=== PATIENT | female | born 1970 | race Caucasian/White ===

== ENCOUNTER 2017-10-26 01:33 | Emergency (ER) | payer SELFPAY ==
[~2017-10-26] VITALS: Ht 177.8 cm; Wt 127.0 kg
== END 2017-10-26 02:12 | disposition home or self-care (01) ==
LOC: FSED 01:33
DX: M54.6 Pain in thoracic spine (principal); M54.5 Low back pain; S39.012A Strain of muscle, fascia and tendon of lower back, initial encounter
CPT/HCPCS: 99282

== ENCOUNTER 2019-02-20 04:08 | Emergency (ER) | payer OTHER ==
[~2019-02-20] VITALS: Ht 177.8 cm; Wt 136.1 kg
--- OUTSIDE RECORDS SUMMARY | 2019-02-20 04:12 | XMS REPORT ---
Author Author [facility] Address Unknown Phone Unavailable Care Team Providers Care Slot Floor Person Name Role Phone Unavailable Unavailable Payers Payer Name Policy Type Policy Number Effective Date Expiration Date Problems This patient has no known problems. Allergies, Adverse Reactions, Alerts Allergy Name Allergy Type Status Severity Reaction(s) Onset Date Inactive Date Treating Clinician Comments ciprofloxacin DA Active U 2019-02-19 00:00:00 fentanyl DA Active [place] 2018-12-15 00:00:00 ketorolac DA Active [place] 2018-12-15 00:00:00 tizanidine DA Active PA 2018-12-15 00:00:00 tizanidine DA Active PA 2018-11-22 00:00:00 fentanyl DA Active [place] 2018-11-06 00:00:00 ketorolac DA Active [place] 2018-11-06 00:00:00 fentanyl DA Active [place] 2018-09-22 00:00:00 ketorolac DA Active [place] 2018-09-22 00:00:00 fentanyl DA Active [place] 2018-08-02 00:00:00 ketorolac DA Active [place] 2018-08-02 00:00:00 No Known Allergies DA Active U 2018-05-22 00:00:00 fentanyl DA Active [place] 2018-05-12 00:00:00 hydromorphone DA Active 2017-09-28 00:00:00 ketorolac DA Active [place] 2017-09-28 00:00:00 Medications This patient has no known medications. Encounters Start Date/Time End Date/Time Encounter Type Admission Type Attending [facility] Facility Care Department Encounter ID 2018-06-15 00:00:00 2018-06-15 00:00:00 Outpatient [facility] [id number] 2018-05-01 06:03:04 2018-05-01 06:03:04 Emergency [facility] [id number] Results Test Description Test Time Test Comments Text Results Atomic Results Result Comments - CT L-SPINE W/O CONTRAST 2019-02-19 12:17:00 Name: SAMIR FITZPATRICK [facility] : 1970 Age/S: 48 / F [address] [facility] Unit #: [id number] Loc: [place] [address] Phys: Zoë Duarte MD Acct: [id number] Dis Date: Status: REG ER PHONE #: [phone] Exam Date: 02/19/2019 1122 FAX #: [phone] Reason: fall, back and neck pain EXAMS: CPT CODE: [id number] CT L-SPINE W/O CONTRAST 03602 HISTORY: fall, back and neck pain TECHNIQUE: 2.[address] of the lumbar spine with coronal and sagittal reformatting. Automated exposure control for dose reduction. COMPARISON: CT of the abdomen and pelvis January 30, 2019 which contains the lumbar spine. There is also an MRI of the lumbar spine November 22, 2018. FINDINGS: No acute fracture. No subluxation. Vertebral body alignment is satisfactory. Small vertebral body osteoph ytes are seen in the visualized thoracic spine and throughout the lumbar spine. Vertebral body heights are preserved. Intervertebral disc heights are preserved. No prevertebral or paraspinal soft tissue abnormality. T12-L1: Facet degeneration and vertebral body osteophytes cause mild to moderate narrowing of the central canal and moderate left-sided foraminal narrowing and mild right-sided foraminal narrowing. L1-L2: Facet degeneration and vertebral body osteophytes with disc bulge causes moderate bilateral foraminal narrowing. L2-L3: Facet degeneration and vertebral body osteophytes with disc bulge causes moderate to severe right-sided foraminal narrowing and moderate left-sided foraminal narrowing. There is also moderate central canal narrowing. L3-L4: Facet degeneration and vertebral body osteophytes causes severe foraminal narrowing bilaterally and moderate to severe central canal narrowing. L4-L5: Facet degeneration and vertebral body osteophytes cause severe bilateral foraminal narrowing and moderate central canal narrowing. L5-S1: No disc bulge or protrusion. No cental canal or foraminal stenosis IMPRESSION: PAGE 1 Signed Report (CONTINUED) Name: SAMIR FITZPATRICK [email or web address] [facility] : 1970 Age/S: 48 / F [address] [place] [address] Unit #: [id number] Loc: [place] [address] Phys: Zoë Duarte MD Acct: [id number] Dis Date: Status: REG ER PHONE #: [phone] Exam Date: 02/19/2019 1122 FAX #: [phone] Reason: fall, back and neck pain EXAMS: CPT CODE: [id number] CT L-SPINE W/O CONTRAST 42095 <Continued> Degenerative changes throughout the lumbar spine cause multiple levels of foraminal narrowing as described above. Correlate with physical exam for radiculopathy. at 1217 Reported and signed by: Hua Dow MD CC: Caleb Bah M.D.; Zoë Duarte MD Technologist:Kelly Ocoha CTDI: DLP: Trnscb Date/Time: 02/19/2019 (1217) [email or web address] Orig Print D/T: S: 02/19/2019 (1221) PAGE 2 Signed Report - CT C-SPINE W/O CONTRAST 2019-02-19 11:54:00 Name: SAMIR FITZPATRICK [email or web address] [facility] : 1970 Age/S: 48 / F [address] [place] [address] Unit #: [id number] Loc: [place] [address] Phys: Zoë Duarte MD Acct: [id number] Dis Date: Status: REG ER PHONE #: [phone] Exam Date: 02/19/2019 1118 FAX #: [phone] Reason: fall, back and neck pain EXAMS: CPT CODE: [id number] CT C-SPINE W/O CONTRAST 22436 HISTORY: fall, back and neck pain, possible LOC TECHNIQUE: Noncontrast 2.[address] of the head and cervical spine. Examination acquired within 24 hours of arrival. Automated exposure control for dose reduction. COMPARISON: None FINDINGS: No lacerations or contusions of the scalp or facial soft tissues. Calvarium and skull base are intact. No acute hemorrhage. No intracranial mass, mass effect, or midline shift. No effacement of the sulci or lau-white matter interface. No cortical atrophy. No signs of white matter small-vessel disease. No hydrocephalus.. No extra-axial fluid collection. Visualized paranasal sinuses are clear. Mastoid air cells and middle ear cavities are clear. Orbital contents are unremarkable. No acute fracture of the cervical spine. No subluxation. Degenerative changes are seen throughout the facet joints of the cervical spine. There has been prior fusion of C5-C6 by anterior approach. No evidence of hardware failure. There is severe left-sided foraminal narrowing at C2-C3. There is severe bilateral foraminal narrowing at C3-C4. There is severe left-sided foraminal narrowing at C4-C5. There is moderate right-sided and severe left-sided foraminal narrowing at C5-C6. There is severe left-sided foraminal narrowing at C6-C7. There is height loss of the C3-C4 disc and also the C6-C7 disc. No prevertebral or paraspinal soft tissue abnormality. Lung apices are clear. IMPRESSION: Negative CT head. No acute fracture or malalignment of the cervical spine. There are degenerative changes throughout the cervical spine with multiple areas of severe foraminal narrowing as described above. PAGE 1 Signed Report (CONTINUED) Name: SAMIR FITZPATRICK [facility] : 1970 Age/S: 48 / F [address] [facility] Unit #: [id number] Loc: [place] [address] Phys: Zoë Duarte MD Acct: [id number] Dis Date: Status: REG ER PHONE #: [phone] Exam Date: 02/19/2019 1118 FAX #: [phone] Reason: fall, back and neck pain EXAMS: CPT CODE: [id number] CT C-SPINE W/O CONTRAST 67885 <Continued> Correlate clinically for adenopathy. Prior anterior fusion of C5-C6 with no evidence of hardware loosening. Location: [facility] at 1154 Reported and signed by: Hua Dow MD CC: Caleb Bah M.D.; Zoë Duarte MD Technologist:Kelly Ochoa CTDI: DLP: Trnscb Date/Time: 02/19/2019 (1154) [email or web address] Orig Print D/T: S: 02/19/2019 (1302) PAGE 2 Signed Report - CT HEAD/BRAIN W/O CONT 2019-02-19 11:54:00 [facility] 1970 Age/S: 48 / F [address] [facility] Unit #: [id number] Loc: [place] [address] Phys: Zoë Duarte MD Acct: [id number] Dis Date: Status: REG ER PHONE #: [phone] Exam Date: 02/19/2019 1107 FAX #: [phone] Reason: fall, back and neck pain, possible LOC EXAMS: CPT CODE: [id number] CT HEAD/BRAIN W/O CONT 37121 HISTORY: fall, back and neck pain, possible LOC TECHNIQUE: Noncontrast 2.[address] of the head and cervical spine. Examination acquired within 24 hours of arrival. Automated exposure control for dose reduction. COMPARISON: None FINDINGS: No lacerations or contusions of the scalp or facial soft tissues. Calvarium and skull base are intact. No acute hemorrhage. No intracranial mass, mass effect, or midline shift. No effacement of the sulci or lau-white matter interface. No cortical atrophy. No signs of white matter small-vessel disease. No hydrocephalus.. No extra-axial fluid collection. Visualized paranasal sinuses are clear. Mastoid air cells and middle ear cavities are clear. Orbital contents are unremarkable. No acute fracture of the cervical spine. No subluxation. Degenerative changes are seen throughout the facet joints of the cervical spine. There has been prior fusion of C5-C6 by anterior approach. No evidence of hardware failure. There is severe left-sided foraminal narrowing at C2-C3. There is severe bilateral foraminal narrowing at C3-C4. There is severe left-sided foraminal narrowing at C4-C5. There is moderate right-sided and severe left-sided foraminal narrowing at C5-C6. There is severe left-sided foraminal narrowing at C6-C7. There is height loss of the C3-C4 disc and also the C6-C7 disc. No prevertebral or paraspinal soft tissue abnormality. Lung apices are clear. IMPRESSION: Negative CT head. No acute fracture or malalignment of the cervical spine. There are degenerative changes throughout the cervical spine with multiple areas of severe foraminal narrowing as described above. PAGE 1 Signed Report (CONTINUED) Name: SAMIR FITZPATRICK [facility] : 1970 Age/S: 48 / F [address] [facility] Unit #: [id number] Loc: [facility] [place] [address] Phys: Zoë Duarte MD Acct: [id number] Dis Date: Status: REG ER PHONE #: [phone] Exam Date: 02/19/2019 1107 FAX #: [phone] Reason: fall, back and neck pain, possible LOC EXAMS: CPT CODE: [id number] CT HEAD/BRAIN W/O CONT 62560 <Continued> Correlate clinically for adenopathy. Prior anterior fusion of C5-C6 with no evidence of hardware loosening. Location: [facility] at 1154 Reported and signed by: Hua Dow MD CC: Caleb Bah M.D.; Zoë Duarte MD Technologist:Kelly Ochoa CTDI: DLP: Trnscb Date/Time: 02/19/2019 (1154) [email or web address] Orig Print D/T: S: 02/19/2019 (0217) PAGE 2 Signed Report CBC W/AUTO DIFF 2019-02-02 10:00:00 WHITE BLOOD CELL (test code=WBC) 5.4 K/mm3 4.5-12.5 RED BLOOD CELL (test code=RBC) 4.03 mill/mm3 3.7-5.2 HEMOGLOBIN (test code=HGB) 10.2 gram/dL 11.5-15.5 HEMATOCRIT (test code=HCT) 33.6 % 36.0-46.0 MEAN CELL VOLUME (test code=MCV) 83.4 fL 80-98 MEAN CELL HGB (test code=MCH) 25.3 picogram 27.0-33.0 MEAN CELL HGB CONCETRATION (test code=MCHC) 30.4 gram/dL 33.0-36.0 RED CELL DISTRIBUTION WIDTH (test code=RDW) 16.7 % 11.6-16.2 RED CELL DISTRIBUTION WIDTH SD (test code=RDW-SD) 50.9 fL 37.0-51.0 PLATELET COUNT (test code=PLT) 251 K/mm3 150-450 MEAN PLATELET VOLUME (test code=MPV) 10.3 fL 6.7-11.0 NEUTROPHIL % (test code=NT%) 41.5 % 39.0-69.0 IMMATURE GRANULOCYTE % (test code=IG%) 0.2 % 0.0-5.0 LYMPHOCYTE % (test code=LY%) 44.1 % 25.0-55.0 MONOCYTE % (test code=MO%) 8.8 % 0.0-10.0 EOSINOPHIL % (test code=EO%) 4.8 % 0.0-5.0 BASOPHIL % (test code=BA%) 0.6 % 0.0-1.0 NUCLEATED RBC % (test code=NRBC%) 0.0 % 0-0 NEUTROPHIL # (test code=NT#) 2.23 K/mm3 1.8-7.7 IMMATURE GRANULOCYTE # (test code=IG#) 0.01 x10 3/uL 0-0.03 LYMPHOCYTE # (test code=LY#) 2.37 K/mm3 1.0-5.0 MONOCYTE # (test code=MO#) 0.47 K/mm3 0-0.8 EOSINOPHIL # (test code=EO#) 0.26 K/mm3 0.0-0.5 BASOPHIL # (test code=BA#) 0.03 K/mm3 0.0-0.2 NUCLEATED RBC # (test code=NRBC#) 0.00 K/mm3 0.0-0.1 - XR ABDOMEN AP 1 [id number] 19:42:00 FAX: Chantal Causey [phone] [place]: B St: ADM FAX: Caleb Osman MD [phone] FAX: Megan Pena MD [phone] FAX: Basil Luevano MD Name: SAMIR FITZPATRICK [facility] : 1970 Age/S: 48/F [address] [facility] Unit #: [id number] Loc: [place] [place] [address] Phys: Megan Jimenez MD Acct: [id number] Dis Date: Status: ADM IN PHONE #: [phone] Exam D ate: 01/31/20191926 FAX #: [phone] Reason: K IDNEY STONE, ABD PAIN EXAMS: CPT CODE: [id number] XR ABDOMEN AP 1 V 97773 HISTORY: KIDNEY STONE, ABD PAIN TECHNIQUE: AP abdomen x-ray COMPARISON: Abdominal radiographs August 31, 2016 FINDINGS: There is gaseous distention of the ascending colon. There is moderate stool burden in the splenic flexure, de scending colon, and rectum. No intra-abdominal mass effect. There is a small round opacity overlying the region of the left kidney as annotated by the arrow which may represent the stone described in the pat ient's history. No other calcifications are seen. There are degene rative changes in the bilateral hips, similar to the prior exam Visualized thorax is within normal limits. IMPRESSION: Questionable left renal stone as annotated by arrow. Findings suggest constipation. at 1942 Reported and signed by: Hua Dow MD CC: Chantal Padilla; Caleb Bah M.D.; Megan Jimenez MD; Basil Ruelas Technologist: JEFFERSON GARCIA Trnscrd Date/Time/By: 10/2018 (1941) : By: [email or web address] Orig Print D/T: S: 01/31/2019 (1944) PAGE 1 Signed Report URINALYSIS [id number] 03:46:00* Test Item Value Reference Range Comments UA COLOR (test code=COLU) YELLOW YELLOW UA APPEARANCE (test code=APPU) CLEAR CLEAR UA GLUCOSE DIPSTICK (test code=DGLUU) NEGATIVE mg/dL NEGATIVE UA BILIRUBIN DIPSTICK (test code=BILU) NEGATIVE mg/dL NEGATIVE UA KETONE DIPSTICK (test code=KETU) NEGATIVE mg/dL NEGATIVE UA SPECIFIC GRAVITY (test code=SGU) >1.050 1.001-1.035 UA BLOOD DIPSTICK (test code=GABE) Negative mg/dL NEGATIVE UA PH DIPSTICK (test code=BRE) 5.5 5.0-8.0 UA PROTEIN DIPSTICK (test code=PROU) NEGATIVE mg/dL NEGATIVE UA UROBILINIOGEN DIPSTICK (test code=URO) 2.0 (1+) mg/dL NEGATIVE UA NITRITE DIPSTICK (test code=APRIL) NEGATIVE NEGATIVE UA LEUKOCYTE ESTERASE W REFLEX (test code=LEUUR) NEGATIVE Curtis/uL NEGATIVE UA WBC (test code=WBCU) 0-5 per HPF 0-5 UA RBC (test code=RBCU) 0-2 #/HPF 0-5 UA EPITHELIAL CELLS (test code=EPIU) FEW per HPF FEW UA BACTERIA (test code=BACU) FEW #/HPF NONE UA MUCUS (test code=MUCU) FEW #/LPF FEW Urine Source? Clean CatchBASIC METABOLIC [id number] 02:02:00* Test Item Value Reference Range Comments SODIUM (test code=NA) 140 mmol/L 136-145 POTASSIUM (test code=K) 3.6 mmol/L 3.5-5.1 CHLORIDE (test code=CL) 109.0 mmol/L 98-107 CARBON DIOXIDE (test code=CO2) 24.0 mmol/L 21-32 ANION GAP (test code=GAP) 10.6 10-20 GLUCOSE (test code=GLU) 121 mg/dL 74-106 BLOOD UREA NITROGEN (test code=BUN) 10 mg/dL 7-18 GLOMERULAR FILTRATION RATE (test code=GFR) 59 mL/min >=60 Estimated GFR by using Modified MDRD formula.Chronic kidney disease is defined as either kidney damageor GFR <60 mL/min/1.73 m2 for >3 months. CREATININE (test code=CREAT) 1.00 mg/dL 0.55-1.02 Note change in reference range due to change in reagent. BUN/CREATININE RATIO (test code=BUN/CREA) 10.3 10-20 CALCIUM (test code=CA) 8.4 mg/dL 8.5-10.1 HEPATIC FUNCTION [id number] 02:02:00* Test Item Value Reference Range Comments TOTAL PROTEIN (test code=PROT) 7.3 gram/dL 6.4-8.2 ALBUMIN (test code=ALB) 3.1 g/dL 3.4-5.0 GLOBULIN (test code=GLOB) 4.2 gram/dL 2.7-4.2 ALBUMIN/GLOBULIN RATIO (test code=A/G) 0.7 0.75-1.50 BILIRUBIN TOTAL (test code=BILT) 0.40 mg/dL 0.0-1.0 BILIRUBIN DIRECT (test code=BILD) 0.07 mg/dL 0.0-0.20 SGOT/AST (test code=AST) 14 IUnit/L 15-37 SGPT/ALT (test code=ALT) 27 IUnit/L 12-78 ALKALINE PHOSPHATASE TOTAL (test code=ALKP) 79 IUnit/L 45-117 Note change in reference range due to change in reagent. [id number] 02:02:00* Test Item Value Reference Range Comments LIPASE (test code=LIP) 237 U/L 73.0-393.0 HCG SERUM [id number] 02:02:00* Test Item Value Reference Range Comments HCG SERUM QUAL (test code=HCGQL) NEGATIVE NEGATIVE This HCGQL test is NOT applicable for MALE patients.Check with nurse about probable order error.If Tumor Marker Test needed, nurse should order test "HCGTU"(Test #550.73911) BASIC METABOLIC [id number] 01:59:00* Test Item Value Reference Range Comments SODIUM (test code=NA) 140 mmol/L 136-145 POTASSIUM (test code=K) 3.6 mmol/L 3.5-5.1 CHLORIDE (test code=CL) 109.0 mmol/L 98-107 CARBON DIOXIDE (test code=CO2) 24.0 mmol/L 21-32 ANION GAP (test code=GAP) 10.6 10-20 GLUCOSE (test code=GLU) 121 mg/dL 74-106 BLOOD UREA NITROGEN (test code=BUN) 10 mg/dL 7-18 GLOMERULAR FILTRATION RATE (test code=GFR) 59 mL/min >=60 Estimated GFR by using Modified MDRD formula.Chronic kidney disease is defined as either kidney damageor GFR <60 mL/min/1.73 m2 for >3 months. CREATININE (test code=CREAT) 1.00 mg/dL 0.55-1.02 Note change in reference range due to change in reagent. BUN/CREATININE RATIO (test code=BUN/CREA) 10.3 10-20 CALCIUM (test code=CA) 8.4 mg/dL 8.5-10.1 HEPATIC FUNCTION [id number] 01:59:00* Test Item Value Reference Range Comments TOTAL PROTEIN (test code=PROT) 7.3 gram/dL 6.4-8.2 ALBUMIN (test code=ALB) 3.1 g/dL 3.4-5.0 GLOBULIN (test code=GLOB) 4.2 gram/dL 2.7-4.2 ALBUMIN/GLOBULIN RATIO (test code=A/G) 0.7 0.75-1.50 BILIRUBIN TOTAL (test code=BILT) 0.40 mg/dL 0.0-1.0 BILIRUBIN DIRECT (test code=BILD) 0.07 mg/dL 0.0-0.20 SGOT/AST (test code=AST) 14 IUnit/L 15-37 SGPT/ALT (test code=ALT) 27 IUnit/L 12-78 ALKALINE PHOSPHATASE TOTAL (test code=ALKP) 79 IUnit/L 45-117 Note change in reference range due to change in reagent. [id number] 01:59:00* Test Item Value Reference Range Comments LIPASE (test code=LIP) 237 U/L 73.0-393.0 HCG SERUM [id number] 01:59:00* Test Item Value Reference Range Comments HCG SERUM QUAL (test code=HCGQL) NEGATIVE BASIC METABOLIC [id number] 01:54:00* Test Item Value Reference Range Comments SODIUM (test code=NA) 140 mmol/L 136-145 POTASSIUM (test code=K) 3.6 mmol/L 3.5-5.1 CHLORIDE (test code=CL) 109.0 mmol/L 98-107 CARBON DIOXIDE (test code=CO2) mmol/L 21-32 ANION GAP (test code=GAP) 10-20 GLUCOSE (test code=GLU) mg/dL 74-106 BLOOD UREA NITROGEN (test code=BUN) mg/dL 7-18 GLOMERULAR FILTRATION RATE (test code=GFR) mL/min >=60 CREATININE (test code=CREAT) mg/dL 0.55-1.02 BUN/CREATININE RATIO (test code=BUN/CREA) 10-20 CALCIUM (test code=CA) mg/dL 8.5-10.1 HEPATIC FUNCTION [id number] 01:54:00* Test Item Value Reference Range Comments TOTAL PROTEIN (test code=PROT) gram/dL 6.4-8.2 ALBUMIN (test code=ALB) g/dL 3.4-5.0 GLOBULIN (test code=GLOB) gram/dL 2.7-4.2 ALBUMIN/GLOBULIN RATIO (test code=A/G) 0.75-1.50 BILIRUBIN TOTAL (test code=BILT) mg/dL 0.0-1.0 BILIRUBIN DIRECT (test code=BILD) mg/dL 0.0-0.20 SGOT/AST (test code=AST) IUnit/L 15-37 SGPT/ALT (test code=ALT) IUnit/L 12-78 ALKALINE PHOSPHATASE TOTAL (test code=ALKP) IUnit/L 45-117 [id number] 01:54:00* Test Item Value Reference Range Comments LIPASE (test code=LIP) U/L 73.0-393.0 HCG SERUM [id number] 01:54:00* Test Item Value Reference Range Comments HCG SERUM QUAL (test code=HCGQL) NEGATIVE CBC W/O [id number] 01:42:00* Test Item Value Reference Range Comments WHITE BLOOD CELL (test code=WBC) 7.3 K/mm3 4.5-12.5 RED BLOOD CELL (test code=RBC) 4.18 mill/mm3 3.7-5.2 HEMOGLOBIN (test code=HGB) 10.7 gram/dL 11.5-15.5 HEMATOCRIT (test code=HCT) 34.5 % 36.0-46.0 MEAN CELL VOLUME (test code=MCV) 82.5 fL 80-98 MEAN CELL HGB (test code=MCH) 25.6 picogram 27.0-33.0 MEAN CELL HGB CONCETRATION (test code=MCHC) 31.0 gram/dL 33.0-36.0 RED CELL DISTRIBUTION WIDTH (test code=RDW) 16.8 % 11.6-16.2 PLATELET COUNT (test code=PLT) 278 K/mm3 150-450 MEAN PLATELET VOLUME (test code=MPV) 10.1 fL 6.7-11.0 URINALYSIS [id number] 18:35:00* Test Item Value Reference Range Comments UA COLOR (test code=COLU) Light-Yellow YELLOW UA APPEARANCE (test code=APPU) CLEAR CLEAR UA GLUCOSE DIPSTICK (test code=DGLUU) NEGATIVE mg/dL NEGATIVE UA BILIRUBIN DIPSTICK (test code=BILU) NEGATIVE mg/dL NEGATIVE UA KETONE DIPSTICK (test code=KETU) NEGATIVE mg/dL NEGATIVE UA SPECIFIC GRAVITY (test code=SGU) 1.035 1.001-1.035 UA BLOOD DIPSTICK (test code=GABE) Negative mg/dL NEGATIVE UA PH DIPSTICK (test code=BRE) 5.5 5.0-8.0 UA PROTEIN DIPSTICK (test code=PROU) NEGATIVE mg/dL NEGATIVE UA UROBILINIOGEN DIPSTICK (test code=URO) Normal mg/dL NEGATIVE UA NITRITE DIPSTICK (test code=APRIL) NEGATIVE NEGATIVE UA LEUKOCYTE ESTERASE W REFLEX (test code=LEUUR) 25 Curtis/uL (Trace) Curtis/uL NEGATIVE UA WBC (test code=WBCU) 0-5 per HPF 0-5 UA RBC (test code=RBCU) 0-2 #/HPF 0-5 UA EPITHELIAL CELLS (test code=EPIU) FEW per HPF FEW UA BACTERIA (test code=BACU) NONE SEEN #/HPF NONE UA MUCUS (test code=MUCU) FEW #/LPF FEW Urine Source? Clean Catch- CT ABD PELVIS [id number] 18:30:00 Name: SAMIR FITZPATRICK [facility] : 1970 Age/S: 48 / F [address] [facility]: [id number] Loc: [place] [address] Phys: Krystal Parker NP Acct: [id number] Di s Date: Status: REG ER PHONE #: Exam Date: 01/30/2019 1801 FAX #: [phone] Reason: ABD PAIN EXAMS: CPT CODE: [id number] CT ABD PELVIS W/CONT 21432 REASON FOR EXAM: ABD PAIN EXAM ORDER DATE: 01/30/2019 4:25 PM Ordering M.D.: Krystal Parker NP PROCEDURE: - CT ABD PELVIS W/CONT cont rast-enhanced axial CT images were acquired through the abdomen/pelvis at 5 mm intervals. Sagittal and coronal reformatted images were generated. Automated exposure control was utilized for this reduction. Phases of contrast: venous and delayed COMPARISON: CT abdomen and pelvis December 15, 2018 FINDINGS: Visualized thorax: There is mild subsegmental atelectasis in the middle lobe and lingula Hepatobiliary system: Prior cholecystectomy. Dilation of the common bile duct is likely secondary to biliary reservoir effect and is unch anged from the prior exam Pancreas: Normal Spleen: N ormal Adrenal glands: Normal Genitourinary system: T here is a stone in the inferior pole of the left kidney that measures 4 mm in size. No hydronephrosis or hydroureter or perinephric or periureteral fat stranding. Marked uterine enlargement secondary to multiple fibroids i s unchanged from the prior exam. Gastrointestinal tract and appendix: Moderate colonic stool burden. Stomach and small bowel are withi n normal limits. The appendix is not clearly visualized but no inflammator y changes are seen in the expected region of the appendix Ab dominal vascular structures: Normal Peritoneum and retroperitoneum : No free fluid or free air. No omental or mesenteric masses. No abnorma l lymph nodes. PAGE 1 Signed Report (CONTINUED) Name: SAMIR FITZPATRICK [facility] : 1970 Age/S: 48 / F [place] Unit #: [id number] Loc: [place] [address] Ph ys: Lisa Parker NP Acct: [id number] Dis Date: Status: REG ER PHONE #: [phone] Exam Date: 01/30/2019 1806 FAX #: [phone] Reason: ABD PAIN EXAMS: CPT CODE: [id number] CT ABD PELVIS W/CONT 53958 <Continued> Musculoskeletal structures and abdominal wall: Mild degenerative changes are present in the spine and hips. Fat-containing umbilical hernia is present IMPRESSION: Nonobstructive nephrolithiasis on the left side. No perinephric or periureteral fat stranding to suggest inflammatory changes. Enlarged fibroid uterus is unchanged from the prior exam. at 1830 Reported and signed by: Hua Dow MD CC: Caleb Bah M.D.; Lisa Parker NP Technologist:Mary Lamb RT(R)(CT) CTDI: DLP: Trnscb Da te/Time: 01/30/2019 (1830) [email or web address] Orig Print D/T: S: 1 (183) PAGE 2 Signed Report BASIC METABOLIC [id number] 17:28:00* Test Item Value Reference Range Comments SODIUM (test code=NA) 142 mmol/L 136-145 POTASSIUM (test code=K) 4.0 mmol/L 3.5-5.1 CHLORIDE (test code=CL) 110.0 mmol/L 98-107 CARBON DIOXIDE (test code=CO2) 22.0 mmol/L 21-32 ANION GAP (test code=GAP) 14.0 10-20 GLUCOSE (test code=GLU) 96 mg/dL 74-106 BLOOD UREA NITROGEN (test code=BUN) 10 mg/dL 7-18 GLOMERULAR FILTRATION RATE (test code=GFR) > 60 mL/min >=60 Estimated GFR by using Modified MDRD formula.Chronic kidney disease is defined as either kidney damageor GFR <60 mL/min/1.73 m2 for >3 months. CREATININE (test code=CREAT) 0.80 mg/dL 0.55-1.02 Note change in reference range due to change in reagent. BUN/CREATININE RATIO (test code=BUN/CREA) 11.9 10-20 CALCIUM (test code=CA) 8.9 mg/dL 8.5-10.1 HEPATIC FUNCTION [id number] 17:28:00* Test Item Value Reference Range Comments TOTAL PROTEIN (test code=PROT) 7.4 gram/dL 6.4-8.2 ALBUMIN (test code=ALB) 3.5 g/dL 3.4-5.0 GLOBULIN (test code=GLOB) 3.9 gram/dL 2.7-4.2 ALBUMIN/GLOBULIN RATIO (test code=A/G) 0.9 0.75-1.50 BILIRUBIN TOTAL (test code=BILT) 0.50 mg/dL 0.0-1.0 BILIRUBIN DIRECT (test code=BILD) 0.12 mg/dL 0.0-0.20 SGOT/AST (test code=AST) 17 IUnit/L 15-37 SGPT/ALT (test code=ALT) 28 IUnit/L 12-78 ALKALINE PHOSPHATASE TOTAL (test code=ALKP) 84 IUnit/L 45-117 Note change in reference range due to change in reagent. [id number] 17:28:00* Test Item Value Reference Range Comments LIPASE (test code=LIP) 214 U/L 73.0-393.0 HCG SERUM [id number] 17:28:00* Test Item Value Reference Range Comments HCG SERUM QUAL (test code=HCGQL) NEGATIVE NEGATIVE This HCGQL test is NOT applicable for MALE patients.Check with nurse about probable order error.If Tumor Marker Test needed, nurse should order test "HCGTU"(Test #550.73371) [id number] 17:28:00* Test Item Value Reference Range Comments TROPONIN-I (test code=TROPI) <0.015 ng/mL 0-0.045 BASIC METABOLIC [id number] 17:21:00* Test Item Value Reference Range Comments SODIUM (test code=NA) 142 mmol/L 136-145 POTASSIUM (test code=K) 4.0 mmol/L 3.5-5.1 CHLORIDE (test code=CL) 110.0 mmol/L 98-107 CARBON DIOXIDE (test code=CO2) mmol/L 21-32 ANION GAP (test code=GAP) 10-20 GLUCOSE (test code=GLU) mg/dL 74-106 BLOOD UREA NITROGEN (test code=BUN) mg/dL 7-18 GLOMERULAR FILTRATION RATE (test code=GFR) mL/min >=60 CREATININE (test code=CREAT) mg/dL 0.55-1.02 BUN/CREATININE RATIO (test code=BUN/CREA) 10-20 CALCIUM (test code=CA) mg/dL 8.5-10.1 HEPATIC FUNCTION [id number] 17:21:00* Test Item Value Reference Range Comments TOTAL PROTEIN (test code=PROT) gram/dL 6.4-8.2 ALBUMIN (test code=ALB) g/dL 3.4-5.0 GLOBULIN (test code=GLOB) gram/dL 2.7-4.2 ALBUMIN/GLOBULIN RATIO (test code=A/G) 0.75-1.50 BILIRUBIN TOTAL (test code=BILT) mg/dL 0.0-1.0 BILIRUBIN DIRECT (test code=BILD) mg/dL 0.0-0.20 SGOT/AST (test code=AST) IUnit/L 15-37 SGPT/ALT (test code=ALT) IUnit/L 12-78 ALKALINE PHOSPHATASE TOTAL (test code=ALKP) IUnit/L 45-117 [id number] 17:21:00* Test Item Value Reference Range Comments LIPASE (test code=LIP) U/L 73.0-393.0 HCG SERUM [id number] 17:21:00* Test Item Value Reference Range Comments HCG SERUM QUAL (test code=HCGQL) NEGATIVE NEGATIVE This HCGQL test is NOT applicable for MALE patients.Check with nurse about probable order error.If Tumor Marker Test needed, nurse should order test "HCGTU"(Test #550.81781) [id number] 17:21:00* Test Item Value Reference Range Comments TROPONIN-I (test code=TROPI) ng/mL 0-0.045 BASIC METABOLIC [id number] 17:16:00* Test Item Value Reference Range Comments SODIUM (test code=NA) mmol/L 136-145 POTASSIUM (test code=K) mmol/L 3.5-5.1 CHLORIDE (test code=CL) mmol/L 98-107 CARBON DIOXIDE (test code=CO2) mmol/L 21-32 ANION GAP (test code=GAP) 10-20 GLUCOSE (test code=GLU) mg/dL 74-106 BLOOD UREA NITROGEN (test code=BUN) mg/dL 7-18 GLOMERULAR FILTRATION RATE (test code=GFR) mL/min >=60 CREATININE (test code=CREAT) mg/dL 0.55-1.02 BUN/CREATININE RATIO (test code=BUN/CREA) 10-20 CALCIUM (test code=CA) mg/dL 8.5-10.1 HEPATIC FUNCTION [id number] 17:16:00* Test Item Value Reference Range Comments TOTAL PROTEIN (test code=PROT) gram/dL 6.4-8.2 ALBUMIN (test code=ALB) g/dL 3.4-5.0 GLOBULIN (test code=GLOB) gram/dL 2.7-4.2 ALBUMIN/GLOBULIN RATIO (test code=A/G) 0.75-1.50 BILIRUBIN TOTAL (test code=BILT) mg/dL 0.0-1.0 BILIRUBIN DIRECT (test code=BILD) mg/dL 0.0-0.20 SGOT/AST (test code=AST) IUnit/L 15-37 SGPT/ALT (test code=ALT) IUnit/L 12-78 ALKALINE PHOSPHATASE TOTAL (test code=ALKP) IUnit/L 45-117 [id number] 17:16:00* Test Item Value Reference Range Comments LIPASE (test code=LIP) U/L 73.0-393.0 HCG SERUM [id number] 17:16:00* Test Item Value Reference Range Comments HCG SERUM QUAL (test code=HCGQL) NEGATIVE NEGATIVE This HCGQL test is NOT applicable for MALE patients.Check with nurse about probable order error.If Tumor Marker Test needed, nurse should order test "HCGTU"(Test #550.00365) [id number] 17:16:00* Test Item Value Reference Range Comments TROPONIN-I (test code=TROPI) ng/mL 0-0.045 CBC W/O [id number] 17:09:00* Test Item Value Reference Range Comments WHITE BLOOD CELL (test code=WBC) 6.8 K/mm3 4.5-12.5 RED BLOOD CELL (test code=RBC) 4.41 mill/mm3 3.7-5.2 HEMOGLOBIN (test code=HGB) 11.5 gram/dL 11.5-15.5 HEMATOCRIT (test code=HCT) 36.0 % 36.0-46.0 MEAN CELL VOLUME (test code=MCV) 81.6 fL 80-98 MEAN CELL HGB (test code=MCH) 26.1 picogram 27.0-33.0 MEAN CELL HGB CONCETRATION (test code=MCHC) 31.9 gram/dL 33.0-36.0 RED CELL DISTRIBUTION WIDTH (test code=RDW) 16.7 % 11.6-16.2 PLATELET COUNT (test code=PLT) 297 K/mm3 150-450 MEAN PLATELET VOLUME (test code=MPV) 10.2 fL 6.7-11.0 CBC W/O [id number] 17:08:00* Test Item Value Reference Range Comments WHITE BLOOD CELL (test code=WBC) K/mm3 4.5-12.5 RED BLOOD CELL (test code=RBC) mill/mm3 3.7-5.2 HEMOGLOBIN (test code=HGB) 11.5 gram/dL 11.5-15.5 HEMATOCRIT (test code=HCT) 36.0 % 36.0-46.0 MEAN CELL VOLUME (test code=MCV) fL 80-98 MEAN CELL HGB (test code=MCH) picogram 27.0-33.0 MEAN CELL HGB CONCETRATION (test code=MCHC) gram/dL 33.0-36.0 RED CELL DISTRIBUTION WIDTH (test code=RDW) % 11.6-16.2 PLATELET COUNT (test code=PLT) K/mm3 150-450 MEAN PLATELET VOLUME (test code=MPV) fL 6.7-11.0 URINALYSIS [id number] 11:38:00* Test Item Value Reference Range Comments UA COLOR (test code=COLU) YELLOW YELLOW UA APPEARANCE (test code=APPU) CLOUDY CLEAR UA GLUCOSE DIPSTICK (test code=DGLUU) NEGATIVE mg/dL NEGATIVE UA BILIRUBIN DIPSTICK (test code=BILU) 2+ (Mod 2.0-4.0) NEGATIVE UA KETONE DIPSTICK (test code=KETU) 1+ mg/dL NEGATIVE UA SPECIFIC GRAVITY (test code=SGU) >=1.030 1.001-1.035 UA BLOOD DIPSTICK (test code=GABE) TRACE NEGATIVE UA PH DIPSTICK (test code=BRE) 5.5 5.0-8.0 UA PROTEIN DIPSTICK (test code=PROU) 1+ mg/dL Neg-15 UA UROBILINIOGEN DIPSTICK (test code=URO) 0.2 mg/dL 0.0-0.2 UA NITRITE DIPSTICK (test code=APRIL) NEGATIVE NEGATIVE UA LEUKOCYTE ESTERASE W REFLEX (test code=LEUUR) NEGATIVE NEGATIVE UA WBC (test code=WBCU) 0-5 per HPF 0-5 UA RBC (test code=RBCU) 0-2 #/HPF 0-5 UA EPITHELIAL CELLS (test code=EPIU) MOD per HPF FEW UA BACTERIA (test code=BACU) FEW #/HPF NONE UA HYALINE CAST (test code=HYALU) 3-5 #/LPF 0-5 UA MUCUS (test code=MUCU) MANY #/LPF FEW Urine Source? Clean Catch- CT ABD PELVIS [id number] 11:17:00 Name: SAMIR FITZPATRICK [facility] : 1970 Age/S: 48 / F [address] Unit #: [id number] Loc: [place] [address] Phys: Juan Coon MD Acct: [id number] Di s Date: Status: REG ER PHONE #: Exam Date: 12/15/2018 1042 FAX #: Reason: abd pain vomit diarrhea EXAMS: CPT CODE: [id number] CT ABD PELVIS W/CONT 30100 HISTORY: Abdominal pain w ith vomiting and diarrhea. COMPARISON: CT scan from November 26, 2018 and September 22, 2018. CT of abdomen and pelvis with IV IV contrast: 1 00 mL of Isovue-370. Automated exposure control. CT of abdom en: The lung bases are clear. The liver is enhancing homogeneously. No discrete mass or lesions. The liver measured 21 cm in l ength. Portal vein and hepatic artery are patent. Gallbladder is not seen. The spleen enhances homogeneously. The stomach distended incomple tely however it is normal in appearance. Pancreas enhances h omogeneously. Unremarkable adrenals. Kidneys are free from hydrour eteronephrosis. Homogeneous enhancement. Calyceal stone measuring 2 to 3 m m in the left lower pole. Bilateral excretion is noted. No p athologic adenopathy. Unremarkable well-opacified abdominal and pelvic vas culature. No bowel obstruction or colitis or diverticulitis or ent eritis. CT PELVIS: Pelvic bowel loops are unobstruct ed. Appendix is not visible but no inflammatory changes are noted. Decompressed urinary bladder is nondiagnostic. Markedly enlarged mu ltinodular fibroid uterus measuring 19 cm in length. Ovaries are not seen. No free fluid or free air or abscess. No pelvic pathologic adenopathy. Ph leboliths. Subcutaneous tissues and the musculature are normal in appearance. No lytic or blastic lesions are noted within bony skeleton. DJ D. IMPRESSION: No acute intra-abdominal or int rapelvic pathology. Chronic changes are PAGE 1 Signed Report (CONTINUED) Name: SAMIR FITZPATRICK [facility] : 1970 Age/S: 48 / F [address] Unit #: [id number] Loc: [place] [address] Phys: [place] Coon MD Acct: [id number] Dis Date: Status: REG ER PHONE #: [phone] Exam Date: 12/15/2018 1042 FAX #: [phone] Reason: abd pain vomit diarrhea EXAMS: CPT CODE: [id number] CT ABD PELVIS W/CONT 77481 <Continued> unchanged with markedly enlarged fibroid uterus measuring 19 cm in length. Appendix is not seen but no inflammation. No bowel obstruction or colitis or diverticulitis or enteritis. No hydroureteronephrosis with nonobstructing 2 to 3 mm left lower pole calyceal stone. Urinary bladder is decompressed and limited. at 1117 Reported and signed by: Griffin Pantoja M.D. CC: Caleb Bah M.D.; [place] Coon MD Technologist:Mary Lamb RT(R)(CT) CTDI: DLP: Trnscb Date/Time: 12/15/2018 (1117) [email or web address] Orig Print D/T: S: 12/15/2018 (1121) PAGE 2 Signed Report URINALYSIS [id number] 10:53:00* Test Item Value Reference Range Comments UA COLOR (test code=COLU) YELLOW YELLOW UA APPEARANCE (test code=APPU) CLOUDY CLEAR UA GLUCOSE DIPSTICK (test code=DGLUU) NEGATIVE mg/dL NEGATIVE UA BILIRUBIN DIPSTICK (test code=BILU) 2+ (Mod 2.0-4.0) NEGATIVE UA KETONE DIPSTICK (test code=KETU) 1+ mg/dL NEGATIVE UA SPECIFIC GRAVITY (test code=SGU) >=1.030 1.001-1.035 UA BLOOD DIPSTICK (test code=GABE) TRACE NEGATIVE UA PH DIPSTICK (test code=BRE) 5.5 5.0-8.0 UA PROTEIN DIPSTICK (test code=PROU) 1+ mg/dL Neg-15 UA UROBILINIOGEN DIPSTICK (test code=URO) 0.2 mg/dL 0.0-0.2 UA NITRITE DIPSTICK (test code=APRIL) NEGATIVE NEGATIVE UA LEUKOCYTE ESTERASE W REFLEX (test code=LEUUR) NEGATIVE NEGATIVE UA WBC (test code=WBCU) per HPF 0-5 UA RBC (test code=RBCU) per HPF 0-5 UA EPITHELIAL CELLS (test code=EPIU) per HPF Few UA BACTERIA (test code=BACU) per HPF NONE Urine Source? Clean CatchBASIC METABOLIC [id number] 10:15:00* Test Item Value Reference Range Comments SODIUM (test code=NA) 141 mmol/L 136-145 POTASSIUM (test code=K) 3.2 mmol/L 3.5-5.1 CHLORIDE (test code=CL) 107.0 mmol/L 98-107 CARBON DIOXIDE (test code=CO2) 22.0 mmol/L 21-32 ANION GAP (test code=GAP) 15.2 10-20 GLUCOSE (test code=GLU) 100 mg/dL 74-106 BLOOD UREA NITROGEN (test code=BUN) 11 mg/dL 7-18 GLOMERULAR FILTRATION RATE (test code=GFR) > 60 mL/min >=60 Estimated GFR by using Modified MDRD formula.Chronic kidney disease is defined as either kidney damageor GFR <60 mL/min/1.73 m2 for >3 months. CREATININE (test code=CREAT) 0.80 mg/dL 0.55-1.02 Note change in reference range due to change in reagent. BUN/CREATININE RATIO (test code=BUN/CREA) 13.4 10-20 CALCIUM (test code=CA) 9.1 mg/dL 8.5-10.1 HEPATIC FUNCTION [id number] 10:15:00* Test Item Value Reference Range Comments TOTAL PROTEIN (test code=PROT) 8.2 gram/dL 6.4-8.2 ALBUMIN (test code=ALB) 3.6 g/dL 3.4-5.0 GLOBULIN (test code=GLOB) 4.6 gram/dL 2.7-4.2 ALBUMIN/GLOBULIN RATIO (test code=A/G) 0.8 0.75-1.50 BILIRUBIN TOTAL (test code=BILT) 0.90 mg/dL 0.0-1.0 BILIRUBIN DIRECT (test code=BILD) 0.20 mg/dL 0.0-0.20 SGOT/AST (test code=AST) 17 IUnit/L 15-37 SGPT/ALT (test code=ALT) 29 IUnit/L 12-78 ALKALINE PHOSPHATASE TOTAL (test code=ALKP) 88 IUnit/L 45-117 Note change in reference range due to change in reagent. [id number] 10:15:00* Test Item Value Reference Range Comments LIPASE (test code=LIP) 120 U/L 73.0-393.0 HCG SERUM [id number] 10:15:00* Test Item Value Reference Range Comments HCG SERUM QUAL (test code=HCGQL) NEGATIVE NEGATIVE This HCGQL test is NOT applicable for MALE patients.Check with nurse about probable order error.If Tumor Marker Test needed, nurse should order test "HCGTU"(Test #550.78720) [id number] 10:15:00* Test Item Value Reference Range Comments TROPONIN-I (test code=TROPI) <0.015 ng/mL 0-0.045 LACTIC [id number] 10:11:00* Test Item Value Reference Range Comments LACTIC ACID (test code=LACT) 1.0 mmol/L 0.4-1.9 SPECIMEN COMMENTS: repeat if >2 repeat in 3 hours.BASIC METABOLIC PANEL 2018-12-15 10:06:00* Test Item Value Reference Range Comments SODIUM (test code=NA) 141 mmol/L 136-145 POTASSIUM (test code=K) 3.2 mmol/L 3.5-5.1 CHLORIDE (test code=CL) 107.0 mmol/L 98-107 CARBON DIOXIDE (test code=CO2) mmol/L 21-32 ANION GAP (test code=GAP) 10-20 GLUCOSE (test code=GLU) mg/dL 74-106 BLOOD UREA NITROGEN (test code=BUN) mg/dL 7-18 GLOMERULAR FILTRATION RATE (test code=GFR) mL/min >=60 CREATININE (test code=CREAT) mg/dL 0.55-1.02 BUN/CREATININE RATIO (test code=BUN/CREA) 10-20 CALCIUM (test code=CA) mg/dL 8.5-10.1 HEPATIC FUNCTION [id number] 10:06:00* Test Item Value Reference Range Comments TOTAL PROTEIN (test code=PROT) gram/dL 6.4-8.2 ALBUMIN (test code=ALB) g/dL 3.4-5.0 GLOBULIN (test code=GLOB) gram/dL 2.7-4.2 ALBUMIN/GLOBULIN RATIO (test code=A/G) 0.75-1.50 BILIRUBIN TOTAL (test code=BILT) mg/dL 0.0-1.0 BILIRUBIN DIRECT (test code=BILD) mg/dL 0.0-0.20 SGOT/AST (test code=AST) IUnit/L 15-37 SGPT/ALT (test code=ALT) IUnit/L 12-78 ALKALINE PHOSPHATASE TOTAL (test code=ALKP) IUnit/L 45-117 [id number] 10:06:00* Test Item Value Reference Range Comments LIPASE (test code=LIP) U/L 73.0-393.0 HCG SERUM [id number] 10:06:00* Test Item Value Reference Range Comments HCG SERUM QUAL (test code=HCGQL) NEGATIVE NEGATIVE This HCGQL test is NOT applicable for MALE patients.Check with nurse about probable order error.If Tumor Marker Test needed, nurse should order test "HCGTU"(Test #550.57200) [id number] 10:06:00* Test Item Value Reference Range Comments TROPONIN-I (test code=TROPI) ng/mL 0-0.045 BASIC METABOLIC [id number] 10:05:00* Test Item Value Reference Range Comments SODIUM (test code=NA) 141 mmol/L 136-145 POTASSIUM (test code=K) 3.2 mmol/L 3.5-5.1 CHLORIDE (test code=CL) 107.0 mmol/L 98-107 CARBON DIOXIDE (test code=CO2) mmol/L 21-32 ANION GAP (test code=GAP) 10-20 GLUCOSE (test code=GLU) mg/dL 74-106 BLOOD UREA NITROGEN (test code=BUN) mg/dL 7-18 GLOMERULAR FILTRATION RATE (test code=GFR) mL/min >=60 CREATININE (test code=CREAT) mg/dL 0.55-1.02 BUN/CREATININE RATIO (test code=BUN/CREA) 10-20 CALCIUM (test code=CA) mg/dL 8.5-10.1 HEPATIC FUNCTION [id number] 10:05:00* Test Item Value Reference Range Comments TOTAL PROTEIN (test code=PROT) gram/dL 6.4-8.2 ALBUMIN (test code=ALB) g/dL 3.4-5.0 GLOBULIN (test code=GLOB) gram/dL 2.7-4.2 ALBUMIN/GLOBULIN RATIO (test code=A/G) 0.75-1.50 BILIRUBIN TOTAL (test code=BILT) mg/dL 0.0-1.0 BILIRUBIN DIRECT (test code=BILD) mg/dL 0.0-0.20 SGOT/AST (test code=AST) IUnit/L 15-37 SGPT/ALT (test code=ALT) IUnit/L 12-78 ALKALINE PHOSPHATASE TOTAL (test code=ALKP) IUnit/L 45-117 [id number] 10:05:00* Test Item Value Reference Range Comments LIPASE (test code=LIP) U/L 73.0-393.0 HCG SERUM [id number] 10:05:00* Test Item Value Reference Range Comments HCG SERUM QUAL (test code=HCGQL) NEGATIVE [id number] 10:05:00* Test Item Value Reference Range Comments TROPONIN-I (test code=TROPI) ng/mL 0-0.045 CBC W/O [id number] 09:56:00* Test Item Value Reference Range Comments WHITE BLOOD CELL (test code=WBC) 7.4 K/mm3 4.5-12.5 RED BLOOD CELL (test code=RBC) 4.52 mill/mm3 3.7-5.2 HEMOGLOBIN (test code=HGB) 11.7 gram/dL 11.5-15.5 HEMATOCRIT (test code=HCT) 36.9 % 36.0-46.0 MEAN CELL VOLUME (test code=MCV) 81.6 fL 80-98 MEAN CELL HGB (test code=MCH) 25.9 picogram 27.0-33.0 MEAN CELL HGB CONCETRATION (test code=MCHC) 31.7 gram/dL 33.0-36.0 RED CELL DISTRIBUTION WIDTH (test code=RDW) 17.0 % 11.6-16.2 PLATELET COUNT (test code=PLT) 354 K/mm3 150-450 MEAN PLATELET VOLUME (test code=MPV) 10.0 fL 6.7-11.0 POC LACTIC [id number] 09:43:00* Test Item Value Reference Range Comments POC LACTIC ACID (test code=POCLAC) 0.98 MMOL/L 0.4-2.2 COMPREHENSIVE METABOLIC [id number] 00:00:00* Test Item Value Reference Range Comments SODIUM (test code=NA) 142 mmol/L 136-145 POTASSIUM (test code=K) 3.3 mmol/L 3.5-5.1 CHLORIDE (test code=CL) 110.0 mmol/L 98-107 CARBON DIOXIDE (test code=CO2) 23.0 mmol/L 21-32 ANION GAP (test code=GAP) 12.3 10-20 GLUCOSE (test code=GLU) 130 mg/dL 74-106 BLOOD UREA NITROGEN (test code=BUN) 11 mg/dL 7-18 GLOMERULAR FILTRATION RATE (test code=GFR) > 60 mL/min >=60 Estimated GFR by using Modified MDRD formula.Chronic kidney disease is defined as either kidney damageor GFR <60 mL/min/1.73 m2 for >3 months. CREATININE (test code=CREAT) 0.90 mg/dL 0.55-1.02 Note change in reference range due to change in reagent. BUN/CREATININE RATIO (test code=BUN/CREA) 12.0 10-20 TOTAL PROTEIN (test code=PROT) 7.8 gram/dL 6.4-8.2 ALBUMIN (test code=ALB) 3.5 g/dL 3.4-5.0 GLOBULIN (test code=GLOB) 4.3 gram/dL 2.7-4.2 ALBUMIN/GLOBULIN RATIO (test code=A/G) 0.8 0.75-1.50 CALCIUM (test code=CA) 8.9 mg/dL 8.5-10.1 BILIRUBIN TOTAL (test code=BILT) 0.20 mg/dL 0.0-1.0 SGOT/AST (test code=AST) 17 IUnit/L 15-37 SGPT/ALT (test code=ALT) 32 IUnit/L 12-78 ALKALINE PHOSPHATASE TOTAL (test code=ALKP) 73 IUnit/L 45-117 Note change in reference range due to change in reagent. COMPREHENSIVE METABOLIC [id number] 23:58:00* Test Item Value Reference Range Comments SODIUM (test code=NA) 142 mmol/L 136-145 POTASSIUM (test code=K) 3.3 mmol/L 3.5-5.1 CHLORIDE (test code=CL) 110.0 mmol/L 98-107 CARBON DIOXIDE (test code=CO2) mmol/L 21-32 ANION GAP (test code=GAP) 10-20 GLUCOSE (test code=GLU) mg/dL 74-106 BLOOD UREA NITROGEN (test code=BUN) mg/dL 7-18 GLOMERULAR FILTRATION RATE (test code=GFR) mL/min >=60 CREATININE (test code=CREAT) mg/dL 0.55-1.02 BUN/CREATININE RATIO (test code=BUN/CREA) 10-20 TOTAL PROTEIN (test code=PROT) gram/dL 6.4-8.2 ALBUMIN (test code=ALB) g/dL 3.4-5.0 GLOBULIN (test code=GLOB) gram/dL 2.7-4.2 ALBUMIN/GLOBULIN RATIO (test code=A/G) 0.75-1.50 CALCIUM (test code=CA) mg/dL 8.5-10.1 BILIRUBIN TOTAL (test code=BILT) mg/dL 0.0-1.0 SGOT/AST (test code=AST) IUnit/L 15-37 SGPT/ALT (test code=ALT) IUnit/L 12-78 ALKALINE PHOSPHATASE TOTAL (test code=ALKP) IUnit/L 45-117 PROTHROMBIN [id number] 23:56:00* Test Item Value Reference Range Comments PROTHROMBIN TIME PATIENT (test code=PTP) 11.9 seconds 9.0-14.0 INTERNATIONAL NORMAL RATIO (test code=INR) 1.0 0.8-1.2 The therapeutic range for oral anticoagulant therapy formost indications is an international normalized ratio (INR)of between 2.0 and 3.0. The recommended therapeutic INRrange for various clinical situations is listed below: Clinical Situation INR range Pulmonary e mbolism treatment (2.0-3.0)Venous thrombosis treatmentVenous thrombosis prophylaxis (high risk surgery)Prevention of systemic embolism from: Acute myocardial infarction Valvular heart disease Atrial fibrillation Mechanical prosthetic heart valves (2.5-3.5) IS PATIENT ON ANTICOAGULANTS? NTHROMBOPLASTIN TIME [id number] 23:56:00* Test Item Value Reference Range Comments THROMBOPLASTIN TIME PARTIAL (test code=PTT) 28.5 seconds 25.0-36.5 IS PATIENT ON ANTICOAGULANTS? NCBC W/AUTO [id number] 23:43:00* Test Item Value Reference Range Comments WHITE BLOOD CELL (test code=WBC) 9.9 K/mm3 4.5-12.5 RED BLOOD CELL (test code=RBC) 4.14 mill/mm3 3.7-5.2 HEMOGLOBIN (test code=HGB) 10.9 gram/dL 11.5-15.5 HEMATOCRIT (test code=HCT) 34.8 % 36.0-46.0 MEAN CELL VOLUME (test code=MCV) 84.1 fL 80-98 MEAN CELL HGB (test code=MCH) 26.3 picogram 27.0-33.0 MEAN CELL HGB CONCETRATION (test code=MCHC) 31.3 gram/dL 33.0-36.0 RED CELL DISTRIBUTION WIDTH (test code=RDW) 16.9 % 11.6-16.2 RED CELL DISTRIBUTION WIDTH SD (test code=RDW-SD) 51.5 fL 37.0-51.0 PLATELET COUNT (test code=PLT) 365 K/mm3 150-450 MEAN PLATELET VOLUME (test code=MPV) 10.5 fL 6.7-11.0 NEUTROPHIL % (test code=NT%) 60.5 % 39.0-69.0 IMMATURE GRANULOCYTE % (test code=IG%) 0.5 % 0.0-5.0 LYMPHOCYTE % (test code=LY%) 29.5 % 25.0-55.0 MONOCYTE % (test code=MO%) 7.1 % 0.0-10.0 EOSINOPHIL % (test code=EO%) 1.9 % 0.0-5.0 BASOPHIL % (test code=BA%) 0.5 % 0.0-1.0 NUCLEATED RBC % (test code=NRBC%) 0.0 % 0-0 NEUTROPHIL # (test code=NT#) 5.99 K/mm3 1.8-7.7 IMMATURE GRANULOCYTE # (test code=IG#) 0.05 x10 3/uL 0-0.03 LYMPHOCYTE # (test code=LY#) 2.92 K/mm3 1.0-5.0 MONOCYTE # (test code=MO#) 0.70 K/mm3 0-0.8 EOSINOPHIL # (test code=EO#) 0.19 K/mm3 0.0-0.5 BASOPHIL # (test code=BA#) 0.05 K/mm3 0.0-0.2 NUCLEATED RBC # (test code=NRBC#) 0.00 K/mm3 0.0-0.1 URINALYSIS [id number] 16:44:00* Test Item Value Reference Range Comments UA COLOR (test code=COLU) LUKASZ YELLOW UA APPEARANCE (test code=APPU) HAZY CLEAR UA GLUCOSE DIPSTICK (test code=DGLUU) TRACE mg/dL NEGATIVE UA BILIRUBIN DIPSTICK (test code=BILU) 1+ (Small 0.5-1.0) NEGATIVE UA KETONE DIPSTICK (test code=KETU) NEGATIVE mg/dL NEGATIVE UA SPECIFIC GRAVITY (test code=SGU) >=1.030 1.001-1.035 UA BLOOD DIPSTICK (test code=GABE) 3+ (Large) NEGATIVE UA PH DIPSTICK (test code=BRE) 5.5 5.0-8.0 UA PROTEIN DIPSTICK (test code=PROU) 100 (2+) mg/dL Neg-15 UA UROBILINIOGEN DIPSTICK (test code=URO) 2.0 (1+) mg/dL 0.0-0.2 UA NITRITE DIPSTICK (test code=APRIL) POSITIVE NEGATIVE UA LEUKOCYTE ESTERASE W REFLEX (test code=LEUUR) TRACE NEGATIVE UA WBC (test code=WBCU) 51-100 per HPF 0-5 UA RBC (test code=RBCU) >200 #/HPF 0-5 UA EPITHELIAL CELLS (test code=EPIU) FEW per HPF FEW UA BACTERIA (test code=BACU) FEW #/HPF NONE UA CALCIUM OXALATE CRYSTALS (test code=CAOXU) FEW #/HPF NONE UA MUCUS (test code=MUCU) FEW #/LPF FEW Urine Source? Clean CatchURINALYSIS [id number] 16:30:00* Test Item Value Reference Range Comments UA COLOR (test code=COLU) YELLOW UA APPEARANCE (test code=APPU) CLEAR UA BILIRUBIN DIPSTICK (test code=BILU) NEGATIVE UA SPECIFIC GRAVITY (test code=SGU) 1.001-1.035 UA PH DIPSTICK (test code=BRE) 5.0-8.0 UA UROBILINIOGEN DIPSTICK (test code=URO) mg/dL 0.0-0.2 UA NITRITE DIPSTICK (test code=APRIL) NEGATIVE UA LEUKOCYTE ESTERASE W REFLEX (test code=LEUUR) NEGATIVE UA WBC (test code=WBCU) 51-100 per HPF 0-5 UA RBC (test code=RBCU) >200 #/HPF 0-5 UA EPITHELIAL CELLS (test code=EPIU) FEW per HPF FEW UA BACTERIA (test code=BACU) FEW #/HPF NONE UA CALCIUM OXALATE CRYSTALS (test code=CAOXU) FEW #/HPF NONE UA MUCUS (test code=MUCU) FEW #/LPF FEW Urine Source? Clean Catch- CT ABD PELVIS W/O [id number] 15:50:00 Name: SAMIR FITZPATRICK [facility] : 1970 Age/S: 48 / F [address] Unit #: [id number] Loc: [place] [address] Phys: Krystal Jhaveri DO Acct: [id number] Di s Date: Status: REG ER PHONE #: [phone] Exam Date: 11/26/2018 1538 FAX #: [phone] Reason: FLANK PAIN, HEMATURIA EXAMS: CPT CODE: [id number] CT ABD PELVIS W/O CONT [id number] REASON FOR EXAM: FLANK PAIN, HEMATURIA EXAM ORDER DATE: 11/26/2018 2:07 PM Ordering Jocelyn.: Rhonda Jhaveri DO PROCEDURE: - CT ABD PELVIS W/O CONT COMPARISON: FINDINGS: CT images of the abd omen and pelvis were obtained without IV and without oral contrast at 5mm. Dose modulation, iterative reconstruction, and/or weight based adjustment of the MA/KV was utilized to reduce the radiation dose to as low as reaso nably achievable. The liver, spleen, and pancreas are gross ly within normal limits. The gallbladder was not seen The r ight kidney is unremarkable. The urinary bladder is contracted with a Fol ey catheter The colon, small bowel, and stomach are within normal limits without evidence of obstruction. The appendix is unremarkable No evidence of free air or free fluid. The uterus is enlarged and lobulated in shape suggestive of fibroids IMPRESSION: Multiple small (0.1-0.4 cm) nonobstructing left renal stones. No evidence of hyd ronephrosis or hydroureter at 1550 Reported and signed by: Prince Red M.D. CC: Caleb Bah M.D.; Rhonda Jhaveri DO Technologist :Felecia RODRIGUEZ(R); ANGELO Suh CTDI: DLP: Trnscb Date/Time: 05/2018 (1550) t.SDR.VTL Orig Print D/T: S: 11/26/2018 (15 53) PAGE 1 Signed Report CBC W/O [id number] 15:25:00* Test Item Value Reference Range Comments WHITE BLOOD CELL (test code=WBC) 6.3 K/mm3 4.5-12.5 RED BLOOD CELL (test code=RBC) 4.24 mill/mm3 3.7-5.2 HEMOGLOBIN (test code=HGB) 11.0 gram/dL 11.5-15.5 HEMATOCRIT (test code=HCT) 35.5 % 36.0-46.0 MEAN CELL VOLUME (test code=MCV) 83.7 fL 80-98 MEAN CELL HGB (test code=MCH) 25.9 picogram 27.0-33.0 MEAN CELL HGB CONCETRATION (test code=MCHC) 31.0 gram/dL 33.0-36.0 RED CELL DISTRIBUTION WIDTH (test code=RDW) 17.0 % 11.6-16.2 PLATELET COUNT (test code=PLT) 359 K/mm3 150-450 MEAN PLATELET VOLUME (test code=MPV) 10.3 fL 6.7-11.0 BASIC METABOLIC [id number] 15:10:00* Test Item Value Reference Range Comments SODIUM (test code=NA) 140 mmol/L 136-145 POTASSIUM (test code=K) 3.8 mmol/L 3.5-5.1 CHLORIDE (test code=CL) 108.0 mmol/L 98-107 CARBON DIOXIDE (test code=CO2) 22.0 mmol/L 21-32 ANION GAP (test code=GAP) 13.8 10-20 GLUCOSE (test code=GLU) 87 mg/dL 74-106 BLOOD UREA NITROGEN (test code=BUN) 10 mg/dL 7-18 GLOMERULAR FILTRATION RATE (test code=GFR) > 60 mL/min >=60 Estimated GFR by using Modified MDRD formula.Chronic kidney disease is defined as either kidney damageor GFR <60 mL/min/1.73 m2 for >3 months. CREATININE (test code=CREAT) 0.80 mg/dL 0.55-1.02 Note change in reference range due to change in reagent. BUN/CREATININE RATIO (test code=BUN/CREA) 12.7 10-20 CALCIUM (test code=CA) 9.0 mg/dL 8.5-10.1 HEPATIC FUNCTION [id number] 15:10:00* Test Item Value Reference Range Comments TOTAL PROTEIN (test code=PROT) 7.8 gram/dL 6.4-8.2 ALBUMIN (test code=ALB) 3.3 g/dL 3.4-5.0 GLOBULIN (test code=GLOB) 4.5 gram/dL 2.7-4.2 ALBUMIN/GLOBULIN RATIO (test code=A/G) 0.7 0.75-1.50 BILIRUBIN TOTAL (test code=BILT) 0.40 mg/dL 0.0-1.0 BILIRUBIN DIRECT (test code=BILD) 0.16 mg/dL 0.0-0.20 SGOT/AST (test code=AST) 22 IUnit/L 15-37 SGPT/ALT (test code=ALT) 36 IUnit/L 12-78 ALKALINE PHOSPHATASE TOTAL (test code=ALKP) 75 IUnit/L 45-117 Note change in reference range due to change in reagent. [id number] 15:10:00* Test Item Value Reference Range Comments LIPASE (test code=LIP) 92 U/L 73.0-393.0 HCG SERUM [id number] 15:10:00* Test Item Value Reference Range Comments HCG SERUM QUAL (test code=HCGQL) NEGATIVE NEGATIVE This HCGQL test is NOT applicable for MALE patients.Check with nurse about probable order error.If Tumor Marker Test needed, nurse should order test "HCGTU"(Test #550.86228) BASIC METABOLIC [id number] 15:03:00* Test Item Value Reference Range Comments SODIUM (test code=NA) mmol/L 136-145 POTASSIUM (test code=K) mmol/L 3.5-5.1 CHLORIDE (test code=CL) mmol/L 98-107 CARBON DIOXIDE (test code=CO2) mmol/L 21-32 ANION GAP (test code=GAP) 10-20 GLUCOSE (test code=GLU) mg/dL 74-106 BLOOD UREA NITROGEN (test code=BUN) mg/dL 7-18 GLOMERULAR FILTRATION RATE (test code=GFR) mL/min >=60 CREATININE (test code=CREAT) mg/dL 0.55-1.02 BUN/CREATININE RATIO (test code=BUN/CREA) 10-20 CALCIUM (test code=CA) mg/dL 8.5-10.1 HEPATIC FUNCTION [id number] 15:03:00* Test Item Value Reference Range Comments TOTAL PROTEIN (test code=PROT) gram/dL 6.4-8.2 ALBUMIN (test code=ALB) g/dL 3.4-5.0 GLOBULIN (test code=GLOB) gram/dL 2.7-4.2 ALBUMIN/GLOBULIN RATIO (test code=A/G) 0.75-1.50 BILIRUBIN TOTAL (test code=BILT) mg/dL 0.0-1.0 BILIRUBIN DIRECT (test code=BILD) mg/dL 0.0-0.20 SGOT/AST (test code=AST) IUnit/L 15-37 SGPT/ALT (test code=ALT) IUnit/L 12-78 ALKALINE PHOSPHATASE TOTAL (test code=ALKP) IUnit/L 45-117 [id number] 15:03:00* Test Item Value Reference Range Comments LIPASE (test code=LIP) U/L 73.0-393.0 HCG SERUM [id number] 15:03:00* Test Item Value Reference Range Comments HCG SERUM QUAL (test code=HCGQL) NEGATIVE NEGATIVE This HCGQL test is NOT applicable for MALE patients.Check with nurse about probable order error.If Tumor Marker Test needed, nurse should order test "HCGTU"(Test #550.88732) - MRI L-SPINE W WO [id number] 04:14:00 FAX: Caleb Osman MD [phone] [place]: St: [facility] FAX: Oj Mackenzie MD [phone] Name: RACHELFARZADSAMIR [facility] : 1970 Age/S: 48/F [address] [place] [address] Unit #: [id number] Loc: [place] [address] Phys: Oj Mackenzie MD Acct: [id number] Dis Date: Status: REG ER PHONE #: [phone] Exam Date: 11/22/20182247 FAX #: [phone] Reason: hx of ?compression fr acture acute worsening hira EXAMS: CPT CODE: [id number] MRI L-SPINE W WO CON 89951 Clinical Indication: History of compression fracture. Acute wors ening pain and leg weakness. Comparison: Lumbar spine radiographs pe rformed 08/02/2018. TECHNIQUE: Multiplanar T1, T2, STIR weighted non contrast MRI of the lumbar spine is performed. Post-contrast sequences we re also obtained. Contrast: 27 mL of IV gadolinium was admin istered. FINDINGS: ALIGNMENT AND GENERAL ASSESSMENT : There is normal alignment of the lumbar spine. The bone marrow is normal for the patient?s age. There is no fracture. The anterior and posterior paraspinal soft tissues are within normal limits. The conus medullaris end s at the T12-L1 level. No abnormal enhancement is identified within the brianna mbar spine. There is no abnormal contrast enhancement in the regio n of the conus medullaris or epidural space. For the sake of nomenclature , five lumbar vertebrae are assumed. DISC SPACES: T1 2-L1: Disc desiccation with mild disc space height loss. A 3 mm broad-base d disc protrusion with mild spinal canal stenosis. Mild left neural deyanira inal narrowing. No significant right neural foraminal narrowing. L1-L2: Disc desiccation with mild disc space height loss. Mild broad- based disc protrusion. Mild spinal canal stenosis. No significant lateral recess or neural foraminal stenosis. L2-L3: Disc desiccation wit h mild disc space height loss. Moderate facet arthrosis. Moderate spinal c anal stenosis. Moderate bilateral lateral recess stenosis and mild bilate ral neural foraminal stenosis. L3-L4: Disc signal and height withi n normal limits. Mild disc bulge. Moderate bilateral facet arthrosis and ligamentum flavum thickening. Mild spinal canal stenosis and bilateral lat eral recess stenosis. Moderate right and mild left neural foraminal stenos is. L4-L5: Mild disc desiccation without significant disc space he ight loss. Mild disc bulge. Moderate to severe bilateral facet arthrosis with ligamentum flavum thickening. Mild spinal canal stenosis and PAGE 1 Signed Report (CONTINUED) FAX: Caleb Osman MD [phone] [place]: St: REG FAX: Oj Mackenzie MD [phone] Name: SAMIR FITZPATRICK [facility] jon Morse : 1970 Age/S: 48/F [address] Unit #: [id number] Loc: [place] [address] Phys: Oj Mackenzie MD Acct: [id number] Dis Date: Status: REG ER PHONE #: [phone] Exam Date: 11/22/20188 FAX #: [phone] Reason: hx of ?compression fracture acute worsening hira EXAMS: CPT CODE: [id number] MRI L-SPINE W WO CON 88398 < Continued> moderate bilateral lateral recess stenosis. Mild to moderate bilateral neural foraminal narrowing. L5-S1: Disc signal and height within normal limits. Moderate severe bilateral facet arthrosis. No significant spinal canal, lateral recess or neural foraminal stenosis. IMPRESSION: Multilevel degenerative changes within the lumbar spine with spinal canal, lateral recess and neural foraminal stenosis as described above. No abnormal enhancement within the lumbar spine. SL: KPANILSAL-Cecile at 0414 Reported and signed by: Waldo Lamb M.D. CC: Caleb Bah M.D.; Oj Mackenzie MD Technologist: RT Delia(R)(CT) Trnscrd Date/Time/By: 11/23/2018 (0414) : By: [email or web address] Orig Print D/T: S: 11/23/2018 (0417) PAGE 2 Signed Report - MRI THORACIC SPINE WO/W [id number] 03:53:00 FAX: Caleb Osman MD [phone] [place]: St: REG FAX: Oj Mackenzie MD [phone] Name: SAMIR FITZPATRICK [facility] [place] : 1970 Age/S: 48/F [address] [place] [address] Unit #: [id number] Loc: [place] [address] Phys: Oj Mackenzie MD Acct: [id number] Dis Date: Status: REG ER PHONE #: [phone] Exam Date: 11/22/2018 2248 FAX #: [phone] Reason: hx of ?compression fracture acute worsening hira EXAMS: CPT CODE: [id number] MRI THORACIC SPINE WO/W CON 68337 Clinical Indication: History of compression fracture. Worsening pain. Comparison: None TECHNIQUE: Multiplanar T1, T2, STIR weighted MRI of the thoracic spine is performed. CONTRAST: 27 mL Dotarem. FINDINGS: ALIGNMENT AND GENERAL ASSESSMENT: There is normal alignment of the thoracic spine. The bone marrow is normal for the patient?s age. There is no fracture or compression deformity. The costovertebral junctions are unremarkable. The anterior and posterior paraspinal soft tissues are within normal limits. The visualized lungs are unremarkable. The thoracic spine spinal cord is normal in size and signal. The CSF space is unremarkable. The conus medullaris ends below the level of the imaged spine and likely within the upper lumbar spine. No abnormal enhancement is identified within the thoracic spine. However, motion artifact limits evaluation of the postcontrast images. DISK SPACES: T1-T2: Disc desiccation w ith mild disc space height loss. No significant disc herniation. No signif icant spinal canal or neural foraminal stenosis. T2-T3: D isc desiccation with mild disc space height loss. No significant disc deann iation. No significant spinal canal or neural foraminal stenosis. A left p erineural cyst. T3-T4: Disc desiccation without significant dis c space height loss. No significant disc herniation. No significant spinal canal or neural foraminal stenosis. T4-T5: Disc desiccat ion without significant disc space height loss. No significant disc hernia tion. No significant spinal canal or neural foraminal stenosis. Left perin eural cyst. T5-T6: Mild disc desiccation without significant disc space height PAGE 1 Signed Report (CONTINUED) FAX: Caleb Osman MD [phone] [place]: St: [place] FAX: Oj Mackenzie MD [phone] Name: SAMIR FITZPATRICK [facility] [place] : 1970 Age/S: 48/F [address] [place] [address] Unit #: [id number] Loc: [place] [address] Phys: Oj Mackenzie MD Acct: [id number] Dis Date: Status: REG ER PHONE #: [phone] Exam Date: 11/22/20182247 FAX #: [phone] Reason: hx of ?co mpression fracture acute worsening hira EXAMS: CPT CODE: [id number] MRI THORACIC SPINE WO/W CON 48483 <Continued> loss. No significant disc herniation. No significant spinal canal or neural foraminal stenosis. T6-T7: Disc desiccation with mild disc space height loss. Mild posterior central and right paracentral disc protrusion/herniation. Mild ventral indentation of the thecal sac. No cord compression or cord edema. No significant neural foraminal stenosis. T7-T8: Disc desiccation with mild disc space height loss. No significant disc herniation. No significant spinal canal or neural foraminal stenosis. Right perineural cyst. T8-T9: Disc desiccation with mild disc space height loss. No significant disc herniation, spinal canal stenosis or neural foraminal stenosis. T9-T10: Disc desiccation with mild disc space height loss. No significant disc herniation. Thickening of the ligamentum flavum. Mild spinal canal narrowing. No significant neural foraminal stenosis. Small left perineural cyst. T10-T11: Disc desiccation without significant disc space height loss. Facet arthrosis with ligamentum flavum thickening. Mild spinal canal stenosis. Moderate bilateral neural foraminal narrowing. T11-T12: Disc desiccation without significant disc space height loss. No significant disc herniation. No significant spinal canal stenosis or right neural foraminal narrowing. Mild left neural foraminal narrowing secondary to mild facet arthrosis. T12-L1: Not included on the images. IMPRESSION: Degenerative changes within the thoracic spine with areas of spinal canal and neural foraminal stenosis. No cord compression or cord edema. No abnormal enhancement within the thoracic spine. SL: KPATEL-H PAGE 2 Signed Report (CONTINUED) FAX: Caleb Osman MD [phone] [place]: St: REG FAX: Oj Mackenzie MD [phone] ---- Nam e: SAMIR FITZPATRICK [facility] : Age/S: 48/F [address] [place] [address] Unit #: [id number] Loc: [place] [address] Phys: Oj Mackenzie MD Acct: [id number] Dis Memo e: Status: REG ER PHONE #: Exam Date: 11/22/20188 FAX #: Reason: hx of ?compression fracture acute worsening hira EXAMS: CPT CODE: [id number] MRI THORACIC SPI NE WO/W CON 80834 <Continued> at 0353 Reported and signed by: Waldo Lamb M.D. CC: Caleb Bah M.D.; Oj Mackenzie MD Technologist: RT Delia(R)(CT) Trnscrd Date/Time/By: 11/23/2018 (0353) : By: [email or web address] Orig Print D/T: S: 11/23/2018 (0357) PAGE 3 Signed Report - MRI C-SPINE W W/O [id number] 03:35:00 FAX: Caleb Osman MD [phone] [place]: St: REG FAX: Oj Mackenzie MD [phone] Name: SAMIR FITZPATRICK [facility] : 1970 Age/S: 48/F [address] [place] [address] Unit #: [id number] Loc: [place] [address] Phys: Oj Mackenzie MD Acct: [id number] Dis Date: Status: REG ER PHONE #: [phone] Exam Date: 11/22/2018 2247 FAX #: [phone] Reason: hx of ?compression fr acture acute worsening hira EXAMS: CPT CODE: [id number] MRI C-SPINE W W/O CONT 09653 Clinical Indication: History of compression fracture. Acute wors ening of pain and left-sided weakness. Comparison: None TECHNIQUE: Multiplanar T1, T2, STIR weighted MRI of the cervical spine is performed. CONTRAST: 27 mL of Dotarem. FINDINGS: ALIGNMENT AND GENERAL ASSESSMENT: There is straightening of the cervical lordosis, which may be due to positioning or muscle spasm. T here are chronic postsurgical changes from anterior cervical discectomy an d fusion at C5-C6. There is no fracture or compression deformity. The prevertebral soft tissues, atlanto-dental interspace and craniocervical junction are within normal limits. The anterior and posterior paraspinal soft tissues are normal. No abnormal enhancement is identified within the cervical spine. However, motion artifact limits e valuation of the axial and sagittal postcontrast images. The visualized brainstem region is unremarkable. The cervical spinal cord is normal in size and signal. DISC SPACES: C2-C3: Disc desiccat ion without significant disc space height loss. A 2 mm central disc protru bel. Mild ventral indentation of thecal sac. Bilateral uncovertebral oste ophytes and facet arthrosis. Severe left-sided neural foraminal narrowing. No significant right neural foraminal narrowing. C3-C4: Disc desiccation without significant disc space height loss. A 2 mm centra l disc protrusion. Mild spinal canal stenosis. Bilateral facet arthrosis a nd uncovertebral osteophytes. Mild right and severe left neural foraminal narrowing. C4-C5: Disc desiccation without significant disc space height loss. Broad based disc osteophyte complex. Bilateral facet arthrosi s. Moderate to severe left neural foraminal narrowing. Mild right neural PAGE 1 Signed Report (CONTINUED) F AX: Caleb Osman MD [phone] [place]: St: REG FAX: Oj Mackenzie MD [phone] Name: SAMIR FITZPATRICK [facility] : 1970 Age/S: 48/F [address] [facility] Unit #: [id number] Loc: [place] [address] Phys: Oj Mackenzie MD Acct: [id number] Dis Date: Status: REG ER PHONE #: [phone] Exam Date: 11/22/2018 2247 FAX #: [phone] Reason: hx of ?compression frac ture acute worsening hira EXAMS: CPT CODE: [id number] MRI C-SPINE W W/O CONT 91644 <Continued> foraminal narrowing. C5-C6: Small broad-based disc osteophyte complex. Mild spinal canal stenosis. Mild left neural foraminal narrowing. Bilateral facet arthrosis. No significant right neural foraminal narrowing. C6-C7: Disc desiccation with mild disc space height loss. Broad based disc osteophyte complex. Mild spinal canal stenosis. Moderate-sized left uncovertebral osteophytes and facet arthrosis. Moderate severe left neural foraminal narrowing. No significant right neural foraminal narrowing. C7-T1: The disk is well hydrated. There is no significant disc bulge or herniation and no spinal, lateral recess or foraminal stenosis. IMPRESSION: Chronic postsurgical changes from anterior cervical discectomy and fusion at C5-C6. Multilevel degenerative changes within the cervical spine with spinal canal and neural foraminal stenosis as described above. No abnormal enhancement within the cervical spine. SL: KPATEL-H at 0335 Reported and signed by: Waldo Lamb M.D. CC: Caleb Bah M.D.; Oj Mackenzie MD Technologist: RT Delia(R)(CT) Trnscrd Date/Time/By: 11/23/2018 (0335) : By: [email or web address] Orig Print D/T: S: 11/23/2018 (0338) PAGE 2 Signed Report BASIC METABOLIC [id number] 01:57:00* Test Item Value Reference Range Comments SODIUM (test code=NA) 140 mEq/L 134-147 POTASSIUM (test code=K) 3.7 mEq/L 3.4-5.0 CHLORIDE (test code=CL) 110 mEq/L 100-108 CARBON DIOXIDE (test code=CO2) 24 mEq/L 21-33 ANION GAP (test code=GAP) 10 0-20 GLUCOSE (test code=GLU) 100 mg/dL 70-110 BLOOD UREA NITROGEN (test code=BUN) 10 mg/dL 7-18 GLOMERULAR FILTRATION RATE (test code=GFR) 89.3 95-105 Units of measure=ml/min/1.73 m2 CREATININE (test code=CREAT) 0.7 mg/dL 0.6-1.3 CALCIUM (test code=CA) 8.1 mg/dL 8.0-10.5 HCG SERUM [id number] 01:57:00* Test Item Value Reference Range Comments HCG SERUM QUAL (test code=HCGQL) SERUM NEGATIVE NEGATIVE BASIC METABOLIC [id number] 01:52:00* Test Item Value Reference Range Comments SODIUM (test code=NA) mEq/L 134-147 POTASSIUM (test code=K) mEq/L 3.4-5.0 CHLORIDE (test code=CL) mEq/L 100-108 CARBON DIOXIDE (test code=CO2) mEq/L 21-33 ANION GAP (test code=GAP) 0-20 GLUCOSE (test code=GLU) mg/dL 70-110 BLOOD UREA NITROGEN (test code=BUN) mg/dL 7-18 GLOMERULAR FILTRATION RATE (test code=GFR) 95-105 CREATININE (test code=CREAT) mg/dL 0.6-1.3 CALCIUM (test code=CA) mg/dL 8.0-10.5 HCG SERUM [id number] 01:52:00* Test Item Value Reference Range Comments HCG SERUM QUAL (test code=HCGQL) SERUM NEGATIVE NEGATIVE CBC W/AUTO [id number] 01:34:00* Test Item Value Reference Range Comments WHITE BLOOD CELL (test code=WBC) 8.13 x10 3/uL 4.5-11.0 RED BLOOD CELL (test code=RBC) 4.17 x10 6/uL 3.54-5.02 HEMOGLOBIN (test code=HGB) 10.9 g/dL 11.0-15.0 HEMATOCRIT (test code=HCT) 34.9 % 33.0-45.0 MEAN CELL VOLUME (test code=MCV) 83.7 fL 81.0-99.0 MEAN CELL HGB (test code=MCH) 26.1 pg 27.0-33.0 MEAN CELL HGB CONCETRATION (test code=MCHC) 31.2 g/dL 33.0-37.0 RED CELL DISTRIBUTION WIDTH CV (test code=RDW) 16.2 % 11.5-14.5 RED CELL DISTRIBUTION WIDTH SD (test code=RDW-SD) 49.6 fL 37.0-54.0 PLATELET COUNT (test code=PLT) 366 x10 3/uL 150-400 MEAN PLATELET VOLUME (test code=MPV) 10.2 fL 7.0-9.0 NEUTROPHIL % (test code=NT%) 61.5 % 56.0-77.0 IMMATURE GRANULOCYTE % (test code=IG%) 0.4 % 0.0-2.0 LYMPHOCYTE % (test code=LY%) 27.2 % 14.0-32.0 MONOCYTE % (test code=MO%) 7.1 % 4.8-9.0 EOSINOPHIL % (test code=EO%) 3.3 % 0.3-3.7 BASOPHIL % (test code=BA%) 0.5 % 0.0-2.0 NUCLEATED RBC % (test code=NRBC%) 0.0 % 0-0 NEUTROPHIL # (test code=NT#) 5.00 x10 3/uL 2.0-7.6 IMMATURE GRANULOCYTE # (test code=IG#) 0.03 x10 3/uL 0.00-0.03 LYMPHOCYTE # (test code=LY#) 2.21 x10 3/uL 1.0-3.8 MONOCYTE # (test code=MO#) 0.58 x10 3/uL 0.1-0.8 EOSINOPHIL # (test code=EO#) 0.27 x10 3/uL 0.0-0.2 BASOPHIL # (test code=BA#) 0.04 x10 3/uL 0.0-0.2 NUCLEATED RBC # (test code=NRBC#) 0.00 x10 3/uL 0.0-0.1 MANUAL DIFF REQUIRED (test code=MDIFF) NO URINALYSIS [id number] 01:25:00* Test Item Value Reference Range Comments UA COLOR (test code=COLU) YELLOW YELLOW UA APPEARANCE (test code=APPU) Cloudy CLEAR UA GLUCOSE DIPSTICK (test code=DGLUU) NEGATIVE mg/dL NEGATIVE UA BILIRUBIN DIPSTICK (test code=BILU) NEGATIVE mg/dL NEGATIVE UA KETONE DIPSTICK (test code=KETU) NEGATIVE mg/dL NEGATIVE UA SPECIFIC GRAVITY (test code=SGU) 1.024 1.001-1.035 UA BLOOD DIPSTICK (test code=GABE) 0.03 mg/dL (Trace) mg/dL NEGATIVE UA PH DIPSTICK (test code=BRE) 6.0 5.0-8.0 UA PROTEIN DIPSTICK (test code=PROU) 30 (1+) mg/dL NEGATIVE UA UROBILINIOGEN DIPSTICK (test code=URO) 2.0 (1+) mg/dL NEGATIVE UA NITRITE DIPSTICK (test code=APRIL) NEGATIVE NEGATIVE UA LEUKOCYTE ESTERASE W REFLEX (test code=LEUUR) 500 Curtis/uL (3+) Curtis/uL NEGATIVE UA WBC (test code=WBCU) 101-150 per HPF 0-5 UA RBC (test code=RBCU) 6-10 #/HPF 0-5 UA WBC CLUMPS (test code=WBCUCL) 7-10 /HPF NONE UA EPITHELIAL CELLS (test code=EPIU) FEW per HPF FEW UA BACTERIA (test code=BACU) FEW #/HPF NONE UA MUCUS (test code=MUCU) FEW #/LPF FEW Urine Source? CatheterURINALYSIS [id number] 01:23:00* Test Item Value Reference Range Comments UA COLOR (test code=COLU) YELLOW YELLOW UA APPEARANCE (test code=APPU) Cloudy CLEAR UA GLUCOSE DIPSTICK (test code=DGLUU) NEGATIVE mg/dL NEGATIVE UA BILIRUBIN DIPSTICK (test code=BILU) NEGATIVE mg/dL NEGATIVE UA KETONE DIPSTICK (test code=KETU) NEGATIVE mg/dL NEGATIVE UA SPECIFIC GRAVITY (test code=SGU) 1.024 1.001-1.035 UA BLOOD DIPSTICK (test code=GABE) 0.03 mg/dL (Trace) mg/dL NEGATIVE UA PH DIPSTICK (test code=BRE) 6.0 5.0-8.0 UA PROTEIN DIPSTICK (test code=PROU) 30 (1+) mg/dL NEGATIVE UA UROBILINIOGEN DIPSTICK (test code=URO) 2.0 (1+) mg/dL NEGATIVE UA NITRITE DIPSTICK (test code=APRIL) NEGATIVE NEGATIVE UA LEUKOCYTE ESTERASE W REFLEX (test code=LEUUR) 500 Curtis/uL (3+) Curtis/uL NEGATIVE UA WBC (test code=WBCU) per HPF 0-5 UA RBC (test code=RBCU) per HPF 0-5 UA EPITHELIAL CELLS (test code=EPIU) per HPF Few UA BACTERIA (test code=BACU) per HPF NONE Urine Source? CatheterURINALYSIS [id number] 02:36:00* Test Item Value Reference Range Comments UA COLOR (test code=COLU) Light-Yellow YELLOW UA APPEARANCE (test code=APPU) CLEAR CLEAR UA GLUCOSE DIPSTICK (test code=DGLUU) NEGATIVE mg/dL NEGATIVE UA BILIRUBIN DIPSTICK (test code=BILU) NEGATIVE mg/dL NEGATIVE UA KETONE DIPSTICK (test code=KETU) NEGATIVE mg/dL NEGATIVE UA SPECIFIC GRAVITY (test code=SGU) 1.018 1.001-1.035 UA BLOOD DIPSTICK (test code=GABE) Negative mg/dL NEGATIVE UA PH DIPSTICK (test code=BRE) 5.5 5.0-8.0 UA PROTEIN DIPSTICK (test code=PROU) 10 (Trace) mg/dL NEGATIVE UA UROBILINIOGEN DIPSTICK (test code=URO) Normal mg/dL NEGATIVE UA NITRITE DIPSTICK (test code=APRIL) NEGATIVE NEGATIVE UA LEUKOCYTE ESTERASE W REFLEX (test code=LEUUR) 250 Curtis/uL (2+) Curtis/uL NEGATIVE UA WBC (test code=WBCU) 6-10 per HPF 0-5 UA RBC (test code=RBCU) 0-2 #/HPF 0-5 UA EPITHELIAL CELLS (test code=EPIU) FEW per HPF FEW UA BACTERIA (test code=BACU) FEW #/HPF NONE UA MUCUS (test code=MUCU) FEW #/LPF FEW Urine Source? Clean CatchPROCALCITONIN (PCT)2018-10-21 02:07:00* Test Item Value Reference Range Comments PROCALCITONIN (PCT) (test code=PROCAL) < 0.05 ng/ml Concentration Interpretation (ng/mL) <0.51 Sepsis is not likely. Local bacterial infection is possible. (LOW RISK for progression to Sepsis) 0.51 - 2.00 Sepsis is possible, but other conditions are known to elevate PCT as well. (MODERATE RISK for progression to Sepsis) > 2.00 Sepsis is likely, unless other causes are known. (HIGH RISK for progression to Severe Sepsis or Septic Shock) 10.00 High likelihood of Severe Sepsis or Septic or higher Shock. *Increased PCT levels may not always be related to systemic bacterial infection.*Low PCT levels do not automatically exclude the presence of bacterial infection.*All results should be interpreted taking into account the patients history. LACTIC [id number] 02:01:00* Test Item Value Reference Range Comments LACTIC ACID (test code=LACT) 1.8 mmol/L 0.4-1.9 BASIC METABOLIC [id number] 02:01:00* Test Item Value Reference Range Comments SODIUM (test code=NA) 143 mmol/L 136-145 POTASSIUM (test code=K) 3.9 mmol/L 3.5-5.1 CHLORIDE (test code=CL) 112.0 mmol/L 98-107 CARBON DIOXIDE (test code=CO2) 20.0 mmol/L 21-32 ANION GAP (test code=GAP) 14.9 10-20 GLUCOSE (test code=GLU) 101 mg/dL 74-106 BLOOD UREA NITROGEN (test code=BUN) 12 mg/dL 7-18 GLOMERULAR FILTRATION RATE (test code=GFR) > 60 mL/min >=60 Estimated GFR by using Modified MDRD formula.Chronic kidney disease is defined as either kidney damageor GFR <60 mL/min/1.73 m2 for >3 months. CREATININE (test code=CREAT) 0.90 mg/dL 0.55-1.02 Note change in reference range due to change in reagent. BUN/CREATININE RATIO (test code=BUN/CREA) 13.3 10-20 CALCIUM (test code=CA) 9.6 mg/dL 8.5-10.1 HEPATIC FUNCTION [id number] 02:01:00* Test Item Value Reference Range Comments TOTAL PROTEIN (test code=PROT) 8.2 gram/dL 6.4-8.2 ALBUMIN (test code=ALB) 3.6 g/dL 3.4-5.0 GLOBULIN (test code=GLOB) 4.6 gram/dL 2.7-4.2 ALBUMIN/GLOBULIN RATIO (test code=A/G) 0.8 0.75-1.50 BILIRUBIN TOTAL (test code=BILT) 0.40 mg/dL 0.0-1.0 BILIRUBIN DIRECT (test code=BILD) 0.10 mg/dL 0.0-0.20 SGOT/AST (test code=AST) 25 IUnit/L 15-37 SGPT/ALT (test code=ALT) 55 IUnit/L 12-78 ALKALINE PHOSPHATASE TOTAL (test code=ALKP) 91 IUnit/L 45-117 Note change in reference range due to change in reagent. [id number] 02:01:00* Test Item Value Reference Range Comments LIPASE (test code=LIP) 110 U/L 73.0-393.0 HCG SERUM [id number] 02:01:00* Test Item Value Reference Range Comments HCG SERUM QUAL (test code=HCGQL) NEGATIVE NEGATIVE This HCGQL test is NOT applicable for MALE patients.Check with nurse about probable order error.If Tumor Marker Test needed, nurse should order test "HCGTU"(Test #550.73033) [id number] 02:01:00* Test Item Value Reference Range Comments TROPONIN-I (test code=TROPI) <0.015 ng/mL 0-0.045 BASIC METABOLIC [id number] 01:50:00* Test Item Value Reference Range Comments SODIUM (test code=NA) mmol/L 136-145 POTASSIUM (test code=K) mmol/L 3.5-5.1 CHLORIDE (test code=CL) mmol/L 98-107 CARBON DIOXIDE (test code=CO2) mmol/L 21-32 ANION GAP (test code=GAP) 10-20 GLUCOSE (test code=GLU) mg/dL 74-106 BLOOD UREA NITROGEN (test code=BUN) mg/dL 7-18 GLOMERULAR FILTRATION RATE (test code=GFR) mL/min >=60 CREATININE (test code=CREAT) mg/dL 0.55-1.02 BUN/CREATININE RATIO (test code=BUN/CREA) 10-20 CALCIUM (test code=CA) mg/dL 8.5-10.1 HEPATIC FUNCTION [id number] 01:50:00* Test Item Value Reference Range Comments TOTAL PROTEIN (test code=PROT) gram/dL 6.4-8.2 ALBUMIN (test code=ALB) g/dL 3.4-5.0 GLOBULIN (test code=GLOB) gram/dL 2.7-4.2 ALBUMIN/GLOBULIN RATIO (test code=A/G) 0.75-1.50 BILIRUBIN TOTAL (test code=BILT) mg/dL 0.0-1.0 BILIRUBIN DIRECT (test code=BILD) mg/dL 0.0-0.20 SGOT/AST (test code=AST) IUnit/L 15-37 SGPT/ALT (test code=ALT) IUnit/L 12-78 ALKALINE PHOSPHATASE TOTAL (test code=ALKP) IUnit/L 45-117 [id number] 01:50:00* Test Item Value Reference Range Comments LIPASE (test code=LIP) U/L 73.0-393.0 HCG SERUM [id number] 01:50:00* Test Item Value Reference Range Comments HCG SERUM QUAL (test code=HCGQL) NEGATIVE NEGATIVE This HCGQL test is NOT applicable for MALE patients.Check with nurse about probable order error.If Tumor Marker Test needed, nurse should order test "HCGTU"(Test #550.48332) [id number] 01:50:00* Test Item Value Reference Range Comments TROPONIN-I (test code=TROPI) ng/mL 0-0.045 BASIC METABOLIC [id number] 01:50:00* Test Item Value Reference Range Comments SODIUM (test code=NA) 143 mmol/L 136-145 POTASSIUM (test code=K) 3.9 mmol/L 3.5-5.1 CHLORIDE (test code=CL) 112.0 mmol/L 98-107 CARBON DIOXIDE (test code=CO2) mmol/L 21-32 ANION GAP (test code=GAP) 10-20 GLUCOSE (test code=GLU) mg/dL 74-106 BLOOD UREA NITROGEN (test code=BUN) mg/dL 7-18 GLOMERULAR FILTRATION RATE (test code=GFR) mL/min >=60 CREATININE (test code=CREAT) mg/dL 0.55-1.02 BUN/CREATININE RATIO (test code=BUN/CREA) 10-20 CALCIUM (test code=CA) mg/dL 8.5-10.1 HEPATIC FUNCTION [id number] 01:50:00* Test Item Value Reference Range Comments TOTAL PROTEIN (test code=PROT) gram/dL 6.4-8.2 ALBUMIN (test code=ALB) g/dL 3.4-5.0 GLOBULIN (test code=GLOB) gram/dL 2.7-4.2 ALBUMIN/GLOBULIN RATIO (test code=A/G) 0.75-1.50 BILIRUBIN TOTAL (test code=BILT) mg/dL 0.0-1.0 BILIRUBIN DIRECT (test code=BILD) mg/dL 0.0-0.20 SGOT/AST (test code=AST) IUnit/L 15-37 SGPT/ALT (test code=ALT) IUnit/L 12-78 ALKALINE PHOSPHATASE TOTAL (test code=ALKP) IUnit/L 45-117 [id number] 01:50:00* Test Item Value Reference Range Comments LIPASE (test code=LIP) U/L 73.0-393.0 HCG SERUM [id number] 01:50:00* Test Item Value Reference Range Comments HCG SERUM QUAL (test code=HCGQL) NEGATIVE NEGATIVE This HCGQL test is NOT applicable for MALE patients.Check with nurse about probable order error.If Tumor Marker Test needed, nurse should order test "HCGTU"(Test #550.92695) [id number] 01:50:00* Test Item Value Reference Range Comments TROPONIN-I (test code=TROPI) ng/mL 0-0.045 CBC W/O [id number] 01:26:00* Test Item Value Reference Range Comments WHITE BLOOD CELL (test code=WBC) K/mm3 4.5-12.5 RED BLOOD CELL (test code=RBC) mill/mm3 3.7-5.2 HEMOGLOBIN (test code=HGB) 11.8 gram/dL 11.5-15.5 HEMATOCRIT (test code=HCT) 37.7 % 36.0-46.0 MEAN CELL VOLUME (test code=MCV) fL 80-98 MEAN CELL HGB (test code=MCH) picogram 27.0-33.0 MEAN CELL HGB CONCETRATION (test code=MCHC) gram/dL 33.0-36.0 RED CELL DISTRIBUTION WIDTH (test code=RDW) % 11.6-16.2 PLATELET COUNT (test code=PLT) K/mm3 150-450 MEAN PLATELET VOLUME (test code=MPV) fL 6.7-11.0 CBC W/O [id number] 01:26:00* Test Item Value Reference Range Comments WHITE BLOOD CELL (test code=WBC) 8.6 K/mm3 4.5-12.5 RED BLOOD CELL (test code=RBC) 4.48 mill/mm3 3.7-5.2 HEMOGLOBIN (test code=HGB) 11.8 gram/dL 11.5-15.5 HEMATOCRIT (test code=HCT) 37.7 % 36.0-46.0 MEAN CELL VOLUME (test code=MCV) 84.2 fL 80-98 MEAN CELL HGB (test code=MCH) 26.3 picogram 27.0-33.0 MEAN CELL HGB CONCETRATION (test code=MCHC) 31.3 gram/dL 33.0-36.0 RED CELL DISTRIBUTION WIDTH (test code=RDW) 16.5 % 11.6-16.2 PLATELET COUNT (test code=PLT) 342 K/mm3 150-450 MEAN PLATELET VOLUME (test code=MPV) 9.8 fL 6.7-11.0 LACTIC [id number] 14:44:00* Test Item Value Reference Range Comments LACTIC ACID (test code=LACT) 1.5 mmol/L 0.4-1.9 URINALYSIS [id number] 13:08:00* Test Item Value Reference Range Comments UA COLOR (test code=COLU) YELLOW YELLOW UA APPEARANCE (test code=APPU) CLEAR CLEAR UA GLUCOSE DIPSTICK (test code=DGLUU) NEGATIVE mg/dL NEGATIVE UA BILIRUBIN DIPSTICK (test code=BILU) NEGATIVE mg/dL NEGATIVE UA KETONE DIPSTICK (test code=KETU) NEGATIVE mg/dL NEGATIVE UA SPECIFIC GRAVITY (test code=SGU) 1.028 1.001-1.035 UA BLOOD DIPSTICK (test code=GABE) Negative mg/dL NEGATIVE UA PH DIPSTICK (test code=BRE) 6.0 5.0-8.0 UA PROTEIN DIPSTICK (test code=PROU) 10 (Trace) mg/dL NEGATIVE UA UROBILINIOGEN DIPSTICK (test code=URO) Normal mg/dL NEGATIVE UA NITRITE DIPSTICK (test code=APRIL) NEGATIVE NEGATIVE UA LEUKOCYTE ESTERASE W REFLEX (test code=LEUUR) 500 Curtis/uL (3+) Curtis/uL NEGATIVE UA WBC (test code=WBCU) 51-100 per HPF 0-5 UA RBC (test code=RBCU) 0-2 #/HPF 0-5 UA EPITHELIAL CELLS (test code=EPIU) FEW per HPF FEW UA BACTERIA (test code=BACU) FEW #/HPF NONE UA MUCUS (test code=MUCU) FEW #/LPF FEW Urine Source? Clean Catch- CT ABD PELVIS [id number] 11:21:00 Name: SAMIR FITZPATRICK [facility] : 1970 Age/S: 47 / F [address] [facility] Unit #: [id number] Loc: [place] [address] Phys: Juan Coon MD Acct: [id number] Di s Date: Status: REG ER PHONE #: Exam Date: 09/22/2018 1102 FAX #: Reason: lower abd pain fever EXAMS: CPT CODE: [id number] CT ABD PELVIS W/CONT 43838 HISTORY: Lower abdominal pain and fever. COMPARISON: CT scan from September 16, 2018 and May 27, 2018. CT abdomen and pelvis with IV contrast: 100 mL of Isovue -370. Automated exposure control. CT ABDOMEN: The lung bases are clear. Dependent changes. Noncontrast liver is within limits. No abnormal enhancing masses or lesions. Hepatomegaly at 25 cm in length. Gallbladder is not seen. Portal vein and hepatic artery rem ain patent. Spleen enhanced homogeneously. No parenchymal mass or lesions. Stomach is well distended with fluid however it is within normal limits. Pancreas is enhancing homogeneously. Unremarkable adrenals . Kidneys are free from hydroureteronephrosis. Calyceal stones in the left interpolar region measuring 2 to 3 mm. Bilateral excretion is noted. No pathologic adenopathy. Well-opacified abdominal and p elvic vasculature. No bowel obstruction or colitis or divert iculitis or enteritis. Constipation. CT PELVIS: Appendix is not visible but no inflammatory changes. Pelvic bowel loops are unobstructed. Diastases of the rectus muscle at the level of the umbil icus with protrusion of the abdominal contents including the small bowel w ithout overt hernia. Decompressed urinary bladder with Khan eliel ter. Large fibroid uterus with innumerable fibroids extending into the low er abdomen measuring 15.5 cm in length. No free fluid or free air or absce ss. No pelvic pathologic adenopathy. Subcutaneous tissues an d the musculature are normal in appearance. No lytic or blastic lesions ar e noted within the bony skeleton. DJD. PAGE 1 Signed Report (CONTINUED) Name: SAMIR FITZPATRICK [facility] : 1970 Age/S: 47 / F [place] Unit #: [id number] Loc: [place] [address] Phys: Modesto Coon MD Acct: [id number] Dis Date: Status: REG ER PHONE #: [phone] Exam Date: 019 1102 FAX #: [phone] Reason: lower abd pain fe geovanny EXAMS: CPT CODE: [id number] CT ABD PELVIS W/CONT 80076 <Continued> IMPRESSION: Appendix is not visible but no inflammatory changes. No bowel obstruction or colitis or diverticulitis or enteritis. No free fluid or free air or abscess. Protrusion of the abdominal contents of the level of the umbilicus from diastases of the rectus muscles without overt hernia. No hydroureteronephrosis with homogeneous enhancement and excretion bilaterally. Punctate 2 to 3 mm left interpolar nonobstructing calyceal stones noted again. Hepatomegaly at 25 cm in length. Fibroid enlarged uterus is 15.5 cm in length. at 1121 Reported and signed by: Griffin Pantoja M.D. CC: Modesto Coon MD Technologist:Tr Holbrook RT(R),(MR),(CT); CTDI: DLP: Trnscb Date/Time: 09/22/2018 (1121) t.SDR.TH4 Orig Print D/T: S: 09/22/2018 (1124) PAGE 2 Signed Report HCG SERUM [id number] 10:22:00* Test Item Value Reference Range Comments HCG SERUM QUAL (test code=HCGQL) NEGATIVE NEGATIVE This HCGQL test is NOT applicable for MALE patients.Check with nurse about probable order error.If Tumor Marker Test needed, nurse should order test "HCGTU"(Test #550.21185) PROCALCITONIN (PCT)2018-09-22 10:10:00* Test Item Value Reference Range Comments PROCALCITONIN (PCT) (test code=PROCAL) < 0.05 ng/ml Concentration Interpretation (ng/mL) <0.51 Sepsis is not likely. Local bacterial infection is possible. (LOW RISK for progression to Sepsis) 0.51 - 2.00 Sepsis is possible, but other conditions are known to elevate PCT as well. (MODERATE RISK for progression to Sepsis) > 2.00 Sepsis is likely, unless other causes are known. (HIGH RISK for progression to Severe Sepsis or Septic Shock) 10.00 High likelihood of Severe Sepsis or Septic or higher Shock. *Increased PCT levels may not always be related to systemic bacterial infection.*Low PCT levels do not automatically exclude the presence of bacterial infection.*All results should be interpreted taking into account the patients history. LACTIC [id number] 10:05:00* Test Item Value Reference Range Comments LACTIC ACID (test code=LACT) 2.4 mmol/L 0.4-1.9 Results called to FLORENCIO [id number] V.LAB. 09/22/18 1005Critical results verified and read back by Nurse? Y - XR CHEST 1 [id number] 10:05:00 FAX: Modesto Coon MD [phone] [place]: [address] St: REG Name: SAMIR GARCIA [facility] : [birth year] Age/S: 47/F [address] [facility] Unit #: [id number] Loc: [place] [address] Phys: Modesto Coon MD Acct: [id number] Dis Date: Status: REG ER PHONE #: [phone] Exam Date: 09/22/2018 0955 FAX #: [phone] Reason: CODE SEPSIS EXAMS: CPT CODE: [id number] XR CHEST 1 V 99513 HISTORY: :Sepsis. CO MPARISON: August 26, 2016. No acute infiltrates, effusion or congestio n is noted. Suboptimal inspiration. Dependent changes. The c ardiac and mediastinal silhouette are within normal limits. Cervical fusio n in the lower neck. IMPRESSION: No acute inf iltrates, effusion or congestion. at 1005 Reported and signed by: Humza Pantoja M.D. CC: Modesto Coon MD Technologist: RT ISABEL(R) Trnscrd Date/Time/By: 09/22/2018 (1005) : By: [email or web address] Orig Print D/T: S: 09/22/2018 (1002) PAGE 1 Signed Report BASIC METABOLIC [id number] 10:04:00* Test Item Value Reference Range Comments SODIUM (test code=NA) 142 mmol/L 136-145 POTASSIUM (test code=K) 3.9 mmol/L 3.5-5.1 CHLORIDE (test code=CL) 109.0 mmol/L 98-107 CARBON DIOXIDE (test code=CO2) 24.0 mmol/L 21-32 ANION GAP (test code=GAP) 12.9 10-20 GLUCOSE (test code=GLU) 132 mg/dL 74-106 BLOOD UREA NITROGEN (test code=BUN) 11 mg/dL 7-18 GLOMERULAR FILTRATION RATE (test code=GFR) 59 mL/min >=60 Estimated GFR by using Modified MDRD formula.Chronic kidney disease is defined as either kidney damageor GFR <60 mL/min/1.73 m2 for >3 months. CREATININE (test code=CREAT) 1.00 mg/dL 0.55-1.02 Note change in reference range due to change in reagent. BUN/CREATININE RATIO (test code=BUN/CREA) 11.0 10-20 CALCIUM (test code=CA) 11.3 mg/dL 8.5-10.1 HEPATIC FUNCTION [id number] 10:04:00* Test Item Value Reference Range Comments TOTAL PROTEIN (test code=PROT) 7.8 gram/dL 6.4-8.2 ALBUMIN (test code=ALB) 3.9 g/dL 3.4-5.0 GLOBULIN (test code=GLOB) 3.9 gram/dL 2.7-4.2 ALBUMIN/GLOBULIN RATIO (test code=A/G) 1.0 0.75-1.50 BILIRUBIN TOTAL (test code=BILT) 0.40 mg/dL 0.0-1.0 BILIRUBIN DIRECT (test code=BILD) 0.08 mg/dL 0.0-0.20 SGOT/AST (test code=AST) 31 IUnit/L 15-37 SGPT/ALT (test code=ALT) 46 IUnit/L 12-78 ALKALINE PHOSPHATASE TOTAL (test code=ALKP) 74 IUnit/L 45-117 Note change in reference range due to change in reagent. [id number] 10:04:00* Test Item Value Reference Range Comments LIPASE (test code=LIP) 163 U/L 73.0-393.0 [id number] 10:04:00* Test Item Value Reference Range Comments TROPONIN-I (test code=TROPI) <0.015 ng/mL 0-0.045 BASIC METABOLIC [id number] 09:54:00* Test Item Value Reference Range Comments SODIUM (test code=NA) 142 mmol/L 136-145 POTASSIUM (test code=K) 3.9 mmol/L 3.5-5.1 CHLORIDE (test code=CL) 109.0 mmol/L 98-107 CARBON DIOXIDE (test code=CO2) mmol/L 21-32 ANION GAP (test code=GAP) 10-20 GLUCOSE (test code=GLU) mg/dL 74-106 BLOOD UREA NITROGEN (test code=BUN) mg/dL 7-18 GLOMERULAR FILTRATION RATE (test code=GFR) mL/min >=60 CREATININE (test code=CREAT) mg/dL 0.55-1.02 BUN/CREATININE RATIO (test code=BUN/CREA) 10-20 CALCIUM (test code=CA) mg/dL 8.5-10.1 HEPATIC FUNCTION [id number] 09:54:00* Test Item Value Reference Range Comments TOTAL PROTEIN (test code=PROT) gram/dL 6.4-8.2 ALBUMIN (test code=ALB) g/dL 3.4-5.0 GLOBULIN (test code=GLOB) gram/dL 2.7-4.2 ALBUMIN/GLOBULIN RATIO (test code=A/G) 0.75-1.50 BILIRUBIN TOTAL (test code=BILT) mg/dL 0.0-1.0 BILIRUBIN DIRECT (test code=BILD) mg/dL 0.0-0.20 SGOT/AST (test code=AST) IUnit/L 15-37 SGPT/ALT (test code=ALT) IUnit/L 12-78 ALKALINE PHOSPHATASE TOTAL (test code=ALKP) IUnit/L 45-117 [id number] 09:54:00* Test Item Value Reference Range Comments LIPASE (test code=LIP) U/L 73.0-393.0 [id number] 09:54:00* Test Item Value Reference Range Comments TROPONIN-I (test code=TROPI) ng/mL 0-0.045 CBC W/AUTO [id number] 09:48:00* Test Item Value Reference Range Comments WHITE BLOOD CELL (test code=WBC) 7.3 K/mm3 4.5-12.5 RED BLOOD CELL (test code=RBC) 4.30 mill/mm3 3.7-5.2 HEMOGLOBIN (test code=HGB) 11.3 gram/dL 11.5-15.5 HEMATOCRIT (test code=HCT) 35.7 % 36.0-46.0 MEAN CELL VOLUME (test code=MCV) 83.0 fL 80-98 MEAN CELL HGB (test code=MCH) 26.3 picogram 27.0-33.0 MEAN CELL HGB CONCETRATION (test code=MCHC) 31.7 gram/dL 33.0-36.0 RED CELL DISTRIBUTION WIDTH (test code=RDW) 15.8 % 11.6-16.2 RED CELL DISTRIBUTION WIDTH SD (test code=RDW-SD) 47.9 fL 37.0-51.0 PLATELET COUNT (test code=PLT) 324 K/mm3 150-450 MEAN PLATELET VOLUME (test code=MPV) 10.7 fL 6.7-11.0 NEUTROPHIL % (test code=NT%) 48.7 % 39.0-69.0 IMMATURE GRANULOCYTE % (test code=IG%) 0.1 % 0.0-5.0 LYMPHOCYTE % (test code=LY%) 36.7 % 25.0-55.0 MONOCYTE % (test code=MO%) 8.4 % 0.0-10.0 EOSINOPHIL % (test code=EO%) 5.7 % 0.0-5.0 BASOPHIL % (test code=BA%) 0.4 % 0.0-1.0 NUCLEATED RBC % (test code=NRBC%) 0.0 % 0-0 NEUTROPHIL # (test code=NT#) 3.53 K/mm3 1.8-7.7 IMMATURE GRANULOCYTE # (test code=IG#) 0.01 x10 3/uL 0-0.03 LYMPHOCYTE # (test code=LY#) 2.66 K/mm3 1.0-5.0 MONOCYTE # (test code=MO#) 0.61 K/mm3 0-0.8 EOSINOPHIL # (test code=EO#) 0.41 K/mm3 0.0-0.5 BASOPHIL # (test code=BA#) 0.03 K/mm3 0.0-0.2 NUCLEATED RBC # (test code=NRBC#) 0.00 K/mm3 0.0-0.1 LACTIC [id number] 22:15:00* Test Item Value Reference Range Comments LACTIC ACID (test code=LACT) 1.3 mmol/L 0.4-1.9 URINALYSIS [id number] 20:50:00* Test Item Value Reference Range Comments UA COLOR (test code=COLU) YELLOW YELLOW UA APPEARANCE (test code=APPU) CLEAR CLEAR UA GLUCOSE DIPSTICK (test code=DGLUU) NEGATIVE mg/dL NEGATIVE UA BILIRUBIN DIPSTICK (test code=BILU) NEGATIVE mg/dL NEGATIVE UA KETONE DIPSTICK (test code=KETU) NEGATIVE mg/dL NEGATIVE UA SPECIFIC GRAVITY (test code=SGU) 1.023 1.001-1.035 UA BLOOD DIPSTICK (test code=GABE) Negative mg/dL NEGATIVE UA PH DIPSTICK (test code=BRE) 5.0 5.0-8.0 UA PROTEIN DIPSTICK (test code=PROU) 20 (Trace) mg/dL NEGATIVE UA UROBILINIOGEN DIPSTICK (test code=URO) Normal mg/dL NEGATIVE UA NITRITE DIPSTICK (test code=APRIL) NEGATIVE NEGATIVE UA LEUKOCYTE ESTERASE W REFLEX (test code=LEUUR) 250 Curtis/uL (2+) Curtis/uL NEGATIVE UA WBC (test code=WBCU) 21-50 per HPF 0-5 UA RBC (test code=RBCU) 0-2 #/HPF 0-5 UA WBC CLUMPS (test code=WBCUCL) 7-10 /HPF NONE UA EPITHELIAL CELLS (test code=EPIU) FEW per HPF FEW UA BACTERIA (test code=BACU) FEW #/HPF NONE UA MUCUS (test code=MUCU) FEW #/LPF FEW Urine Source? Clean CatchURINALYSIS [id number] 20:49:00* Test Item Value Reference Range Comments UA COLOR (test code=COLU) YELLOW YELLOW UA APPEARANCE (test code=APPU) CLEAR CLEAR UA GLUCOSE DIPSTICK (test code=DGLUU) NEGATIVE mg/dL NEGATIVE UA BILIRUBIN DIPSTICK (test code=BILU) NEGATIVE mg/dL NEGATIVE UA KETONE DIPSTICK (test code=KETU) NEGATIVE mg/dL NEGATIVE UA SPECIFIC GRAVITY (test code=SGU) 1.023 1.001-1.035 UA BLOOD DIPSTICK (test code=GABE) Negative mg/dL NEGATIVE UA PH DIPSTICK (test code=BRE) 5.0 5.0-8.0 UA PROTEIN DIPSTICK (test code=PROU) 20 (Trace) mg/dL NEGATIVE UA UROBILINIOGEN DIPSTICK (test code=URO) Normal mg/dL NEGATIVE UA NITRITE DIPSTICK (test code=APRIL) NEGATIVE NEGATIVE UA LEUKOCYTE ESTERASE W REFLEX (test code=LEUUR) 250 Curtis/uL (2+) Curtis/uL NEGATIVE UA WBC (test code=WBCU) per HPF 0-5 UA RBC (test code=RBCU) per HPF 0-5 UA EPITHELIAL CELLS (test code=EPIU) per HPF Few UA BACTERIA (test code=BACU) per HPF NONE Urine Source? Clean Catch- CT ABD PELVIS W/O [id number] 19:04:00 Name: SAMIR FITZPATRICK [facility] : 1970 Age/S: 47 / F [place] Unit #: [id number] Loc: [place] [address] Phys: Hemal Noguera DO Acct: [id number] Dis Date: Status: REG ER PHONE #: [phone] Exam Date: 09/16/2018 1850 FAX #: [phone] Reason: right flank pain EXAMS: CPT CODE: [id number] CT ABD PELVIS W/O CONT 29971 HISTORY: Right flank pain and fever. COMPARISON: CT scan from May 27, 2018. CT of abdomen and pelvis: Stone protocol. Automated exposure control. CT of abdomen: The lung bases are clear. Non contrast liver is unremarkable but partially obscured by beam hardening ar tifact from patient's arms and patient's large body habitus. The liver me asured 25 cm in length and is moderately enlarged. Gallbladder is not see n. Unremarkable spleen. The stomach distended incompletely howeve r it is within normal limits. Pancreas is unremarkable with mild atrophy. Unremarkable adrenals. Kidneys are free from hydrou reteronephrosis. Punctate 2 to 3 mm left interpolar and lower pole calyce al stones noted again. No pathologic adenopathy. No bowel obstruction or colitis or diverticulitis or enteritis. CT PE LVIS: Appendix is normal at visible with certainty but no inflamma tory changes are noted. Pelvic bowel loops are unobstructed. Leiomyomatous uterus. Ovaries are poorly visible and difficult to assess on this exam. Decompressed urinary bladder with Khan catheter is nondiagnostic. Phleboliths. No pelvic pathologic adenopathy. No free fluid or free air. Subcutaneous tissues and the musculature are normal in appearance. No lytic or blastic lesions visible within the bony skeleton. DJD. IMPRESSION: No hydrourete ronephrosis with nonobstructing 2 to 3 mm left calyceal PAGE 1 Signed Report (CONTINUED) Name: SAMIR FITZPATRICK [facility] : 1970 Age/S: 47 / F [address] Unit #: [id number] Loc: [place] [address] Phys: Hemal Noguera DO Acct: [id number] Dis Date: Status: REG ER PHONE #: [phone] Exam Date: 09/16/2018 1850 FAX #: [phone] Reason: right fl ank pain EXAMS: CPT CODE: [id number] CT ABD PELVIS W/O CONT 87494 <Continued> stones noted again. Decompressed urinary bladder with Khan catheter is nondiagnostic. Hepatomegaly at 25 cm in length. Gallbladder is not seen. Markedly enlarged leiomyomatous uterus noted again. Appendix is not visible but no inflammation. No bowel obstruction or colitis or diverticulitis or enteritis. No free fluid or free air. at 1904 Reported and signed by: Griffin Pantoja M.D. CC: Hemal Noguera DO Technologist:Felecia RODRIGUEZ(R); ANGELO Suh CTDI: DLP: Trnscb Date/Time: 09/16/2018 (1903) t.SDR.TH4 Orig Print D/T: S: 09/16/2018 (1906) PAGE 2 Signed Report LACTIC [id number] 18:39:00* Test Item Value Reference Range Comments LACTIC ACID (test code=LACT) 2.6 mmol/L 0.4-1.[address] HINSON by ALISON 09/16/18 1838Critical results verified and read back by Nurse? Y HCG SERUM [id number] 16:17:00* Test Item Value Reference Range Comments HCG SERUM QUAL (test code=HCGQL) NEGATIVE NEGATIVE This HCGQL test is NOT applicable for MALE patients.Check with nurse about probable order error.If Tumor Marker Test needed, nurse should order test "HCGTU"(Test #[id number]) PROCALCITONIN (PCT)2018-09-16 16:15:00* Test Item Value Reference Range Comments PROCALCITONIN (PCT) (test code=PROCAL) < 0.05 ng/ml Concentration Interpretation (ng/mL) <0.51 Sepsis is not likely. Local bacterial infection is possible. (LOW RISK for progression to Sepsis) 0.51 - 2.00 Sepsis is possible, but other conditions are known to elevate PCT as well. (MODERATE RISK for progression to Sepsis) > 2.00 Sepsis is likely, unless other causes are known. (HIGH RISK for progression to Severe Sepsis or Septic Shock) 10.00 High likelihood of Severe Sepsis or Septic or higher Shock. *Increased PCT levels may not always be related to systemic bacterial infection.*Low PCT levels do not automatically exclude the presence of bacterial infection.*All results should be interpreted taking into account the patients history. LACTIC [id number] 16:07:00* Test Item Value Reference Range Comments LACTIC ACID (test code=LACT) 3.2 mmol/L 0.4-1.9 Results called to [id number] by [employer] [facility] 09/16/18 1607Critical results verified and read back by Nurse? Y BASIC METABOLIC [id number] 16:04:00* Test Item Value Reference Range Comments SODIUM (test code=NA) 139 mmol/L 136-145 POTASSIUM (test code=K) 3.8 mmol/L 3.5-5.1 CHLORIDE (test code=CL) 104.0 mmol/L 98-107 CARBON DIOXIDE (test code=CO2) 24.0 mmol/L 21-32 ANION GAP (test code=GAP) 14.8 10-20 GLUCOSE (test code=GLU) 112 mg/dL 74-106 BLOOD UREA NITROGEN (test code=BUN) 9 mg/dL 7-18 GLOMERULAR FILTRATION RATE (test code=GFR) 59 mL/min >=60 Estimated GFR by using Modified MDRD formula.Chronic kidney disease is defined as either kidney damageor GFR <60 mL/min/1.73 m2 for >3 months. CREATININE (test code=CREAT) 1.00 mg/dL 0.55-1.02 Note change in reference range due to change in reagent. BUN/CREATININE RATIO (test code=BUN/CREA) 9.0 10-20 CALCIUM (test code=CA) 11.1 mg/dL 8.5-10.1 HEPATIC FUNCTION [id number] 16:04:00* Test Item Value Reference Range Comments TOTAL PROTEIN (test code=PROT) 8.5 gram/dL 6.4-8.2 ALBUMIN (test code=ALB) 3.8 g/dL 3.4-5.0 GLOBULIN (test code=GLOB) 4.7 gram/dL 2.7-4.2 ALBUMIN/GLOBULIN RATIO (test code=A/G) 0.8 0.75-1.50 BILIRUBIN TOTAL (test code=BILT) 0.50 mg/dL 0.0-1.0 BILIRUBIN DIRECT (test code=BILD) 0.09 mg/dL 0.0-0.20 SGOT/AST (test code=AST) 31 IUnit/L 15-37 SGPT/ALT (test code=ALT) 53 IUnit/L 12-78 ALKALINE PHOSPHATASE TOTAL (test code=ALKP) 82 IUnit/L 45-117 Note change in reference range due to change in reagent. [id number] 16:04:00* Test Item Value Reference Range Comments TROPONIN-I (test code=TROPI) <0.015 ng/mL 0-0.045 BASIC METABOLIC [id number] 15:54:00* Test Item Value Reference Range Comments SODIUM (test code=NA) 139 mmol/L 136-145 POTASSIUM (test code=K) 3.8 mmol/L 3.5-5.1 CHLORIDE (test code=CL) 104.0 mmol/L 98-107 CARBON DIOXIDE (test code=CO2) mmol/L 21-32 ANION GAP (test code=GAP) 10-20 GLUCOSE (test code=GLU) mg/dL 74-106 BLOOD UREA NITROGEN (test code=BUN) mg/dL 7-18 GLOMERULAR FILTRATION RATE (test code=GFR) mL/min >=60 CREATININE (test code=CREAT) mg/dL 0.55-1.02 BUN/CREATININE RATIO (test code=BUN/CREA) 10-20 CALCIUM (test code=CA) mg/dL 8.5-10.1 HEPATIC FUNCTION [id number] 15:54:00* Test Item Value Reference Range Comments TOTAL PROTEIN (test code=PROT) gram/dL 6.4-8.2 ALBUMIN (test code=ALB) g/dL 3.4-5.0 GLOBULIN (test code=GLOB) gram/dL 2.7-4.2 ALBUMIN/GLOBULIN RATIO (test code=A/G) 0.75-1.50 BILIRUBIN TOTAL (test code=BILT) mg/dL 0.0-1.0 BILIRUBIN DIRECT (test code=BILD) mg/dL 0.0-0.20 SGOT/AST (test code=AST) IUnit/L 15-37 SGPT/ALT (test code=ALT) IUnit/L 12-78 ALKALINE PHOSPHATASE TOTAL (test code=ALKP) IUnit/L 45-117 [id number] 15:54:00* Test Item Value Reference Range Comments TROPONIN-I (test code=TROPI) ng/mL 0-0.045 CBC W/AUTO [id number] 15:45:00* Test Item Value Reference Range Comments WHITE BLOOD CELL (test code=WBC) 8.8 K/mm3 4.5-12.5 RED BLOOD CELL (test code=RBC) 4.61 mill/mm3 3.7-5.2 HEMOGLOBIN (test code=HGB) 12.3 gram/dL 11.5-15.5 HEMATOCRIT (test code=HCT) 38.5 % 36.0-46.0 MEAN CELL VOLUME (test code=MCV) 83.5 fL 80-98 MEAN CELL HGB (test code=MCH) 26.7 picogram 27.0-33.0 MEAN CELL HGB CONCETRATION (test code=MCHC) 31.9 gram/dL 33.0-36.0 RED CELL DISTRIBUTION WIDTH (test code=RDW) 15.7 % 11.6-16.2 RED CELL DISTRIBUTION WIDTH SD (test code=RDW-SD) 47.3 fL 37.0-51.0 PLATELET COUNT (test code=PLT) 372 K/mm3 150-450 MEAN PLATELET VOLUME (test code=MPV) 10.5 fL 6.7-11.0 NEUTROPHIL % (test code=NT%) 47.7 % 39.0-69.0 IMMATURE GRANULOCYTE % (test code=IG%) 0.3 % 0.0-5.0 LYMPHOCYTE % (test code=LY%) 40.1 % 25.0-55.0 MONOCYTE % (test code=MO%) 7.3 % 0.0-10.0 EOSINOPHIL % (test code=EO%) 4.1 % 0.0-5.0 BASOPHIL % (test code=BA%) 0.5 % 0.0-1.0 NUCLEATED RBC % (test code=NRBC%) 0.0 % 0-0 NEUTROPHIL # (test code=NT#) 4.20 K/mm3 1.8-7.7 IMMATURE GRANULOCYTE # (test code=IG#) 0.03 x10 3/uL 0-0.03 LYMPHOCYTE # (test code=LY#) 3.53 K/mm3 1.0-5.0 MONOCYTE # (test code=MO#) 0.64 K/mm3 0-0.8 EOSINOPHIL # (test code=EO#) 0.36 K/mm3 0.0-0.5 BASOPHIL # (test code=BA#) 0.04 K/mm3 0.0-0.2 NUCLEATED RBC # (test code=NRBC#) 0.00 K/mm3 0.0-0.1 MANUAL DIFF REQUIRED (test code=MDIFF) NO - XR L-SPINE 05/30 [id number] 12:30:00 FAX: Farzad Werner [place]: St: REG Name: SAMIR GARCIA [facility] : [birth year] 71 Age/S: 47/F [address] Unit #: [id number] Loc: ESTEFANÍA [place] [address] Phys: Farzad Werner MD Acct: [id number] Dis Date: Status: REG ER PHONE #: [phone] Exam Date: 08/02/2018 1211 FAX #: [phone] Reason: fall, back pain EXAMS: CPT CODE: [id number] XR L-SPINE 2/3 VIEWS [id number] HISTORY: Fall and back pain. COMPARISON: None available. 3 views of the lumbar spine: No acute fracture or dislocation. Vertebral body heights are maintained. Disc spaces are preserved. Anterior osteophytes. SI joints are preserved. Moderately distended bowel loops. IMPRESSION: No acute fracture or dislocation. Vertebral body heights are maintained. at 1230 Reported and signed by: Griffin Pantoja M.D. CC: Farzad Werner MD Technologist: DANIEL MAC RT(R) Trnscrd Date/Time/By: 08/02/2018 (5335) : By: [email or web address] Orig Print D/T: S: 11/2018 (2809) PAGE 1 Signed Repo rt URINALYSIS [id number] 12:15:00* Test Item Value Reference Range Comments UA COLOR (test code=COLU) YELLOW YELLOW UA APPEARANCE (test code=APPU) CLEAR CLEAR UA GLUCOSE DIPSTICK (test code=DGLUU) NEGATIVE mg/dL NEGATIVE UA BILIRUBIN DIPSTICK (test code=BILU) NEGATIVE mg/dL NEGATIVE UA KETONE DIPSTICK (test code=KETU) NEGATIVE mg/dL NEGATIVE UA SPECIFIC GRAVITY (test code=SGU) 1.023 1.001-1.035 UA BLOOD DIPSTICK (test code=GABE) Negative mg/dL NEGATIVE UA PH DIPSTICK (test code=BRE) 5.0 5.0-8.0 UA PROTEIN DIPSTICK (test code=PROU) NEGATIVE mg/dL NEGATIVE UA UROBILINIOGEN DIPSTICK (test code=URO) NEGATIVE mg/dL NEGATIVE UA NITRITE DIPSTICK (test code=APRIL) NEGATIVE NEGATIVE UA LEUKOCYTE ESTERASE W REFLEX (test code=LEUUR) TRACE Curtis/uL NEGATIVE UA WBC (test code=WBCU) 21-50 per HPF 0-5 UA RBC (test code=RBCU) 0-2 #/HPF 0-5 UA EPITHELIAL CELLS (test code=EPIU) FEW per HPF FEW UA BACTERIA (test code=BACU) FEW #/HPF NONE UA MUCUS (test code=MUCU) FEW #/LPF FEW Urine Source? Clean CatchUR HCG [id number] 12:15:00* Test Item Value Reference Range Comments UR HCG QUAL (test code=HCGQLU) NEGATIVE This HCGQL test is NOT applicable for MALE patients.Check with nurse about probable order error.If Tumor Marker Test needed, nurse should order test "HCGTU"(Test #550.67946) Urine Source? Clean CatchURINALYSIS [id number] 12:14:00* Test Item Value Reference Range Comments UA COLOR (test code=COLU) YELLOW YELLOW UA APPEARANCE (test code=APPU) CLEAR CLEAR UA GLUCOSE DIPSTICK (test code=DGLUU) NEGATIVE mg/dL NEGATIVE UA BILIRUBIN DIPSTICK (test code=BILU) NEGATIVE mg/dL NEGATIVE UA KETONE DIPSTICK (test code=KETU) NEGATIVE mg/dL NEGATIVE UA SPECIFIC GRAVITY (test code=SGU) 1.023 1.001-1.035 UA BLOOD DIPSTICK (test code=GABE) Negative mg/dL NEGATIVE UA PH DIPSTICK (test code=BRE) 5.0 5.0-8.0 UA PROTEIN DIPSTICK (test code=PROU) NEGATIVE mg/dL NEGATIVE UA UROBILINIOGEN DIPSTICK (test code=URO) NEGATIVE mg/dL NEGATIVE UA NITRITE DIPSTICK (test code=APRIL) NEGATIVE NEGATIVE UA LEUKOCYTE ESTERASE W REFLEX (test code=LEUUR) TRACE Curtis/uL NEGATIVE UA WBC (test code=WBCU) per HPF 0-5 Urine Source? Clean CatchUR HCG [id number] 12:14:00* Test Item Value Reference Range Comments UR HCG QUAL (test code=HCGQLU) NEGATIVE This HCGQL test is NOT applicable for MALE patients.Check with nurse about probable order error.If Tumor Marker Test needed, nurse should order test "HCGTU"(Test #550.97958) Urine Source? Clean CatchBASIC METABOLIC [id number] 12:13:00* Test Item Value Reference Range Comments SODIUM (test code=NA) 141 mmol/L 136-145 POTASSIUM (test code=K) 3.7 mmol/L 3.5-5.1 CHLORIDE (test code=CL) 111.0 mmol/L 98-107 CARBON DIOXIDE (test code=CO2) 22.0 mmol/L 21-32 ANION GAP (test code=GAP) 11.7 10-20 GLUCOSE (test code=GLU) 111 mg/dL 74-106 BLOOD UREA NITROGEN (test code=BUN) 14 mg/dL 7-18 GLOMERULAR FILTRATION RATE (test code=GFR) 59 mL/min >=60 Estimated GFR by using Modified MDRD formula.Chronic kidney disease is defined as either kidney damageor GFR <60 mL/min/1.73 m2 for >3 months. CREATININE (test code=CREAT) 1.00 mg/dL 0.55-1.02 Note change in reference range due to change in reagent. BUN/CREATININE RATIO (test code=BUN/CREA) 14.0 10-20 CALCIUM (test code=CA) 8.9 mg/dL 8.5-10.1 URINALYSIS [id number] 12:09:00* Test Item Value Reference Range Comments UA COLOR (test code=COLU) YELLOW UA APPEARANCE (test code=APPU) CLEAR UA BILIRUBIN DIPSTICK (test code=BILU) NEGATIVE UA SPECIFIC GRAVITY (test code=SGU) 1.001-1.035 UA PH DIPSTICK (test code=BRE) 5.0-8.0 UA UROBILINIOGEN DIPSTICK (test code=URO) mg/dL 0.0-0.2 UA NITRITE DIPSTICK (test code=APRIL) NEGATIVE UA LEUKOCYTE ESTERASE W REFLEX (test code=LEUUR) NEGATIVE UA WBC (test code=WBCU) per HPF 0-5 Urine Source? Clean CatchUR HCG [id number] 12:09:00* Test Item Value Reference Range Comments UR HCG QUAL (test code=HCGQLU) NEGATIVE This HCGQL test is NOT applicable for MALE patients.Check with nurse about probable order error.If Tumor Marker Test needed, nurse should order test "HCGTU"(Test #550.52122) Urine Source? Clean CatchCBC W/O [id number] 11:34:00* Test Item Value Reference Range Comments WHITE BLOOD CELL (test code=WBC) 7.3 K/mm3 4.5-12.5 RED BLOOD CELL (test code=RBC) 4.44 mill/mm3 3.7-5.2 HEMOGLOBIN (test code=HGB) 12.0 gram/dL 11.5-15.5 HEMATOCRIT (test code=HCT) 38.8 % 36.0-46.0 MEAN CELL VOLUME (test code=MCV) 87.4 fL 80-98 MEAN CELL HGB (test code=MCH) 27.0 picogram 27.0-33.0 MEAN CELL HGB CONCETRATION (test code=MCHC) 30.9 gram/dL 33.0-36.0 RED CELL DISTRIBUTION WIDTH (test code=RDW) 15.8 % 11.6-16.2 PLATELET COUNT (test code=PLT) 359 K/mm3 150-450 MEAN PLATELET VOLUME (test code=MPV) 10.0 fL 6.7-11.0 POC LACTIC [id number] 03:10:00* Test Item Value Reference Range Comments POC LACTIC ACID (test code=POCLAC) 1.45 MMOL/L 0.4-2.2 PROCALCITONIN (PCT)[id number] 01:38:00* Test Item Value Reference Range Comments PROCALCITONIN (PCT) (test code=PROCAL) < 0.05 ng/ml Concentration Interpretation (ng/mL) <0.51 Sepsis is not likely. Local bacterial infection is possible. (LOW RISK for progression to Sepsis) 0.51 - 2.00 Sepsis is possible, but other conditions are known to elevate PCT as well. (MODERATE RISK for progression to Sepsis) > 2.00 Sepsis is likely, unless other causes are known. (HIGH RISK for progression to Severe Sepsis or Septic Shock) 10.00 High likelihood of Severe Sepsis or Septic or higher Shock. *Increased PCT levels may not always be related to systemic bacterial infection.*Low PCT levels do not automatically exclude the presence of bacterial infection.*All results should be interpreted taking into account the patients history. BASIC METABOLIC [id number] 01:32:00* Test Item Value Reference Range Comments SODIUM (test code=NA) 138 mmol/L 136-145 POTASSIUM (test code=K) 3.9 mmol/L 3.5-5.1 CHLORIDE (test code=CL) 105.0 mmol/L 98-107 CARBON DIOXIDE (test code=CO2) 23.0 mmol/L 21-32 ANION GAP (test code=GAP) 13.9 10-20 GLUCOSE (test code=GLU) 124 mg/dL 74-106 BLOOD UREA NITROGEN (test code=BUN) 15 mg/dL 7-18 GLOMERULAR FILTRATION RATE (test code=GFR) 59 mL/min >=60 Estimated GFR by using Modified MDRD formula.Chronic kidney disease is defined as either kidney damageor GFR <60 mL/min/1.73 m2 for >3 months. CREATININE (test code=CREAT) 1.00 mg/dL 0.55-1.02 Note change in reference range due to change in reagent. BUN/CREATININE RATIO (test code=BUN/CREA) 14.7 10-20 CALCIUM (test code=CA) 9.6 mg/dL 8.5-10.1 HEPATIC FUNCTION [id number] 01:32:00* Test Item Value Reference Range Comments TOTAL PROTEIN (test code=PROT) 8.5 gram/dL 6.4-8.2 ALBUMIN (test code=ALB) 3.6 g/dL 3.4-5.0 GLOBULIN (test code=GLOB) 4.9 gram/dL 2.7-4.2 ALBUMIN/GLOBULIN RATIO (test code=A/G) 0.7 0.75-1.50 BILIRUBIN TOTAL (test code=BILT) 0.40 mg/dL 0.0-1.0 BILIRUBIN DIRECT (test code=BILD) 0.12 mg/dL 0.0-0.20 SGOT/AST (test code=AST) 37 IUnit/L 15-37 SGPT/ALT (test code=ALT) 62 IUnit/L 12-78 ALKALINE PHOSPHATASE TOTAL (test code=ALKP) 83 IUnit/L 45-117 Note change in reference range due to change in reagent. [id number] 01:32:00* Test Item Value Reference Range Comments TROPONIN-I (test code=TROPI) <0.015 ng/mL 0-0.045 LACTIC [id number] 01:31:00* Test Item Value Reference Range Comments LACTIC ACID (test code=LACT) 2.2 mmol/L 0.4-1.9 Results called to [id number] by V.LAB.AA 06/14/18 0130Critical results verified and read back by Nurse? Y URINALYSIS [id number] 01:29:00* Test Item Value Reference Range Comments UA COLOR (test code=COLU) YELLOW YELLOW UA APPEARANCE (test code=APPU) SLIGHTLY CLOUDY CLEAR UA GLUCOSE DIPSTICK (test code=DGLUU) NEGATIVE mg/dL NEGATIVE UA BILIRUBIN DIPSTICK (test code=BILU) NEGATIVE mg/dL NEGATIVE UA KETONE DIPSTICK (test code=KETU) Negative mg/dL NEGATIVE UA SPECIFIC GRAVITY (test code=SGU) 1.024 1.001-1.035 UA BLOOD DIPSTICK (test code=GABE) 2+ (Moderate) NEGATIVE UA PH DIPSTICK (test code=BRE) 5.0 5.0-8.0 UA PROTEIN DIPSTICK (test code=PROU) 30 (1+) mg/dL NEGATIVE UA UROBILINIOGEN DIPSTICK (test code=URO) NEGATIVE mg/dL NEGATIVE UA NITRITE DIPSTICK (test code=APRIL) POSITIVE NEGATIVE UA LEUKOCYTE ESTERASE W REFLEX (test code=LEUUR) 3+ NEGATIVE UA WBC (test code=WBCU) >50 #/HPF 0-5 UA RBC (test code=RBCU) >20 #/HPF 0-5 UA EPITHELIAL CELLS (test code=EPIU) FEW per HPF FEW UA BACTERIA (test code=BACU) FEW #/HPF NONE UA MUCUS (test code=MUCU) FEW #/LPF FEW Urine Source? Clean CatchBASIC METABOLIC [id number] 01:15:00* Test Item Value Reference Range Comments SODIUM (test code=NA) 138 mmol/L 136-145 POTASSIUM (test code=K) 3.9 mmol/L 3.5-5.1 CHLORIDE (test code=CL) 105.0 mmol/L 98-107 CARBON DIOXIDE (test code=CO2) mmol/L 21-32 ANION GAP (test code=GAP) 10-20 GLUCOSE (test code=GLU) mg/dL 74-106 BLOOD UREA NITROGEN (test code=BUN) mg/dL 7-18 GLOMERULAR FILTRATION RATE (test code=GFR) mL/min >=60 CREATININE (test code=CREAT) mg/dL 0.55-1.02 BUN/CREATININE RATIO (test code=BUN/CREA) 10-20 CALCIUM (test code=CA) mg/dL 8.5-10.1 HEPATIC FUNCTION [id number] 01:15:00* Test Item Value Reference Range Comments TOTAL PROTEIN (test code=PROT) gram/dL 6.4-8.2 ALBUMIN (test code=ALB) g/dL 3.4-5.0 GLOBULIN (test code=GLOB) gram/dL 2.7-4.2 ALBUMIN/GLOBULIN RATIO (test code=A/G) 0.75-1.50 BILIRUBIN TOTAL (test code=BILT) mg/dL 0.0-1.0 BILIRUBIN DIRECT (test code=BILD) mg/dL 0.0-0.20 SGOT/AST (test code=AST) IUnit/L 15-37 SGPT/ALT (test code=ALT) IUnit/L 12-78 ALKALINE PHOSPHATASE TOTAL (test code=ALKP) IUnit/L 45-117 [id number] 01:15:00* Test Item Value Reference Range Comments TROPONIN-I (test code=TROPI) ng/mL 0-0.045 CBC W/AUTO [id number] 01:03:00* Test Item Value Reference Range Comments WHITE BLOOD CELL (test code=WBC) 10.3 K/mm3 4.5-12.5 RED BLOOD CELL (test code=RBC) 4.32 mill/mm3 3.7-5.2 HEMOGLOBIN (test code=HGB) 12.1 gram/dL 11.5-15.5 HEMATOCRIT (test code=HCT) 38.2 % 36.0-46.0 MEAN CELL VOLUME (test code=MCV) 88.4 fL 80-98 MEAN CELL HGB (test code=MCH) 28.0 picogram 27.0-33.0 MEAN CELL HGB CONCETRATION (test code=MCHC) 31.7 gram/dL 33.0-36.0 RED CELL DISTRIBUTION WIDTH (test code=RDW) 15.0 % 11.6-16.2 RED CELL DISTRIBUTION WIDTH SD (test code=RDW-SD) 47.6 fL 37.0-51.0 PLATELET COUNT (test code=PLT) 419 K/mm3 150-450 MEAN PLATELET VOLUME (test code=MPV) 10.2 fL 6.7-11.0 NEUTROPHIL % (test code=NT%) 54.4 % 39.0-69.0 IMMATURE GRANULOCYTE % (test code=IG%) 0.3 % 0.0-5.0 LYMPHOCYTE % (test code=LY%) 33.9 % 25.0-55.0 MONOCYTE % (test code=MO%) 6.5 % 0.0-10.0 EOSINOPHIL % (test code=EO%) 4.4 % 0.0-5.0 BASOPHIL % (test code=BA%) 0.5 % 0.0-1.0 NUCLEATED RBC % (test code=NRBC%) 0.0 % 0-0 NEUTROPHIL # (test code=NT#) 5.60 K/mm3 1.8-7.7 IMMATURE GRANULOCYTE # (test code=IG#) 0.03 x10 3/uL 0-0.03 LYMPHOCYTE # (test code=LY#) 3.49 K/mm3 1.0-5.0 MONOCYTE # (test code=MO#) 0.67 K/mm3 0-0.8 EOSINOPHIL # (test code=EO#) 0.45 K/mm3 0.0-0.5 BASOPHIL # (test code=BA#) 0.05 K/mm3 0.0-0.2 NUCLEATED RBC # (test code=NRBC#) 0.00 K/mm3 0.0-0.1 POC LACTIC [id number] 00:48:00* Test Item Value Reference Range Comments POC LACTIC ACID (test code=POCLAC) 2.15 MMOL/L 0.4-2.2 - CT ABD PELVIS [id number] 18:12:00 Name: SAMIR FITZPATRICK [facility] : 1970 Age/S: 47 / F [place] Unit #: [id number] Loc: ESTEFANÍA [place] [address] Phys: Modesto Coon MD Acct: [id number] Dis Date: Status: REG ER PHONE #: [phone] Exam Date: 05/27/2018 1805 FAX #: [phone] Reason: LOWER ABD PAIN EXAMS: CPT CODE: [id number] CT ABD PELVIS W/CONT [id number] EXAM: CT of the abdomen and pelvis with contrast; INFORMATION: Lower abdominal pain and constipation; TECHNIQUE AND FINDINGS: CT dose reduction protocol; 5 mm cuts through the abdomen and pelvis during and after intravenous infusion of contrast material. A large amount of stool is seen in the colon; no evidence of bowel obstruction or other acute bowel abnormalities. Similar to the recent CT and ultrasound studies there is significantly enlarged uterus with lobulated contour consistent with extensive fibroids. No adnexal mass lesions. Liver, biliary system, pancreas, spleen and adrenal glands are unremarkable. There are nonobstructing calyceal stones in the left kidney measuring 2 mm in diameter. No right-sided stones. No bladder stones. Lung bases are clear. IMPRESSION: 1. No change compared with a recent study from April 26, 2018, showing a significantly enlarged leiomyomatous uterus. 2. Small, nonobstructing calyceal stones in the left kidney. 3. No acute abdominal or pelvic abnormalities. at 1812 Reported and signed by: Cm Hickman M.D. CC: Modesto Coon MD Technologist:RT ARNOLDO(R) CT CTDI: DLP: Trnscb Date/Time: 05/27/2018 (1811) Cherry Orig Print D/T: S: 05/27/2018 (1814) CTDI: DLP: PAGE 1 Signed Report URINALYSIS [id number] 16:32:00* Test Item Value Reference Range Comments UA COLOR (test code=COLU) YELLOW YELLOW UA APPEARANCE (test code=APPU) Cloudy CLEAR UA GLUCOSE DIPSTICK (test code=DGLUU) NEGATIVE mg/dL NEGATIVE UA BILIRUBIN DIPSTICK (test code=BILU) NEGATIVE mg/dL NEGATIVE UA KETONE DIPSTICK (test code=KETU) Negative mg/dL NEGATIVE UA SPECIFIC GRAVITY (test code=SGU) 1.014 1.001-1.035 UA BLOOD DIPSTICK (test code=GABE) 3+ (Large) NEGATIVE UA PH DIPSTICK (test code=BRE) 5.0 5.0-8.0 UA PROTEIN DIPSTICK (test code=PROU) Negative mg/dL NEGATIVE UA UROBILINIOGEN DIPSTICK (test code=URO) NEGATIVE mg/dL NEGATIVE UA NITRITE DIPSTICK (test code=APRIL) NEGATIVE NEGATIVE UA LEUKOCYTE ESTERASE W REFLEX (test code=LEUUR) 3+ NEGATIVE UA WBC (test code=WBCU) 21-50 #/HPF 0-5 UA RBC (test code=RBCU) >20 #/HPF 0-5 UA EPITHELIAL CELLS (test code=EPIU) FEW per HPF FEW UA BACTERIA (test code=BACU) FEW #/HPF NONE UA MUCUS (test code=MUCU) FEW #/LPF FEW Urine Source? Clean CatchBASIC METABOLIC [id number] 16:11:00* Test Item Value Reference Range Comments SODIUM (test code=NA) 137 mmol/L 136-145 POTASSIUM (test code=K) 4.1 mmol/L 3.5-5.1 CHLORIDE (test code=CL) 106.0 mmol/L 98-107 CARBON DIOXIDE (test code=CO2) 22.0 mmol/L 21-32 ANION GAP (test code=GAP) 13.1 10-20 GLUCOSE (test code=GLU) 103 mg/dL 74-106 BLOOD UREA NITROGEN (test code=BUN) 11 mg/dL 7-18 GLOMERULAR FILTRATION RATE (test code=GFR) > 60 mL/min >=60 Estimated GFR by using Modified MDRD formula.Chronic kidney disease is defined as either kidney damageor GFR <60 mL/min/1.73 m2 for >3 months. CREATININE (test code=CREAT) 0.80 mg/dL 0.55-1.02 Note change in reference range due to change in reagent. BUN/CREATININE RATIO (test code=BUN/CREA) 13.2 10-20 CALCIUM (test code=CA) 9.0 mg/dL 8.5-10.1 HEPATIC FUNCTION [id number] 16:11:00* Test Item Value Reference Range Comments TOTAL PROTEIN (test code=PROT) 8.2 gram/dL 6.4-8.2 ALBUMIN (test code=ALB) 3.7 g/dL 3.4-5.0 GLOBULIN (test code=GLOB) 4.5 gram/dL 2.7-4.2 ALBUMIN/GLOBULIN RATIO (test code=A/G) 0.8 0.75-1.50 BILIRUBIN TOTAL (test code=BILT) 0.30 mg/dL 0.0-1.0 BILIRUBIN DIRECT (test code=BILD) 0.11 mg/dL 0.0-0.20 SGOT/AST (test code=AST) 27 IUnit/L 15-37 SGPT/ALT (test code=ALT) 54 IUnit/L 12-78 ALKALINE PHOSPHATASE TOTAL (test code=ALKP) 82 IUnit/L 45-117 Note change in reference range due to change in reagent. [id number] 16:11:00* Test Item Value Reference Range Comments LIPASE (test code=LIP) 155 U/L 73.0-393.0 HCG SERUM [id number] 16:11:00* Test Item Value Reference Range Comments HCG SERUM QUAL (test code=HCGQL) NEGATIVE NEGATIVE This HCGQL test is NOT applicable for MALE patients.Check with nurse about probable order error.If Tumor Marker Test needed, nurse should order test "HCGTU"(Test #550.00712) BASIC METABOLIC [id number] 16:06:00* Test Item Value Reference Range Comments SODIUM (test code=NA) 137 mmol/L 136-145 POTASSIUM (test code=K) 4.1 mmol/L 3.5-5.1 CHLORIDE (test code=CL) 106.0 mmol/L 98-107 CARBON DIOXIDE (test code=CO2) mmol/L 21-32 ANION GAP (test code=GAP) 10-20 GLUCOSE (test code=GLU) mg/dL 74-106 BLOOD UREA NITROGEN (test code=BUN) mg/dL 7-18 GLOMERULAR FILTRATION RATE (test code=GFR) mL/min >=60 CREATININE (test code=CREAT) mg/dL 0.55-1.02 BUN/CREATININE RATIO (test code=BUN/CREA) 10-20 CALCIUM (test code=CA) mg/dL 8.5-10.1 HEPATIC FUNCTION [id number] 16:06:00* Test Item Value Reference Range Comments TOTAL PROTEIN (test code=PROT) gram/dL 6.4-8.2 ALBUMIN (test code=ALB) g/dL 3.4-5.0 GLOBULIN (test code=GLOB) gram/dL 2.7-4.2 ALBUMIN/GLOBULIN RATIO (test code=A/G) 0.75-1.50 BILIRUBIN TOTAL (test code=BILT) mg/dL 0.0-1.0 BILIRUBIN DIRECT (test code=BILD) mg/dL 0.0-0.20 SGOT/AST (test code=AST) IUnit/L 15-37 SGPT/ALT (test code=ALT) IUnit/L 12-78 ALKALINE PHOSPHATASE TOTAL (test code=ALKP) IUnit/L 45-117 [id number] 16:06:00* Test Item Value Reference Range Comments LIPASE (test code=LIP) U/L 73.0-393.0 HCG SERUM [id number] 16:06:00* Test Item Value Reference Range Comments HCG SERUM QUAL (test code=HCGQL) NEGATIVE NEGATIVE This HCGQL test is NOT applicable for MALE patients.Check with nurse about probable order error.If Tumor Marker Test needed, nurse should order test "HCGTU"(Test #550.92679) BASIC METABOLIC [id number] 16:03:00* Test Item Value Reference Range Comments SODIUM (test code=NA) 137 mmol/L 136-145 POTASSIUM (test code=K) 4.1 mmol/L 3.5-5.1 CHLORIDE (test code=CL) 106.0 mmol/L 98-107 CARBON DIOXIDE (test code=CO2) mmol/L 21-32 ANION GAP (test code=GAP) 10-20 GLUCOSE (test code=GLU) mg/dL 74-106 BLOOD UREA NITROGEN (test code=BUN) mg/dL 7-18 GLOMERULAR FILTRATION RATE (test code=GFR) mL/min >=60 CREATININE (test code=CREAT) mg/dL 0.55-1.02 BUN/CREATININE RATIO (test code=BUN/CREA) 10-20 CALCIUM (test code=CA) mg/dL 8.5-10.1 HEPATIC FUNCTION [id number] 16:03:00* Test Item Value Reference Range Comments TOTAL PROTEIN (test code=PROT) gram/dL 6.4-8.2 ALBUMIN (test code=ALB) g/dL 3.4-5.0 GLOBULIN (test code=GLOB) gram/dL 2.7-4.2 ALBUMIN/GLOBULIN RATIO (test code=A/G) 0.75-1.50 BILIRUBIN TOTAL (test code=BILT) mg/dL 0.0-1.0 BILIRUBIN DIRECT (test code=BILD) mg/dL 0.0-0.20 SGOT/AST (test code=AST) IUnit/L 15-37 SGPT/ALT (test code=ALT) IUnit/L 12-78 ALKALINE PHOSPHATASE TOTAL (test code=ALKP) IUnit/L 45-117 [id number] 16:03:00* Test Item Value Reference Range Comments LIPASE (test code=LIP) U/L 73.0-393.0 HCG SERUM [id number] 16:03:00* Test Item Value Reference Range Comments HCG SERUM QUAL (test code=HCGQL) NEGATIVE CBC W/O [id number] 15:57:00* Test Item Value Reference Range Comments WHITE BLOOD CELL (test code=WBC) 5.6 K/mm3 4.5-12.5 RED BLOOD CELL (test code=RBC) 4.34 mill/mm3 3.7-5.2 HEMOGLOBIN (test code=HGB) 12.2 gram/dL 11.5-15.5 HEMATOCRIT (test code=HCT) 38.4 % 36.0-46.0 MEAN CELL VOLUME (test code=MCV) 88.5 fL 80-98 MEAN CELL HGB (test code=MCH) 28.1 picogram 27.0-33.0 MEAN CELL HGB CONCETRATION (test code=MCHC) 31.8 gram/dL 33.0-36.0 RED CELL DISTRIBUTION WIDTH (test code=RDW) 14.8 % 11.6-16.2 PLATELET COUNT (test code=PLT) 286 K/mm3 150-450 MEAN PLATELET VOLUME (test code=MPV) 10.3 fL 6.7-11.0 URINALYSIS [id number] 22:30:00* Test Item Value Reference Range Comments UA COLOR (test code=COLU) DARK YELLOW YELLOW UA APPEARANCE (test code=APPU) SLIGHTLY CLOUDY CLEAR UA GLUCOSE DIPSTICK (test code=DGLUU) NEGATIVE mg/dL NEGATIVE UA BILIRUBIN DIPSTICK (test code=BILU) NEGATIVE mg/dL NEGATIVE UA KETONE DIPSTICK (test code=KETU) Negative mg/dL NEGATIVE UA SPECIFIC GRAVITY (test code=SGU) 1.029 1.001-1.035 UA BLOOD DIPSTICK (test code=GABE) Negative NEGATIVE UA PH DIPSTICK (test code=BRE) 6.0 5.0-8.0 UA PROTEIN DIPSTICK (test code=PROU) 30 (1+) mg/dL NEGATIVE UA UROBILINIOGEN DIPSTICK (test code=URO) NEGATIVE mg/dL NEGATIVE UA NITRITE DIPSTICK (test code=APRIL) NEGATIVE NEGATIVE UA LEUKOCYTE ESTERASE W REFLEX (test code=LEUUR) 2+ NEGATIVE UA WBC (test code=WBCU) 21-50 #/HPF 0-5 UA RBC (test code=RBCU) 6-10 #/HPF 0-5 UA EPITHELIAL CELLS (test code=EPIU) MANY per HPF FEW UA BACTERIA (test code=BACU) FEW #/HPF NONE UA RENAL CELLS (test code=AMIRA) 11-20 #/HPF 0-5 UA MUCUS (test code=MUCU) FEW #/LPF FEW Urine Source? Clean CatchURINALYSIS [id number] 22:27:00* Test Item Value Reference Range Comments UA COLOR (test code=COLU) DARK YELLOW YELLOW UA APPEARANCE (test code=APPU) SLIGHTLY CLOUDY CLEAR UA GLUCOSE DIPSTICK (test code=DGLUU) NEGATIVE mg/dL NEGATIVE UA BILIRUBIN DIPSTICK (test code=BILU) NEGATIVE mg/dL NEGATIVE UA KETONE DIPSTICK (test code=KETU) Negative mg/dL NEGATIVE UA SPECIFIC GRAVITY (test code=SGU) 1.029 1.001-1.035 UA BLOOD DIPSTICK (test code=GABE) Negative NEGATIVE UA PH DIPSTICK (test code=BRE) 6.0 5.0-8.0 UA PROTEIN DIPSTICK (test code=PROU) 30 (1+) mg/dL NEGATIVE UA UROBILINIOGEN DIPSTICK (test code=URO) NEGATIVE mg/dL NEGATIVE UA NITRITE DIPSTICK (test code=APRIL) NEGATIVE NEGATIVE UA LEUKOCYTE ESTERASE W REFLEX (test code=LEUUR) 2+ NEGATIVE UA WBC (test code=WBCU) per HPF 0-5 Urine Source? Clean CatchBASIC METABOLIC [id number] 22:07:00* Test Item Value Reference Range Comments SODIUM (test code=NA) 143 mmol/L 136-145 POTASSIUM (test code=K) 3.7 mmol/L 3.5-5.1 CHLORIDE (test code=CL) 109.0 mmol/L 98-107 CARBON DIOXIDE (test code=CO2) 26.0 mmol/L 21-32 ANION GAP (test code=GAP) 11.7 10-20 GLUCOSE (test code=GLU) 88 mg/dL 74-106 BLOOD UREA NITROGEN (test code=BUN) 10 mg/dL 7-18 GLOMERULAR FILTRATION RATE (test code=GFR) > 60 mL/min >=60 Estimated GFR by using Modified MDRD formula.Chronic kidney disease is defined as either kidney damageor GFR <60 mL/min/1.73 m2 for >3 months. CREATININE (test code=CREAT) 0.90 mg/dL 0.55-1.02 Note change in reference range due to change in reagent. BUN/CREATININE RATIO (test code=BUN/CREA) 11.0 10-20 CALCIUM (test code=CA) 9.0 mg/dL 8.5-10.1 HEPATIC FUNCTION [id number] 22:07:00* Test Item Value Reference Range Comments TOTAL PROTEIN (test code=PROT) 7.6 gram/dL 6.4-8.2 ALBUMIN (test code=ALB) 3.7 g/dL 3.4-5.0 GLOBULIN (test code=GLOB) 3.9 gram/dL 2.7-4.2 ALBUMIN/GLOBULIN RATIO (test code=A/G) 0.9 0.75-1.50 BILIRUBIN TOTAL (test code=BILT) 0.30 mg/dL 0.0-1.0 BILIRUBIN DIRECT (test code=BILD) 0.09 mg/dL 0.0-0.20 SGOT/AST (test code=AST) 22 IUnit/L 15-37 SGPT/ALT (test code=ALT) 35 IUnit/L 12-78 ALKALINE PHOSPHATASE TOTAL (test code=ALKP) 76 IUnit/L 45-117 Note change in reference range due to change in reagent. [id number] 22:07:00* Test Item Value Reference Range Comments LIPASE (test code=LIP) 204 U/L 73.0-393.0 HCG SERUM [id number] 22:07:00* Test Item Value Reference Range Comments HCG SERUM QUAL (test code=HCGQL) NEGATIVE NEGATIVE This HCGQL test is NOT applicable for MALE patients.Check with nurse about probable order error.If Tumor Marker Test needed, nurse should order test "HCGTU"(Test #[id number]) BASIC METABOLIC [id number] 22:06:00* Test Item Value Reference Range Comments SODIUM (test code=NA) 143 mmol/L 136-145 POTASSIUM (test code=K) 3.7 mmol/L 3.5-5.1 CHLORIDE (test code=CL) 109.0 mmol/L 98-107 CARBON DIOXIDE (test code=CO2) mmol/L 21-32 ANION GAP (test code=GAP) 10-20 GLUCOSE (test code=GLU) mg/dL 74-106 BLOOD UREA NITROGEN (test code=BUN) mg/dL 7-18 GLOMERULAR FILTRATION RATE (test code=GFR) mL/min >=60 CREATININE (test code=CREAT) mg/dL 0.55-1.02 BUN/CREATININE RATIO (test code=BUN/CREA) 10-20 CALCIUM (test code=CA) mg/dL 8.5-10.1 HEPATIC FUNCTION [id number] 22:06:00* Test Item Value Reference Range Comments TOTAL PROTEIN (test code=PROT) gram/dL 6.4-8.2 ALBUMIN (test code=ALB) g/dL 3.4-5.0 GLOBULIN (test code=GLOB) gram/dL 2.7-4.2 ALBUMIN/GLOBULIN RATIO (test code=A/G) 0.75-1.50 BILIRUBIN TOTAL (test code=BILT) mg/dL 0.0-1.0 BILIRUBIN DIRECT (test code=BILD) mg/dL 0.0-0.20 SGOT/AST (test code=AST) IUnit/L 15-37 SGPT/ALT (test code=ALT) IUnit/L 12-78 ALKALINE PHOSPHATASE TOTAL (test code=ALKP) IUnit/L 45-117 [id number] 22:06:00* Test Item Value Reference Range Comments LIPASE (test code=LIP) U/L 73.0-393.0 HCG SERUM [id number] 22:06:00* Test Item Value Reference Range Comments HCG SERUM QUAL (test code=HCGQL) NEGATIVE NEGATIVE This HCGQL test is NOT applicable for MALE patients.Check with nurse about probable order error.If Tumor Marker Test needed, nurse should order test "HCGTU"(Test #[id number]) BASIC METABOLIC [id number] 21:58:00* Test Item Value Reference Range Comments SODIUM (test code=NA) 143 mmol/L 136-145 POTASSIUM (test code=K) 3.7 mmol/L 3.5-5.1 CHLORIDE (test code=CL) 109.0 mmol/L 98-107 CARBON DIOXIDE (test code=CO2) mmol/L 21-32 ANION GAP (test code=GAP) 10-20 GLUCOSE (test code=GLU) mg/dL 74-106 BLOOD UREA NITROGEN (test code=BUN) mg/dL 7-18 GLOMERULAR FILTRATION RATE (test code=GFR) mL/min >=60 CREATININE (test code=CREAT) mg/dL 0.55-1.02 BUN/CREATININE RATIO (test code=BUN/CREA) 10-20 CALCIUM (test code=CA) mg/dL 8.5-10.1 HEPATIC FUNCTION [id number] 21:58:00* Test Item Value Reference Range Comments TOTAL PROTEIN (test code=PROT) gram/dL 6.4-8.2 ALBUMIN (test code=ALB) g/dL 3.4-5.0 GLOBULIN (test code=GLOB) gram/dL 2.7-4.2 ALBUMIN/GLOBULIN RATIO (test code=A/G) 0.75-1.50 BILIRUBIN TOTAL (test code=BILT) mg/dL 0.0-1.0 BILIRUBIN DIRECT (test code=BILD) mg/dL 0.0-0.20 SGOT/AST (test code=AST) IUnit/L 15-37 SGPT/ALT (test code=ALT) IUnit/L 12-78 ALKALINE PHOSPHATASE TOTAL (test code=ALKP) IUnit/L 45-117 [id number] 21:58:00* Test Item Value Reference Range Comments LIPASE (test code=LIP) U/L 73.0-393.0 HCG SERUM [id number] 21:58:00* Test Item Value Reference Range Comments HCG SERUM QUAL (test code=HCGQL) NEGATIVE CBC W/O [id number] 21:34:00* Test Item Value Reference Range Comments WHITE BLOOD CELL (test code=WBC) 8.7 K/mm3 4.5-12.5 RED BLOOD CELL (test code=RBC) 4.15 mill/mm3 3.7-5.2 HEMOGLOBIN (test code=HGB) 11.6 gram/dL 11.5-15.5 HEMATOCRIT (test code=HCT) 37.8 % 36.0-46.0 MEAN CELL VOLUME (test code=MCV) 91.1 fL 80-98 MEAN CELL HGB (test code=MCH) 28.0 picogram 27.0-33.0 MEAN CELL HGB CONCETRATION (test code=MCHC) 30.7 gram/dL 33.0-36.0 RED CELL DISTRIBUTION WIDTH (test code=RDW) 14.9 % 11.6-16.2 PLATELET COUNT (test code=PLT) 297 K/mm3 150-450 MEAN PLATELET VOLUME (test code=MPV) 10.7 fL 6.7-11.0
--- OUTSIDE RECORDS SUMMARY | 2019-02-20 04:12 | XMS REPORT ---
Author Author Admin, [place] Organization [facility] Address [address] [place] [address] Phone Allergies, Adverse Reactions, Alerts Allergy Name Reaction Description Start Date Severity Status Provider No Known Allergies Leandra Mackenzie MA Conditions or Problems Problem Name Problem Code Onset Date Status Entry Date Provider Comment Standard Description Annotate Depression 311 Active Sree Bah MD Depressive disorder, not elsewhere classified Strain lumbar 847.2 Active Sree Bah MD Lumbar sprain Neurogenic bladder 596.54 Active Sree Bah MD Neurogenic bladder NOS Medication List Medication Instructions Start Date Stop Date Generic Name NDC Status Provider Patient Instruction CELEXA 40 MG ORAL TABLET 1 by mouth every day CITALOPRAM HYDROBROMIDE 72447342863 Active Sree Bah MD Active CYCLOBENZAPRINE HCL 10 MG ORAL TABLET 1 By Mouth three times a day as needed for muscle spasm CYCLOBENZAPRINE HCL 65796556632 Active Sree Bah MD Active Vital Signs Date Name Value Unit Range Description blood pressure, diastolic 79 mm[Hg] BP nair blood pressure, systolic 111 mm[Hg] BP sys pulse rate E&M 101 /min Heart rate respiratory rate E&M 20 /min Resp rate temperature E&M 98.5 [degF] Body temperature blood pressure, diastolic 84 mm[Hg] BP nair blood pressure, systolic 119 mm[Hg] BP sys pulse rate E&M 87 /min Heart rate respiratory rate E&M 18 /min Resp rate temperature E&M 98.2 [degF] Body temperature Encounters Date Encounter Provider Code Facility 14:45:12 CDT Est Patient Exp Problem - 02581 Sree Bah MD CPT-13638 [facility] 16:55:22 CDT Est Patient Exp Problem - 32495 Sree Bah MD CPT-61052 [facility]
[2019-02-20] MEDS ORDERED: MORPHINE SULFATE 2 MG/ML SYR 1ML IV STA ×2 (05:32→05:49)
[2019-02-20] MEDS ORDERED: ONDANSETRON HCL INJ 2MG/ML 2ML 2 MG/ML VIAL IV STA (05:32)
[2019-02-20] MEDS ORDERED: MORPHINE SULFATE INJ 4 MG/ML INJ 1ML ONE ×2 (05:53→09:16)
--- NOTE | 2019-02-20 06:37 | NUR ---
called [facility] for transport
[2019-02-20] MEDS ORDERED: MORPHINE SULFATE INJ 4 MG/ML INJ 1ML IV PRN (06:45)
--- NOTE | 2019-02-20 07:05 | NUR ---
0420 PT HAS NOTED FOOT DROP TO LEFT AND PARTIAL TO RIGHT.
--- NOTE | 2019-02-20 07:08 | NUR ---
1100 CC LUKASZ URINER DRANIED FROM [facility].
--- NOTE | 2019-02-20 08:10 | Diagnostic Imaging Report ---
History: Back pain and neck pain Comparison studies: None Technique: Axial images were obtained through the cervical region.. Coronal and sagittal images reconstructed from the axial data. Dose modulation, iterative reconstruction, and/or weight based adjustment of the mA/kV was utilized to reduce the radiation dose to as low as reasonably achievable. Intravenous contrast: None Findings: Fractures: None. Soft tissues: No gross abnormalities. Atlantoaxial articulation: Mildly degenerated. Alignment: Straightening of the usual cervical lordosis.. No scoliosis. Cervicomedullary junction: No abnormalities. The foramen magnum is patent. Vertebrae: No infection or neoplasm. Postsurgical changes: Patient status post anterior cervical fusion at C5-6. Hardware in place. No loosening or failure. The intervening disc space is partially fused. Degenerative changes: C2-C3: Normal disc. Moderate bilateral facet arthrosis. Mild left foraminal stenosis due to the facet arthrosis. Patent right foramen. No significant spinal canal stenosis in spite of a disc osteophyte complex. C3-C4: Mildly degenerated disc. Moderate bilateral facet arthrosis. Moderate left foraminal stenosis due to this facet arthrosis. Patent right foramen. Mild spinal canal stenosis due to a disc osteophyte complex. C4-C5: Mildly degenerated disc. Severe left foraminal stenosis due to facet arthrosis. Patent right foramen. Mild spinal canal stenosis due to a disc osteophyte complex. C5-C6: The disc is partially fused. No significant foraminal stenosis in spite of left facet arthrosis. Mild spinal canal stenosis due to a disc osteophyte complex. C6-C7: Moderately degenerated disc. Severe left foraminal stenosis due to facet and uncovertebral arthrosis. Patent right foramen. Moderate spinal canal stenosis due to a disc osteophyte complex. C7-T1: No abnormalities. IMPRESSION: 1. No acute abnormalities. 2. Patient status post anterior cervical fusion at C5-C6. Hardware in place. The intervening disc space is fused. 3. Degenerative foraminal stenosis on the left from C2 through C7 is worse at C4-5 and at C6-7 as described. 4. Superimposed spinal canal stenosis from C3 through C7 is worse (moderate) at C6-C7. Signed by: Dr. Ras Wei M.D. on 02/20/2019 8:07 AM
--- NOTE | 2019-02-20 08:20 | NUR ---
CALLED [facility] FOR ACCEPTANCE; DR PENNINGTON DECLINED ADMISSION D/T PT TRAUMA FROM [place]. PENDING ACCEPTANCE.
--- NOTE | 2019-02-20 08:25 | Diagnostic Imaging Report ---
History: Low back pain Comparison studies: None Technique: Axial images were obtained from T8 through the sacrum. Coronal and sagittal images reconstructed from the axial data. Dose modulation, iterative reconstruction, and/or weight based adjustment of the mA/kV was utilized to reduce the radiation dose to as low as reasonably achievable. Intravenous contrast: None Findings: Number of non-rib bearing vertebral bodies: 5 Alignment: Normal lordosis. No scoliosis. Soft tissues: No abnormalities. Paraspinal muscles: Unremarkable. Vertebrae: No fractures, infection or neoplasm. Degenerative changes: Disc spaces: Mildly degenerated from T8 through S1. Facet joints: Bilaterally degenerated from T10 through S1 worst from L3 through S1. T8-T12: Patent spinal canal and foramina. T12-L1: Mild left foraminal stenosis due to facet arthrosis. Patent right foramen. Moderate left spinal canal stenosis due to a disc osteophyte. L1-L2: Patent foramina. Moderate spinal canal stenosis due to facet arthrosis, a disc bulge and calcified ligamenta flava (series 5, image 164). L2-L3: Moderate right foraminal stenosis due to endplate osteophytes. Moderate spinal canal stenosis due to a disc bulge and bilateral facet arthrosis. L3-L4: No significant spinal canal stenosis in spite of endplate osteophytes. Severe spinal canal stenosis due to a disc bulge, bilateral facet arthrosis and calcified ligamenta flava (series 3, image 55). L4-L5: Moderate foraminal canal stenosis bilaterally due to endplate osteophytes and facet arthrosis. Severe spinal canal stenosis due to facet arthrosis and a disc bulge (series 3, image 63). L5-S1: Patent foramina. No gross spinal canal stenosis in spite of artifacts. . Sacroiliac joints: No degenerative changes. IMPRESSION: Evaluation of the lumbar region is limited due to patient's body habitus. In spite of this limitation: No acute abnormalities. Degenerative changes include the followin. Mildly degenerated discs and facet arthrosis from T8 through S1 result in spinal canal stenosis which is moderate from T12 through L3 but severe at L3-4 and L4-5. 2. Superimposed degenerative foraminal stenosis is worse on the right at L2-3 and bilaterally at L4-5. Signed by: Dr. Ras Wei M.D. on 02/20/2019 8:22 AM
[2019-02-20] MEDS ORDERED: MORPHINE SULFATE INJ 4 MG/ML INJ 1ML IV STA (08:49)
--- NOTE | 2019-02-20 09:18 | NUR ---
C COLLAR APPLIED PER MD ORDER.
--- NOTE | 2019-02-20 09:18 | NUR ---
CALLED [facility] PER PT TO NOTIFY OF TRANSFER [phone]
--- NOTE | 2019-02-20 09:26 | NUR ---
BERNARD BECKETT FOR[facility] [phone] AND GAVE REPORT
== END 2019-02-20 09:26 | disposition short-term general hospital (02) ==
LOC: FSED 04:08
DX: R33.9 Retention of urine, unspecified (principal); S13.4XXA Sprain of ligaments of cervical spine, initial encounter; S33.5XXA Sprain of ligaments of lumbar spine, initial encounter; M54.6 Pain in thoracic spine; M54.12 Radiculopathy, cervical region; M21.372 Foot drop, left foot; M21.371 Foot drop, right foot; W18.30XA Fall on same level, unspecified, initial encounter; Y92.008 Other place in unspecified non-institutional (private) residence as the place of occurrence of the external cause
CPT/HCPCS: 51702; 72125; 72131; 80053; 81003; 85025; 96374; 96375; 96376; 99284; J2270; J2405; 51700

== ENCOUNTER 2019-03-07 16:34 | Emergency (ER) | payer OTHER ==
[~2019-03-07] VITALS: Ht 177.8 cm; Wt 136.1 kg
[2019-03-07] MEDS ORDERED: SODIUM CHLORIDE 0.9% 1000ML 1,000 ML IV STA (16:38)
[2019-03-07] MEDS ORDERED: PROMETHAZINE 25MG/ NS 50ML (IV) IV ONE (16:45)
[2019-03-07] MEDS ORDERED: FAMOTIDINE 20 MG/2 ML VIAL IV ONE ×2 (16:45→17:04)
[2019-03-07] MEDS ORDERED: CEFTRIAXONE SOD 1 GM VIAL IV ONE (16:45)
[2019-03-07] MEDS ORDERED: ACETAMINOPHEN 325 MG TAB PO ONE (16:45)
[2019-03-07] MEDS ORDERED: DIPHENHYDRAMINE HCL INJ 50 MG/ML VIAL IV ONE (16:45)
[2019-03-07] MEDS ORDERED: CEFTRIAXONE SOD 1 GM/NS 50 ML 50 ML IV ONE ×2 (17:00→17:06)
[2019-03-07] MEDS ORDERED: DIPHENHYDRAMINE HCL INJ 50 MG/ML VIAL ONE (17:03)
[2019-03-07] MEDS ORDERED: ACETAMINOPHEN 325 MG TAB ONE (17:03)
[2019-03-07] MEDS ORDERED: SODIUM CHLORIDE 0.9% 1000ML 1,000 ML ONE (17:03)
[2019-03-07] MEDS ORDERED: SODIUM CHLORIDE 0.9% 50ML 50 ML ONE (17:03)
[2019-03-07] MEDS ORDERED: PROMETHAZINE HCL (IM) 25 MG/ML VIAL ONE (17:03)
[2019-03-07] MEDS ORDERED: HYDROCODONE/APAP 5MG-325MG TAB PO ONE (17:30)
[2019-03-07] MEDS ORDERED: HYDROCODONE/APAP 5MG-325MG TAB ONE (17:41)
[2019-03-07 17:46] VITALS: BP 103/64
== END 2019-03-07 17:50 | disposition home or self-care (01) ==
LOC: FSED 16:34
DX: R10.2 Pelvic and perineal pain (principal); N30.01 Acute cystitis with hematuria; N10 Acute pyelonephritis; G81.94 Hemiplegia, unspecified affecting left nondominant side
CPT/HCPCS: 80053; 80307; 81003; 85025; 96374; 96375; 99283; J0696; J1200; J2550; J7030

== ENCOUNTER 2019-03-26 23:20 | Emergency (ER) | payer OTHER ==
[~2019-03-26] VITALS: Ht 177.8 cm; Wt 136.1 kg
[2019-03-27] MEDS ORDERED: SODIUM CHLORIDE 0.9% 1000 ML BAG IV ONE (01:00)
--- NOTE | 2019-03-27 01:46 | NUR ---
PT ASSISTED TO BATHROOM.
[2019-03-27 01:47] VITALS: BP 122/63
[2019-03-27] MEDS ORDERED: SODIUM CHLORIDE 0.9% 1000ML 1,000 ML ONE (02:00)
== END 2019-03-27 02:00 | disposition other institution (70) ==
LOC: FSED 23:20
DX: N92.4 Excessive bleeding in the premenopausal period (principal); R51 Headache; G81.94 Hemiplegia, unspecified affecting left nondominant side; F32.9 Major depressive disorder, single episode, unspecified; Z87.19 Personal history of other diseases of the digestive system
CPT/HCPCS: 80053; 85025; 99284; J7030

== ENCOUNTER 2019-06-30 13:55 | Emergency (ER) | payer OTHER ==
[~2019-06-30] VITALS: Ht 177.8 cm; Wt 136.1 kg
[2019-06-30] MEDS ORDERED: ONDANSETRON HCL INJ 2MG/ML 2ML 2 MG/ML VIAL IV STA ×2 (14:32→16:32)
[2019-06-30] MEDS ORDERED: MORPHINE SULFATE 2 MG/ML SYR 1ML IV ONE ×2 (14:45→16:45)
[2019-06-30] MEDS ORDERED: MORPHINE SULFATE INJ 4 MG/ML INJ 1ML ONE (14:49)
[2019-06-30] MEDS ORDERED: ONDANSETRON HCL INJ 2MG/ML 2ML 2 MG/ML VIAL ONE (14:49)
--- NOTE | 2019-06-30 16:25 | Diagnostic Imaging Report ---
CT abdomen and pelvis without contrast History: flank pain Comparison: none Technique: serial axial imaging was performed without intravenous contrast as per departmental protocol. Multiplanar images are reconstructed and reviewed when indicated. This CT examination is performed using one or more of the following dose reduction techniques: Automated exposure control, adjustment of the mA and /or kV according to patient size, and/or use of iterative reconstruction technique. Findings: Evaluation limited by lack of intravenous contrast. The gallbladder is absent. Grossly unremarkable appearance of unenhanced liver, pancreas, spleen, and adrenal glands. 2 mm nonobstructing right renal calculus. 4 mm nonobstructing left renal calculus. No hydronephrosis. No apparent bladder wall thickening. No small or large bowel obstruction. No apparent bowel wall thickening. No free fluid or adenopathy. Subcutaneous emphysema is seen within the left upper quadrant abdominal wall. At the level of the umbilicus, there is a complex, multilocular fluid collection which measures 13 cm in craniocaudal dimension. In the axial plane, the collection measures 7.5 x 3.7 cm in size. No gas is contained within this collection. A tubular, fluid and gas-filled structure within the right lower quadrant on axial image 58 measures 6.2 x 4.8 cm in size. No aggressive osseous lesion. Impression: 1. Complex, multilocular anterior abdominal wall fluid collection measuring 13.0 x 7.5 x 3.7 cm in size. Differential considerations would include hematoma, complex seroma, or abscess. 2. Subcutaneous emphysema within the left upper quadrant abdominal wall, which could be related to recent surgery. Suggest clinical correlation. 3. 6.2 x 4.8 cm indeterminant gas and fluid-filled structure within the right lower quadrant could represent an intra-abdominal abscess versus dilated bowel loop. Recommend repeat examination with administration of oral contrast and 2 hour delay. 4. Bilateral nonobstructing renal calculi. Signed by: Ignacio Andrew MD on 06/30/2019 4:23 PM
[2019-06-30] MEDS ORDERED: KETOROLAC TROMETHAMINE 30 MG/ML VIAL IV STA (16:38)
[2019-06-30] MEDS ORDERED: LEVSIN0.125 MG PO (16:51)
[2019-06-30] MEDS ORDERED: ZOFRAN4 MG SL (16:52)
[2019-06-30 17:16] VITALS: BP 113/63
== END 2019-06-30 17:15 | disposition home or self-care (01) ==
LOC: FSED 13:55
DX: R10.33 Periumbilical pain (principal); R11.2 Nausea with vomiting, unspecified; R19.7 Diarrhea, unspecified
CPT/HCPCS: 74176; 80053; 80076; 81003; 81025; 82553; 84484; 85025; 93005; 96374; 96375; 99284; J2270; J2405

== ENCOUNTER 2019-07-02 20:54 | Emergency (ER) | payer OTHER ==
[~2019-07-02] VITALS: Ht 177.8 cm; Wt 136.1 kg
[~2019-07-02 20:54] MED LIST: LEVSIN0.125 MG PO; ZOFRAN4 MG SL
[2019-07-02] MEDS ORDERED: ONDANSETRON HCL INJ 2MG/ML 2ML 2 MG/ML VIAL IV STA (21:18)
[2019-07-02] MEDS ORDERED: SODIUM CHLORIDE 0.9% 1000ML 1,000 ML IV SCH (21:30)
[2019-07-02] MEDS ORDERED: PIPER-TAZ 3.375 GM 50 ML IV ONE (21:30)
[2019-07-02] MEDS ORDERED: PIPER-TAZ 3.375 GM 50 ML ONE (21:53)
[2019-07-02] MEDS ORDERED: MORPHINE SULFATE 2 MG/ML SYR 1ML IV STA ×2 (22:01→23:02)
[2019-07-02] MEDS ORDERED: MORPHINE SULFATE INJ 4 MG/ML INJ 1ML ONE ×2 (22:03→23:05)
[2019-07-02] MEDS ORDERED: SODIUM CHLORIDE 0.9% 1000ML 1,000 ML IV STA (22:18)
[2019-07-02] MEDS ORDERED: VANCOMYCIN 1GM/NS 250 ML 500 ML ONE (22:25)
[2019-07-02] MEDS ORDERED: VANCOMYCIN 500MG/NS 0.9% 100ML 100 ML IV SCH (22:30)
[2019-07-02] MEDS ORDERED: VANCOMYCIN 1GM/NS 250 ML 250 ML IV ONE (22:30)
[2019-07-02] MEDS ORDERED: POTASSIUM CHLORIDE 20 MEQ TAB CR PO STA (23:01)
--- NOTE | 2019-07-03 00:33 | NUR ---
INITIALLY CALLED [facility] FOR [facility]SF[facility] AND BED 2235, AFTER DOC TO DOC AND REVERIFICATION BY SURGEON WHO DID PREVIOUS SURGERY, TARAH BATES SAID SHE GOT APPROVAL AT 2335 BUT NEEDED TO CALL ME BACK ONCE BED ASSIGNED, CALLED AND ÁLVARO HARE 2349 TO ASK ABOUT BED, STATED STILL WORKING ON OBTAINING BED FROM [facility] [employer]? CALLED AGAIN AT 0031 AGAIN SW WITH PAYAM AND STILL WAITING FOR BED ASSIGNMENT FROM [employer]? PT AWARE THAT WE ARE WAITING FOR [facility] TO ASSIGN BED.
[2019-07-03] MEDS ORDERED: MORPHINE SULFATE INJ 4 MG/ML INJ 1ML ONE (00:55)
[2019-07-03] MEDS ORDERED: SODIUM CHLORIDE 0.9% 1000ML 1,000 ML ONE (00:56)
[2019-07-03] MEDS ORDERED: MORPHINE SULFATE 2 MG/ML SYR 1ML IV STA (00:58)
--- NOTE | 2019-07-03 01:08 | NUR ---
SPOKE WITH TARAH ([facility]), WILL CALL LEANN [employer] ABOUT A BED AGAIN, STATES THE DOCTOR HAS ACCEPTED BUT SHE IS STILL WAITING ON A BED, SHE KNOWS ITS BEEN A WHILE? WILL CALL ME BACK?
--- NOTE | 2019-07-03 01:52 | NUR ---
AFTER CALLING BACK TRANSFER CENTER AND BEING TOLD THAT THE SELF PROPELLED MINING MACHINE OPERATOR IS NOT GETTING THE TRANSFER CENTER ANY BEDS, WAS INFORMED THAT THEY WOULD BE ESCALATING SITUATION TO THE [facility], I TOLD TARAH I WOULD HOLD AND AFTER BEING ON PHONE FOR 13:42 I HUNG UP AND CALLED BACK, AGAIN WAS TOLD BY TARAH THAT SHE IS STILL WAITING ON A BED, I ASKED TO SPEAK TO THE [facility] OR THE SELF PROPELLED MINING MACHINE OPERATOR BC THIS IS UNACCEPTABLE THAT A PHYSICIAN ACCEPTTE THE PATIENT AT 2336 AND YET HERE WE ARE 0200 AND STILL NO BEDS DESPITE ME CALLING EVERY 30 MINUTES ONLY TO BE TOLD THAT THE SELF PROPELLED MINING MACHINE OPERATOR IS STILL TRYING TO GET A BED, TARAH STATES BEDBOARD ON THERE PART IS SHOWING BED AVAILABLE SO SHE DOES NOT UNDERSTAND WHAT IS TAKING SO LONG, OFFICIALLY ON HOLD AGAIN WITH TARAH AT 8 MINUTES. [facility] TRANSFER REQUEST STARTED AT 2236, ACCEPTED PER SURGERY 5, NOW 0200 AND HAVE FINALLY GOTTEN BED 4418, CALL REPORT [phone], FAX MOT AND FACE SHEET [phone]. ACCEPTING ADMIN SEA HERNANDEZ TO DR. MARGARITA SIM (TIME OF ACCEPTANCE WAS 2309)
[2019-07-03] MEDS ORDERED: POTASSIUM CHLORIDE 20 MEQ TAB CR PO ONE (03:14)
[2019-07-03] MEDS ORDERED: ONDANSETRON HCL INJ 2MG/ML 2ML 2 MG/ML VIAL ONE (03:34)
[2019-07-03] MEDS ORDERED: METHYLPREDNISOLONE SOD SUCC 125 MG/2ML VIAL IV SCH (09:00)
== END 2019-07-03 03:40 | disposition short-term general hospital (02) ==
LOC: FSED 20:54
DX: A04.9 Bacterial intestinal infection, unspecified (principal); E86.0 Dehydration; D64.9 Anemia, unspecified; E87.6 Hypokalemia; K65.1 Peritoneal abscess
CPT/HCPCS: 80053; 80076; 85025; 99284; J2270 ×2; J2405; J2543; J3370; J7030 ×2

== ENCOUNTER 2019-08-06 20:55 | Emergency (ER) | payer OTHER ==
[~2019-08-06] VITALS: Ht 177.8 cm; Wt 136.1 kg
[2019-08-06] MEDS ORDERED: SODIUM CHLORIDE 0.9% 1000ML 1,000 ML IV STA (21:04)
[2019-08-06] MEDS ORDERED: HYDROCODONE/APAP 5MG-325MG TAB PO ONE (21:15)
[2019-08-06] MEDS ORDERED: PROMETHAZINE 25MG/ NS 50ML (IV) IV ONE (21:15)
[2019-08-06] MEDS ORDERED: FAMOTIDINE 20 MG/2 ML VIAL IV ONE ×2 (21:15→21:53)
[2019-08-06] MEDS ORDERED: SODIUM CHLORIDE 0.9% 1000ML 1,000 ML ONE (21:53)
[2019-08-06] MEDS ORDERED: PROMETHAZINE HCL (IM) 25 MG/ML VIAL ONE (21:53)
[2019-08-06] MEDS ORDERED: HYDROCODONE/APAP 5MG-325MG TAB ONE (22:01)
--- NOTE | 2019-08-06 22:31 | Diagnostic Imaging Report ---
EXAM: CT Abdomen and Pelvis WITHOUT contrast INDICATION: ^right flank pain, look for stone, DJD of lumbar spine ^[id number] ^[id number] COMPARISON: CT dated 06/30/2019 TECHNIQUE: Abdomen and pelvis were scanned utilizing a multidetector helical scanner from the lung base to the pubic symphysis without administration of IV contrast. Absence of intravenous contrast decreases sensitivity for detection of focal lesions and vascular pathology. Coronal and sagittal reformations were obtained. Routine protocol was performed. IV CONTRAST: None ORAL CONTRAST: None COMPLICATIONS: None RADIATION DOSE: Total DLP: 850.29 mGy*cm Estimated effective dose: (DLP x 0.015 x size factor) mSv CTDIvol has been reviewed. It is below the limits set by the Radiation Protocol Committee (RPC). FINDINGS: LINES and TUBES: None. LOWER THORAX: Unremarkable HEPATOBILIARY: Enlarged mildly steatotic liver. Otherwise, unenhanced liver is unremarkable. No biliary ductal dilation. GALLBLADDER: Not visualized. SPLEEN: No splenomegaly. PANCREAS: No focal masses or ductal dilatation. ADRENALS: No adrenal nodules KIDNEYS/URETERS: No hydronephrosis. Limited for evaluation of renal parenchyma without intravenous contrast. Bilateral subcentimeter nonobstructive renal calculi, the largest in the left inferior pole, measuring 6 mm. GI TRACT: No abnormal distention, wall thickening, or evidence of bowel obstruction. Appendix is normal. PELVIC ORGANS/BLADDER: Unremarkable. Hysterectomy. LYMPH NODES: No lymphadenopathy. VESSELS: Unremarkable. PERITONEUM / RETROPERITONEUM: No free air or fluid. 5 x 2.5 cm omental lesion (series 3, image 93 with mild adjacent fat stranding. BONES: No suspicious osseous lesion. Degenerative changes of spine. SOFT TISSUES: Small fat-containing periumbilical hernia. Resolved previously seen abdominal wall collection. Abdominal wall scar. IMPRESSION: 1. Bilateral subcentimeter nonobstructive renal calculi. 2. No evidence of obstructive urolithiasis. 3. Resolved previously seen abdominal wall and right lower quadrant collections. 4. 5 x 2.5 cm upper left omental fat-containing lesion, representing fat necrosis or omental infarct. Signed by: Dr. Alok Rodriguez MD on 08/06/2019 10:28 PM
--- NOTE | 2019-08-06 22:41 | NUR ---
IN TO SPEAK WITH PT RE' TEST RESULTS
--- NOTE | 2019-08-06 22:50 | NUR ---
VERBALLY CANCELED UA
[2019-08-06] MEDS ORDERED: MORPHINE SULFATE INJ 4 MG/ML INJ 1ML ONE (22:54)
[2019-08-06 23:20] VITALS: BP 129/81
[2019-08-06] MEDS ORDERED: MORPHINE SULFATE 2 MG/ML SYR 1ML IV STA (23:35)
== END 2019-08-06 23:20 | disposition home or self-care (01) ==
LOC: FSED 20:55
DX: R10.11 Right upper quadrant pain (principal); R11.0 Nausea; N28.9 Disorder of kidney and ureter, unspecified
CPT/HCPCS: 74176; 80048; 80076; 81003; 85025; 96374; 96375; 96376; 99283; J2270; J2550; J7030

== ENCOUNTER 2019-10-24 02:48 | Emergency (ER) | payer OTHER ==
[~2019-10-24] VITALS: Ht 177.8 cm; Wt 136.1 kg
[2019-10-24] MEDS ORDERED: ONDANSETRON HCL INJ 2MG/ML 2ML 2 MG/ML VIAL IV STA (03:26)
[2019-10-24] MEDS ORDERED: SODIUM CHLORIDE 0.9% 1000ML 1,000 ML IV STA (03:26)
[2019-10-24] MEDS ORDERED: MORPHINE SULFATE 2 MG/ML SYR 1ML IV STA ×2 (03:26→03:37)
[2019-10-24] MEDS ORDERED: SODIUM CHLORIDE 0.9% 1000ML 1,000 ML ONE (03:43)
[2019-10-24] MEDS ORDERED: ONDANSETRON HCL INJ 2MG/ML 2ML 2 MG/ML VIAL ONE (03:43)
[2019-10-24] MEDS ORDERED: MORPHINE SULFATE INJ 4 MG/ML INJ 1ML ONE (03:43)
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
--- NOTE | 2019-10-24 04:30 | Diagnostic Imaging Report ---
Exam: Head CT without contrast History: Headache Comparison studies: None Technique: Axial images were obtained from the skull base to the vertex. Coronal and sagittal images reconstructed from the axial data. Dose modulation, iterative reconstruction, and/or weight based adjustment of the mA/kV was utilized to reduce the radiation dose to as low as reasonably achievable. Radiation dose: Total DLP: 1090 mGy*cm. Estimated effective dose: DLP x 0.015 Intravenous contrast: None Findings: Scalp: No abnormalities. Bones: No fractures, blastic or lytic lesions. Brain sulci: Appropriate for age. Ventricles: Normal in size and configuration. No hydrocephalus. Extra-axial spaces: No masses, no fluid collection. Parenchyma: No abnormal densities. No masses, acute hemorrhage, acute or chronic vascular insults. Sellar/suprasellar region: No abnormalities. Craniocervical junction: Patent foramen magnum. No Chiari one malformation. Middle ear and mastoid cavities: Clear. Included paranasal sinuses: Clear. IMPRESSION: No intracranial abnormalities. Signed by: Dr. Benigno Valderrama M.D. on 10/24/2019 4:27 AM
== END 2019-10-24 04:50 | disposition home or self-care (01) ==
LOC: FSED 02:48
DX: R51 Headache (principal); R00.0 Tachycardia, unspecified; Z11.59 Encounter for screening for other viral diseases; H92.01 Otalgia, right ear; F41.9 Anxiety disorder, unspecified; K21.9 Gastro-esophageal reflux disease without esophagitis
CPT/HCPCS: 70450; 80053; 81003; 85025; 87635; 99284; J2270; J2405; J7030

== ENCOUNTER 2019-12-15 19:15 | Emergency (ER) | payer OTHER ==
[~2019-12-15] VITALS: Ht 177.8 cm; Wt 136.1 kg
--- NOTE | 2019-12-15 20:01 | Emergency Department Note ---
History of Present Illnes History of Present Illness Chief Complaint: N/V, right low back pain History of Present Illness This is a 49 year old female, with a history of depression and GERD, who presents with a 4 day history of dysuria, body aches, and headaches and she began vomiting today, with inability to keep any fluids down. Pt was seen at another facility on 12/13/2019 and prescribed Bactrim for a "UTI" and Tylenol #3, for pain. She denies fever, chills or diarrhea. She is having some diffuse abdominal pain and right sided low back pain. She admits to laying in the bed for the past several days, since she hasn't felt good. She continues to have some dysuria. Historian: Patient Arrival Mode: Car Wheelchair Rental Clerk Required: No Onset (how long ago): day(s) (4) Location: diffuse Quality: aching Radiation: Reports non-radiation Severity: moderate Onset quality: gradual Duration (how long): day(s) (4) Timing of current episode: constant Progression: worsening Chronicity: new Context: Reports new medications (started Bactrim on 12/12 along with Tylenol #3); Denies recent surgery, Denies trauma/injury Relieving factors: none Exacerbating factors: none Associated symptoms: Reports malaise, Reports nausea/vomiting; Denies chest pain, Denies cough, Denies fever/chills, Denies loss of appetite, Denies rash, Denies shortness of breath Treatments prior to arrival: other (zofran) Past Medical/Family History Physician Review I have reviewed the patient's past medical and family history. Any updates have been documented here. Past Medical History Recent Fever: Yes (dx with UTI 12/12) Clinical Suspicion of Infectio: Yes New/Unexplained Change in Ment: No Past Medical History: UTI's, Anxiety, GERD Other Medical History: SPINAL INJURY 2019 WITH L-SIDE WEAKNESS (PT STATES LEFT SIDE PARALYSIS LLE > LUE) Past Surgical History: Hysterectomy, Hernia Repair Other Surgery: EXPLORATORY SURG. 10YRS AGO Social History Smoking Cessation: Never Smoker Alcohol Use: None Any Illegal Drug Use: No TB Exposure/Symptoms: No Physically hurt or threatened: No Family History Family history of heart diseas: No Other Last Tetanus: UTD Any Pre-Existing Lines (PICC,: No Is patient up to date on immun: Yes Review of Systems Review of Systems Constitutional: Denies chills, Denies fever Cardiovascular: Denies chest pain, Denies palpitations Respiratory: Denies cough, Denies dyspnea Gastrointestinal: Reports abdominal pain, Reports nausea, Reports vomiting; Denies diarrhea Genitourinary: Reports dysuria, Reports frequency; Denies discharge, Denies hematuria Musculoskeletal: Reports no symptoms Integumentary: Reports no symptoms Psychological: Reports no symptoms Review of other systems: All other systems negative Physical Exam Related Data Allergies: Coded Allergies: ketorolac (Verified Allergy, Intermediate, hives, 02/20/19) ciprofloxacin (Verified Allergy, Unknown, 02/20/19) fentanyl (Verified Allergy, Unknown, 02/20/19) Vital signs reviewed: Yes Physical Exam CONSTITUTIONAL Constitutional: Present well-developed, Present well-nourished, Present morbi dly obese HENT HENT: Present normocephalic, Present atraumatic, Present oropharynx clear/milly st, Present nose normal HENT L/R: Present left ext ear normal, Present right ext ear normal EYES Eyes: Reports PERRL, Reports conjunctivae normal NECK Neck: Present ROM normal PULMONARY Pulmonary: Present effort normal, Present breath sounds normal CARDIOVASCULAR Cardiovascular: Present regular rhythm, Present heart sounds normal, Present capillary refill normal, Present normal rate; Absent murmur GASTROINTESTINAL Abdominal: Present soft, Present bowel sounds normal, Present tender (mild, diffuse abd ttp;) GENITOURINARY Genitourinary: Present exam deferred SKIN Skin: Present warm, Present dry; Absent rash MUSCULOSKELETAL Musculoskeletal: Present ROM normal; Absent edema NEUROLOGICAL Neurological: Present alert, Present oriented x 3, Present no gross motor or sensory deficits PSYCHOLOGICAL Psychological: Present mood/affect normal, Present judgement normal Results Laboratory Lab results reviewed: Yes Laboratory comments Flu A/B - negative; UA - blo - trace-lysed, leuk - tr; CMP - nl except for CL = 109, AST = 47; CBC - nl; Imaging Imaging results reviewed: Yes Imaging Comments [place] [id number] Patient Name: SAMIR FITZPATRICK MR #: [id number] : 1970 Age/Sex: 49/F Req #: [id number] Adm Physician: Ordered by: TONY SORENSEN MD Report #: [id number] Location: [facility] Room/Bed: Procedure: [id number] HOPD/CT ABD/PEL WITH CONTRAST-HOPD Exam Date: 12/15/19 Exam Time: 2219 REPORT STATUS: Signed EXAM: CT Abdomen and Pelvis WITH contrast INDICATION: Abdominal pain, vomiting. COMPARISON: None abdominal CT 08/06/2019. TECHNIQUE: Abdomen and pelvis were scanned utilizing a multidetector helical scanner from the lung base to the pubic symphysis after administration of IV contrast. Coronal and sagittal reformations were obtained. Routine protocol was performed. Scan was performed when during portal venous phase. IV CONTRAST: 100 mL of Isovue 370 ORAL CONTRAST: None COMPLICATIONS: None RADIATION DOSE: Total DLP: 99 mGy*cm Estimated effective dose: (DLP x 0.015 x size factor) mSv CTDIvol has been reviewed. It is below the limits set by the Radiation Protocol Committee (RPC). Dose modulation, iterative reconstruction, and/or weight based adjustment of the mA/kV was utilized to reduce the radiation dose to as low as reasonably achievable. FINDINGS: LINES and TUBES: None. LOWER THORAX: Unremarkable HEPATOBILIARY: Enlarged hypodense liver. No focal hepatic lesions. No biliary ductal dilation. GALLBLADDER: Absent. SPLEEN: No splenomegaly. PANCREAS: No focal masses or ductal dilatation. ADRENALS: No adrenal nodules KIDNEYS/URETERS: A 6 mm calculus in the proximal left ureter without significant left hydronephrosis. An additional punctate nonobstructive calculus in the left renal inferior pole. Kidneys enhance symmetrically. No hydronephrosis. No cystic or solid mass lesions. GI TRACT: Small sliding gastric hiatal hernia. Mild distal esophageal wall thickening. No abnormal distention or evidence of bowel obstruction. Appendix is normal. PELVIC ORGANS/BLADDER: Hysterectomy. No adnexal masses. Urinary bladder unremarkable. LYMPH NODES: No lymphadenopathy. VESSELS: Unremarkable. PERITONEUM / RETROPERITONEUM: No free air or fluid. BONES: There are degenerative changes. SOFT TISSUES: Midline ventral abdominal scar. IMPRESSION: 1. A 6 mm calculus in the proximal left ureter without significant left hydronephrosis. An additional punctate nonobstructive calculus in the left renal inferior pole. 2. Small sliding gastric hiatal hernia with mild distal esophagitis. 3. Hepatomegaly with hepatic steatosis. Signed by: Ezio Fried DO on 12/15/2019 11:02 PM Dictated By: EZIO FRIED DO 01 Transcribed By: SUSU on 12/15/192301 COPY TO: TONY SORENSEN MD~ Diagnostics Tests Diagnostic test(s) reviewed: Yes Assessment & Plan Medical Decision Making MDM - STOP the Bactrim (sulfamethoxazole), and begin Cefdinir for urinary tract infection. Complete ALL the antibiotics. Take with food, to prevent GI upset and nausea. If you develop nausea, take either Zofran or Phenergan, 20-30 minutes prior to dosing the antibiotics. - You may also consider taking a Probiotic, such as "ALIGN," to help prevent GI upset. - Follow-up with Urology, regarding the left sided kidney stone - Increase fluid intake, especially water, to try and promote passage of the kidney stone - You may apply heat to the area of right low back pain as needed, via a heating pad. - Follow-up with your primary care physician, as scheduled next week on 12/19/2019. - Return to the ER, if symptoms worsen, or if you began to vomit and are unable to keep any of your medications down. Assessment & Plan Final Impression: (1) UTI (urinary tract infection) (2) Nausea & vomiting (3) Left nephrolithiasis (4) Right low back pain (5) GERD (gastroesophageal reflux disease) Depart Disposition: HOME, SELF-half-way Meds Active Scripts Methocarbamol (ROBAXIN-750) 750 Mg Tablet, 1-2 TAB PO Q8H for muscle spasm, #20 TAB 0 Refills DO NOT take and drive or operate machinery. Prov:TONY SORENSEN MD 12/16/19 Promethazine Hcl (PROMETHAZINE HCL) 25 Mg Tablet, 25 MG PO Q6H PRN for nausea or vomiting, #20 TAB 0 Refills Prov:TONY SORENSEN MD 12/16/19 Cefdinir (OMNICEF) 300 Mg Capsule, 300 MG PO BID for urine infection for 10 Days, #20 CAP 0 Refills Prov:TONY SORENSEN MD 12/16/19 Ondansetron Hcl* (ZOFRAN*) 4 Mg Tablet, 4 MG SL Q6H PRN for NAUSEA, #14 MG 0 Refills Prov:LIOR ENAMORADO MD 06/30/19 Hyoscyamine Sulfate (LEVSIN) 0.125 Mg Tablet, 1 TAB PO TID, #15 Prov:LIOR ENAMORADO MD 06/30/19 TONY SORENSEN MD Dec 15, 2019 20:01
--- OUTSIDE RECORDS SUMMARY | 2019-12-15 20:26 | XMS REPORT | Clinical Summary ---
Author Author [facility] Organization [facility] Address Unknown Phone Unavailable Care Team Providers Care Autism Tutor Name Role Phone Asked, No Pcp PCP Unavailable Allergies Comments Active Allergy Reactions Severity Noted Date States Migrane Fentanyl Other (See 03/19/2018 Comments) Severe Hallucinations Tizanidine 03/19/2018 Headache Ketorolac Rash Low 03/16/2017 Medications End Date Status Medication Sig Dispensed Refills Start Date Active diphenhydrAMINE (BENADRYL Take 50 mg by 0 ALLERGY) 25 mg tablet mouth nightly as needed for sleep. Active SUMAtriptan (IMITREX) 25 Take 25 mg by 0 MG tablet mouth 2 (two) times a day as needed for migraine. May repeat in 2 hours if unresolved. Do not exceed 200 mg in 24 hours. Active citalopram (CeleXA) 40 MG Take 40 mg by 0 tablet mouth daily. Active docusate sodium (COLACE) Take 100 mg 0 100 MG capsule by mouth daily. 05/23/2019 ondansetron ODT (ZOFRAN Take 1 tablet 20 tablet 0 ODT) 4 MG disintegrating (4 mg total) 0 tablet by mouth every 8 (eight) hours as needed for nausea or vomiting for up to 7 days. 05/19/2019 traMADol (ULTRAM) 50 mg Take 1 tablet 9 tablet 0 tabletIndications: acute (50 mg total) 0 pain by mouth every 8 (eight) hours as needed for moderate pain or severe pain for up to 3 days .acute pain. Active Problems Problem Noted Date E-coli UTI 10/15/2018 Pyelonephritis 10/13/2018 Intractable low back pain 08/28/2018 Urinary tract infection, site not specified 06/15/19 Intractable abdominal pain 05/06/2018 Abdominal pain 05/05/2018 Urinary tract infection associated with indwelling ur ethral catheter 04/01/2018 Urinary tract infection without hematuria 03/19/2018 Hemiparesis of left nondominant side due to non-cereb rovascular etiology 03/19/2018 Fibroid uterus 03/19/2018 Metrorrhagia 03/19/2018 Neurogenic bladder 03/19/2018 Chronic neck and back pain 03/19/2018 Morbid obesity with BMI of 40.0-44.9, adult 03/19/20 18 Neurogenic bladder 02/05/2018 Neck pain 01/01/2018 Acute midline low back pain with left-sided sciatica 11/29/2017 Hypercholesteremia Paralysis Overview: left side Encounters Care Team Description Date Type Specialty Garednia Julio MD Contusion of rib on right side, initial encounter (Primary Dx); Lumbar pain 05/16/2019 Emergency Emergency Medicine after 12/14/2018 Immunizations Name Administration Dates Next Due FLUCELVAX QUAD PF 01/02/2018 Social History Date Tobacco Use Types Packs/Day Years Used Never Smoker Smokeless Tobacco: Never Used Drinks/Week oz/Week Comments Alcohol Use No Sex Assigned at Date Recorded Not on file Industry Job Start Date Occupation Not on file Not on file Not on file Travel End Travel History Travel Start No recent travel history available. Last Filed Vital Signs Reading Time Taken Comments Vital Sign 122/76 05/16/2019 8:28 PM [employer] INSPECTOR Blood Pressure 101 05/16/2019 8:28 PM [employer] INSPECTOR Pulse 36.9 C (98.4 F) 05/16/2019 8:28 PM [employer]UM[employer] INSPECTOR Temperature 20 05/16/2019 8:28 PM [employer]UM[employer] INSPECTOR Respiratory Rate 98% 05/16/2019 8:28 PM [employer]UM[employer] INSPECTOR Oxygen Saturation - - Inhaled Oxygen Concentration - - Weight 177.8 cm (5' 10") 05/16/2019 6:06 PM [employer]UM[employer] INSPECTOR Height - - Body Mass Index Plan of Treatment Health Maintenance Due Date Last Done Comments CERVICAL CANCER SCREENING 10/06/1991 INFLUENZA VACCINE 12/27/2019 01/02/2018 Implants Device Identifier Shelf Expiration Date Model / Serial / L ot Implanted Type Area Manufactur er Bone Plate Bone Plate Description:titanium and screw [id number] / / VENDOR LOT NA Screw [id number] 4.0 X 13 Self Tap Sandra IPM N/A: N/A [employer] - [id number] IMPLANT SOFAMOR Implanted: 12/07/2017 at [facility] (Quantity not on file) [id number] / / VENDOR LOT NA Plate [id number] Anterior Cervical IPM N/A: N/A [employer] 25mm - [id number] IMPLANT SOFAMOR Implanted: 12/07/2017 at [facility] (Quantity not on file) Screw Screw 08/23/2019 02 2100 010 / [id number] / [id number] Paste Grftng Dbm 1cc Orthoblast Ii Surgical N/A : N/A - [id number] - [id number] Implants; Implanted: Qty: 1 on 12/07/2017 by [employer]; Benigno Hanley, DO at [facility] Extenders; [facility] Surgical Wires 07/17/2019 [id number] / [id number] / [id number] Block Jovon Scr 8x11mm Cornerstone - Surgical N/A: N/A [employer] [id number] - [id number] Implants; SPINAL Implanted: Qty: 1 on 12/07/2017 by [employer]; GRA FT Benigno Hanley, DO at [facility] Extenders; MANJINDER HNOLOGI [facility] Surgical ES Wires Plate/Screws Description:plate and screws to neck Procedures Comments Procedure Name Priority Date/Time Associated Diag nosis XR LUMBAR SPINE 2 OR 3 VW STAT 05/16/2019 9:41 PM [employer] INSPECTOR XR RIBS W PA CHEST RIGHT STAT 05/16/2019 9:40 PM [employer]UM[employer] INSPECTOR HCG QUALITATIVE, URINE Routine 05/16/2019 SCREEN 8:20 PM [employer]STRUM[employer] INSPECTOR URINALYSIS SCREEN AND Routine 05/16/2019 MICROSCOPY, WITH REFLEX 8:20 PM [employer] INSPECTOR TO CULTURE URINE CULTURE Routine 05/16/2019 8:20 PM [employer]UM[employer] INSPECTOR LIPASE LEVEL STAT 05/16/2019 7:04 PM [employer]UM[employer] INSPECTOR ESTIMATED GFR STAT 05/16/2019 7:04 PM [employer] INSPECTOR COMPREHENSIVE METABOLIC STAT 05/16/2019 PANEL 7:04 PM [employer]UM[employer] INSPECTOR HC COMPLETE BLD COUNT STAT 05/16/2019 W/AUTO DIFF 7:04 PM [employer]STRUM[employer] INSPECTOR after 12/14/2018 Results * XR Lumbar Spine 2 Or 3 Vw (05/16/2019 9:41 PM FRETTED INSTRUMENTS INSPECTOR) Specimen Narrative Performed At EXAMINATION: XR LUMBAR SPINE 2 OR 3 VW [facility] CLINICAL HISTORY: fall COMPARISON: None. IMPRESSION: Total of 4 views including two AP and s elizabeth lateral radiographs of the lumbar spine as well as spot lateral radiograp h of the lumbosacral region were obtained. The 5 lumbar type vertebrae, and the la st functional disc is presumed to be L5-S1. Vertebral body heights are preserved. N o evidence of acute fracture, suspicious osteolytic or osteoblastic lesion. Mild grade 1 retrolisthesis of L1 on L2 and L2 on L3. The T12-L1 and to lesser degree L1-2 an d L2-3 discs are narrowed with adjacent mild chronic discogenic endplate change s and endplate osteophytes. Multilevel facet arthrosis along mid-inferior lumb ar levels. Visualized soft tissues are unremarkabl e. [facility]-[id number] Procedure Note Hm Interface, Radiology Results Incoming - 05/16/2019 9:49 PM FRETT[employer] INSTRUMENTS INSPECTOR EXAMINATION: XR LUMBAR SPINE 2 OR 3 VW CLINICAL HISTORY: fall COMPARISON: None. IMPRESSION: Total of 4 views including two AP and single lateral radiographs of the lumbar spine as well as spot lateral radiograph of the lumbosacral region were obtained. The 5 lumbar type vertebrae, and the last functional disc is presumed to be L5-S1. Vertebral body heights are preserved. No evidence of acute fracture, suspicious osteolytic or osteoblastic lesion. Mild grade 1 retrolisthesis of L1 on L2 and L2 on L3. The T12-L1 and to lesser degree L1-2 and L2-3 discs are narrowed with adjacent mild chronic discogenic endplate changes and endplate osteophytes. Multilevel facet arthrosis along mid-inferior lumbar levels. Visualized soft tissues are unremarkable. [facility]-[id number] Performing Organization Address City/State/Zipcode Ph one Number [facility] [address] [place] [address] * XR Ribs W Pa Chest Right (05/16/2019 9:40 PM FRETT[employer] INSTRUMENTS INSPECTOR) Specimen Narrative Performed At EXAMINATION: XR RIBS W PA CHEST RIGHT [facility] CLINICAL HISTORY: fall COMPARISON: None. IMPRESSION: No displaced right rib fracture is visu alized. Visualized lungs are clear. Soft tissues are unremarkable. [facility]-[id number] Procedure Note Interface, Radiology Results Incoming - 05/16/2019 9:46 PM FRETTED INSTRUMENTS INSPECTOR EXAMINATION: XR RIBS W PA CHEST RIGHT CLINICAL HISTORY: fall COMPARISON: None. IMPRESSION: No displaced right rib fracture is visualized. Visualized lungs are clear. Soft tissues are unremarkable. [facility]-[id number] Performing Organization Address City/[facility] [place] [place] Ph one Number [facility] [address] [place] [address] * Urinalysis screen and microscopy, with reflex to culture (05/16/2019 8:20 PM FRE[employer] INSTRUM[employer] INSPECTOR) Specimen site Clean catch [facility] Color, UA Yellow [facility] Appearance, UA Clear [facility] Specific 1.020 1.001 - 1.035 [place] gravity, [facility] pH, UA 5.0 5.0 - 8.5 [facility] Protein, UA Negative Negative [facility] Glucose, UA Negative Negative [facility] Ketones, UA Trace (A) Negative [facility] Bilirubin, UA Negative Negative [facility] Blood, UA Negative Negative [facility] Nitrite, UA Negative Negative [facility] Urobilinogen, Negative <2.0 [facility] Leukocyte Negative Negative [place] esterase, UA [facility] Epithelial Many /HPF [facility] cells, UA [facility] WBC, UA 3 0 - 5 /HPF [facility] RBC, UA 4 0 - 5 /HPF [facility] Bacteria, UA None seen None seen [facility] Yeast, UA None seen [facility] Yeast with None seen [facility] Specimen Urine Performing Organization Address City/State/[facility] Ph one Number [facility] DEPARTMENT OF [address] [place] [address] PATHOLOGY AND GENOMIC MEDICINE [facility] [address] [place] [address] HOSPITAL * hCG qualitative, urine screen (05/16/2019 8:20 PM FRETTED INSTRUMENTS INSPECTOR) hCG Negative Negative [facility] qualitative, Comment: [facility] urine The manufacturers stated [place] sensitivity of HcG test for HOSPITAL serum is >/= 10 mIU/ml and urine is >/= 20mIU/ml. Specimen Urine Performing Organization Address [facility] one Number [facility] DEPARTMENT OF [address] [place] [address] PATHOLOGY AND GENOMIC MEDICINE [facility] [address] [place] [address] * Urine culture (05/16/2019 8:20 PM FRETT[employer] INSTRUMENTS INSPECTOR) [facility] Urine culture SEE COMMENTComment: [facility] Bacteriuria screen negative. [facility] Specimen Performing Organization Address [facility] one Number [facility] DEPARTMENT OF [address] [place] [address] PATHOLOGY AND GENOMIC MEDICINE [address] * Estimated GFR (05/16/2019 7:04 PM FRETTED INSTRUMENTS INSPECTOR) [facility] Estimated GFR 87 mL/min/1.73 m2 [facility] Comment: [facility] Catergory Units [facility] G1 >=90 Normal or high G2 60-89 Mildly decreased G3a 45-59 Mildly to moderately decreased G3b 30-44 Moderately to severely decreased G4 15-29 Severely decreased G5 <15 Kidney failure The eGFR was calculated using the Chronic Kidney Disease Epidemiology Collaboration (CKD-EPI) equation. Interpretation is based on recommendations of the National Kidney Foundation-Kidney Disease Outcomes Quality Initiative (NKF-KDOQI) published in 2014. Specimen Plasma specimen Performing Organization Address City/[facility] [place] [place] Ph one Number [facility] DEPARTMENT OF [address] [place] [address] PATHOLOGY AND GENOMIC MEDICINE [facility] [address] [place] [address] * CBC with platelet and differential (05/16/2019 7:04 PM FRETTED INSTRUMENTS INSPECTOR) [facility] WBC 7.8 4.2 - 11.0 k/uL [facility] RBC 4.68 4.04 - 5.86 m/uL [facility] HGB 12.6 11.5 - 15.3 g/dL [facility] HCT 40.3 34.0 - 45.0 % [facility] MCV 86.1 80.0 - 98.0 fL [facility] MCH 26.9 (L) 27.0 - 34.0 pg [facility] MCHC 31.3 (L) 31.5 - 36.5 g/dL [facility] RDW - SD 55.2 (H) 37.0 - 51.0 fL [facility] MPV 10.2 7.4 - 10.4 fL [facility] Platelet count 301 150 - 400 k/uL [facility] Nucleated RBC 0.00 /100 WBC [facility] Neutrophils 57.3 36.0 - 66.0 % [facility] Lymphocytes 30.8 24.0 - 44.0 % [facility] Monocytes 7.1 (H) 0.0 - 6.0 % [facility] Eosinophils 4.0 0.0 - 6.0 % [facility] Basophils 0.5 0.0 - 1.2 % [facility] Immature 0.3 0.0 - 1.0 % [facility] granulocytes [facility] Specimen Blood Performing Organization Address City/[facility] [place] [place] Ph one Number [facility] DEPARTMENT OF [address] [place] [address] PATHOLOGY AND GENOMIC MEDICINE [address] * Lipase level (05/16/2019 7:04 PM FRETTED INSTRUMENTS INSPECTOR) Lipase 19 13 - 60 U/L [facility] Specimen Plasma specimen Performing Organization Address City/State/[facility] [place] [place] Ph one Number [facility] [place] [address] PATHOLOGY AND GENOMIC MEDICINE [address] * Comprehensive metabolic panel (05/16/2019 7:04 PM FRETT[employer] INSTRUMENTS INSPECTOR) Sodium 137 135 - 150 mEq/L [facility] Potassium 3.9 3.5 - 5.0 mEq/L [facility] Chloride 100 98 - 112 mEq/L [facility] CO2 25 24 - 31 mmol/L [facility] Anion gap 12@ANIO 7 - 15 mEq/L [facility] BUN 11 7 - 18 mg/dL [facility] Creatinine 0.80 0.50 - 0.90 mg/dL [facility] Glucose 94 65 - 100 mg/dL [facility] Calcium 9.2 8.3 - 10.2 mg/dL [facility] Protein 8.0 6.3 - 8.3 g/dL [facility] Albumin 3.5 3.5 - 5.0 g/dL [facility] A/G ratio 0.8 0.7 - 3.8 [facility] Alkaline 74 0 - 104 U/L [place] phosphatase [facility] AST 20 10 - 35 U/L [facility] ALT 25 5 - 50 U/L [facility] Total bilirubin 0.8 0.2 - 1.2 mg/dL [facility] Specimen Plasma specimen Performing Organization Address City/State/[facility] [place] [place] Ph one Number [facility] DEPARTMENT OF [address] [place] [address] PATHOLOGY AND GENOMIC MEDICINE [facility] [address] [place] [address] HOSPITAL after 12/14/2018 Insurance Type Payer Benefit Subscriber ID Effective Phone Address Plan / Dates Group Medicaid MEDICAID MEDICAID xxxxxxxxx 2018-P resent O UHC MEDICAID [employer] xxxxxxxxx 2019-P COMM STAR+ resent [facility] Advance Directives For more information, please contact: [phone] Patient Customer Operations Associate Explanation Type Date Recorded Advance Directives, 03/19/2018 4:57 AM Living Will and Medical Power of Commodity Director Advance Directives, 05/29/2017 1:03 PM Living Will and Medical Power of Commodity Director Advance Directives, 02/04/2018 2:41 PM Living Will and Medical Power of Commodity Director Advance Directives, 11/29/2017 1:48 PM Living Will and Medical Power of Commodity Director Advance Directives, 02/24/2018 11:40 PM Living Will and Medical Power of Commodity Director Advance Directives, 03/31/2018 10:19 PM Living Will and Medical Power of Commodity Director Advance Directives, 05/05/2018 5:03 AM Living Will and Medical Power of Commodity Director Advance Directives, 05/20/2018 8:41 PM Living Will and Medical Power of Commodity Director Advance Directives, 06/15/2018 5:20 AM Living Will and Medical Power of Commodity Director Advance Directives, 06/15/2018 5:23 AM Living Will and Medical Power of Commodity Director Advance Directives, 09/20/2018 3:24 PM Living Will and Medical Power of Commodity Director Advance Directives, 10/13/2018 8:06 PM Living Will and Medical Power of Commodity Director Advance Directives, 10/24/2018 11:16 PM Living Will and Medical Power of Commodity Director Advance Directives, 11/07/2018 10:41 PM Living Will and Medical Power of Commodity Director Advance Directives, 11/20/2018 6:22 PM Living Will and Medical Power of Commodity Director Date Inactivated Comments Code Status Date Activated 06/15/2018 10:04 PM Full Code 06/15/2018 2:48 PM Code Status decision reached by: Patient 06/15/2018 2:48 PM Full Code 06/15/2018 6:15 AM Code Status decision reached by: Patient 03/21/2018 5:21 PM Full Code 03/19/2018 5:50 AM Code Status decision reached by: Patient
--- OUTSIDE RECORDS SUMMARY | 2019-12-15 20:26 | XMS REPORT | Clinical Summary ---
Author Author [facility] ict Organization [facility] ict Address Unknown Phone Unavailable Care Team Providers Care Obstetric Assistant Name Role Phone PCP Unavailable Allergies Comments Active Allergy Reactions Severity Noted Date Rxn: headache/migraine per pt. [id number]. Hydromorphone Other 05/01/2018 Rxn: headache/migraine per pt. [id number]. Fentanyl Other 05/01/2018 Ketorolac Tromethamine Hives 01/28/2014 Medications End Date Status Medication Sig Dispensed Refills Start Date Active HYDROcodone-acetaminophen Take 1 tablet 15 tablet 0 (NORCO) 5-325 mg by mouth 4 tabletIndications: every 6 hours Abdominal pain as needed for Pain. Active Problems Problem Noted Date Abdominal pain 01/28/2014 Social History Date Tobacco Use Types Packs/Day Years Used Never Smoker Drinks/Week oz/Week Comments Alcohol Use occasionally Yes Sex Assigned at Date Recorded Not on file Industry Job Start Date Occupation Not on file Not on file Not on file Travel End Travel History Travel Start No recent travel history available. Last Filed Vital Signs Not on file Plan of Treatment Health Maintenance Due Date Last Done Comments Cervical Cancer Scrn (3 10/06/1991 Yrs) Breast Cancer Scrn 2010 (Yearly) IMM Influenza Seasonal 01/26/2020Jan to June (>/= 19 yrs) Results Not on fileafter 12/14/2018 Insurance Type Payer Benefit Subscriber ID Effective Phone Address Plan / Dates Group [facility] xxxxxxxxx 2018-P [phone] [address] [employer] resent [id number] [place] [address] [address] (Home) [address] [place] [address]
--- OUTSIDE RECORDS SUMMARY | 2019-12-15 20:27 | XMS REPORT | Continuity of Care Document ---
Author Author [facility] t Organization [facility] Address [address] [place] [address] Phone Unavailable Care Team Providers Care Outreach Liaison Name Role Phone Darrell ANDERSON M.D. PCP LIOR ENAMORADO Attphys Unavailable Irene QUINN Attphys Unavailable Nori AMAYA, Tray Varner Attphys [phone] Payers Payer Name Policy Type Policy Number Effective Date Expiration Date S [facility] [employer] [facility] [id number] 2019 00:00:00 2019 00:00:00 [facility] Cdc Review Covid19 [id number] [facility] [id number] xxxxxxxxx 2018 00:00:00 Giovanni Méndez [facility] MEDICAIDUNITEDHC [place]+ [id number] xxxxxxxxx 2019 00:00:00 Giovanni Méndez Problems Condition Name Condition Details Condition Category Status Onset Date Resolution Date Last Treatment Date Treating Clinician Comments Source E-coli UTI E-coli UTI Disease Active 2018-10-15 00:00:00 Giovanni Méndez Pyelonephritis Pyelonephritis Disease Active 2018-10-13 00:00:00 Giovanni Méndez Intractable low back pain Intractable low back pain Disease Ac tive 2018-08-28 00:00:00 Giovanni weber Urinary tract infection, site not specified Urinary tr act infection, site not specified Disease Active 2018-06-15 00:00:00 Choco Méndez Intractable abdominal pain Intractable abdominal pain Disease Active 2018-05-06 00:00:00 Giovanni weber Abdominal pain Abdominal pain Disease Active 2018-05-05 00:00:00 Giovanni Méndez Urinary tract infection associated with indwelling ure thral catheter Urinary tract infection associated with indwelling urethral catheter Disease Active 2018-04-01 00:00:00 Giovanni Méndez Urinary tract infection without hematuria Urinary trac t infection without hematuria Disease Active 2018-03-19 00:00:00 Choco Méndez Hemiparesis of left nondominant side due to non-cerebr ovascular etiology Hemiparesis of left nondominant side due to non-cerebrovascular etiology Disease Active 2018-03-19 00:00:00 Giovanni Méndez Fibroid uterus Fibroid uterus Disease Active 2018-03-19 00:00:00 Giovanni Méndez Metrorrhagia Metrorrhagia Disease Active 2018-03-19 00:00:00 Giovanni Méndez Neurogenic bladder Neurogenic bladder Disease Active 2018-03-19 00:00:0 0 Giovanni Méndez Chronic neck and back pain Chronic neck and back pain Disease Active 2018-03-19 00:00:00 Giovanni weber Morbid obesity with BMI of 40.0-44.9, adult Morbid obe sity with BMI of 40.0- 44.9, adult Disease Active 2018-03-19 00:00:00 Giovanni Méndez Neurogenic bladder Neurogenic bladder Disease Active 2018-02-05 00:00:0 0 Giovanni Méndez Neck pain Neck pain Disease Active 2018-01-01 00:00:00 Giovanni Méndez Acute midline low back pain with left-sided sciatica A cute midline low back pain with left-sided sciatica Disease Active 2017-11-29 00:00:00 Giovanni Méndez Abdominal pain Abdominal pain Disease Active 2014-01-28 00:00:00 [facility] Headache Problem Active [facility] Exposure to severe acute respiratory syndrome coronavirus 2 (SARS-CoV-2) Problem Active [facility] Tachycardia Problem Active [facility] Hypercholesteremia Hypercholesteremia Disease Active [facility] Paralysis Paralysis Disease Active Overview: left side Giovanni Méndez Allergies, Adverse Reactions, Alerts Allergy Name Allergy Type Status Severity Reaction(s) Onset Date Inacti ve Date Treating Clinician Comments Source ciprofloxacin DA Active U 2019-07-03 00:00:00 [facility] fentanyl DA Active U 2019-07-03 00:00:00 [facility] ketorolac DA Active U 2019-07-03 00:00:00 [facility] ciprofloxacin DA Active SV 2019-05-24 00:00:00 [facility] fentanyl DA Active [facility] 2019-05-24 00:00:00 [facility] ketorolac DA Active VA 2019-05-24 00:00:00 [facility] tizanidine DA Active SV 2019-05-24 00:00:00 [facility] ciprofloxacin DA Active SV 2019-05-20 00:00:00 [facility] tizanidine DA Active SV 2019-05-20 00:00:00 [facility] ciprofloxacin DA Active U 2019-03-23 00:00:00 [facility] fentanyl DA Active VA 2019-03-23 00:00:00 [facility] ketorolac DA Active VA 2019-03-23 00:00:00 [facility] tizanidine DA Active MO 2019-03-23 00:00:00 [facility] ciprofloxacin DA Active U 2019-02-21 00:00:00 [facility] fentanyl DA Active VA 2019-02-21 00:00:00 [facility] ketorolac DA Active VA 2019-02-21 00:00:00 [facility] tizanidine DA Active MO 2019-02-21 00:00:00 [facility] Ciprofloxacin Allergy to substance Active 2019-02-20 00:00: 00 [facility] Fentanyl Allergy to substance Active 2019-02-20 00:00:00 [facility] Ketorolac Allergy to substance Active Moderate hives 2019-02-20 00:00:00 [facility] ciprofloxacin DA Active U 2019-02-19 00:00:00 [facility] fentanyl DA Active VA 2018-12-15 00:00:00 [facility] ketorolac DA Active VA 2018-12-15 00:00:00 [facility] tizanidine DA Active MS 2018-12-15 00:00:00 [facility] tizanidine DA Active MS 2018-11-22 00:00:00 [facility] fentanyl DA Active VA 2018-11-06 00:00:00 [facility] ketorolac DA Active VA 2018-11-06 00:00:00 [facility] fentanyl DA Active VA 2018-09-22 00:00:00 [facility] ketorolac DA Active VA 2018-09-22 00:00:00 [facility] fentanyl DA Active VA 2018-08-02 00:00:00 [facility] ketorolac DA Active VA 2018-08-02 00:00:00 [facility] No Known Allergies DA Active U 2018-05-22 00:00:00 [facility] fentanyl DA Active [facility] 2018-05-12 00:00:00 [facility] Hydromorphone Propensity to adverse reactions to drug Active Other 2018-05-01 00:00:00 Rxn: headache/migraine per pt. R [id number]. [facility] Fentanyl Propensity to adverse reactions to drug Active Other 2018-05-01 00:00:00 Rxn: headache/migraine per pt. R [id number]. [facility] Fentanyl Propensity to adverse reactions to drug Active Other (See Comments) 2018-03-19 00:00:00 [facility] odist Tizanidine Propensity to adverse reactions to drug Active 2018-03-19 00:00:00 Severe Hallucinations [facility] Me thodist hydromorphone DA Active SV 2017-09-28 00:00:00 [facility] ketorolac DA Active VA 2017-09-28 00:00:00 [facility] Ketorolac Propensity to adverse reactions to drug Active Rash 2017-03-16 00:00:00 Headache Giovanni bonilla Ketorolac Tromethamine Propensity to adverse reactions to drug Active Hives 2014-01-28 00:00:00 Andriy Bauer Social History Social Habit Start Date Stop Date Quantity Comments Source Sex Assigned At Norah randall Honey Alcohol intake 2018-11-21 00:00:00 2018-11-21 00:00:00 Current non-drinker of alcohol (finding) Giovanni Méndez Alcohol Comment 2014-01-28 00:00:00 2014-01-28 00:00:00 occasionally [facility] Smoking Status Start Date Stop Date Source Never smoker Giovanni bonilla Medications Ordered Medication Name Filled Medication Name Start Date Stop Da te Current Medication? Ordering Clinician Indication Dosage Frequency Signature (SIG) Comments Components Source Ondansetron Hcl (Zofran*) 4 Mg TABLET Ondansetron Hcl (Zofra n*) 4 Mg TABLET 2019-06-30 15:52:00 Yes 4 Every 6 Hours as n eeded for Nausea [facility] Hyoscyamine Sulfate (Levsin) 0.125 Mg TABLET Hyoscyami ne Sulfate (Levsin) 0.125 Mg TABLET 2019-06-30 15:51:00 Yes 1 Three Times A Day [facility] ondansetron ODT (ZOFRAN ODT) 4 MG disintegrating tablet 2019-05-16 00:00:00 2019-05-23 23:59:00 No 4mg Q8H Take 1 tablet (4 mg total) by mouth every 8 (eight) hours as needed for nausea or vomiting for up to 7 days. Giovanni Méndez traMADol (ULTRAM) 50 mg tablet 2019-05-16 00:00:00 2019-04-28 3 23:59:00 No acute pain 50mg Q8H Take 1 tablet (50 mg total) by mouth every 8 (eight) hours as needed for moderate pain or severe pain for up to 3 days .acute pain. iGovanni Méndez diphenhydrAMINE (BENADRYL ALLERGY) 25 mg tablet 2018-11-22 20:06 :38 Yes 50mg QD Take 50 mg by mouth nightly as needed for sleep. Giovanni Méndez SUMAtriptan (IMITREX) 25 MG tablet 2018-11-22 20:06:38 Yes 25mg Q.5D Take 25 mg by mouth 2 (two) times a day as needed for migraine. May repeat in 2 hours if unresolved. Do not exceed 200 mg in 24 hours. Giovanni Méndez citalopram (CeleXA) 40 MG tablet 2018-11-22 20:06:38 Yes 40mg QD Take 40 mg by mouth daily. Giovanni Méndez docusate sodium (COLACE) 100 MG capsule 2018-11-22 20:06:38 Yes 100mg QD Take 100 mg by mouth daily. Garfield Méndez HYDROcodone-acetaminophen (NORCO) 5-325 mg tablet 2014-01-29 00:00:00 Yes Abdominal pain 1{tbl} Take 1 tablet by josue th every 6 hours as needed for Pain. [facility] Immunizations Ordered Immunization Name Filled Immunization Name Date Status Comments Source FLUCELVAX QUAD PF 2018-01-02 00:00:00 Completed Giovanni Méndez Vital Signs Vital Name Observation Time Observation Value Comments Source Weight 2019-10-24 03:05:00 300 [lb_av] [facility] BMI (Body Mass Index) 2019-10-24 03:05:00 43.0 kg/m2 [facility] Body Temperature 2019-08-06 23:20:00 98.5 [degF] [facility] Systolic blood pressure 2019-05-16 20:28:00 122 mm[Hg] Giovanni Méndez Diastolic blood pressure 2019-05-16 20:28:00 76 mm[Hg] Giovanni Méndez Heart rate 2019-05-16 20:28:00 101 /min Giovanni Méndez Body temperature 2019-05-16 20:28:00 36.89 Lashawn Garfield Méndez Respiratory rate 2019-05-16 20:28:00 20 /min Garfield Méndez Oxygen saturation in Arterial blood by Pulse oximetry 05-16 20:28:00 98 /min Giovanni Méndez Body height 2019-05-16 18:06:00 177.8 cm Giovanni Méndez Procedures Procedure Date / Time Performed Performing Clinician Sourc e XR LUMBAR SPINE 2 OR 3 VW 2019-05-16 21:41:43 Henrry Julio [place] Feliz Giovanni Méndez XR RIBS W PA CHEST RIGHT 2019-05-16 21:40:46 Henrry Julio [place] Giovanni Méndez URINE CULTURE 2019-05-16 20:20:00 Aftab Julio-Jordan Tray Méndez URINALYSIS SCREEN AND MICROSCOPY, WITH REFLEX TO CULTURE 20:20:00 Gardenia Julio HCG QUALITATIVE, URINE SCREEN 2019-05-16 20:20:00 Garth Julio HC COMPLETE BLD COUNT W/AUTO DIFF 2019-05-16 19:04:00 Eder Julio COMPREHENSIVE METABOLIC PANEL 2019-05-16 19:04:00 Garth Julio ESTIMATED GFR 2019-05-16 19:04:00 Gardenia Julio LIPASE LEVEL 2019-05-16 19:04:00 Gardenia Julio INSERT TEMP BLADDER CATH 2019-02-20 00:00:00 [facility] Plan of Care Planned Activity Planned Date Details Comments Source Future Scheduled Test 2020-01-26 00:00:00 IMM Influenza Seas onal Jan to June (>/= 19 yrs) [code = IMM Influenza Seasonal Jan to June (>/= 19 yrs)] [facility] Scheduled Test 2019-12-27 00:00:00 INFLUENZA VACCINE [code = INFLUENZA VACCINE] [facility] Future Scheduled Test 2010 00:00:00 Breast Cancer Scrn (Yearly) [code = Breast Cancer Scrn (Yearly)] [facility] Scheduled Test 1991-10-06 00:00:00 Screening for niurka gnant neoplasm of cervix (procedure) [code = 450967000] [facility] Scheduled Test 1991-10-06 00:00:00 Screening for niurka gnant neoplasm of cervix (procedure) [code = 720605518] Giovanni bonilla Instructions COVID-19: 07/11/2019 [facility] Instructions Headache [facility] Encounters Start Date/Time End Date/Time Encounter Type Admission Type [facility] Care Department Encounter ID Source 2019-10-24 02:48:00 2019-10-24 02:48:00 Registered Emergency Room 1 [facility] [id number] [facility] 2019-08-06 20:55:00 2019-08-06 23:20:00 [facility] [id number] [facility] 2019-07-02 19:54:00 2019-07-03 03:40:00 Departed Emergency Room [facility] [id number] [facility] 2019-06-30 12:55:00 2019-06-30 16:15:00 Departed Emergency Room 1 [facility] [id number] [facility] 2019-05-16 00:00:00 2019-05-16 00:00:00 Emergency Eder JULIO [facility] [id number] [facility] 2019-04-14 00:00:00 2019-04-14 00:00:00 Outpatient [facility] [id number] [facility] 2019-03-26 22:20:00 2019-03-27 01:00:00 Departed Emergency Room [facility] [id number] [facility]. [facility] - Patients [facility] 2019-03-07 15:34:00 2019-03-07 16:50:00 Departed Emergency Room [facility] [id number] [facility]. [facility] 2019-02-20 04:08:00 2019-02-20 09:26:00 Departed Emergency Room 1 NIRANJAN QUINN [facility] [id number] [facility] 2018-06-15 00:00:00 2018-06-15 00:00:00 Outpatient [facility] [id number] [facility] 2018-05-01 06:03:04 2018-05-01 06:03:04 Emergency [facility] [id number] [facility] 2017-10-26 01:33:00 2017-10-26 02:12:00 Departed Emergency Room [facility] [id number] [facility] Results Test Description Test Time Test Comments Results Result Comments Source [facility] 2019-10-24 04:18:00 [facility] [address] [address] Patient Name: SAMIR FITZPATRICK MR #: [id number] : 1970 Age/Sex: 49/F Req #: [id number] Adm Physician: Ordered by: LIOR ENAMORADO MD Report #: [id number] Location: [facility] Room/Bed: Procedure: [id number] HOPD/CT [facility] Exam Date: 10/24/19 Exam Time: 0358 REPORT STATUS: Signed Exam: Head CT without contrast History: Headache Comparison studies: None Technique: Axial images were obtained from the skull base to the vertex. Coronal and sagittal images reconstructed from the axial data. Dose modulation, iterative reconstruction, and/or weight based adjustment of the mA/kV was utilized to reduce the radiation dose to as low as reasonably achievable. Radiation dose: Total DLP: 1090 mGy*cm. Estimated effective dose: DLP x 0.015 Intravenous contrast: None Findings: Scalp: No abnormalities. Bones: No fractures, blastic or lytic lesions. Brain sulci: Appropriate for age. Ventricles: Normal in size and configuration. No hydrocephalus. Extra-axial spaces: No masses, no fluid collection. Parenchyma: No abnormal densities. No masses, acute hemorrhage, acute or chronic vascular insults. Sellar/suprasellar region: No abnormalities. Craniocervical junction: Patent foramen magnum. No Chiari one malformation. Middle ear and mastoid cavities: Clear. Included paranasal sinuses: Clear. IMPRESSION: No intracranial abnormalities. Signed by: Dr. Wanda Bond M.D. on 10/24/2019 4:27 AM Dictated By: WANDA BOND MD 6 Transcribed By: SUSU on 10/24/19426 COPY TO: LIOR ENAMORADO MD CT ABD/PEL WO CONTRAST-HOPD 2019-08-06 22:15:[address] [address] Patient Name: SAMIR FITZPATRICK MR #: [id number] : 1970 Age/Sex: 48/F Req #: [id number] Adm Physician: Ordered by: NIRANJAN QUINN MD Report #: [id number] Location: [facility] Room/Bed: Procedure: [id number] HOPD/CT ABD/PEL WO CONTRAST-HOPD Exam Date: 08/06/19 Exam Time: 2129 REPORT STATUS: Signed EXAM: CT Abdomen and Pelvis WITHOUT contrast INDICATION: right flank pain, look for stone, DJD of lumbar spine [id number] COMPARISON: CT dated 06/30/2019 TECHNIQUE: Abdomen and pelvis were scanned utilizing a multidetector helical scanner from the lung base to the pubic symphysis without administration of IV contrast. Absence of intravenous contrast decreases sensitivity for detection of focal lesions and vascular pathology. Coronal and sagittal reformations were obtained. Routine protocol was performed. IV CONTRAST: None ORAL CONTRAST: None COMPLICATIONS: None RADIATION DOSE: Total DLP: 850.29 mGy*cm Estimated effective dose: (DLP x 0.015 x size factor) mSv CTDIvol has been reviewed. It is below the limits set by the Radiation Protocol Committee (RPC). FINDINGS: LINES and TUBES: None. LOWER THORAX: Unremarkable HEPATOBILIARY: Enlarged mildly steatotic liver. Otherwise, unenhanced liver is unremarkable. No biliary ductal di lation. GALLBLADDER: Not visualized. SPLEEN: No splenomegaly. PANCREAS: No focal masses or ductal dilatation. ADRENALS: No adrenal nodules KIDNEYS/URETERS: No hydronephrosis. Limited for evaluation of renal parenchyma without intravenous contrast. Bilateral subcentimeter nonobstructive renal calculi, the largest in the left inferior pole, measuring 6 mm. GI TRACT: No abnormal distention, wall thickening, or evidence of bowel obstruction. Appendix is normal. PELVIC ORGANS/BLADDER: Unremarkable. Hysterectomy. LYMPH NODES: No lymphadenopathy. VESSELS: Unremarkable. PERITONEUM / RETROPERITONEUM: No free air or fluid. 5 x 2.5 cm omental lesion (series 3, image 93 with mild adjacent fat stranding. BONES: No suspicious osseous lesion. Degenerative changes of spine. SOFT TISSUES: Small fat-containing periumbilical hernia. Resolved previously seen abdominal wall collection. Abdominal wall scar. IMPRESSION: 1. Bilateral subcentimeter nonobstructive renal calculi. 2. No evidence of obstructive urolithiasis. 3. Resolved previously seen abdominal wall and right lower quadrant collections. 4. 5 x 2.5 cm upper left omental fat- containing lesion, representing fat necrosis or omental infarct. Signed by: Dr. Marci Rodriguez MD on 08/06/2019 10:28 PM Dictated By: MARCI RODRIGUEZ MD 27 Transcribed By: SUSU on 08/06/192227 COPY TO: NIRANJAN QUINN MD VANCOMYCIN TROUGH 2019-07-05 09:23:00 Test Item VANCOMYCIN TROUGH (test code = VANCT) 10.3 mcg/mL 10.0-20.0 N 10-15 mcg/mL - Cellulitis, Urinary Tract Infection. 15-20 mcg/mL - Bacteremia, Infective Endocarditis, Meningitis, Osteomyelitis, Pneumonia, Severe Skin/Soft- Tissue Infection, Spinal Abscess. COMMENTS: DRAW 30 MIN PRIOR TO 3/10 1000 DOSE, RX DOSING, HOLD IF > 16 BASIC METABOLIC [id number] 09:08:00* Test Item Value Reference Range Interpretation Comments SODIUM (test code = NA) 140 mEq/L 134-147 N POTASSIUM (test code = K) 3.8 mEq/L 3.4-5.0 N CHLORIDE (test code = CL) 110 mEq/L 100-108 H CARBON DIOXIDE (test code = CO2) 27 mEq/L 21-33 N ANION GAP (test code = GAP) 7 0-20 N GLUCOSE (test code = GLU) 90 mg/dL 70-110 BLOOD UREA NITROGEN (test code = BUN) 11 mg/dL 7-18 N GLOMERULAR FILTRATION RATE (test code = GFR) 76.6 95-105 L Units of measure = ml/min/1.73 m2 CREATININE (test code = CREAT) 0.8 mg/dL 0.6-1.3 N CALCIUM (test code = CA) 8.2 mg/dL 8.0-10.5 N CBC W/AUTO [id number] 09:03:00* Test Item Value Reference Range Interpretation Comments WHITE BLOOD CELL (test code = WBC) 4.76 x10 3/uL 4.5-11.0 N RED BLOOD CELL (test code = RBC) 3.20 x10 6/uL 3.54-5.02 L HEMOGLOBIN (test code = HGB) 8.1 g/dL 11.0-15.0 L HEMATOCRIT (test code = HCT) 27.8 % 33.0-45.0 L MEAN CELL VOLUME (test code = MCV) 86.9 fL 81.0-99.0 N MEAN CELL HGB (test code = MCH) 25.3 pg 27.0-33.0 L MEAN CELL HGB CONCETRATION (test code = MCHC) 29.1 g/dL 33.0-37. 0 L RED CELL DISTRIBUTION WIDTH CV (test code = RDW) 17.4 % 11.5- 14.5 H RED CELL DISTRIBUTION WIDTH SD (test code = RDW-SD) 55.5 fL 37 .0-54.0 H PLATELET COUNT (test code = PLT) 297 x10 3/uL 150-400 N MEAN PLATELET VOLUME (test code = MPV) 9.7 fL 7.0-9.0 H NEUTROPHIL % (test code = NT%) 38.1 % 56.0-77.0 L IMMATURE GRANULOCYTE % (test code = IG%) 0.2 % 0.0-2.0 N LYMPHOCYTE % (test code = LY%) 50.0 % 14.0-32.0 H MONOCYTE % (test code = MO%) 6.1 % 4.8-9.0 N EOSINOPHIL % (test code = EO%) 4.8 % 0.3-3.7 H BASOPHIL % (test code = BA%) 0.8 % 0.0-2.0 N NUCLEATED RBC % (test code = NRBC%) 0.0 % 0-0 N NEUTROPHIL # (test code = NT#) 1.81 x10 3/uL 2.0-7.6 L IMMATURE GRANULOCYTE # (test code = IG#) 0.01 x10 3/uL 0.00-0.03 N LYMPHOCYTE # (test code = LY#) 2.38 x10 3/uL 1.0-3.8 N MONOCYTE # (test code = MO#) 0.29 x10 3/uL 0.1-0.8 N EOSINOPHIL # (test code = EO#) 0.23 x10 3/uL 0.0-0.2 H BASOPHIL # (test code = BA#) 0.04 x10 3/uL 0.0-0.2 N NUCLEATED RBC # (test code = NRBC#) 0.00 x10 3/uL 0.0-0.1 N MANUAL DIFF REQUIRED (test code = MDIFF) NO BASIC METABOLIC [id number] 07:58:00* Test Item Value Reference Range Interpretation Comments SODIUM (test code = NA) 141 mEq/L 134-147 N POTASSIUM (test code = K) 3.7 mEq/L 3.4-5.0 N CHLORIDE (test code = CL) 110 mEq/L 100-108 H CARBON DIOXIDE (test code = CO2) 25 mEq/L 21-33 N ANION GAP (test code = GAP) 10 0-20 N GLUCOSE (test code = GLU) 123 mg/dL 70-110 H BLOOD UREA NITROGEN (test code = BUN) 12 mg/dL 7-18 N GLOMERULAR FILTRATION RATE (test code = GFR) 76.6 95-105 L Units of measure = ml/min/1.73 m2 CREATININE (test code = CREAT) 0.8 mg/dL 0.6-1.3 N CALCIUM (test code = CA) 8.0 mg/dL 8.0-10.5 N [id number] 07:58:00* Test Item Value Reference Range Interpretation Comments PHOSPHOROUS (test code = PHOS) 2.6 MG/DL 2.5-4.9 N [id number] 07:58:00* Test Item Value Reference Range Interpretation Comments MAGNESIUM (test code = MAG) 2.00 mg/dL 1.8-2.4 N CBC W/AUTO [id number] 07:41:00* Test Item Value Reference Range Interpretation Comments WHITE BLOOD CELL (test code = WBC) 6.08 x10 3/uL 4.5-11.0 N RED BLOOD CELL (test code = RBC) 3.05 x10 6/uL 3.54-5.02 L HEMOGLOBIN (test code = HGB) 7.6 g/dL 11.0-15.0 L HEMATOCRIT (test code = HCT) 26.5 % 33.0-45.0 L MEAN CELL VOLUME (test code = MCV) 86.9 fL 81.0-99.0 N MEAN CELL HGB (test code = MCH) 24.9 pg 27.0-33.0 L MEAN CELL HGB CONCETRATION (test code = MCHC) 28.7 g/dL 33.0-37. 0 L RED CELL DISTRIBUTION WIDTH CV (test code = RDW) 17.3 % 11.5- 14.5 H RED CELL DISTRIBUTION WIDTH SD (test code = RDW-SD) 55.7 fL 37 .0-54.0 H PLATELET COUNT (test code = PLT) 315 x10 3/uL 150-400 N MEAN PLATELET VOLUME (test code = MPV) 10.7 fL 7.0-9.0 H NEUTROPHIL % (test code = NT%) 57.8 % 56.0-77.0 N IMMATURE GRANULOCYTE % (test code = IG%) 0.2 % 0.0-2.0 N LYMPHOCYTE % (test code = LY%) 35.2 % 14.0-32.0 H MONOCYTE % (test code = MO%) 6.3 % 4.8-9.0 N EOSINOPHIL % (test code = EO%) 0.2 % 0.3-3.7 L BASOPHIL % (test code = BA%) 0.3 % 0.0-2.0 N NUCLEATED RBC % (test code = NRBC%) 0.0 % 0-0 N NEUTROPHIL # (test code = NT#) 3.52 x10 3/uL 2.0-7.6 N IMMATURE GRANULOCYTE # (test code = IG#) 0.01 x10 3/uL 0.00-0.03 N LYMPHOCYTE # (test code = LY#) 2.14 x10 3/uL 1.0-3.8 N MONOCYTE # (test code = MO#) 0.38 x10 3/uL 0.1-0.8 N EOSINOPHIL # (test code = EO#) 0.01 x10 3/uL 0.0-0.2 N BASOPHIL # (test code = BA#) 0.02 x10 3/uL 0.0-0.2 N NUCLEATED RBC # (test code = NRBC#) 0.00 x10 3/uL 0.0-0.1 N MANUAL DIFF REQUIRED (test code = MDIFF) NO - US RETROPERITONEAL [id number] 11:29:00 Name: SAMIR FITZPATRICK [facility] : 1970 Age/S: 48 / F [address] [place] [address] Unit #: [id number] Loc: [place] [address] Phys: Dacia Styles MD Acct: [id number] Dis Date: Status: ADM IN PHONE #: [phone] Exam Date: 07/03/2019 1124 FAX #: [phone] Reason: hematuria EXAMS: CPT CODE: [id number] RETROPERITONEAL COM [id number] RENAL ULTRASOUND 07/03/2019 INDICATION: Hematuria. COMPARISON: None. TECHNIQUE: Sonographic evaluation of the kidneys and urinary bladder was performed. FINDINGS: KIDNEYS: The right kidney measures 12.3 cm in length. Normal contour and parenchymal echogenicity. There is no hydronephrosis, nephrolithiasis, mass lesion or perinephric collection. The left kidney measures 10.9 cm in length. Normal contour and parenchymal echogenicity. There is no hydronephrosis, nephrolithiasis, mass lesion or perinephric collection. BLADDER: Unremarkable without filling defects or diverticula. IVC, AORTA AND ILIAC BIFURCATION: Obscured by bowel gas. IMPRESSION: 1. Normal renal size and echogenicity without hydronephrosis, calculi or soft tissue lesions. 2. Unremarkable bladder. 3. Obscured abdo alyse vasculature by bowel gas. 4. Incidental mild fatty liver infiltrat ion. 5. No free fluid. SL: ER-H Molly ctronically Signed by Darrell Dawn on 07/03/2019 at 1129 Reported and signed by : Logan Dawn M.D. CC: Dacia Styles MD Technologist: Judie Ureña RDMS(AB)(OB) Trnscb Date/Time: 07/03/2019 (112) [email or web address] Orig Print D/T: S: 07/03/2019 (1133) Probe: PAGE 1 Signed Report - US RETROPERITONEAL COM 2019-07-03 11:29:00 Name: SAMIR FITZPATRICK [facility] : 1970 Age/S: 48 / F [address] [place] [address] Unit #: [id number] Loc: [place] [address] Phys: Dacia Styles MD Acct: [id number] Dis Date: [id number] Status: DIS IN PHONE #: [phone] Exam Date: 07/03/20191123 FAX #: [phone] Reason: hematuria EXAMS: CPT CODE: [id number] US RETROPERITONEAL COM [id number] RENAL ULTRASOUND 07/03/2019 INDICATION: Hematuria. COMPARISON: None. TECHNIQUE: Sonographic evaluation of the kidneys and urinary bladder was performed. FINDINGS: KIDNEYS: The right kidney measures 12.3 cm in length. Normal contour and parenchymal echogenicity. There is no hydronephrosis, nephrolithiasis, mass lesion or perinephric collection. The left kidney measures 10.9 cm in length. Normal contour and parenchymal echogenicity. There is no hydronephrosis, nephrolithiasis, mass lesion or perinephric collection. BLADDER: Unremarkable without filling defects or diverticula. IVC, AORTA AND ILIAC BIFURCATION: Obscured by bowel gas. IMPRESSION: 1. Normal renal size and echogenicity without hydronephrosis, calculi or soft tissue lesions. 2. Unremarkable bladder. 3. Obscured abdominal vasculature by bowel gas. 4. Incidental mild fatty liver infiltration. 5. No free fluid. SL: ER-H at 1129 Reported and signed by: Logan Dawn M.D. CC: Dacia Styles MD Technologist: Judie Ureña RDMS(AB)(OB) Trnscb Date/Time: 07/03/2019 (1129) [email or web address] Orig Print D/T: S: 07/03/2019 (6008) Probe: PAGE 1 Signed Report UA RFLX MICR CULT IF [id number] 10:44:00* Test Item Value Reference Range Interpretation Comments UA COLOR (test code = COLU) YELLOW YEL/STRAW UA APPEARANCE (test code = APPU) CLEAR CLEAR UA GLUCOSE DIPSTICK (test code = DGLUU) 1+ NEGATIVE A UA BILIRUBIN DIPSTICK (test code = BILU) NEGATIVE NEGATIVE UA KETONE DIPSTICK (test code = KETU) NEGATIVE NEGATIVE UA SPECIFIC GRAVITY (test code = SGU) 1.014 1.005-1.030 N UA BLOOD DIPSTICK (test code = GABE) NEGATIVE NEGATIVE UA PH DIPSTICK (test code = BRE) 5.0 5.0-7.0 N UA PROTEIN DIPSTICK (test code = PROU) NEGATIVE NEGATIVE UA UROBILINIOGEN DIPSTICK (test code = URO) 0.2 mg/dL 0.2-1.0 UA NITRITE DIPSTICK (test code = APRIL) NEGATIVE NEGATIVE UA LEUKOCYTE ESTERASE DIPSTICK (test code = LEUU) NEGATIVE NEGA TIVE UA WBC (test code = WBCU) WBC/HPF 0-3 UA RBC (test code = RBCU) RBC/HPF 0-3 Indication for culture: Suprapubic PainSpecimen Description: CLEAN CATCHUA RFLX MICR CULT IF [id number] 10:44:00* Test Item Value Reference Range Interpretation Comments UA COLOR (test code = COLU) YELLOW YEL/STRAW UA APPEARANCE (test code = APPU) CLEAR CLEAR UA GLUCOSE DIPSTICK (test code = DGLUU) 1+ NEGATIVE A UA BILIRUBIN DIPSTICK (test code = BILU) NEGATIVE NEGATIVE UA KETONE DIPSTICK (test code = KETU) NEGATIVE NEGATIVE UA SPECIFIC GRAVITY (test code = SGU) 1.014 1.005-1.030 N UA BLOOD DIPSTICK (test code = GABE) NEGATIVE NEGATIVE UA PH DIPSTICK (test code = BRE) 5.0 5.0-7.0 N UA PROTEIN DIPSTICK (test code = PROU) NEGATIVE NEGATIVE UA UROBILINIOGEN DIPSTICK (test code = URO) 0.2 mg/dL 0.2-1.0 UA NITRITE DIPSTICK (test code = APRIL) NEGATIVE NEGATIVE UA LEUKOCYTE ESTERASE DIPSTICK (test code = LEUU) NEGATIVE NEGA TIVE UA WBC (test code = WBCU) 0-3 WBC/HPF 0-3 UA RBC (test code = RBCU) 0-3 RBC/HPF 0-3 UA WBC NO REFLEX (test code = WBCUCL) 0-3 WBC/HPF 0-3 UA BACTERIA (test code = BACU) TRACE /HPF NONE SEEN UA SQUAMOUS CELLS (test code = SQU) 0-5 /HPF NONE SEEN UA MUCUS (test code = MUCU) TRACE /LPF NONE SEEN Indication for culture: Suprapubic PainSpecimen Description: CLEAN CATCH BLOOD UREA [id number] 09:49:00* Test Item Value Reference Range Interpretation Comments BLOOD UREA NITROGEN (test code = BUN) 11 mg/dL 7-18 N [id number] 09:49:00* Test Item Value Reference Range Interpretation Comments CREATININE (test code = CREAT) 0.8 mg/dL 0.6-1.[address] ABD/PEL WO [id number] 16:05:00 [place] [address] Patient Name: SAMIR FITZPATRICK MR #: [id number] : 1970 Age/Sex: 48/F Req #: [id number] Adm Physician: Ordered by: LIOR ENAMORADO MD Report #: [id number] Location: [facility] Room/Bed: Procedure: [id number] HOPD/CT ABD/PEL WO CONTRAST-HOPD Exam Date: 06/30/19 Exam Time: 1511 REPORT STATUS: Signed CT abdomen and pelvis without contrast History: flank pain C omparison: none Technique: serial axial imaging was performed without intra venous contrast as per departmental protocol. Multiplanar images are reconstr ucted and reviewed when indicated. This CT examination is performed usi ng one or more of the following dose reduction techniques: Automated expo sure control, adjustment of the mA and /or kV according to patient size, and/o r use of iterative reconstruction technique. Findings: Evaluation limi lu by lack of intravenous contrast. The gallbladder is absent. Gross ly unremarkable appearance of unenhanced liver, pancreas, spleen, and adrenal glands. 2 mm nonobstructing right renal calculus. 4 mm nonobstructing le ft renal calculus. No hydronephrosis. No apparent bladder wall thickening. No small or large bowel obstruction. No apparent bowel wall thickening. No free fluid or adenopathy. Subcutaneous emphysema is seen within the left upper quadrant abdominal wall. At the level of the umbilicus, the re is a complex, multilocular fluid collection which measures 13 cm in cranioc audal dimension. In the axial plane, the collection measures 7.5 x 3.7 cm in s ize. No gas is contained within this collection. A tubular, fluid and gas-fill ed structure within the right lower quadrant on axial image 58 measures 6.2 x 4.8 cm in size. No aggressive osseous lesion. Impression: 1. C omplex, multilocular anterior abdominal wall fluid collection measuring 13.0 x 7.5 x 3.7 cm in size. Differential considerations would include hematoma, com plex seroma, or abscess. 2. Subcutaneous emphysema within the left upper quadr ant abdominal wall, which could be related to recent surgery. Suggest clinical correlation. 3. 6.2 x 4.8 cm indeterminant gas and fluid-filled structure wit hin the right lower quadrant could represent an intra-abdominal abscess versus dilated bowel loop. Recommend repeat examination with administration of oral contrast and 2 hour delay. 4. Bilateral nonobstructing renal calculi. Signed by: Ignacio Cohen MD on 06/30/2019 4:23 PM Dictated B y: IGNACIO COHEN MD 16 23 Transcribed By: SUSU on 06/30/19 1623 COPY TO: LIOR ENAMORADO MD UA RFLX MICR CULT IF [id number] 21:59:00* Test Item Value Reference Range Interpretation Comments UA COLOR (test code = COLU) LIGHT LUKASZ YEL/STRAW A UA APPEARANCE (test code = APPU) CLOUDY CLEAR A UA GLUCOSE DIPSTICK (test code = DGLUU) NEGATIVE NEGATIVE UA BILIRUBIN DIPSTICK (test code = BILU) NEGATIVE NEGATIVE UA KETONE DIPSTICK (test code = KETU) NEGATIVE NEGATIVE UA SPECIFIC GRAVITY (test code = SGU) 1.025 1.005-1.030 N UA BLOOD DIPSTICK (test code = GABE) 2+ NEGATIVE A UA PH DIPSTICK (test code = BRE) 6.0 5.0-7.0 N UA PROTEIN DIPSTICK (test code = PROU) 2+ NEGATIVE A UA UROBILINIOGEN DIPSTICK (test code = URO) 4.0 mg/dL 0.2-1.0 A UA NITRITE DIPSTICK (test code = APRIL) NEGATIVE NEGATIVE UA LEUKOCYTE ESTERASE DIPSTICK (test code = LEUU) 3+ NEGA TIVE A UA WBC (test code = WBCU) >50 WBC/HPF 0-3 A UA RBC (test code = RBCU) 11-20 RBC/HPF 0-3 UA WBC NO REFLEX (test code = WBCUCL) >50 WBC/HPF 0-3 A UA BACTERIA (test code = BACU) 2+ /HPF NONE SEEN A UA SQUAMOUS CELLS (test code = SQU) 11-25 /HPF NONE SEEN A UA MUCUS (test code = MUCU) 4+ /LPF NONE SEEN A Indication for culture: Flank PainSpecimen Description: MID STREAMUA RFLX MICR CULT IF [id number] 21:54:00* Test Item Value Reference Range Interpretation Comments UA COLOR (test code = COLU) LIGHT LUKASZ YEL/STRAW A UA APPEARANCE (test code = APPU) CLOUDY CLEAR A UA GLUCOSE DIPSTICK (test code = DGLUU) NEGATIVE NEGATIVE UA BILIRUBIN DIPSTICK (test code = BILU) NEGATIVE NEGATIVE UA KETONE DIPSTICK (test code = KETU) NEGATIVE NEGATIVE UA SPECIFIC GRAVITY (test code = SGU) 1.025 1.005-1.030 N UA BLOOD DIPSTICK (test code = GABE) 2+ NEGATIVE A UA PH DIPSTICK (test code = BRE) 6.0 5.0-7.0 N UA PROTEIN DIPSTICK (test code = PROU) 2+ NEGATIVE A UA UROBILINIOGEN DIPSTICK (test code = URO) 4.0 mg/dL 0.2-1.0 A UA NITRITE DIPSTICK (test code = APRIL) NEGATIVE NEGATIVE UA LEUKOCYTE ESTERASE DIPSTICK (test code = LEUU) 3+ NEGA TIVE A UA WBC (test code = WBCU) WBC/HPF 0-3 UA RBC (test code = RBCU) RBC/HPF 0-3 Indication for culture: Flank PainSpecimen Description: MID STREAMBASIC METABOLIC [id number] 19:13:00* Test Item Value Reference Range Interpretation Comments SODIUM (test code = NA) 140 mEq/L 134-147 N POTASSIUM (test code = K) 3.0 mEq/L 3.4-5.0 L CHLORIDE (test code = CL) 106 mEq/L 100-108 N CARBON DIOXIDE (test code = CO2) 28 mEq/L 21-33 N ANION GAP (test code = GAP) 9 0-20 N GLUCOSE (test code = GLU) 103 mg/dL 70-110 N BLOOD UREA NITROGEN (test code = BUN) 14 mg/dL 7-18 N GLOMERULAR FILTRATION RATE (test code = GFR) 76.6 95-105 L Units of measure = ml/min/1.73 m2 CREATININE (test code = CREAT) 0.8 mg/dL 0.6-1.3 N CALCIUM (test code = CA) 8.5 mg/dL 8.0-10.5 N HEPATIC FUNCTION [id number] 19:13:00* Test Item Value Reference Range Interpretation Comments TOTAL PROTEIN (test code = PROT) 7.9 g/dL 6.4-8.2 N ALBUMIN (test code = ALB) 2.50 g/dL 3.4-5.0 L BILIRUBIN TOTAL (test code = BILT) 0.5 MG/DL <1.5 N BILIRUBIN DIRECT (test code = BILD) 0.10 MG/DL 0.0-0.30 BILIRUBIN INDIRECT (test code = BILIND) 0.40 MG/DL SGOT/AST (test code = AST) 14 IUnit/L 15-37 L SGPT/ALT (test code = ALT) 15 IUnit/L 15-65 N ALKALINE PHOSPHATASE TOTAL (test code = ALKP) 60 IUnit/L 20-125 N BASIC METABOLIC [id number] 19:06:00* Test Item Value Reference Range Interpretation Comments SODIUM (test code = NA) 140 mEq/L 134-147 N POTASSIUM (test code = K) 3.0 mEq/L 3.4-5.0 L CHLORIDE (test code = CL) 106 mEq/L 100-108 N CARBON DIOXIDE (test code = CO2) 28 mEq/L 21-33 N ANION GAP (test code = GAP) 9 0-20 N GLUCOSE (test code = GLU) 103 mg/dL 70-110 N BLOOD UREA NITROGEN (test code = BUN) 14 mg/dL 7-18 N GLOMERULAR FILTRATION RATE (test code = GFR) 95-105 CREATININE (test code = CREAT) mg/dL 0.6-1.3 CALCIUM (test code = CA) 8.5 mg/dL 8.0-10.5 N HEPATIC FUNCTION [id number] 19:06:00* Test Item Value Reference Range Interpretation Comments TOTAL PROTEIN (test code = PROT) g/dL 6.4-8.2 ALBUMIN (test code = ALB) g/dL 3.4-5.0 BILIRUBIN TOTAL (test code = BILT) MG/DL <1.5 BILIRUBIN DIRECT (test code = BILD) MG/DL 0.0-0.30 SGOT/AST (test code = AST) IUnit/L 15-37 SGPT/ALT (test code = ALT) IUnit/L 15-65 ALKALINE PHOSPHATASE TOTAL (test code = ALKP) IUnit/L 20-125 CBC W/AUTO [id number] 18:57:00* Test Item Value Reference Range Interpretation Comments WHITE BLOOD CELL (test code = WBC) 5.07 x10 3/uL 4.5-11.0 N RED BLOOD CELL (test code = RBC) 3.42 x10 6/uL 3.54-5.02 L HEMOGLOBIN (test code = HGB) 8.8 g/dL 11.0-15.0 L HEMATOCRIT (test code = HCT) 29.6 % 33.0-45.0 L MEAN CELL VOLUME (test code = MCV) 86.5 fL 81.0-99.0 N MEAN CELL HGB (test code = MCH) 25.7 pg 27.0-33.0 L MEAN CELL HGB CONCETRATION (test code = MCHC) 29.7 g/dL 33.0-37. 0 L RED CELL DISTRIBUTION WIDTH CV (test code = RDW) 17.0 % 11.5- 14.5 H RED CELL DISTRIBUTION WIDTH SD (test code = RDW-SD) 53.7 fL 37 .0-54.0 N PLATELET COUNT (test code = PLT) 386 x10 3/uL 150-400 N MEAN PLATELET VOLUME (test code = MPV) 10.4 fL 7.0-9.0 H NEUTROPHIL % (test code = NT%) 42.2 % 56.0-77.0 L IMMATURE GRANULOCYTE % (test code = IG%) 0.2 % 0.0-2.0 N LYMPHOCYTE % (test code = LY%) 42.2 % 14.0-32.0 H MONOCYTE % (test code = MO%) 7.5 % 4.8-9.0 N EOSINOPHIL % (test code = EO%) 7.5 % 0.3-3.7 H BASOPHIL % (test code = BA%) 0.4 % 0.0-2.0 N NUCLEATED RBC % (test code = NRBC%) 0.0 % 0-0 N NEUTROPHIL # (test code = NT#) 2.14 x10 3/uL 2.0-7.6 N IMMATURE GRANULOCYTE # (test code = IG#) 0.01 x10 3/uL 0.00-0.03 N LYMPHOCYTE # (test code = LY#) 2.14 x10 3/uL 1.0-3.8 N MONOCYTE # (test code = MO#) 0.38 x10 3/uL 0.1-0.8 N EOSINOPHIL # (test code = EO#) 0.38 x10 3/uL 0.0-0.2 H BASOPHIL # (test code = BA#) 0.02 x10 3/uL 0.0-0.2 N NUCLEATED RBC # (test code = NRBC#) 0.00 x10 3/uL 0.0-0.1 N MANUAL DIFF REQUIRED (test code = MDIFF) NO CBC W/AUTO [id number] 03:15:00* Test Item Value Reference Range Interpretation Comments WHITE BLOOD CELL (test code = WBC) 5.58 x10 3/uL 4.5-11.0 N RED BLOOD CELL (test code = RBC) 2.80 x10 6/uL 3.54-5.02 L HEMOGLOBIN (test code = HGB) 7.4 g/dL 11.0-15.0 L HEMATOCRIT (test code = HCT) 24.8 % 33.0-45.0 L MEAN CELL VOLUME (test code = MCV) 88.6 fL 81.0-99.0 N MEAN CELL HGB (test code = MCH) 26.4 pg 27.0-33.0 L MEAN CELL HGB CONCETRATION (test code = MCHC) 29.8 g/dL 33.0-37. 0 L RED CELL DISTRIBUTION WIDTH CV (test code = RDW) 17.7 % 11.5- 14.5 H RED CELL DISTRIBUTION WIDTH SD (test code = RDW-SD) 57.2 fL 37 .0-54.0 H PLATELET COUNT (test code = PLT) 315 x10 3/uL 150-400 N MEAN PLATELET VOLUME (test code = MPV) 10.6 fL 7.0-9.0 H NEUTROPHIL % (test code = NT%) 60.0 % 56.0-77.0 N IMMATURE GRANULOCYTE % (test code = IG%) 0.4 % 0.0-2.0 N LYMPHOCYTE % (test code = LY%) 27.4 % 14.0-32.0 N MONOCYTE % (test code = MO%) 9.3 % 4.8-9.0 H EOSINOPHIL % (test code = EO%) 2.7 % 0.3-3.7 N BASOPHIL % (test code = BA%) 0.2 % 0.0-2.0 N NUCLEATED RBC % (test code = NRBC%) 0.0 % 0-0 N NEUTROPHIL # (test code = NT#) 3.35 x10 3/uL 2.0-7.6 N IMMATURE GRANULOCYTE # (test code = IG#) 0.02 x10 3/uL 0.00-0.03 N LYMPHOCYTE # (test code = LY#) 1.53 x10 3/uL 1.0-3.8 N MONOCYTE # (test code = MO#) 0.52 x10 3/uL 0.1-0.8 N EOSINOPHIL # (test code = EO#) 0.15 x10 3/uL 0.0-0.2 N BASOPHIL # (test code = BA#) 0.01 x10 3/uL 0.0-0.2 N NUCLEATED RBC # (test code = NRBC#) 0.00 x10 3/uL 0.0-0.1 N MANUAL DIFF REQUIRED (test code = MDIFF) NO CBC W/AUTO [id number] 09:14:00* Test Item Value Reference Range Interpretation Comments WHITE BLOOD CELL (test code = WBC) 6.15 x10 3/uL 4.5-11.0 N RED BLOOD CELL (test code = RBC) 2.99 x10 6/uL 3.54-5.02 L HEMOGLOBIN (test code = HGB) 8.1 g/dL 11.0-15.0 L HEMATOCRIT (test code = HCT) 26.8 % 33.0-45.0 L MEAN CELL VOLUME (test code = MCV) 89.6 fL 81.0-99.0 MEAN CELL HGB (test code = MCH) 27.1 pg 27.0-33.0 N MEAN CELL HGB CONCETRATION (test code = MCHC) 30.2 g/dL 33.0-37. 0 L RED CELL DISTRIBUTION WIDTH CV (test code = RDW) 18.0 % 11.5- 14.5 H RED CELL DISTRIBUTION WIDTH SD (test code = RDW-SD) 59.0 fL 37 .0-54.0 H PLATELET COUNT (test code = PLT) 319 x10 3/uL 150-400 N MEAN PLATELET VOLUME (test code = MPV) 11.0 fL 7.0-9.0 H NEUTROPHIL % (test code = NT%) 71.1 % 56.0-77.0 N IMMATURE GRANULOCYTE % (test code = IG%) 0.3 % 0.0-2.0 N LYMPHOCYTE % (test code = LY%) 18.4 % 14.0-32.0 N MONOCYTE % (test code = MO%) 7.6 % 4.8-9.0 N EOSINOPHIL % (test code = EO%) 2.4 % 0.3-3.7 N BASOPHIL % (test code = BA%) 0.2 % 0.0-2.0 N NUCLEATED RBC % (test code = NRBC%) 0.0 % 0-0 N NEUTROPHIL # (test code = NT#) 4.37 x10 3/uL 2.0-7.6 N IMMATURE GRANULOCYTE # (test code = IG#) 0.02 x10 3/uL 0.00-0.03 N LYMPHOCYTE # (test code = LY#) 1.13 x10 3/uL 1.0-3.8 N MONOCYTE # (test code = MO#) 0.47 x10 3/uL 0.1-0.8 N EOSINOPHIL # (test code = EO#) 0.15 x10 3/uL 0.0-0.2 N BASOPHIL # (test code = BA#) 0.01 x10 3/uL 0.0-0.2 N NUCLEATED RBC # (test code = NRBC#) 0.00 x10 3/uL 0.0-0.1 N MANUAL DIFF REQUIRED (test code = MDIFF) NO SURGICAL [id number] 07:03:00 RUN DATE: 05/30/19 [facility] *LIVE* PAGE 1 RUN TIME: 702 Specimen Inqui ry RUN USER: INTERFACE PATIENT: SAMIR FITZPATRICK ACCT #: [id number] LOC: [facility] #: [id number] AGE/SX: 33/F ROOM: RE01/30/04REG DR: Venice Ureña MD : 70 BED: DIS: STATUS: REG REF TLOC: SPEC #: [id number] RECD: 05/25/19 STATUS: FLO [facility] #: [id number] FAMILIA: 05/25/19 [facility] DR: Venice Ureña MD ENTERED: 05/29/19 SP TYPE: SURG SPEC OTHR : ORDERED: GM LEVEL 4 CODES: [id number] - UTERUS, NOS PROCEDURES: GM LEVEL 4 (Incomplete) TISSUES: 1. UTERUS, NOS - Uterus, cervix, bilater al tubes and ovar FINAL DIAGNOSIS Cervix uteri: Chronic cervicitis , squamous metaplasia, nabothian cysts. Endometrium: Basal state. Co rpus uteri: Leiomyomata, adenomyosis, fibrous serosal adhesions. Adnexa, b ilateral: Mild fibrous adhesions; small paratubal cysts. GROSS AND MICROSCO PIC GROSS EXAMINATION: Received the specimen as designated above and it consists of multiple segments of lau-white and pink-rodriguez tissue that weighs 1107 g. Sections are submitted as (A)-(L). M ICROSCOPIC EXAMINATION: The ectocervical mucosa has normal maturation. The endocervical mucosa has nabothian cysts, areas of squamous metaplasia and a ssociated chronic inflammation. The endom etrial glands show basal state. Benign endome trial glands and stroma are present in the myometrium. The myometrial no dule(s) are composed of bundles of smooth muscle cells with no significant nuclear atypia or mitotic activity. The serosa shows fibrous adhesions. Both adnexa showed mild fib jordon adhesions and small paratubal cysts. CONTINUED ON NEXT PAGE RUN DATE: 05/30/19 [facility] *LIVE* PAGE 2 RUN TIME: 702 Specimen Inquiry RUN USER: INTERFACE SPEC #: [id number] PATIENT: SAMIR FITZPATRICK #[id number] (Continued)--- --------- POST-OP DIAGNOSIS Abnormal uterine bleeding, heavy menstrua l bleeding, recurrent incisional hernia, uterine fibroids PRE-OP DIAGN OSIS Abnormal uterine bleeding, heavy menstrual bleeding, recurrent incisiona l herni Signed SIGNATURE ON FILE Mojgan Mon MD 05/30/19 0703 END OF REPORT BASIC METABOLIC [id number] 15:11:00* Test Item Value Reference Range Interpretation Comments SODIUM (test code = NA) 140 mEq/L 134-147 N POTASSIUM (test code = K) 3.0 mEq/L 3.4-5.0 L CHLORIDE (test code = CL) 106 mEq/L 100-108 N CARBON DIOXIDE (test code = CO2) 29 mEq/L 21-33 N ANION GAP (test code = GAP) 8 0-20 N GLUCOSE (test code = GLU) 139 mg/dL 70-110 H BLOOD UREA NITROGEN (test code = BUN) 4 mg/dL 7-18 L GLOMERULAR FILTRATION RATE (test code = GFR) 89.3 95-105 L Units of measure = ml/min/1.73 m2 CREATININE (test code = CREAT) 0.7 mg/dL 0.6-1.3 N CALCIUM (test code = CA) 7.6 mg/dL 8.0-10.5 L CBC W/AUTO [id number] 07:15:00* Test Item Value Reference Range Interpretation Comments WHITE BLOOD CELL (test code = WBC) 7.42 x10 3/uL 4.5-11.0 N RED BLOOD CELL (test code = RBC) 3.66 x10 6/uL 3.54-5.02 N HEMOGLOBIN (test code = HGB) 10.0 g/dL 11.0-15.0 L HEMATOCRIT (test code = HCT) 34.7 % 33.0-45.0 N MEAN CELL VOLUME (test code = MCV) 94.8 fL 81.0-99.0 MEAN CELL HGB (test code = MCH) 27.3 pg 27.0-33.0 N MEAN CELL HGB CONCETRATION (test code = MCHC) 28.8 g/dL 33.0-37. 0 L RED CELL DISTRIBUTION WIDTH CV (test code = RDW) 18.1 % 11.5- 14.5 H RED CELL DISTRIBUTION WIDTH SD (test code = RDW-SD) 62.5 fL 37 .0-54.0 H PLATELET COUNT (test code = PLT) 213 x10 3/uL 150-400 N MEAN PLATELET VOLUME (test code = MPV) 11.3 fL 7.0-9.0 H NEUTROPHIL % (test code = NT%) 67.0 % 56.0-77.0 N IMMATURE GRANULOCYTE % (test code = IG%) 0.4 % 0.0-2.0 N LYMPHOCYTE % (test code = LY%) 21.3 % 14.0-32.0 N MONOCYTE % (test code = MO%) 8.0 % 4.8-9.0 N EOSINOPHIL % (test code = EO%) 3.0 % 0.3-3.7 N BASOPHIL % (test code = BA%) 0.3 % 0.0-2.0 N NUCLEATED RBC % (test code = NRBC%) 0.0 % 0-0 N NEUTROPHIL # (test code = NT#) 4.98 x10 3/uL 2.0-7.6 N IMMATURE GRANULOCYTE # (test code = IG#) 0.03 x10 3/uL 0.00-0.03 N LYMPHOCYTE # (test code = LY#) 1.58 x10 3/uL 1.0-3.8 N MONOCYTE # (test code = MO#) 0.59 x10 3/uL 0.1-0.8 N EOSINOPHIL # (test code = EO#) 0.22 x10 3/uL 0.0-0.2 H BASOPHIL # (test code = BA#) 0.02 x10 3/uL 0.0-0.2 N NUCLEATED RBC # (test code = NRBC#) 0.00 x10 3/uL 0.0-0.1 N MANUAL DIFF REQUIRED (test code = MDIFF) NO CBC W/AUTO [id number] 06:21:00* Test Item Value Reference Range Interpretation Comments WHITE BLOOD CELL (test code = WBC) 9.10 x10 3/uL 4.5-11.0 N RED BLOOD CELL (test code = RBC) 3.43 x10 6/uL 3.54-5.02 L HEMOGLOBIN (test code = HGB) 9.1 g/dL 11.0-15.0 L HEMATOCRIT (test code = HCT) 30.7 % 33.0-45.0 L MEAN CELL VOLUME (test code = MCV) 89.5 fL 81.0-99.0 N MEAN CELL HGB (test code = MCH) 26.5 pg 27.0-33.0 L MEAN CELL HGB CONCETRATION (test code = MCHC) 29.6 g/dL 33.0-37. 0 L RED CELL DISTRIBUTION WIDTH CV (test code = RDW) 17.6 % 11.5- 14.5 H RED CELL DISTRIBUTION WIDTH SD (test code = RDW-SD) 58.2 fL 37 .0-54.0 H PLATELET COUNT (test code = PLT) 264 x10 3/uL 150-400 N MEAN PLATELET VOLUME (test code = MPV) 10.2 fL 7.0-9.0 H NEUTROPHIL % (test code = NT%) 59.3 % 56.0-77.0 N IMMATURE GRANULOCYTE % (test code = IG%) 0.7 % 0.0-2.0 N LYMPHOCYTE % (test code = LY%) 26.9 % 14.0-32.0 N MONOCYTE % (test code = MO%) 9.7 % 4.8-9.0 H EOSINOPHIL % (test code = EO%) 2.9 % 0.3-3.7 N BASOPHIL % (test code = BA%) 0.5 % 0.0-2.0 N NUCLEATED RBC % (test code = NRBC%) 0.0 % 0-0 N NEUTROPHIL # (test code = NT#) 5.40 x10 3/uL 2.0-7.6 N IMMATURE GRANULOCYTE # (test code = IG#) 0.06 x10 3/uL 0.00-0.03 H LYMPHOCYTE # (test code = LY#) 2.45 x10 3/uL 1.0-3.8 N MONOCYTE # (test code = MO#) 0.88 x10 3/uL 0.1-0.8 H EOSINOPHIL # (test code = EO#) 0.26 x10 3/uL 0.0-0.2 H BASOPHIL # (test code = BA#) 0.05 x10 3/uL 0.0-0.2 N NUCLEATED RBC # (test code = NRBC#) 0.00 x10 3/uL 0.0-0.1 N MANUAL DIFF REQUIRED (test code = MDIFF) NO CBC W/AUTO [id number] 08:58:00* Test Item Value Reference Range Interpretation Comments WHITE BLOOD CELL (test code = WBC) 10.83 x10 3/uL 4.5-11.0 RED BLOOD CELL (test code = RBC) 3.83 x10 6/uL 3.54-5.02 N HEMOGLOBIN (test code = HGB) 10.3 g/dL 11.0-15.0 L HEMATOCRIT (test code = HCT) 33.7 % 33.0-45.0 N MEAN CELL VOLUME (test code = MCV) 88.0 fL 81.0-99.0 N MEAN CELL HGB (test code = MCH) 26.9 pg 27.0-33.0 L MEAN CELL HGB CONCETRATION (test code = MCHC) 30.6 g/dL 33.0-37. 0 L RED CELL DISTRIBUTION WIDTH CV (test code = RDW) 18.0 % 11.5- 14.5 H RED CELL DISTRIBUTION WIDTH SD (test code = RDW-SD) 58.4 fL 37 .0-54.0 H PLATELET COUNT (test code = PLT) 314 x10 3/uL 150-400 N MEAN PLATELET VOLUME (test code = MPV) 10.5 fL 7.0-9.0 H NEUTROPHIL % (test code = NT%) 71.9 % 56.0-77.0 N IMMATURE GRANULOCYTE % (test code = IG%) 0.4 % 0.0-2.0 N LYMPHOCYTE % (test code = LY%) 20.1 % 14.0-32.0 N MONOCYTE % (test code = MO%) 7.1 % 4.8-9.0 N EOSINOPHIL % (test code = EO%) 0.2 % 0.3-3.7 L BASOPHIL % (test code = BA%) 0.3 % 0.0-2.0 N NUCLEATED RBC % (test code = NRBC%) 0.0 % 0-0 N NEUTROPHIL # (test code = NT#) 7.79 x10 3/uL 2.0-7.6 H IMMATURE GRANULOCYTE # (test code = IG#) 0.04 x10 3/uL 0.00-0.03 H LYMPHOCYTE # (test code = LY#) 2.18 x10 3/uL 1.0-3.8 N MONOCYTE # (test code = MO#) 0.77 x10 3/uL 0.1-0.8 N EOSINOPHIL # (test code = EO#) 0.02 x10 3/uL 0.0-0.2 N BASOPHIL # (test code = BA#) 0.03 x10 3/uL 0.0-0.2 N NUCLEATED RBC # (test code = NRBC#) 0.00 x10 3/uL 0.0-0.1 N MANUAL DIFF REQUIRED (test code = MDIFF) NO RENAL FUNCTION [id number] 08:33:00* Test Item Value Reference Range Interpretation Comments SODIUM (test code = NA) 139 mEq/L 134-147 N POTASSIUM (test code = K) 3.9 mEq/L 3.4-5.0 N CHLORIDE (test code = CL) 107 mEq/L 100-108 N CARBON DIOXIDE (test code = CO2) 24 mEq/L 21-33 N ANION GAP (test code = GAP) 12 0-20 N GLUCOSE (test code = GLU) 103 mg/dL 70-110 N BLOOD UREA NITROGEN (test code = BUN) 12 mg/dL 7-18 N GLOMERULAR FILTRATION RATE (test code = GFR) 76.6 95-105 L Units of measure = ml/min/1.73 m2 CREATININE (test code = CREAT) 0.8 mg/dL 0.6-1.3 N ALBUMIN (test code = ALB) 2.70 g/dL 3.4-5.0 L CALCIUM (test code = CA) 7.8 mg/dL 8.0-10.5 L PHOSPHOROUS (test code = PHOS) 2.9 MG/DL 2.5-4.9 N COMPREHENSIVE METABOLIC [id number] 11:28:00* Test Item Value Reference Range Interpretation Comments SODIUM (test code = NA) 138 mEq/L 134-147 N POTASSIUM (test code = K) 3.5 mEq/L 3.4-5.0 N CHLORIDE (test code = CL) 107 mEq/L 100-108 N CARBON DIOXIDE (test code = CO2) 20 mEq/L 21-33 L ANION GAP (test code = GAP) 15 0-20 N GLUCOSE (test code = GLU) 149 mg/dL 70-110 H BLOOD UREA NITROGEN (test code = BUN) 11 mg/dL 7-18 N GLOMERULAR FILTRATION RATE (test code = GFR) 66.8 95-105 L Units of measure = ml/min/1.73 m2 CREATININE (test code = CREAT) 0.9 mg/dL 0.6-1.3 N TOTAL PROTEIN (test code = PROT) 7.7 g/dL 6.4-8.2 N ALBUMIN (test code = ALB) 3.20 g/dL 3.4-5.0 L CALCIUM (test code = CA) 8.9 mg/dL 8.0-10.5 N BILIRUBIN TOTAL (test code = BILT) 0.4 MG/DL <1.5 N SGOT/AST (test code = AST) 36 IUnit/L 15-37 N SGPT/ALT (test code = ALT) 53 IUnit/L 15-65 N ALKALINE PHOSPHATASE TOTAL (test code = ALKP) 69 IUnit/L 20-125 N HCG SERUM [id number] 11:28:00* Test Item Value Reference Range Interpretation Comments HCG SERUM QUAL (test code = HCGQL) SERUM NEGATIVE NEGATIVE COMPREHENSIVE METABOLIC [id number] 11:15:00* Test Item Value Reference Range Interpretation Comments SODIUM (test code = NA) 138 mEq/L 134-147 N POTASSIUM (test code = K) 3.5 mEq/L 3.4-5.0 N CHLORIDE (test code = CL) 107 mEq/L 100-108 N CARBON DIOXIDE (test code = CO2) 20 mEq/L 21-33 L ANION GAP (test code = GAP) 15 0-20 N GLUCOSE (test code = GLU) 149 mg/dL 70-110 H BLOOD UREA NITROGEN (test code = BUN) 11 mg/dL 7-18 N GLOMERULAR FILTRATION RATE (test code = GFR) 95-105 CREATININE (test code = CREAT) mg/dL 0.6-1.3 TOTAL PROTEIN (test code = PROT) g/dL 6.4-8.2 ALBUMIN (test code = ALB) g/dL 3.4-5.0 CALCIUM (test code = CA) 8.9 mg/dL 8.0-10.5 N BILIRUBIN TOTAL (test code = BILT) MG/DL <1.5 SGOT/AST (test code = AST) IUnit/L 15-37 SGPT/ALT (test code = ALT) IUnit/L 15-65 ALKALINE PHOSPHATASE TOTAL (test code = ALKP) IUnit/L 20-125 HCG SERUM [id number] 11:15:00* Test Item Value Reference Range Interpretation Comments HCG SERUM QUAL (test code = HCGQL) NEGATIVE COMPREHENSIVE METABOLIC [id number] 11:15:00* Test Item Value Reference Range Interpretation Comments SODIUM (test code = NA) 138 mEq/L 134-147 N POTASSIUM (test code = K) 3.5 mEq/L 3.4-5.0 N CHLORIDE (test code = CL) 107 mEq/L 100-108 N CARBON DIOXIDE (test code = CO2) 20 mEq/L 21-33 L ANION GAP (test code = GAP) 15 0-20 N GLUCOSE (test code = GLU) 149 mg/dL 70-110 H BLOOD UREA NITROGEN (test code = BUN) 11 mg/dL 7-18 N GLOMERULAR FILTRATION RATE (test code = GFR) 95-105 CREATININE (test code = CREAT) mg/dL 0.6-1.3 TOTAL PROTEIN (test code = PROT) g/dL 6.4-8.2 ALBUMIN (test code = ALB) g/dL 3.4-5.0 CALCIUM (test code = CA) 8.9 mg/dL 8.0-10.5 N BILIRUBIN TOTAL (test code = BILT) MG/DL <1.5 SGOT/AST (test code = AST) IUnit/L 15-37 SGPT/ALT (test code = ALT) IUnit/L 15-65 ALKALINE PHOSPHATASE TOTAL (test code = ALKP) IUnit/L 20-125 HCG SERUM [id number] 11:15:00* Test Item Value Reference Range Interpretation Comments HCG SERUM QUAL (test code = HCGQL) SERUM NEGATIVE NEGATIVE PROTHROMBIN [id number] 11:14:00* Test Item Value Reference Range Interpretation Comments PROTHROMBIN TIME PATIENT (test code = PTP) 11.3 SECONDS 9.3-12.9 N INTERNATIONAL NORMAL RATIO (test code = INR) 1.0 0.8-1.2 N TARGET INR BY INDICATION Indication INR1. Prophylaxis of venous thrombosis 2.0 - 3.0 (orthopedic surgery), Prophylaxis of venous thrombosis (other than high-risk surgery), Treatment of Deep Vein Thrombosis/Pulmonary Embolism, Prevention of systemic embolism - Tissue heart valves, Acute Myocardial Infarction (to prevent systemic embolism), Valvular heart disease, Atrial Fibrillation, Bileaflet mechanical valve in aortic position.2. Mechanical prosthetic valves (high risk), 2.5 - 3.5 Presence of Lupus Anticoagulant or Antiphospholipid Antibodies, Prevention of systemic embolism - Acute Myocardial Infarction (to prevent recurrent infarct). THROMBOPLASTIN TIME [id number] 11:14:00* Test Item Value Reference Range Interpretation Comments THROMBOPLASTIN TIME PARTIAL (test code = PTT) 34.1 Seconds 25.0-39. 5 N Therapeutic Range: 50.4 - 88.3 Seconds Effective 08/10/2018 CBC W/AUTO [id number] 11:13:00* Test Item Value Reference Range Interpretation Comments WHITE BLOOD CELL (test code = WBC) 6.92 x10 3/uL 4.5-11.0 N RED BLOOD CELL (test code = RBC) 4.33 x10 6/uL 3.54-5.02 N HEMOGLOBIN (test code = HGB) 11.5 g/dL 11.0-15.0 N HEMATOCRIT (test code = HCT) 37.5 % 33.0-45.0 N MEAN CELL VOLUME (test code = MCV) 86.6 fL 81.0-99.0 N MEAN CELL HGB (test code = MCH) 26.6 pg 27.0-33.0 L MEAN CELL HGB CONCETRATION (test code = MCHC) 30.7 g/dL 33.0-37. 0 L RED CELL DISTRIBUTION WIDTH CV (test code = RDW) 17.6 % 11.5- 14.5 H RED CELL DISTRIBUTION WIDTH SD (test code = RDW-SD) 55.7 fL 37 .0-54.0 H PLATELET COUNT (test code = PLT) 282 x10 3/uL 150-400 N MEAN PLATELET VOLUME (test code = MPV) 10.2 fL 7.0-9.0 H NEUTROPHIL % (test code = NT%) 51.9 % 56.0-77.0 L IMMATURE GRANULOCYTE % (test code = IG%) 0.4 % 0.0-2.0 N LYMPHOCYTE % (test code = LY%) 36.1 % 14.0-32.0 H MONOCYTE % (test code = MO%) 6.2 % 4.8-9.0 N EOSINOPHIL % (test code = EO%) 4.8 % 0.3-3.7 H BASOPHIL % (test code = BA%) 0.6 % 0.0-2.0 N NUCLEATED RBC % (test code = NRBC%) 0.0 % 0-0 N NEUTROPHIL # (test code = NT#) 3.59 x10 3/uL 2.0-7.6 N IMMATURE GRANULOCYTE # (test code = IG#) 0.03 x10 3/uL 0.00-0.03 N LYMPHOCYTE # (test code = LY#) 2.50 x10 3/uL 1.0-3.8 N MONOCYTE # (test code = MO#) 0.43 x10 3/uL 0.1-0.8 N EOSINOPHIL # (test code = EO#) 0.33 x10 3/uL 0.0-0.2 H BASOPHIL # (test code = BA#) 0.04 x10 3/uL 0.0-0.2 N NUCLEATED RBC # (test code = NRBC#) 0.00 x10 3/uL 0.0-0.1 N MANUAL DIFF REQUIRED (test code = MDIFF) NO XR Lumbar Spine 2 Or 3 [id number] 21:46:19Hm Interface, Radiology Results - 05/16/2019 9:49 PM CSTEXAMINATION: XR LUMBAR SPINE 2 OR 3 VWCLINICAL HISTORY: fallCOMPARISON: None.IMPRESSION:Total of 4 views including two AP and single lateral radiographs of the lumbar spine as well as spot lateral radiograph of the lumbosacral region were obtained.The 5 lumbar type vertebrae, and the last functional disc is presumed to be L5-S1.Vertebral body heights are preserved. No evidence of acute fracture, suspicious osteolytic or osteoblastic lesion.Mild grade 1 retrolisthesis of L1 on L2 and L2 on L3.The T12-L1 and to lesser degree L1-2 and L2-3 discs are narrowed with adjacent mild chronic discogenic endplate changes and endplate osteophytes. Multilevel facet arthrosis along mid-inferior lumbar levels.Visualized soft tissues are unremarkable.[facility]-[id number] MethodistXR Ribs W Pa Chest [id number] 21:43:43Hm Interface, Radiology Results Incoming - 05/16/2019 9:46 PM CSTEXAMINATION: XR RIBS W PA CHEST RIGHTCLINICAL HISTORY: fallCOMPARISON: None.IMPRESSION:No displaced right rib fracture is visualized. Visualized lungs are clear. Soft tissues are unremarkable.[facility]-IC14JKHTCoyqyee MethodistUrinalysis screen and microscopy, with reflex to [id number] 20:42:03* Test Item Value Reference Range Interpretation Comments Specimen site (test code = 2383071) Clean catch Color, UA (test code = 5778-6) Yellow Appearance, UA (test code = 5767-9) Clear Specific gravity, UA (test code = 5811-5) 1.020 1.001-1.035 pH, UA (test code = 5803-2) 5.0 5.0-8.5 Protein, UA (test code = 21661-2) Negative Negative Glucose, UA (test code = 95908-1) Negative Negative Ketones, UA (test code = 2514-8) Trace Negative A Bilirubin, UA (test code = 5770-3) Negative Negative Blood, UA (test code = 5794-3) Negative Negative Nitrite, UA (test code = 5802-4) Negative Negative Urobilinogen, UA (test code = 09091-5) Negative <2.0 Leukocyte esterase, UA (test code = 5799-2) Negative Negative Epithelial cells, UA (test code = 5787-7) Many /HPF WBC, UA (test code = 5821-4) 3 0- 5 /HPF RBC, UA (test code = 80231-4) 4 0- 5 /HPF Bacteria, UA (test code = 91495-9) None seen None seen Yeast, UA (test code = 53017-3) None seen Yeast with pseudohyphae, UA (test code = 98902-9) None seen Lab Interpretation (test code = 58840-7) Abnormal [facility] [id number] 20:41:22* Test Item Value Reference Range Interpretation Comments Urine culture (test code = 6245893) SEE COMMENT Bacteriuria screen negative. [facility] [place] [facility], [place] [id number] 20:33:23* Test Item Value Reference Range Interpretation Comments hCG qualitative, urine (test code = 2106-3) Negative Negative The manufacturers stated sensitivity of HcG test for serum is >/= 10 mIU/ml and urine is >/= 20mIU/ml. [facility]Comprehensive metabolic [id number] 19:42:14* Test Item Value Reference Range Interpretation Comments Sodium (test code = 2951-2) 137 135- 150 mEq/L Potassium (test code = 2823-3) 3.9 3.5- 5.0 mEq/L Chloride (test code = 5-0) 100 98- 112 mEq/L CO2 (test code = 2027-9) 25 mmol/L 24-31 Anion gap (test code = 68880-7) 12@ANIO 7- 15 mEq/L BUN (test code = 3094-0) 11 mg/dL 7-18 Creatinine (test code = 2160-0) 0.80 mg/dL 0.5-0.9 Glucose (test code = 2345-7) 94 mg/dL 65-100 Calcium (test code = 97045-0) 9.2 mg/dL 8.3-10.2 Protein (test code = 2885-2) 8.0 g/dL 6.3-8.3 Albumin (test code = 1751-7) 3.5 g/dL 3.5-5 A/G ratio (test code = 1759-0) 0.8 0.7-3.8 Alkaline phosphatase (test code = 6768-6) 74 U/L 0-104 AST (test code = 1920-8) 20 U/L 10-35 ALT (test code = 1742-6) 25 U/L 5-50 Total bilirubin (test code = 1974-) 0.8 mg/dL 0.2-1.2 [facility] MethodistLipase [id number] 19:42:13* Test Item Value Reference Range Interpretation Comments Lipase (test code = 3040-3) 19 U/L 13-60 [facility] MethodistEstimated [id number] 19:42:11* Test Item Value Reference Range Interpretation Comments Estimated GFR (test code = 5488) 87 mL/min/1.73 m2 Catergory Units InterpretationG1 >=90 Normal or highG2 60-89 Mildly xhtdecddgM9m 45-59 Mildly to moderately wkaqbwfsyT5m 30-44 Moderately to severely decreasedG4 15-29 Severely decreasedG5 <15 Kidney failureThe eGFR was calculated using the Chronic Kidney Disease Epidemiology Collaboration (CKD-EPI) equation. Interpretation is based on recommendations of the National Kidney Foundation-Kidney Disease Outcomes Quality Initiative (NKF-KDOQI) published in 2014. [facility] MethodistCBC with platelet and [id number] 19:22:49* Test Item Value Reference Range Interpretation Comments WBC (test code = 93938-6) 7.8 4.2- 11.0 k/uL RBC (test code = 43347-8) 4.68 m/uL 4.04-5.86 HGB (test code = 718-7) 12.6 g/dL 11.5-15.3 HCT (test code = 4544-3) 40.3 % 34-45 MCV (test code = 787-2) 86.1 fL 80-98 MCH (test code = 785-6) 26.9 pg 27-34 L MCHC (test code = 786-4) 31.3 g/dL 31.5-36.5 L RDW - SD (test code = 15401-0) 55.2 fL 37-51 H MPV (test code = 57638-2) 10.2 fL 7.4-10.4 Platelet count (test code = 55825-6) 301 150- 400 k/uL Nucleated RBC (test code = 65150-4) 0.00 /100 WBC Neutrophils (test code = 04912-5) 57.3 % 36-66 Lymphocytes (test code = 49399-1) 30.8 % 24-44 Monocytes (test code = 07335-4) 7.1 % 0-6 H Eosinophils (test code = 12208-9) 4.0 % 0-6 Basophils (test code = 24632-2) 0.5 % 0-1.2 Immature granulocytes (test code = 82913-6) 0.3 % 0-1 Lab Interpretation (test code = 11545-6) Abnormal [facility] MethodistURINALYSIS [id number] 16:27:00* Test Item Value Reference Range Interpretation Comments UA COLOR (test code = COLU) YELLOW YELLOW UA APPEARANCE (test code = APPU) CLEAR CLEAR UA GLUCOSE DIPSTICK (test code = DGLUU) NEGATIVE mg/dL NEGATIVE UA BILIRUBIN DIPSTICK (test code = BILU) NEGATIVE mg/dL NEGATIVE UA KETONE DIPSTICK (test code = KETU) NEGATIVE mg/dL NEGATIVE UA SPECIFIC GRAVITY (test code = SGU) >1.050 1.001-1.035 UA BLOOD DIPSTICK (test code = GABE) Negative mg/dL NEGATIVE UA PH DIPSTICK (test code = BRE) 5.5 5.0-8.0 UA PROTEIN DIPSTICK (test code = PROU) 20 (Trace) mg/dL NEGATIVE A UA UROBILINIOGEN DIPSTICK (test code = URO) Normal mg/dL NEGATIVE UA NITRITE DIPSTICK (test code = APRIL) NEGATIVE NEGATIVE UA LEUKOCYTE ESTERASE W REFLEX (test code = LEUUR) NEGATIVE Curtis/uL NEGATIVE UA WBC (test code = WBCU) 0-5 per HPF 0-5 UA RBC (test code = RBCU) 0-2 #/HPF 0-5 UA EPITHELIAL CELLS (test code = EPIU) FEW per HPF FEW UA BACTERIA (test code = BACU) FEW #/HPF NONE A UA MUCUS (test code = MUCU) FEW #/LPF FEW Urine Source? Clean CatchURINALYSIS [id number] 16:21:00* Test Item Value Reference Range Interpretation Comments UA COLOR (test code = COLU) YELLOW YELLOW UA APPEARANCE (test code = APPU) CLEAR CLEAR UA GLUCOSE DIPSTICK (test code = DGLUU) NEGATIVE mg/dL NEGATIVE UA BILIRUBIN DIPSTICK (test code = BILU) NEGATIVE mg/dL NEGATIVE UA KETONE DIPSTICK (test code = KETU) NEGATIVE mg/dL NEGATIVE UA SPECIFIC GRAVITY (test code = SGU) >1.050 1.001-1.035 UA BLOOD DIPSTICK (test code = GABE) Negative mg/dL NEGATIVE UA PH DIPSTICK (test code = BRE) 5.5 5.0-8.0 UA PROTEIN DIPSTICK (test code = PROU) 20 (Trace) mg/dL NEGATIVE A UA UROBILINIOGEN DIPSTICK (test code = URO) Normal mg/dL NEGATIVE UA NITRITE DIPSTICK (test code = APRIL) NEGATIVE NEGATIVE UA LEUKOCYTE ESTERASE W REFLEX (test code = LEUUR) NEGATIVE Curtis/uL NEGATIVE UA WBC (test code = WBCU) per HPF 0-5 UA RBC (test code = RBCU) per HPF 0-5 UA EPITHELIAL CELLS (test code = EPIU) per HPF Few UA BACTERIA (test code = BACU) per HPF NONE Urine Source? Clean Catch- CT ABD PELVIS W WO [id number] 14:45:00 Name: SAMIR FITZPATRICK [facility] : 1970 Age/S: 48 / F [address] Unit #: [id number] Loc: [place] [address] Phys: Juan Coon MD Acct: [id number] Di s Date: Status: REG ER PHONE #: Exam Date: 04/28/2019 1419 FAX #: [phone] Reason: R flank pain, h/o stone, fall/trauma EXAMS: CPT CODE: [id number] CT ABD PELVIS W [place] CONT [id number] REASON FOR EXAM: R flank pain, h/o stone, fall/trauma EXAM ORDER DATE: 04/28/2019 11:12 AM Ordering M.D.: Modesto Coon MD PROCEDURE: - CT ABD P GERRI W WO CONT pre and postcontrast enhanced axial CT images were acquir ed through the abdomen/pelvis at 5 mm intervals. Sagittal and coronal ref ormatted images were generated. Automated exposure control was utilized f or this reduction. Phases of contrast: venous and delayed COMPARISON: CT of the abdomen and pelvis February 13, 2019 FI NDINGS: Visualized thorax: There is subsegmental atelectasis in t he middle lobe. Otherwise normal Hepatobiliary system: Gallb ladder is not visualized and may be contracted since no surgical clips are seen that would be expected with a cholecystectomy. Liver parenchyma is w ithin normal limits. Pancreas: Normal Spleen: Normal Adrenal glands: Normal Genitourinary system: There is a stone in the left kidney measuring 5 mm in diameter. No stones are se en in the right kidney. The ureters are within normal limits. No perinephr ic or periureteral fat stranding. The uterus is bulky, likely secondary to fibroids. No stone is seen within the urinary bladder. Raisa rointestinal tract and appendix: Normal Abdominal vascular structu res: Normal Peritoneum and retroperitoneum: No free fluid or free air. No omental or mesenteric masses. No abnormal lymph nodes. Musculoskeletal structures and abdominal wall: There are mild degener ative changes throughout the spine. Small fat-containing PAGE 1 Signed Report (CONTINUED) Name: SAMIR FITZPATRICK [facility] : 1970 Age/S: 48 / F [place] Unit #: [id number] Loc: [place] [address] Phys: Modesto Coon MD Acct: [id number] Dis Date: atus: REG ER PHONE #: [phone] Exam Memo e: 04/28/2019 1419 FAX #: [phone] Reason: R flank pain, h/o stone, fall/trauma EXAMS: CPT CODE: [id number] CT ABD PELVIS W WO CONT 09629 <Continued> umbilical hernia is present IMPRESSION: Nonobstructing stone in the left kidney with no inflammatory changes in the left kidney or left ureter. However there is no stone in the right kidney or right ureter and no stone in the urinary bladder to suggest recently passed stone. Fibroid uterus. Location: [facility] at 1445 Reported and signed by: Hua Dwo MD CC: Rah Bah; Modesto Coon MD Technologist:Tr Holbrook RT(R),(MR),(CT); CTDI: DLP: Trnscb Date/Time: 04/28/2019 (1445) t.[id number] Orig Print D/T: S: 04/28/2019 (8506) PAGE 2 Signed Report PROTHROMBIN [id number] 13:41:00* Test Item Value Reference Range Interpretation Comments PROTHROMBIN TIME PATIENT (test code = PTP) 11.9 seconds 9.0-14.0 N INTERNATIONAL NORMAL RATIO (test code = INR) 1.0 0.8-1.2 N The therapeutic range for oral anticoagulant therapy [...] (2.5-3.5) IS PATIENT ON ANTICOAGULANTS? NTHROMBOPLASTIN TIME [id number] 13:41:00* Test Item Value Reference Range Interpretation Comments THROMBOPLASTIN TIME PARTIAL (test code = PTT) 32.5 seconds 25.0-36. 5 N IS PATIENT ON ANTICOAGULANTS? [id number] 13:40:00* Test Item Value Reference Range Interpretation Comments TROPONIN-I (test code = TROPI) <0.015 ng/mL 0-0.045 N BASIC METABOLIC [id number] 13:39:00* Test Item Value Reference Range Interpretation Comments SODIUM (test code = NA) 140 mmol/L 136-145 N POTASSIUM (test code = K) 3.7 mmol/L 3.5-5.1 N CHLORIDE (test code = CL) 108.0 mmol/L 98-107 H CARBON DIOXIDE (test code = CO2) 24.0 mmol/L 21-32 N ANION GAP (test code = GAP) 11.7 10-20 N GLUCOSE (test code = GLU) 93 mg/dL 74-106 N BLOOD UREA NITROGEN (test code = BUN) 13 mg/dL 7-18 N GLOMERULAR FILTRATION RATE (test code = GFR) > 60 mL/min >=60 Estimated GFR by using Modified MDRD formula.Chronic kidney disease is defined as either kidney damageor GFR <60 mL/min/1.73 m2 for >3 months. CREATININE (test code = CREAT) 0.80 mg/dL 0.55-1.02 N Note change in reference range due to change in reagent. BUN/CREATININE RATIO (test code = BUN/CREA) 16.3 10-20 N CALCIUM (test code = CA) 9.2 mg/dL 8.5-10.1 N HEPATIC FUNCTION [id number] 13:39:00* Test Item Value Reference Range Interpretation Comments TOTAL PROTEIN (test code = PROT) 7.8 gram/dL 6.4-8.2 N ALBUMIN (test code = ALB) 3.3 g/dL 3.4-5.0 L GLOBULIN (test code = GLOB) 4.5 gram/dL 2.7-4.2 H ALBUMIN/GLOBULIN RATIO (test code = A/G) 0.7 0.75-1.50 L BILIRUBIN TOTAL (test code = BILT) 0.30 mg/dL 0.0-1.0 N BILIRUBIN DIRECT (test code = BILD) 0.07 mg/dL 0.0-0.20 N SGOT/AST (test code = AST) 26 IUnit/L 15-37 N SGPT/ALT (test code = ALT) 37 IUnit/L 12-78 N ALKALINE PHOSPHATASE TOTAL (test code = ALKP) 75 IUnit/L 45-117 N Note change in reference range due to change in reagent. [id number] 13:39:00* Test Item Value Reference Range Interpretation Comments LIPASE (test code = LIP) 154 U/L 73.0-393.0 N HCG SERUM [id number] 13:39:00* Test Item Value Reference Range Interpretation Comments HCG SERUM QUAL (test code = HCGQL) NEGATIVE NEGATIVE This HCGQL test is NOT applicable for MALE patients.Check with nurse about probable order error.If Tumor Marker Test needed, nurse should order test "HCGTU"(Test #550.23410) BASIC METABOLIC [id number] 13:31:00* Test Item Value Reference Range Interpretation Comments SODIUM (test code = NA) 140 mmol/L 136-145 N POTASSIUM (test code = K) 3.7 mmol/L 3.5-5.1 N CHLORIDE (test code = CL) 108.0 mmol/L 98-107 H CARBON DIOXIDE (test code = CO2) mmol/L 21-32 ANION GAP (test code = GAP) 10-20 GLUCOSE (test code = GLU) mg/dL 74-106 BLOOD UREA NITROGEN (test code = BUN) mg/dL 7-18 GLOMERULAR FILTRATION RATE (test code = GFR) mL/min >=60 CREATININE (test code = CREAT) mg/dL 0.55-1.02 BUN/CREATININE RATIO (test code = BUN/CREA) 10-20 CALCIUM (test code = CA) mg/dL 8.5-10.1 HEPATIC FUNCTION [id number] 13:31:00* Test Item Value Reference Range Interpretation Comments TOTAL PROTEIN (test code = PROT) gram/dL 6.4-8.2 ALBUMIN (test code = ALB) g/dL 3.4-5.0 GLOBULIN (test code = GLOB) gram/dL 2.7-4.2 ALBUMIN/GLOBULIN RATIO (test code = A/G) 0.75-1.50 BILIRUBIN TOTAL (test code = BILT) mg/dL 0.0-1.0 BILIRUBIN DIRECT (test code = BILD) mg/dL 0.0-0.20 SGOT/AST (test code = AST) IUnit/L 15-37 SGPT/ALT (test code = ALT) IUnit/L 12-78 ALKALINE PHOSPHATASE TOTAL (test code = ALKP) IUnit/L 45-117 [id number] 13:31:00* Test Item Value Reference Range Interpretation Comments LIPASE (test code = LIP) U/L 73.0-393.0 HCG SERUM [id number] 13:31:00* Test Item Value Reference Range Interpretation Comments HCG SERUM QUAL (test code = HCGQL) NEGATIVE NEGATIVE This HCGQL test is NOT applicable for MALE patients.Check with nurse about probable order error.If Tumor Marker Test needed, nurse should order test "HCGTU"(Test #550.73827) BASIC METABOLIC [id number] 13:30:00* Test Item Value Reference Range Interpretation Comments SODIUM (test code = NA) 140 mmol/L 136-145 N POTASSIUM (test code = K) 3.7 mmol/L 3.5-5.1 N CHLORIDE (test code = CL) 108.0 mmol/L 98-107 H CARBON DIOXIDE (test code = CO2) mmol/L 21-32 ANION GAP (test code = GAP) 10-20 GLUCOSE (test code = GLU) mg/dL 74-106 BLOOD UREA NITROGEN (test code = BUN) mg/dL 7-18 GLOMERULAR FILTRATION RATE (test code = GFR) mL/min >=60 CREATININE (test code = CREAT) mg/dL 0.55-1.02 BUN/CREATININE RATIO (test code = BUN/CREA) 10-20 CALCIUM (test code = CA) mg/dL 8.5-10.1 HEPATIC FUNCTION [id number] 13:30:00* Test Item Value Reference Range Interpretation Comments TOTAL PROTEIN (test code = PROT) gram/dL 6.4-8.2 ALBUMIN (test code = ALB) g/dL 3.4-5.0 GLOBULIN (test code = GLOB) gram/dL 2.7-4.2 ALBUMIN/GLOBULIN RATIO (test code = A/G) 0.75-1.50 BILIRUBIN TOTAL (test code = BILT) mg/dL 0.0-1.0 BILIRUBIN DIRECT (test code = BILD) mg/dL 0.0-0.20 SGOT/AST (test code = AST) IUnit/L 15-37 SGPT/ALT (test code = ALT) IUnit/L 12-78 ALKALINE PHOSPHATASE TOTAL (test code = ALKP) IUnit/L 45-117 [id number] 13:30:00* Test Item Value Reference Range Interpretation Comments LIPASE (test code = LIP) U/L 73.0-393.0 HCG SERUM [id number] 13:30:00* Test Item Value Reference Range Interpretation Comments HCG SERUM QUAL (test code = HCGQL) NEGATIVE CBC W/O [id number] 13:29:00* Test Item Value Reference Range Interpretation Comments WHITE BLOOD CELL (test code = WBC) 7.0 K/mm3 4.5-12.5 N RED BLOOD CELL (test code = RBC) 4.73 mill/mm3 3.7-5.2 N HEMOGLOBIN (test code = HGB) 12.3 gram/dL 11.5-15.5 N HEMATOCRIT (test code = HCT) 38.8 % 36.0-46.0 N MEAN CELL VOLUME (test code = MCV) 82.0 fL 80-98 N MEAN CELL HGB (test code = MCH) 26.0 picogram 27.0-33.0 L MEAN CELL HGB CONCETRATION (test code = MCHC) 31.7 gram/dL 33.0-36. 0 L RED CELL DISTRIBUTION WIDTH (test code = RDW) 17.2 % 11.6-16. 2 H PLATELET COUNT (test code = PLT) 301 K/mm3 150-450 N MEAN PLATELET VOLUME (test code = MPV) 10.8 fL 6.7-11.0 N - XR L-SPINE 2/3 [id number] 11:57:00 FAX: Rah Osman MD [phone] [place]: St: [facility] FAX: Modesto Coon MD [phone] Name: SAMIR FITZPATRICK [facility] : 1970 Age/S: 48/F [address] [facility] Unit #: [id number] Loc: [place] [address] Phys: Modesto Coon MD Acct: [id number] Dis Date: Status: REG ER PHONE #: [phone] Exam Date: 04/28/2019 1145 FAX #: [phone] Reason: back pain EXAMS: CPT CODE: [id number] XR L-SPINE 2/3 VIEWS 64599 HISTORY: Back pain. COMPARISON: None available. Location: [facility]. 3 views of the T-spine: No acute fracture or dislocation. Vertebral body heights are maintained. Disc space narrowing throughout the T-spine. Anterior osteophytes. Cervical fusion in the lower neck. IMPRESSION: No acute fracture or dislocation. Marginal osteophytes. No paravertebral lesions. 2 views of the lumbar spine: COM PARISON: August 02, 2018. No acute fracture or dislocation. Vert ebral body heights are maintained. Disc spaces are preserved. Anterior o steophytes. Levoscoliosis. IMPRESSION: No acute fracture or dislocation. Vertebral body heights are maintain ed. at 1157 Reported and signed by: Griffin Pantoja M.D. CC: Rah Bah; Modesto Coon MD Technologist: RT SUNI(R) Trnscrd Date/Time/By: 04/28/2019 (1 157) : By: [email or web address] Orig Print D/T: S: 04/28/2019 (6067) PAGE 1 Signed Report - XR T-SPINE 3 [id number] 11:57:00 FAX: Rah Osman MD [phone] [place]: St: REG FAX: Modesto Coon MD [phone] Name: SAMIR FITZPATRICK [facility] : 1970 Age/S: 48/F [address] [facility] Unit #: [id number] Loc: [place] [address] Phys: Modesto Coon MD Acct: [id number] Dis Date: Status: REG ER PHONE #: [phone] Exam Date: 04/28/2019 1140 FAX #: [phone] Reason: back pain EXAMS: CPT CODE: [id number] XR T-SPINE 3 VIEWS 40788 HISTORY: Back pain. COMPARISON: None available. Location: [facility]. 3 views of the T-spine: No acute fracture or dislocation. Vertebral body heights are maintained. Disc space narrowing throughout the T-spine. Anterior osteophytes. Cervical fusion in the lower neck. IMPRESSION: No acute fracture or dislocation. Marginal osteophytes. No paravertebral lesions. 2 views of the lumbar spine: COM PARISON: August 02, 2018. No acute fracture or dislocation. Vert ebral body heights are maintained. Disc spaces are preserved. Anterior o steophytes. Levoscoliosis. IMPRESSION: No acute fracture or dislocation. Vertebral body heights are maintain ed. at 1157 Reported and signed by: Griffin Pantoja M.D. CC: Rah Bah; Modesto Coon MD Technologist: RT SUNI(Domingo) Trnscrd Date/Time/By: 04/28/2019 (2 796) : By: [email or web address] Orig Print D/T: S: 04/28/2019 (5148) PAGE 1 Signed Report SCR MAMM BILATERAL CAD [id number] 10:41:43 - SCR MAMM BILATERAL CAD DIGITALBILATERAL FIRST EVER DIGITAL SCREENING MAMMOGRAM WITH CAD: 04/05/2019CLINICAL: Asymptomatic. Current mammographic images were evaluated by either a [employer] M-Vu or a [employer] ImageChecker CAD (computer aided detection system). No prior exams were available for comparison. The tissue of both breasts is heterogeneously dense. This may lower the sensitivity of mammography. There are benign calcifications in both breasts. There is global asymmetry in the upper outer right breast. There are multiple circumscribed masses in the left breast. Otherwise, no suspicious mass, architectural distortion, malignant type calcification, or lymph node abnormality detected. IMPRESSION: INCOMPLETE: ADDITIONAL IMAGING EVALUATION NEEDEDGlobal asymmetry in the upper outer right breast and circumscribed masses in the left breast. A bilateral breast ult rasound is recommended for further evaluation.Wale Dodson M.D. et/:02/2019 10:41:43 Air Moving Technician: Caitlyn DAVEY, [employer] [facility] Breast Imag ing-FWletter sent: Additional Imaging Mammogram BI-RADS: 0 Incomplete: Addition al Imaging Evaluation Needed- US PELVIS [id number] 20:24:00 Name: SAMIR FITZPATRICK [facility] : 1970 Age/S: 48 / F [address] [place] [address] Unit #: [id number] Loc: [place] [address] Phys: Adamu,Moha mmed DO Acct: [id number] Di s Date: Status: REG ER PHONE #: Exam Date: 03/23/20192011 FAX #: [phone] Reason: Pelvic Pain EXAMS: CPT CODE: [id number] US PELVIS COM PLETE 48083 PROCEDURE: PELVIC ULTRASO UND INDICATION: Pelvic pain. Vaginal bleeding. LMP unknown. HCG negative. History of uterine fibroids. COMPARISON: CT of 1 , pelvic ultrasound 05/12/2018 TECHNIQUE: Grayscale, color and Doppler transabdominal imaging of the pelvis was performed with stand felipe technique. Transvaginal ultrasound was declined by the patient. LIMITATIONS: Patient body habitus and bowel gas. FINDINGS: UTERUS: Uterus is enlarged measuring 15.8 x 7.3 x 9 cm. Lobulated contours and heterogeneous echogenicity. Multiple uterine masses redemonstrated. Largest mass subserosal right uterus measuring 15.3 x 9.6 x 11.6 cm, similar to that on recent CT. Additional masses measuring 5.7 x 5.2 x 5.2 cm, 4.5 x 2.2 x 3.0 cm, 3.8 x 2.9 x 3.6 cm. Doppler assessme nt of the largest right subserosal mass demonstrates internal flow with ar terial waveform obtained. No gross cystic necrotic components. RIGHT OVARY: An attempt to visualize the right ovary was made but the ovary was not seen due to an unknown reason. LEFT OVARY: An attemp t to visualize the left ovary was made but the ovary was not seen due to a n unknown reason. BLADDER: Unremarkable. Comments: N o free intraperitoneal fluid. IMPRESSION: 1. Large umkumiut kathy with multiple masses compatible with fibroids. Large subserosal mas s projecting into the right pelvis similar to that on prior studies. SL: KL-H PAGE 1 Signed Report (CONTINUED) Name: SAMIR FITZPATRICK [facility] [place] : 1970 Age/S: 48 / F [address] Unit #: [id number] Loc: [place] [address] Phys: Kristal Vincent DO Acct: [id number] Dis Date: Status: REG ER PHONE #: [phone] Exam Date: 03/23/20192011 FAX #: [phone] Reason: Pelvic Pain EXAMS: CPT CODE: [id number] US PELVIS COMPLETE 33004 < Continued> at 2023 Reported and signed by: Mitch Valdez M.D. CC: Kristal Vincent DO; Rah Bah M.D. Technologist: Chiquita Milian RDMS() Trnscb Date/Time: 03/23/2019 (2023) Nidhi Orig Print D/T: S: 03/23/2019 (2026) Probe: PAGE 2 Signed Report CBC W/AUTO [id number] 19:06:00* Test Item Value Reference Range Interpretation Comments WHITE BLOOD CELL (test code = WBC) 6.78 x10 3/uL 4.5-11.0 N RED BLOOD CELL (test code = RBC) 3.51 x10 6/uL 3.54-5.02 L HEMOGLOBIN (test code = HGB) 9.1 g/dL 11.0-15.0 L HEMATOCRIT (test code = HCT) 30.3 % 33.0-45.0 L MEAN CELL VOLUME (test code = MCV) 86.3 fL 81.0-99.0 N MEAN CELL HGB (test code = MCH) 25.9 pg 27.0-33.0 L MEAN CELL HGB CONCETRATION (test code = MCHC) 30.0 g/dL 33.0-37. 0 L RED CELL DISTRIBUTION WIDTH CV (test code = RDW) 17.6 % 11.5- 14.5 H RED CELL DISTRIBUTION WIDTH SD (test code = RDW-SD) 55.3 fL 37 .0-54.0 H PLATELET COUNT (test code = PLT) 347 x10 3/uL 150-400 N MEAN PLATELET VOLUME (test code = MPV) 11.0 fL 7.0-9.0 H NEUTROPHIL % (test code = NT%) 57.5 % 56.0-77.0 N IMMATURE GRANULOCYTE % (test code = IG%) 0.4 % 0.0-2.0 N LYMPHOCYTE % (test code = LY%) 29.1 % 14.0-32.0 N MONOCYTE % (test code = MO%) 8.1 % 4.8-9.0 N EOSINOPHIL % (test code = EO%) 4.3 % 0.3-3.7 H BASOPHIL % (test code = BA%) 0.6 % 0.0-2.0 N NUCLEATED RBC % (test code = NRBC%) 0.0 % 0-0 N NEUTROPHIL # (test code = NT#) 3.90 x10 3/uL 2.0-7.6 N IMMATURE GRANULOCYTE # (test code = IG#) 0.03 x10 3/uL 0.00-0.03 N LYMPHOCYTE # (test code = LY#) 1.97 x10 3/uL 1.0-3.8 N MONOCYTE # (test code = MO#) 0.55 x10 3/uL 0.1-0.8 N EOSINOPHIL # (test code = EO#) 0.29 x10 3/uL 0.0-0.2 H BASOPHIL # (test code = BA#) 0.04 x10 3/uL 0.0-0.2 N NUCLEATED RBC # (test code = NRBC#) 0.00 x10 3/uL 0.0-0.1 N MANUAL DIFF REQUIRED (test code = MDIFF) NO - XR CHEST 1 [id number] 18:53:00 FAX: Kristal Roland DO [phone] [place]: St: REG FAX: Rah Osman MD [phone] Name: SAMRI FITZPATRICK [facility] : 1970 Age/S: 48/F [address] [place] [address] Unit #: [id number] Loc: [place] [address] Phys: Kristal Vincent DO Acct: [id number] Dis Date: Status: REG ER PHONE #: [phone] Exam Date: 03/23/2019 1842 FAX #: [phone] Reason: hypotensive EXAMS: CPT CODE: [id number] XR CHEST 1 V 71072 Clinical Indication: hypotensive Comparison: 09/22/2018 FINDINGS: The frontal chest radiograph shows normal lung volumes. Subtle infiltrate is seen in the left lower lobe. No pleural effusions are present. No pneumothorax is seen. The heart is normal in size. The trachea is midline. Hardware fusing the cervical spine are present. There are no clinically significant osseous abnormalities noted. IMPRESSION: Subtle infiltrate in the left lower lobe. SL: OFE at 1853 Reported and signed by: Benjamin Barkley M.D. CC: Kristal Vincent DO; Rah Bah M.D. Technologist: Ahsan Brewster, RT(R); Rhonda Coffey RT(R) Trnscrd Date/Time/By: 03/23/2019 (028) : By: YessyLNV PAGE 1 Signed Report BASIC METABOLIC [id number] 17:10:00* Test Item Value Reference Range Interpretation Comments SODIUM (test code = NA) 137 mEq/L 134-147 N POTASSIUM (test code = K) 3.8 mEq/L 3.4-5.0 N CHLORIDE (test code = CL) 110 mEq/L 100-108 H CARBON DIOXIDE (test code = CO2) 22 mEq/L 21-33 N ANION GAP (test code = GAP) 9 0-20 N GLUCOSE (test code = GLU) 124 mg/dL 70-110 H BLOOD UREA NITROGEN (test code = BUN) 11 mg/dL 7-18 N GLOMERULAR FILTRATION RATE (test code = GFR) 66.8 95-105 L Units of measure = ml/min/1.73 m2 CREATININE (test code = CREAT) 0.9 mg/dL 0.6-1.3 N CALCIUM (test code = CA) 8.5 mg/dL 8.0-10.5 N HEPATIC FUNCTION [id number] 17:10:00* Test Item Value Reference Range Interpretation Comments TOTAL PROTEIN (test code = PROT) 7.9 g/dL 6.4-8.2 N ALBUMIN (test code = ALB) 3.10 g/dL 3.4-5.0 L BILIRUBIN TOTAL (test code = BILT) 0.5 MG/DL <1.5 N BILIRUBIN DIRECT (test code = BILD) 0.20 MG/DL 0.0-0.30 N BILIRUBIN INDIRECT (test code = BILIND) 0.30 MG/DL SGOT/AST (test code = AST) 19 IUnit/L 15-37 N SGPT/ALT (test code = ALT) 20 IUnit/L 15-65 N ALKALINE PHOSPHATASE TOTAL (test code = ALKP) 63 IUnit/L 20-125 N [id number] 17:10:00* Test Item Value Reference Range Interpretation Comments LIPASE (test code = LIP) 110 IUnit/L 73-393 N HCG SERUM [id number] 17:10:00* Test Item Value Reference Range Interpretation Comments HCG SERUM QUAL (test code = HCGQL) SERUM NEGATIVE NEGATIVE BASIC METABOLIC [id number] 17:09:00* Test Item Value Reference Range Interpretation Comments SODIUM (test code = NA) 137 mEq/L 134-147 N POTASSIUM (test code = K) 3.8 mEq/L 3.4-5.0 N CHLORIDE (test code = CL) 110 mEq/L 100-108 H CARBON DIOXIDE (test code = CO2) 22 mEq/L 21-33 N ANION GAP (test code = GAP) 9 0-20 N GLUCOSE (test code = GLU) 124 mg/dL 70-110 H BLOOD UREA NITROGEN (test code = BUN) 11 mg/dL 7-18 N GLOMERULAR FILTRATION RATE (test code = GFR) 95-105 CREATININE (test code = CREAT) mg/dL 0.6-1.3 CALCIUM (test code = CA) 8.5 mg/dL 8.0-10.5 N HEPATIC FUNCTION [id number] 17:09:00* Test Item Value Reference Range Interpretation Comments TOTAL PROTEIN (test code = PROT) g/dL 6.4-8.2 ALBUMIN (test code = ALB) g/dL 3.4-5.0 BILIRUBIN TOTAL (test code = BILT) MG/DL <1.5 BILIRUBIN DIRECT (test code = BILD) MG/DL 0.0-0.30 SGOT/AST (test code = AST) IUnit/L 15-37 SGPT/ALT (test code = ALT) IUnit/L 15-65 ALKALINE PHOSPHATASE TOTAL (test code = ALKP) IUnit/L 20-125 [id number] 17:09:00* Test Item Value Reference Range Interpretation Comments LIPASE (test code = LIP) 110 IUnit/L 73-393 N HCG SERUM [id number] 17:09:00* Test Item Value Reference Range Interpretation Comments HCG SERUM QUAL (test code = HCGQL) SERUM NEGATIVE NEGATIVE PROTHROMBIN [id number] 17:06:00* Test Item Value Reference Range Interpretation Comments PROTHROMBIN TIME PATIENT (test code = PTP) 11.9 SECONDS 9.3-12.9 N INTERNATIONAL NORMAL RATIO (test code = INR) 1.1 0.8-1.2 N TARGET INR BY INDICATION Indication INR1. Prophylaxis of venous thrombosis 2.0 - 3.0 (orthopedic surgery), Prophylaxis of venous thrombosis (other than high-risk surgery), Treatment of Deep Vein Thrombosis/Pulmonary Embolism, Prevention of systemic embolism - Tissue heart valves, Acute Myocardial Infarction (to prevent systemic embolism), Valvular heart disease, Atrial Fibrillation, Bileaflet mechanical valve in aortic position.2. Mechanical prosthetic valves (high risk), 2.5 - 3.5 Presence of Lupus Anticoagulant or Antiphospholipid Antibodies, Prevention of systemic embolism - Acute Myocardial Infarction (to prevent recurrent infarct). THROMBOPLASTIN TIME [id number] 17:06:00* Test Item Value Reference Range Interpretation Comments THROMBOPLASTIN TIME PARTIAL (test code = PTT) 30.6 Seconds 25.0-39. 5 N Therapeutic Range: 50.4 - 88.3 Seconds Effective 08/10/2018 BASIC METABOLIC [id number] 17:05:00* Test Item Value Reference Range Interpretation Comments SODIUM (test code = NA) 137 mEq/L 134-147 N POTASSIUM (test code = K) 3.8 mEq/L 3.4-5.0 N CHLORIDE (test code = CL) 110 mEq/L 100-108 H CARBON DIOXIDE (test code = CO2) 22 mEq/L 21-33 N ANION GAP (test code = GAP) 9 0-20 N GLUCOSE (test code = GLU) 124 mg/dL 70-110 H BLOOD UREA NITROGEN (test code = BUN) 11 mg/dL 7-18 N GLOMERULAR FILTRATION RATE (test code = GFR) 95-105 CREATININE (test code = CREAT) mg/dL 0.6-1.3 CALCIUM (test code = CA) 8.5 mg/dL 8.0-10.5 N HEPATIC FUNCTION [id number] 17:05:00* Test Item Value Reference Range Interpretation Comments TOTAL PROTEIN (test code = PROT) g/dL 6.4-8.2 ALBUMIN (test code = ALB) g/dL 3.4-5.0 BILIRUBIN TOTAL (test code = BILT) MG/DL <1.5 BILIRUBIN DIRECT (test code = BILD) MG/DL 0.0-0.30 SGOT/AST (test code = AST) IUnit/L 15-37 SGPT/ALT (test code = ALT) IUnit/L 15-65 ALKALINE PHOSPHATASE TOTAL (test code = ALKP) IUnit/L 20-125 [id number] 17:05:00* Test Item Value Reference Range Interpretation Comments LIPASE (test code = LIP) 110 IUnit/L 73-393 N HCG SERUM [id number] 17:05:00* Test Item Value Reference Range Interpretation Comments HCG SERUM QUAL (test code = HCGQL) NEGATIVE UA RFLX MICR CULT IF [id number] 17:02:00* Test Item Value Reference Range Interpretation Comments UA COLOR (test code = COLU) YELLOW YEL/STRAW UA APPEARANCE (test code = APPU) SL CLOUDY CLEAR UA GLUCOSE DIPSTICK (test code = DGLUU) NEGATIVE NEGATIVE UA BILIRUBIN DIPSTICK (test code = BILU) NEGATIVE NEGATIVE UA KETONE DIPSTICK (test code = KETU) TRACE NEGATIVE A UA SPECIFIC GRAVITY (test code = SGU) 1.017 1.005-1.030 N UA BLOOD DIPSTICK (test code = GABE) 3+ NEGATIVE A UA PH DIPSTICK (test code = BRE) 5.0 5.0-7.0 N UA PROTEIN DIPSTICK (test code = PROU) 1+ NEGATIVE A UA UROBILINIOGEN DIPSTICK (test code = URO) 0.2 mg/dL 0.2-1.0 UA NITRITE DIPSTICK (test code = APRIL) NEGATIVE NEGATIVE UA LEUKOCYTE ESTERASE DIPSTICK (test code = LEUU) NEGATIVE NEGA TIVE UA WBC (test code = WBCU) 0-3 WBC/HPF 0-3 UA RBC (test code = RBCU) >50 RBC/HPF 0-3 A UA WBC NO REFLEX (test code = WBCUCL) 0-3 WBC/HPF 0-3 UA BACTERIA (test code = BACU) TRACE /HPF NONE SEEN UA SQUAMOUS CELLS (test code = SQU) 0-5 /HPF NONE SEEN UA MUCUS (test code = MUCU) 2+ /LPF NONE SEEN A Indication for culture: Suprapubic PainSpecimen Description: CLEAN CATCHCBC W/AUTO [id number] 16:52:00* Test Item Value Reference Range Interpretation Comments WHITE BLOOD CELL (test code = WBC) 5.81 x10 3/uL 4.5-11.0 N RED BLOOD CELL (test code = RBC) 3.72 x10 6/uL 3.54-5.02 N HEMOGLOBIN (test code = HGB) 9.7 g/dL 11.0-15.0 L HEMATOCRIT (test code = HCT) 31.2 % 33.0-45.0 L MEAN CELL VOLUME (test code = MCV) 83.9 fL 81.0-99.0 N MEAN CELL HGB (test code = MCH) 26.1 pg 27.0-33.0 L MEAN CELL HGB CONCETRATION (test code = MCHC) 31.1 g/dL 33.0-37. 0 L RED CELL DISTRIBUTION WIDTH CV (test code = RDW) 17.4 % 11.5- 14.5 H RED CELL DISTRIBUTION WIDTH SD (test code = RDW-SD) 53.3 fL 37 .0-54.0 N PLATELET COUNT (test code = PLT) 388 x10 3/uL 150-400 N MEAN PLATELET VOLUME (test code = MPV) 10.2 fL 7.0-9.0 H NEUTROPHIL % (test code = NT%) 63.2 % 56.0-77.0 N IMMATURE GRANULOCYTE % (test code = IG%) 0.2 % 0.0-2.0 N LYMPHOCYTE % (test code = LY%) 25.6 % 14.0-32.0 N MONOCYTE % (test code = MO%) 6.5 % 4.8-9.0 N EOSINOPHIL % (test code = EO%) 4.0 % 0.3-3.7 H BASOPHIL % (test code = BA%) 0.5 % 0.0-2.0 N NUCLEATED RBC % (test code = NRBC%) 0.0 % 0-0 N NEUTROPHIL # (test code = NT#) 3.67 x10 3/uL 2.0-7.6 N IMMATURE GRANULOCYTE # (test code = IG#) 0.01 x10 3/uL 0.00-0.03 N LYMPHOCYTE # (test code = LY#) 1.49 x10 3/uL 1.0-3.8 N MONOCYTE # (test code = MO#) 0.38 x10 3/uL 0.1-0.8 N EOSINOPHIL # (test code = EO#) 0.23 x10 3/uL 0.0-0.2 H BASOPHIL # (test code = BA#) 0.03 x10 3/uL 0.0-0.2 N NUCLEATED RBC # (test code = NRBC#) 0.00 x10 3/uL 0.0-0.1 N MANUAL DIFF REQUIRED (test code = MDIFF) NO URINALYSIS [id number] 21:08:00* Test Item Value Reference Range Interpretation Comments UA COLOR (test code = COLU) YELLOW YEL/STRAW UA APPEARANCE (test code = APPU) SL CLOUDY CLEAR UA GLUCOSE DIPSTICK (test code = DGLUU) NEGATIVE NEGATIVE UA BILIRUBIN DIPSTICK (test code = BILU) NEGATIVE NEGATIVE UA KETONE DIPSTICK (test code = KETU) NEGATIVE NEGATIVE UA SPECIFIC GRAVITY (test code = SGU) 1.020 1.005-1.030 N UA BLOOD DIPSTICK (test code = GABE) 2+ NEGATIVE A UA PH DIPSTICK (test code = BRE) 5.0 5.0-7.0 N UA PROTEIN DIPSTICK (test code = PROU) 2+ NEGATIVE A UA UROBILINIOGEN DIPSTICK (test code = URO) 0.2 mg/dL 0.2-1.0 UA NITRITE DIPSTICK (test code = APRIL) NEGATIVE NEGATIVE UA LEUKOCYTE ESTERASE DIPSTICK (test code = LEUU) 2+ NEGA TIVE A UA RBC (test code = RBCU) 11-20 RBC/HPF 0-3 UA WBC NO REFLEX (test code = WBCUCL) 10-20 WBC/HPF 0-3 A UA BACTERIA (test code = BACU) TRACE /HPF NONE SEEN UA SQUAMOUS CELLS (test code = SQU) 0-5 /HPF NONE SEEN UA MUCUS (test code = MUCU) 4+ /LPF NONE SEEN A - CT ABD PELVIS W/O [id number] 20:45:00 Name: SAMIR FITZPATRICK [place] : 1970 Age/S: 48 / F [address] [place] [address] Unit #: [id number] Loc: [place] [address] Phys: Karen Butler MD Acct: [id number] Dis Date: Status: REG ER PHONE #: [phone] Exam Date: 02/21/20192008 FAX #: [phone] Reason: RLQ ABD PAIN EXAMS: CPT CODE: [id number] CT ABD PELVIS W/O CONT 43246 Clinical Indication: RLQ ABD PAIN Comparison: CT abdomen pelvis 01/30/2019 TECHNIQUE: Helical imaging was performed without injection of IV contrast, from the lung base through the symphysis with multiplanar reformations obtained. IV CONTRAST: No IV contrast was administered. GI CONTRAST: No oral contrast was administered. DLP: 1200 mGy-cm FINDINGS: Evaluations of the internal organs are limited due to the lack of IV contrast. ABDOMEN AND PELVIS WITHOUT CONTRAST: LUNG BASE: The lung bases are clear. LIVER: The liver is enlarged measuring 22.5 cm in cranial to caudal dimension with normal contour. GALLBLADDER: The gallbladder is unremarkable, there is no evidence of cholelithiasis or cholecystitis. PANCREAS: The pancreas is unremarkable. SPLEEN: The spleen is unremarkable. ADRENALS: The right adrenal gland is unremarkable. The left adrenal gland is unremarkable. KIDNEYS: Nonobstructive left nephrolithiasis is present. There is no evidence of hydronephrosis. BOWEL: The visualized portion of the esophagus is unremarkable. The stomach is unremarkable. The small bowel is normal in caliber and there is no evidence of masses or obstruction. The colon is normal in caliber without any masses. Moderate amount of stool is seen throughout the colon. APPENDIX: The appendix is nonvisualized. PELVIS: There are no pelvic mass. The urinary bladder is collapsed and contains a Khan catheter within this lumen. The uterus is enlarged PAGE 1 Signed Report (CONTINUED) Name: SAMIR FITZPATRICK [place] : 1970 Age/S: 48 / F [address] [place] [address] Unit #: [id number] Loc: [place] [address] Phys: Kraen Butler MD Acct: [id number] Dis Date: Status: REG ER PHONE #: [phone] Exam Date: 02/21/20192008 FAX #: [phone] Reason: RLQ ABD PAIN EXAMS: CPT CODE: [id number] CT ABD PELVIS W/O CONT 55071 < Continued> and multilobulated with the largest lobulated component is seen in the right lower quadrant of the abdomen measuring 11.9 x 13.0 cm, grossly unchanged in size but now shifted to the right side from the midline since previous. PERITONEUM: There is no evidence for free intraperitoneal fluid or air. SOFT TISSUES: The soft tissues are unremarkable. There is no evidence of masses or hernias. LYMPH NODES: There is no evidence of mesenteric, retroperitoneal, or inguinal lymphadenopathy. VASCULATURE: The abdominal aorta is normal in caliber. MUSCULOSKELETAL: No aggressive bone lesions are seen. IMPRESSION: Enlarged and multilobulated uterus. A multilobulated components are likely subserosal fibroids and likely to cause the patient's pain in the right lower quadrant of the abdomen. Constipation. Hepatomegaly. Nonobstructive left nephrolithiasis. No evidence of obstructive urethral lithiasis. SL: DOMINGOU-H at 2044 Reported and signed by: Benjamin Barkley M.D. CC: Karen Butler MD; Rah Bah M.D. Technologist:RT Rin(R)(CT) CTDI: DLP: Trnscb Date/Time: 02/21/2019 (2044) [email or web address] Orig Print D/T: S: 02/21/2019 (2047) PAGE 2 Signed Report - CT T-SPINE W/O [id number] 20:35:00 Name: SAMIR FITZPATRICK [facility] : 1970 Age/S: 48 / F [address] [place] [address] Unit #: [id number] Loc: [place] [address] Phys: Karen Butler MD Acct: [id number] Dis Date: Status: REG ER PHONE #: [phone] Exam Date: 02/21/20192008 FAX #: [phone] Reason: THORACIC BACK PAIN EXAMS: CPT CODE: [id number] CT T-SPINE W/O CONTRAST [address]66 CT thoracic spine without contrast. INDICATION: Acute thoracic back pain post fall. Syncope. COMPARISON: 11/22/2018 MRI thoracic spine. TECHNIQUE: Noncontrast CT thoracic spine is performed with thin cut reconstructions in all 3 planes. DOSE: CT imaging performed at this location utilizes radiation dose optimization technique which includes one or more of the followin) Automated exposure control; 2) Adjustment of the mA and/or kV according to patient's size; 3) Use of iterative reconstruction techniques. DLP: 847 mGy-cm FINDINGS: There are no acute fractures in the thoracic spine. The thoracic vertebral bodies are normal in height and alignment on the sagittal reconstructions. Mild disc space narrowing seen in mid and lower levels with Schmorl's nodes and anterior degenerative spurring. Lateral degenerative spurring also present appearing most notable on the left at the T6-T7 level. Multilevel facet degenerative changes also seen throughout much of the mid and lower thoracic spine resulting in component of foraminal narrowing. Additionally, posterior degenerative spurring is present at T6-T7 measuring 2 to 3 mm resulting in a component of spinal canal stenosis. Posterior spurring is more prominent at T12-L1 and L1-L2 level resulting in significant spinal canal stenosis at T12-L1 and to lesser extent L1-L2. C5-C6 anterior cervical fusion plate is present with disc space narrowing at C6-C7 present. Posterior spurring seen at these levels resulting in spinal canal stenosis and left foraminal narrowing. Other levels of spinal canal stenosis and foraminal narrowing are present and can be better evaluated by MRI if clinically indicated. Small hiatal hernia present. IMPRESSION: 1. No acute compression fracture or subluxation of the thoracic spine. 2. Degenerative changes. SL: REYNA-H PAGE 1 Signed Report (CONTINUED) Name: SANDRA SAMIR RUIZ [facility] : [birth year] Age/S: 48 / F [address] [place] [address] Unit #: [id number] Loc: [place] [address] Phys: Karen Butler MD Acct: [id number] Dis Date: Status: REG ER PHONE #: [phone] Exam Date: 02/21/20192008 FAX #: [phone] R chandrika: THORACIC BACK PAIN EXAMS: CPT CODE: [id number] CT T-SPINE W/O CONTRAST 94611 <Continued> at 2034 Reported and signed by: Ulises Thorne M.D. CC: Karen Butler MD; Rah Bah M.D. Technologist:RT Rin(R)(CT) CTDI: DLP: Trnscb Date/Time: 02/21/2019 (2034) [email or web address] Orig Print D/T: S: 02/21/2019 (2037) PAGE 2 Signed Report - CT C-SPINE W/O CONT 2019-02-21 20:29:00 Name: SAMIR FITZPATRICK [facility] : 1970 Age/S: 48 / F [address] [place] [address] Unit #: [id number] Loc: [place] [address] Phys: Karen Butler MD Acct: [id number] Dis Date: Status: REG ER PHONE #: [phone] Exam Date: 02/21/20192007 FAX #: [phone] Reason: fall, neck pain EXAMS: CPT CODE: [id number] CT C-SPINE W/O CONT 25542 Clinical Indication: Fall, neck pain. Comparison: MRI cervical spine study dated 02/20/2019. Technique: Multi-detector CT imaging of the cervical spine is performed. Coronal and sagittal reconstructions were obtained. CT imaging performed at this location utilizes radiation dose optimization techniques which include one or more of the following: -Automated exposure control -Adjustment of the mA and/or kV according to patient size -Use of iterative reconstruction technique CT Radiation Dose DLP 341.9 mGy-cm FINDINGS: ALIGNMENT AND GENERAL ASSESSMENT: Anterior cervical discectomy and interbody fusion at C5-C6. The fusion hardware consists of paired vertebral body screws stabilized by anterior compression plate and interbody disc spacer. No hardware fracture or periprosthetic lucency to suggest loosening. No findings to suggest pseudoarthrosis. There are multilevel degenerative changes throughout the cervical spine with anterior and posterior osteophytes, disk bulges as well as bilateral uncovertebral and facet hypertrophy. No acute fractures or subluxations. Moderate degenerative changes at the C1-C2 articulation. DISK SPACES AND SOFT TISSUES: The prevertebral soft tissues are normal. At C2-C3, moderate bilateral facet arthropathy, left more than the right. Severe left and moderate right foraminal stenosis. At C3-C4, disc osteophyte complex with uncovertebral and mild to moderate bilateral facet arthropathy. Severe left and moderate to marked right foraminal stenosis. Mild spinal canal stenosis. At C4-C5, severe left facet arthropathy. Mild uncovertebral arthropathy. Severe left foraminal stenosis. Mild spinal canal stenosis. At C5-C6, anterior cervical discectomy with interbody fusion. No significant spinal canal or foraminal stenosis. At C6-C7, disc osteophyte complex with uncovertebral and mild facet arthropathy. Severe left foraminal stenosis. Mild right foraminal stenosis. Mild spinal ca nal stenosis. MRI is the gold standard to assess for disk disease. VISUALIZED LUNG APICES: Unremarkable. CT myelogram or MRI of the cervical spine may be performed, if there PAGE 1 Signed Report (CONTINUED) Name: SAMIR FITZPATRICK [facility] : 1970 Age/S: 48 / F [address] [place] [address] Unit #: [id number] Loc: [place] [address] Phys: Karen Butler MD Acct: [id number] Dis Date: Status: [facility] PHONE #: [phone] Exam Date: 2018 FAX #: [phone] Reason: fall, neck pain EXAMS: CPT CODE: [id number] CT C-SPINE W/O CONT 40976 <Continued> is further concern. IMPRESSION: 1. Anterior cervical discectomy and interbody fusion at C5-C6. No hardware fracture or loosening. No pseudoarthrosis. 2. Degenerative changes within the cervical spine without acute fractures or subluxations. 3. Severe left and moderate right foraminal stenosis at C2-C3. Mild spinal canal stenosis at C3-C4, C4-C5 and C6-C7. Severe left and moderate to marked right foraminal stenosis at C3-C4. Severe left foraminal stenosis at C4-C5 and C6-C7. SL: DAYSI at 2028 Reported and signed by: Samara Ramsey M.D. CC: Karen Butler MD; Rah Bah M.D. Technologist:RT Rin(R)(CT) CTDI: DLP: Trnscb Date/Time: 02/21/2019 (2028) [email or web address] Orig Print D/T: S: 02/21/2019 (2031) PAGE 2 Signed Report HCG SERUM [id number] 19:38:00* Test Item Value Reference Range Interpretation Comments HCG SERUM QUAL (test code = HCGQL) SERUM NEGATIVE NEGATIVE CBC W/AUTO [id number] 19:38:00* Test Item Value Reference Range Interpretation Comments WHITE BLOOD CELL (test code = WBC) 7.32 x10 3/uL 4.5-11.0 N RED BLOOD CELL (test code = RBC) 3.90 x10 6/uL 3.54-5.02 N HEMOGLOBIN (test code = HGB) 10.1 g/dL 11.0-15.0 L HEMATOCRIT (test code = HCT) 33.2 % 33.0-45.0 N MEAN CELL VOLUME (test code = MCV) 85.1 fL 81.0-99.0 N MEAN CELL HGB (test code = MCH) 25.9 pg 27.0-33.0 L MEAN CELL HGB CONCETRATION (test code = MCHC) 30.4 g/dL 33.0-37. 0 L RED CELL DISTRIBUTION WIDTH CV (test code = RDW) 16.9 % 11.5- 14.5 H RED CELL DISTRIBUTION WIDTH SD (test code = RDW-SD) 52.9 fL 37 .0-54.0 N PLATELET COUNT (test code = PLT) 317 x10 3/uL 150-400 N MEAN PLATELET VOLUME (test code = MPV) 10.5 fL 7.0-9.0 H NEUTROPHIL % (test code = NT%) 65.3 % 56.0-77.0 N IMMATURE GRANULOCYTE % (test code = IG%) 0.3 % 0.0-2.0 N LYMPHOCYTE % (test code = LY%) 24.5 % 14.0-32.0 N MONOCYTE % (test code = MO%) 6.0 % 4.8-9.0 N EOSINOPHIL % (test code = EO%) 3.4 % 0.3-3.7 N BASOPHIL % (test code = BA%) 0.5 % 0.0-2.0 N NUCLEATED RBC % (test code = NRBC%) 0.0 % 0-0 N NEUTROPHIL # (test code = NT#) 4.78 x10 3/uL 2.0-7.6 N IMMATURE GRANULOCYTE # (test code = IG#) 0.02 x10 3/uL 0.00-0.03 N LYMPHOCYTE # (test code = LY#) 1.79 x10 3/uL 1.0-3.8 N MONOCYTE # (test code = MO#) 0.44 x10 3/uL 0.1-0.8 N EOSINOPHIL # (test code = EO#) 0.25 x10 3/uL 0.0-0.2 H BASOPHIL # (test code = BA#) 0.04 x10 3/uL 0.0-0.2 N NUCLEATED RBC # (test code = NRBC#) 0.00 x10 3/uL 0.0-0.1 N MANUAL DIFF REQUIRED (test code = MDIFF) NO COMPREHENSIVE METABOLIC [id number] 19:27:00* Test Item Value Reference Range Interpretation Comments SODIUM (test code = NA) 138 mEq/L 134-147 N POTASSIUM (test code = K) 4.1 mEq/L 3.4-5.0 N CHLORIDE (test code = CL) 107 mEq/L 100-108 N CARBON DIOXIDE (test code = CO2) 26 mEq/L 21-33 N ANION GAP (test code = GAP) 9 0-20 N GLUCOSE (test code = GLU) 137 mg/dL 70-110 H BLOOD UREA NITROGEN (test code = BUN) 10 mg/dL 7-18 N GLOMERULAR FILTRATION RATE (test code = GFR) 66.8 95-105 L Units of measure = ml/min/1.73 m2 CREATININE (test code = CREAT) 0.9 mg/dL 0.6-1.3 N TOTAL PROTEIN (test code = PROT) 7.5 g/dL 6.4-8.2 N ALBUMIN (test code = ALB) 3.20 g/dL 3.4-5.0 L CALCIUM (test code = CA) 8.5 mg/dL 8.0-10.5 N BILIRUBIN TOTAL (test code = BILT) 0.5 MG/DL <1.5 N SGOT/AST (test code = AST) 17 IUnit/L 15-37 N SGPT/ALT (test code = ALT) 25 IUnit/L 15-65 N ALKALINE PHOSPHATASE TOTAL (test code = ALKP) 81 IUnit/L 20-125 N [id number] 19:27:00* Test Item Value Reference Range Interpretation Comments LIPASE (test code = LIP) 142 IUnit/L 73-393 N - XR HIP CHIKI [id number] 19:25:00 FAX: Karen Butler MD [phone] [facility]: St: PRE FAX: Rah Osman MD [phone] Name: RACHELKEDARDEBRASAMIR [facility] : 1970 Age/S: 48/F [address] [place] [address] Unit #: [id number] [facility] [address] Phys: Karen Butler MD Acct: [id number] Dis Date: Status: PRE ER PHONE #: [phone] Exam Date: 02/21/20191915 FAX #: [phone] Reason: FALL EXAMS: CPT CODE: [id number] XR HIP CHIKI W/PELVIS 31164 AP pelvis and two-view bilateral hips, 2 radiographs. INDICATION: Status post acute fall. COMPARISON: None FINDINGS: Patient body habitus limits evaluation. Moderate osteoarthritis seen in both hips. No acute fracture or dislocation is seen of either hip. No acute pelvic fracture is identified. IMPRESSION: No acute bony findings. SL: JAYA Electronically Signed by Darrell Thorne on at 1925 Reported and signed by: Surendra Thorne M.D. CC: Karen Butler MD; Rah Bah M.D. Technologist: RT Nicole(Domingo)Domingo Trnscrd Date/Time/By: 02/21/2019 (1924) : By: [email or web address] Orig P rint D/T: S: 02/21/2019 (1927) PAGE 1 Signed Report COMPREHENSIVE METABOLIC PANEL 2019-02-21 19:14:00* Test Item Value Reference Range Interpretation Comments SODIUM (test code = NA) 138 mEq/L 134-147 N POTASSIUM (test code = K) 4.1 mEq/L 3.4-5.0 N CHLORIDE (test code = CL) 107 mEq/L 100-108 N CARBON DIOXIDE (test code = CO2) 26 mEq/L 21-33 N ANION GAP (test code = GAP) 9 0-20 N GLUCOSE (test code = GLU) 137 mg/dL 70-110 H BLOOD UREA NITROGEN (test code = BUN) 10 mg/dL 7-18 N GLOMERULAR FILTRATION RATE (test code = GFR) 95-105 CREATININE (test code = CREAT) mg/dL 0.6-1.3 TOTAL PROTEIN (test code = PROT) g/dL 6.4-8.2 ALBUMIN (test code = ALB) g/dL 3.4-5.0 CALCIUM (test code = CA) 8.5 mg/dL 8.0-10.5 N BILIRUBIN TOTAL (test code = BILT) MG/DL <1.5 SGOT/AST (test code = AST) IUnit/L 15-37 SGPT/ALT (test code = ALT) IUnit/L 15-65 ALKALINE PHOSPHATASE TOTAL (test code = ALKP) IUnit/L 20-125 [id number] 19:14:00* Test Item Value Reference Range Interpretation Comments LIPASE (test code = LIP) 142 IUnit/L 73-393 N - MRI L-SPINE W WO [id number] 16:50:00 FAX: Rah Osman MD [phone] [facility]: St: REG Name: SAMIR GARCIA [facility] [place] : [birth year] Age/S: 48/F [address] [place] [address] Unit #: [id number] Loc: [place] [address] Phys: Andres Bobby MD Acct: [id number] Dis Date: Status: REG ER PHONE #: [phone] Exam Date: 02/20/2019 1609 FAX #: [phone] Reason: fall. urinary retention EXAMS: CPT CODE: [id number] MRI L-SPINE W WO CON 37176 MRI LUMBAR SPINE WITH AND WITHOUT CONTRAST INDICATION: fall. urinary retention. TECHNI QUE: Unenhanced and contrast-enhanced MRI of the lumbar spine was performe d with axial and sagittal, T2 and T1 weighted sequences. 30 mL Dotarem ga dolinium-based intravenous contrast was administered for this exam. COMPARISONS: CT lumbar 02/19/2019, CT abdomen pelvis 01/30/2019 FINDINGS: There is no acute lumbar spine fracture or disloca tion. The anterior longitudinal ligament, posterior longitudinal ligament and ligamentum flavum are intact. The spinal cord signal is normal and the conus medullaris terminates at L1. The cauda equina nerve roots are normal. There is no abnormal enhancement. There is an incompletely imaged enlarged uterus with multiple fibroids. This is unchanged from prior. Discs/spinal Canal/neural foramina: T12-L1: There is a broad-based posterior disc bulge with moderate disc hei ght loss. There is mild spinal canal stenosis. There is mild left neural foraminal stenosis. There is primary osteoarthritic facet hypertrophy. L1-L2: There is a broad base posterior disc osteophyte bulge complex with mild disc height loss. There is mild spinal canal stenosis. There i s primary osteoarthritic facet hypertrophy. The neural foramina are widel y patent. L2-L3: There is a circumferential disc bulge with mild disc heig ht loss. There is primary osteoarthritic facet hypertrophy and liga mentum flavum thickening. There is mild spinal canal stenosis. There is mild right lateral recess stenosis. There is mild right neural foraminal stenosis. The left neural foramen is widely patent. L3-L4: There is a rig ht foraminal broad-based disc bulge. There is primary osteoarthritic face t hypertrophy and ligamentum flavum thickening. There is mild spinal amanuel l stenosis. There is mild right lateral recess stenosis. There is mild r ight neural foraminal stenosis. The left neural foramen is widely patent. L4-L5: There is a bilateral broad-based laterally directed disc bulges with preserved disc height. There is primary osteoarthritic facet PAGE 1 Signed Report (CONTINUED) FAX: Rah Osman MD [phone] [facility]: St: REG Name: AMARISAMIR [facility] : 1970 Age/S: 48/F [address] [place] [address] Blvd Unit #: [id number] Loc: [place] [address] Phys: Andres Bobby MD Acct: [id number] Dis Date: Status: REG ER PHONE #: [phone] Exam D ate: 02/20/2019 1609 FAX #: [phone] Reason: f all. urinary retention EXAMS: CPT CODE: [id number] MRI L-SPINE W WO CON 34449 <Continued> hypertrophy and ligamentum flavum thickening. There is mild spinal canal stenosis. There is moderate left and mild right lateral recess stenosis. There is mild left neural foraminal stenosis. The right neural foramen is widely patent. L5-S1: There is no disc bulge. There is no spinal canal or neural foraminal stenosis. Sacrum: There is a 0.7 cm perineural cyst in the left S1-S2 lateral recess. There is a 1.5 cm perineural cyst in the right S2 neural foramen. There is a 0.8 cm perineural cyst in the left S2 neural foramen. There is a 1.5 cm perineural cyst within the S2-S3 spinal canal. IMPRESSION: 1. There is no acute lumbar spine fracture or dislocation. 2. There is mild spinal canal stenosis at T12-L1, L1-L2, L2-L3, L3-L4 and L4-L5. Please refer to the findings for discussion of neural foraminal and lateral recess stenoses. 3. No abnormal enhancement. Normal spinal cord. Normal cauda equina. 4. There is an incompletely imaged enlarged uterus with multiple fibroids, similar to prior. Elec tronically Signed by Aayush Olvera on 9 at 1650 Reported and signed by: Ezio simpson D.O. CC: Rah Bah M.D. Technologist: RT Maureen(MR)(CT) [facility] Date/Time/By: 02/20/2019 (1649) : By: [email or web address] Orig Print D/T: S: (0120) PAGE 2 Signed Rep ort - MRI C-SPINE W W/O [id number] 16:37:00 FAX: Rah Osman MD [phone] [facility]: St: REG Name: VIANNEY GARCIAE [facility] : [birth year] Age/S: 48/F [address] [place] [address] Unit #: [id number] [place]: [place] [address] Phys: Andres Bobby MD Acct: [id number] Dis Date: Status: REG ER PHONE #: [phone] Exam Date: 02/20/2019 1609 FAX #: [phone] Reason: fall. paresthesias rue EXAMS: CPT CODE: [id number] MRI C-SPINE W W/O CONT 08259 MRI CERVICAL SPINE WITH CONTRAST INDICATION: fall. paresthesias rue. TECHNIQUE: 30 mL Dotarem gadolinium-based intravenous contrast was administered. MRI of t he cervical spine was performed with multiple sequences. [facility] CT cervical spine 02/19/2019. FINDINGS: Th ere is minimal bilateral maxillary sinus mucosal thickening without a flui d level. There is no prevertebral edema. There is n o acute cervical spine fracture or dislocation. There is anterior metall ic fusion at C5-C6. There is straightening of the normal cervical lordoti c curvature. Anterior to posterior spinal alignment is preserved. The anterior longitudinal ligament, posterior longitudinal ligament and ligamentum flavum are intact. The spinal cord signal is normal . There is no abnormal enhancement. The vascular flow voids are p reserved. Discs/spinal Canal/neural foramina: C2-C3: There i s no disc bulge or spinal canal stenosis. There is moderate left and mild right neural foraminal stenosis. There is primary osteoarthritic facet h ypertrophy. C3-C4: There is a circumferential disc osteophyte bulge comple x with mild disc height loss. There is primary osteoarthritic facet hypertrophy. There is mild spinal canal stenosis. There is moderate left neural foraminal stenosis. The right neural foramen reveals no stenosis. C4-C5: There is a minimal circumferential disc bulge with mild disc height loss. There is mild spinal canal stenosis. There is primary ost eoarthritic facet hypertrophy. There is moderate left neural foraminal st enosis. The right neural foramen reveals no stenosis. C5-C6: This segment is fused. There is no disc bulge or stenosis. C6-C7: There is a circumfe rential disc osteophyte bulge complex with mild disc height loss. There i s mild spinal canal stenosis. There is PAGE 1 Signed Report (CONTINUED) FAX: Rah Osman MD [facility]: St: REG Name: SAMIR FITZPATRICK [facility] : 1970 Age/S: 48/F [address] [facility] Unit #: [id number] Loc: [place] [address] Phys: Andres Bobby MD Acct: [id number] Dis Date: Status: REG ER PHONE #: [phone] Exam Date: 02/20/2019 1609 FAX #: [phone] Reason: fall. paresthesias rue EXAMS: CPT CODE: [id number] MRI C-SPINE W W/O CONT 24201 < Continued> mild to moderate left neural foraminal stenosis. The right neural foramen is patent. There is mild primary osteoarthritic facet hypertrophy. C7-T1: There is no disc bulge or stenosis. There is primary osteoarthritic facet hypertrophy. IMPRESSION: 1. There is no acute cervical spine fracture or dislocation. The spinal stabilizing ligaments are intact. 2. Normal spinal cord signal. No abnormal spinal cord enhancement. 3. There are multilevel degenerative disc and spondylotic changes of the spine. There is mild spinal canal stenosis at C3-C4, C4-C5 and C6-C7. Neural foraminal stenoses are discussed in the findings on a level by level basis. at 1637 Reported and signed by: Ezio Olvera D.O. CC: Rah Bah M.D. Technologist: RT Maureen(MR)(CT) Trnscrd Date/Time/By: 02/20/2019 (1637) : By: [email or web address] Orig Print D/T: S: 02/20/2019 (3285) PAGE 2 Signed Report URINALYSIS COMPLETE 2019-02-20 11:13:00* Test Item Value Reference Range Interpretation Comments UA COLOR (test code = COLU) YELLOW YEL/STRAW UA APPEARANCE (test code = APPU) CLEAR CLEAR UA GLUCOSE DIPSTICK (test code = DGLUU) NEGATIVE NEGATIVE UA BILIRUBIN DIPSTICK (test code = BILU) NEGATIVE NEGATIVE UA KETONE DIPSTICK (test code = KETU) NEGATIVE NEGATIVE UA SPECIFIC GRAVITY (test code = SGU) 1.024 1.005-1.030 N UA BLOOD DIPSTICK (test code = GABE) 1+ NEGATIVE A UA PH DIPSTICK (test code = BRE) 5.0 5.0-7.0 N UA PROTEIN DIPSTICK (test code = PROU) NEGATIVE NEGATIVE UA UROBILINIOGEN DIPSTICK (test code = URO) 0.2 mg/dL 0.2-1.0 UA NITRITE DIPSTICK (test code = APRIL) NEGATIVE NEGATIVE UA LEUKOCYTE ESTERASE DIPSTICK (test code = LEUU) NEGATIVE NEGA TIVE UA RBC (test code = RBCU) 4-10 RBC/HPF 0-3 UA WBC NO REFLEX (test code = WBCUCL) 4-9 WBC/HPF 0-3 A UA BACTERIA (test code = BACU) NONE SEEN /HPF NONE SEEN UA SQUAMOUS CELLS (test code = SQU) 0-5 /HPF NONE SEEN UA MUCUS (test code = MUCU) TRACE /LPF NONE SEEN CT LUMBAR SPINE [id number] 08:07:00 [place] [address] Patient Name: SAMIR FITZPATRICK MR #: [id number] : 1970 Age/Sex: 48/F Req #: [id number] Adm Physician: Ordered by: ELIO VILLALOBOS MD Report #: [id number] Location: [facility] Room/Bed: Procedure: [id number] H OPD/CT LUMBAR SPINE WITHOUT-HOPD Exam Date: 02/20/19 Exam Time: 07 REPORT STATUS: Sig yazmin History: Low back pain Comparison studies: None Technique: Axia l images were obtained from T8 through the sacrum. Coronal and sagittal images reconstructed from the axial data. Dose modulation, iterative reconstruction, and/or weight based adjustment of the mA/kV was utilized to reduce the radia tion dose to as low as reasonably achievable. Intravenous contrast: None Findings: Number of non-rib bearing vertebral bodies: 5 Alignmen t: Normal lordosis. No scoliosis. Soft tissues: No abnormalities. Paraspina l muscles: Unremarkable. Vertebrae: No fractures, infection or neoplasm . Degenerative changes: Disc spaces: Mildly degenerated from T8 thro ugh S1. Facet joints: Bilaterally degenerated from T10 through S1 worst f rom L3 through S1. T8-T12: Patent spinal canal and foramina. T12-L1: Mild left foraminal stenosis due to facet arthrosis. Patent right foramen. Moderate left spinal canal stenosis due to a disc osteophyte. L1-L2: Olvera nt foramina. Moderate spinal canal stenosis due to facet arthrosis, a disc bu lge and calcified ligamenta flava (series 5, image 164). L2-L3: Moder ate right foraminal stenosis due to endplate osteophytes. Moderate spinal amanuel l stenosis due to a disc bulge and bilateral facet arthrosis. L3-L4: No significant spinal canal stenosis in spite of endplate osteophytes. Severe sp inal canal stenosis due to a disc bulge, bilateral facet arthrosis and calcifi ed ligamenta flava (series 3, image 55). L4-L5: Moderate foraminal can al stenosis bilaterally due to endplate osteophytes and facet arthrosis. Sev ere spinal canal stenosis due to facet arthrosis and a disc bulge (series 3, i mage 63). L5-S1: Patent foramina. No gross spinal canal stenosis in spi te of artifacts. . Sacroiliac joints: No degenerative changes. IMPRE SSION: Evaluation of the lumbar region is limited due to patient's body hab itus. In spite of this limitation: No acute abnormalities. Degenerat shawn changes include the followin. Mildly degenerated discs and facet a rthrosis from T8 through S1 result in spinal canal stenosis which is moderate from T12 through L3 but severe at L3-4 and L4-5. 2. Superimposed degenerati ve foraminal stenosis is worse on the right at L2-3 and bilaterally at L4-5. Signed by: Dr. Saira De La Cruz M.D. on 02/20/2019 8:22 AM Dictated By: SAIRA DE LA CRUZ MD, MD 1 Transcribed By: SUSU on 02/20/19 0822 COPY TO: ELIO VILLALOBOS MD CT C-SPINE W/O - [id number] 07:59:00 [place] [address] Patient Name: SAMIR FITZPATRICK MR #: [id number] : 1970 Age/Sex: 48/F Req #: [id number] Adm Physician: Ordered by: ELIO VILLALOBOS MD Report #: [id number] Location: [facility] Room/Bed: Procedure: [id number] H OPD/CT C-SPINE W/O - HOPD Exam Date: 02/20/19 Exam T jace: 0705 REPORT STATUS: Signed History: Back pain and neck pain Comparison studies: None Technique: A xial images were obtained through the cervical region.. Coronal and sagittal i mages reconstructed from the axial data. Dose modulation, iterative reconstruc tion, and/or weight based adjustment of the mA/kV was utilized to reduce the radiation dose to as low as reasonably achievable. Intravenous contrast: None Findings: Fractures: None. Soft tissues: No gross abnormalitie s. Atlantoaxial articulation: Mildly degenerated. Alignment: Straightenin g of the usual cervical lordosis.. No scoliosis. Cervicomedullary junction: No abnormalities. The foramen magnum is patent. Vertebrae: No infection or neoplasm. Postsurgical changes: Patient status post anterior cervical fu bel at C5-6. Hardware in place. No loosening or failure. The intervening di sc space is partially fused. Degenerative changes: C2-C3: Normal di sc. Moderate bilateral facet arthrosis. Mild left foraminal stenosis due to the facet arthrosis. Patent right foramen. No significant spinal canal stenosi s in spite of a disc osteophyte complex. C3-C4: Mildly degenerated disc. Moderate bilateral facet arthrosis. Moderate left foraminal stenosis due to this facet arthrosis. Patent right foramen. Mild spinal canal stenosis due t o a disc osteophyte complex. C4-C5: Mildly degenerated disc. Severe lef t foraminal stenosis due to facet arthrosis. Patent right foramen. Mild spinal canal stenosis due to a disc osteophyte complex. C5-C6: The disc is part ially fused. No significant foraminal stenosis in spite of left facet arthrosi s. Mild spinal canal stenosis due to a disc osteophyte complex. C6-C7: Moderately degenerated disc. Severe left foraminal stenosis due to facet and u ncovertebral arthrosis. Patent right foramen. Moderate spinal canal stenosis due to a disc osteophyte complex. C7-T1: No abnormalities. IMPRESS ION: 1. No acute abnormalities. 2. Patient status post anterior cerv ical fusion at C5-C6. Hardware in place. The intervening disc space is fused. 3. Degenerative foraminal stenosis on the left from C2 through C7 is worse at C4-5 and at C6-7 as described. 4. Superimposed spinal canal stenosis from C3 through C7 is worse (moderate) at C6-C7. Signed by: Dr. Saira Cannon M.D. on 02/20/2019 8:07 AM Dictated By: SAIRA DE LA CRUZ MD, MD 6 Tr anscribed By: SUSU on 02/20/19806 COPY TO: ELIO VILLALOBOS MD - CT L-SPINE W/O [id number] 12:17:00 Name: SAMIR FITZPATRICK [facility] : 1970 Age/S: 48 / F [address] [facility] Unit #: [id number] Loc: [place] [address] Phys: Zoë Duarte MD Acct: [id number] Dis Date: Status: REG ER PHONE #: [phone] Exam Date: 02/19/2019 1122 FAX #: [phone] Reason: fall, back and neck pain EXAMS: CPT CODE: [id number] CT L-SPINE W/O CONTRAST 38401 HISTORY: fall, back and neck pain TECHNIQUE: [...] body alignment is satisfactory. Small vertebral body osteophytes are seen in the visualized thoracic spine and throughout the lumbar spine. Vertebral body heights are preserved. Interve rtebral disc heights are preserved. No prevertebral or zoya hallie soft tissue abnormality. T12-L1: Facet degeneration and vert ebral body osteophytes cause mild to moderate narrowing of the central can al and moderate left-sided foraminal narrowing and mild right-sided forami nal narrowing. L1-L2: Facet degeneration and vertebral body osteop hytes with disc bulge causes moderate bilateral foraminal narrowing. L2-L3: Facet degeneration and vertebral body osteophytes with disc bulge causes moderate to severe right-sided foraminal narrowing and mode rate left-sided foraminal narrowing. There is also moderate central canal narrowing. L3-L4: Facet degeneration and vertebral body osteophyte s causes severe foraminal narrowing bilaterally and moderate to severe fay tral canal narrowing. L4-L5: Facet degeneration and vertebra l body osteophytes cause severe bilateral foraminal narrowing and moderate central canal narrowing. L5-S1: No disc bulge or protrusion. No c ental canal or foraminal stenosis IMPRESSION: PAGE 1 Signed Report (CONTINUED) N lizbet: SAMIR FITZPATRICK [facility] : 0 1970 Age/S: 48 / F [address] [facility] Unit #: [id number] Loc: [place] [address] Phys: Alex Duarte MD Acct: [id number] Dis D ate: Status: REG ER PHONE #: Exam Date: 02/19/2019 1122 FAX #: [phone] Reason: fall, back and neck pain EXAMS: CPT CODE: [id number] CT L-SPINE W/O C ONTRAST 28727 <Continued> Degenerative changes throughout the lumbar spine cause multiple levels of foraminal narrowing as described above. Correlate with physical exam for radiculopathy. at 1217 Reported and signed by: Hua Dow MD CC: Caleb Bah M.D.; Zoë Deshpande MD Technologist:Kelly Ochoa CTDI: DLP: Trnscb Date/Time: 02/19/2019 (1217) [email or web address] Orig Print D/T: S: 02/19/2019 (0415) PAGE 2 S igned Report - CT C-SPINE W/O [id number] 11:54:00 [facility] 1970 Age/S: 48 / F [address] [facility] Unit #: [id number] Loc: [place] [address] Phys: Zoë Duarte MD Acct: [id number] Dis Date: Status: REG ER PHONE #: [phone] Exam Date: 02/19/2019 1118 FAX #: [phone] Reason: fall, back and neck pain EXAMS: CPT CODE: [id number] CT C-SPINE W/O CONTRAST 41265 HISTORY: fall, back and neck pain, possible [...] spine. There has been prior fusion of C5- C6 by anterior approach. No evidence of hardware failure. There is severe left-sided foraminal narrowing at C2-C3. There is severe bilateral foraminal narrowing at C3-C4. There is severe left-sided foraminal narrowing at C4-C5. There is moderate right-sided and severe left-sided foraminal narrowing at C5-C6. There is severe left-sided foraminal n arrowing at C6-C7. There is height loss of the C3-C4 disc and also the C6- C7 disc. No prevertebral or paraspinal soft tissue abnormality. Lung apices are clear. IMPRESSION: Negative CT head. No acute fracture or malalignment of the cervical s pine. There are degenerative changes throughout the cervical spine with multiple areas of severe foraminal narrowing as described above. PAGE 1 Signed Report (CONTINUED) Name: SAMIR FITZPATRICK [facility] : 1970 Age/S: 48 / F [address] [place] [address] Unit #: [id number] Loc: [place] [address] Phys: Zoë Duarte MD Acct: [id number] Dis Date: Status: REG ER PHONE #: [phone] Exam Date: 02/19/2019 1118 FAX #: [phone] Reason: fall, back and neck pain EXAMS: CPT CODE: [id number] CT C-SPINE W/O CONTRAST 05452 <Continued> Correlate clinically for adenopathy. Prior anterior fusion of C5-C6 with no evidence of hardware loosening. Location: [facility] at 1154 Reported and signed by: Hua Dow MD CC: Caleb Bah M.D.; Zoë Duarte MD Technologist:Kelly Ochoa CTDI: DLP: Trnscb Date/Time: 02/19/2019 (1154) [email or web address] Orig Print D/T: S: 02/19/2019 (0540) PAGE 2 Signed Report - CT HEAD/BRAIN W/O [id number] 11:54:00 Name: SAMIR FITZPATRICK [employer] [facility] : 1970 Age/S: 48 / F [address] [place] [address] Unit #: [id number] Loc: [place] [address] Phys: Zoë Duarte MD Acct: [id number] Dis Date: Status: REG ER PHONE #: [phone] Exam Date: 02/19/2019 1107 FAX #: [phone] Reason: fall, back and neck pain, possible LOC EXAMS: CPT CODE: [id number] CT HEAD/BRAIN W/O CONT 83727 HISTORY: fall, back and neck pain, possible [...] cervical spine. No subluxation. Degenerative changes are s een throughout the facet joints of the cervical spine. There has been prio r fusion of C5-C6 by anterior approach. No evidence of hardware failure. There is severe left-sided foraminal narrowing at C2-C3. There is se arturo bilateral foraminal narrowing at C3-C4. There is severe left-sided fo raminal narrowing at C4-C5. There is moderate right-sided and severe left- sided foraminal narrowing at C5-C6. There is severe left-sided foraminal n arrowing at C6-C7. There is height loss of the C3-C4 disc and also the C6- C7 disc. No prevertebral or paraspinal soft tissue abnormality. Lung apices are clear. IMPRESSION: Negative CT head. No acute fracture or malalignment of the cervical s pine. There are degenerative changes throughout the cervical spine with multiple areas of severe foraminal narrowing as described above. PAGE 1 Signed Report (CONTINUED) Name: SAMIR FITZPATRICK [facility] : 1970 Age/S: 48 / F [address] [facility] Unit #: [id number] Loc: [place] [address] Phys: Zoë Duarte MD Acct: [id number] Dis Date: Status: REG ER PHONE #: [phone] Exam Date: 02/19/2019 1107 FAX #: [phone] Reason: fall, back and neck pain, possible LOC EXAMS: CPT CODE: [id number] CT HEAD/BRAIN W/O CONT 41191 <Continued> Correlate clinically for adenopathy. Prior anterior fusion of C5-C6 with no evidence of hardware loosening. Location: [facility] at 1154 Reported and signed by: Hua Dow MD CC: Caleb Bah M.D.; Zoë Duarte MD Technologist:Kelly Ochoa CTDI: DLP: Trnscb Date/Time: 02/19/2019 (4383) [email or web address] Orig Print D/T: S: 02/19/2019 (9100) PAGE 2 Signed Report CBC W/AUTO [id number] 10:00:00* Test Item Value Reference Range Interpretation Comments WHITE BLOOD CELL (test code = WBC) 5.4 K/mm3 4.5-12.5 N RED BLOOD CELL (test code = RBC) 4.03 mill/mm3 3.7-5.2 N HEMOGLOBIN (test code = HGB) 10.2 gram/dL 11.5-15.5 L HEMATOCRIT (test code = HCT) 33.6 % 36.0-46.0 L MEAN CELL VOLUME (test code = MCV) 83.4 fL 80-98 N MEAN CELL HGB (test code = MCH) 25.3 picogram 27.0-33.0 L MEAN CELL HGB CONCETRATION (test code = MCHC) 30.4 gram/dL 33.0-36. 0 L RED CELL DISTRIBUTION WIDTH (test code = RDW) 16.7 % 11.6-16. 2 H RED CELL DISTRIBUTION WIDTH SD (test code = RDW-SD) 50.9 fL 37 .0-51.0 N PLATELET COUNT (test code = PLT) 251 K/mm3 150-450 N MEAN PLATELET VOLUME (test code = MPV) 10.3 fL 6.7-11.0 N NEUTROPHIL % (test code = NT%) 41.5 % 39.0-69.0 N IMMATURE GRANULOCYTE % (test code = IG%) 0.2 % 0.0-5.0 N LYMPHOCYTE % (test code = LY%) 44.1 % 25.0-55.0 N MONOCYTE % (test code = MO%) 8.8 % 0.0-10.0 N EOSINOPHIL % (test code = EO%) 4.8 % 0.0-5.0 N BASOPHIL % (test code = BA%) 0.6 % 0.0-1.0 N NUCLEATED RBC % (test code = NRBC%) 0.0 % 0-0 N NEUTROPHIL # (test code = NT#) 2.23 K/mm3 1.8-7.7 N IMMATURE GRANULOCYTE # (test code = IG#) 0.01 x10 3/uL 0-0.03 N LYMPHOCYTE # (test code = LY#) 2.37 K/mm3 1.0-5.0 N MONOCYTE # (test code = MO#) 0.47 K/mm3 0-0.8 N EOSINOPHIL # (test code = EO#) 0.26 K/mm3 0.0-0.5 N BASOPHIL # (test code = BA#) 0.03 K/mm3 0.0-0.2 N NUCLEATED RBC # (test code = NRBC#) 0.00 K/mm3 0.0-0.1 N - XR ABDOMEN AP 1 [id number] 19:42:00 FAX: Chantal Causey [phone] [place]: [facility]: [facility] FAX: Caleb Osman MD [phone] FAX: Megan Pena MD [phone] FAX: Basil Luevano MD Name: AMARI SAMIR [facility] : 1970 Age/S: 48/F [address] Unit #: [id number] Loc: V.[address] [place], [place] [address] Phys: Megan Jimenez MD Acct: [id number] Dis Date: Status: ADM IN PHONE #: [phone] Exam D ate: 01/31/2019 1927 FAX #: [phone] Reason: K IDNEY STONE, ABD PAIN EXAMS: CPT CODE: [id number] XR ABDOMEN AP 1 V 44102 HISTORY: KIDNEY STONE, ABD PAIN TECHNIQUE: AP [...] GARCIA Trnscrd Date/Time/By: 10/2018 (1941) : By: [email or web address] Orig Print D/T: S: 01/31/2019 (1944) PAGE 1 Signed Report URINALYSIS [id number] 03:46:00* Test Item Value Reference Range Interpretation Comments UA COLOR (test code = COLU) YELLOW YELLOW UA APPEARANCE (test code = APPU) CLEAR CLEAR UA GLUCOSE DIPSTICK (test code = DGLUU) NEGATIVE mg/dL NEGATIVE UA BILIRUBIN DIPSTICK (test code = BILU) NEGATIVE mg/dL NEGATIVE UA KETONE DIPSTICK (test code = KETU) NEGATIVE mg/dL NEGATIVE UA SPECIFIC GRAVITY (test code = SGU) >1.050 1.001-1.035 UA BLOOD DIPSTICK (test code = GABE) Negative mg/dL NEGATIVE UA PH DIPSTICK (test code = BRE) 5.5 5.0-8.0 UA PROTEIN DIPSTICK (test code = PROU) NEGATIVE mg/dL NEGATIVE UA UROBILINIOGEN DIPSTICK (test code = URO) 2.0 (1+) mg/dL NEGATIVE A UA NITRITE DIPSTICK (test code = APRIL) NEGATIVE NEGATIVE UA LEUKOCYTE ESTERASE W REFLEX (test code = LEUUR) NEGATIVE Curtis/uL NEGATIVE UA WBC (test code = WBCU) 0-5 per HPF 0-5 UA RBC (test code = RBCU) 0-2 #/HPF 0-5 UA EPITHELIAL CELLS (test code = EPIU) FEW per HPF FEW UA BACTERIA (test code = BACU) FEW #/HPF NONE A UA MUCUS (test code = MUCU) FEW #/LPF FEW Urine Source? Clean CatchBASIC METABOLIC [id number] 02:02:00* Test Item Value Reference Range Interpretation Comments SODIUM (test code = NA) 140 mmol/L 136-145 N POTASSIUM (test code = K) 3.6 mmol/L 3.5-5.1 N CHLORIDE (test code = CL) 109.0 mmol/L 98-107 H CARBON DIOXIDE (test code = CO2) 24.0 mmol/L 21-32 N ANION GAP (test code = GAP) 10.6 10-20 N GLUCOSE (test code = GLU) 121 mg/dL 74-106 H BLOOD UREA NITROGEN (test code = BUN) 10 mg/dL 7-18 N GLOMERULAR FILTRATION RATE (test code = GFR) 59 mL/min >=60 Estimated GFR by using Modified MDRD formula.Chronic kidney disease is defined as either kidney damageor GFR <60 mL/min/1.73 m2 for >3 months. CREATININE (test code = CREAT) 1.00 mg/dL 0.55-1.02 N Note change in reference range due to change in reagent. BUN/CREATININE RATIO (test code = BUN/CREA) 10.3 10-20 N CALCIUM (test code = CA) 8.4 mg/dL 8.5-10.1 L HEPATIC FUNCTION [id number] 02:02:00* Test Item Value Reference Range Interpretation Comments TOTAL PROTEIN (test code = PROT) 7.3 gram/dL 6.4-8.2 N ALBUMIN (test code = ALB) 3.1 g/dL 3.4-5.0 L GLOBULIN (test code = GLOB) 4.2 gram/dL 2.7-4.2 N ALBUMIN/GLOBULIN RATIO (test code = A/G) 0.7 0.75-1.50 L BILIRUBIN TOTAL (test code = BILT) 0.40 mg/dL 0.0-1.0 N BILIRUBIN DIRECT (test code = BILD) 0.07 mg/dL 0.0-0.20 N SGOT/AST (test code = AST) 14 IUnit/L 15-37 L SGPT/ALT (test code = ALT) 27 IUnit/L 12-78 N ALKALINE PHOSPHATASE TOTAL (test code = ALKP) 79 IUnit/L 45-117 N Note change in reference range due to change in reagent. [id number] 02:02:00* Test Item Value Reference Range Interpretation Comments LIPASE (test code = LIP) 237 U/L 73.0-393.0 N HCG SERUM [id number] 02:02:00* Test Item Value Reference Range Interpretation Comments HCG SERUM QUAL (test code = HCGQL) NEGATIVE NEGATIVE This HCGQL test is NOT applicable for MALE patients.Check with nurse about probable order error.If Tumor Marker Test needed, nurse should order test "HCGTU"(Test #550.84070) BASIC METABOLIC [id number] 01:59:00* Test Item Value Reference Range Interpretation Comments SODIUM (test code = NA) 140 mmol/L 136-145 N POTASSIUM (test code = K) 3.6 mmol/L 3.5-5.1 N CHLORIDE (test code = CL) 109.0 mmol/L 98-107 H CARBON DIOXIDE (test code = CO2) 24.0 mmol/L 21-32 N ANION GAP (test code = GAP) 10.6 10-20 N GLUCOSE (test code = GLU) 121 mg/dL 74-106 H BLOOD UREA NITROGEN (test code = BUN) 10 mg/dL 7-18 N GLOMERULAR FILTRATION RATE (test code = GFR) 59 mL/min >=60 Estimated GFR by using Modified MDRD formula.Chronic kidney disease is defined as either kidney damageor GFR <60 mL/min/1.73 m2 for >3 months. CREATININE (test code = CREAT) 1.00 mg/dL 0.55-1.02 N Note change in reference range due to change in reagent. BUN/CREATININE RATIO (test code = BUN/CREA) 10.3 10-20 N CALCIUM (test code = CA) 8.4 mg/dL 8.5-10.1 L HEPATIC FUNCTION [id number] 01:59:00* Test Item Value Reference Range Interpretation Comments TOTAL PROTEIN (test code = PROT) 7.3 gram/dL 6.4-8.2 N ALBUMIN (test code = ALB) 3.1 g/dL 3.4-5.0 L GLOBULIN (test code = GLOB) 4.2 gram/dL 2.7-4.2 N ALBUMIN/GLOBULIN RATIO (test code = A/G) 0.7 0.75-1.50 L BILIRUBIN TOTAL (test code = BILT) 0.40 mg/dL 0.0-1.0 N BILIRUBIN DIRECT (test code = BILD) 0.07 mg/dL 0.0-0.20 N SGOT/AST (test code = AST) 14 IUnit/L 15-37 L SGPT/ALT (test code = ALT) 27 IUnit/L 12-78 N ALKALINE PHOSPHATASE TOTAL (test code = ALKP) 79 IUnit/L 45-117 N Note change in reference range due to change in reagent. [id number] 01:59:00* Test Item Value Reference Range Interpretation Comments LIPASE (test code = LIP) 237 U/L 73.0-393.0 N HCG SERUM [id number] 01:59:00* Test Item Value Reference Range Interpretation Comments HCG SERUM QUAL (test code = HCGQL) NEGATIVE BASIC METABOLIC [id number] 01:54:00* Test Item Value Reference Range Interpretation Comments SODIUM (test code = NA) 140 mmol/L 136-145 N POTASSIUM (test code = K) 3.6 mmol/L 3.5-5.1 N CHLORIDE (test code = CL) 109.0 mmol/L 98-107 H CARBON DIOXIDE (test code = CO2) mmol/L 21-32 ANION GAP (test code = GAP) 10-20 GLUCOSE (test code = GLU) mg/dL 74-106 BLOOD UREA NITROGEN (test code = BUN) mg/dL 7-18 GLOMERULAR FILTRATION RATE (test code = GFR) mL/min >=60 CREATININE (test code = CREAT) mg/dL 0.55-1.02 BUN/CREATININE RATIO (test code = BUN/CREA) 10-20 CALCIUM (test code = CA) mg/dL 8.5-10.1 HEPATIC FUNCTION [id number] 01:54:00* Test Item Value Reference Range Interpretation Comments TOTAL PROTEIN (test code = PROT) gram/dL 6.4-8.2 ALBUMIN (test code = ALB) g/dL 3.4-5.0 GLOBULIN (test code = GLOB) gram/dL 2.7-4.2 ALBUMIN/GLOBULIN RATIO (test code = A/G) 0.75-1.50 BILIRUBIN TOTAL (test code = BILT) mg/dL 0.0-1.0 BILIRUBIN DIRECT (test code = BILD) mg/dL 0.0-0.20 SGOT/AST (test code = AST) IUnit/L 15-37 SGPT/ALT (test code = ALT) IUnit/L 12-78 ALKALINE PHOSPHATASE TOTAL (test code = ALKP) IUnit/L 45-117 [id number] 01:54:00* Test Item Value Reference Range Interpretation Comments LIPASE (test code = LIP) U/L 73.0-393.0 HCG SERUM [id number] 01:54:00* Test Item Value Reference Range Interpretation Comments HCG SERUM QUAL (test code = HCGQL) NEGATIVE CBC W/O [id number] 01:42:00* Test Item Value Reference Range Interpretation Comments WHITE BLOOD CELL (test code = WBC) 7.3 K/mm3 4.5-12.5 N RED BLOOD CELL (test code = RBC) 4.18 mill/mm3 3.7-5.2 N HEMOGLOBIN (test code = HGB) 10.7 gram/dL 11.5-15.5 L HEMATOCRIT (test code = HCT) 34.5 % 36.0-46.0 L MEAN CELL VOLUME (test code = MCV) 82.5 fL 80-98 N MEAN CELL HGB (test code = MCH) 25.6 picogram 27.0-33.0 L MEAN CELL HGB CONCETRATION (test code = MCHC) 31.0 gram/dL 33.0-36. 0 L RED CELL DISTRIBUTION WIDTH (test code = RDW) 16.8 % 11.6-16. 2 H PLATELET COUNT (test code = PLT) 278 K/mm3 150-450 N MEAN PLATELET VOLUME (test code = MPV) 10.1 fL 6.7-11.0 N URINALYSIS [id number] 18:35:00* Test Item Value Reference Range Interpretation Comments UA COLOR (test code = COLU) Light-Yellow YELLOW UA APPEARANCE (test code = APPU) CLEAR CLEAR UA GLUCOSE DIPSTICK (test code = DGLUU) NEGATIVE mg/dL NEGATIVE UA BILIRUBIN DIPSTICK (test code = BILU) NEGATIVE mg/dL NEGATIVE UA KETONE DIPSTICK (test code = KETU) NEGATIVE mg/dL NEGATIVE UA SPECIFIC GRAVITY (test code = SGU) 1.035 1.001-1.035 UA BLOOD DIPSTICK (test code = GABE) Negative mg/dL NEGATIVE UA PH DIPSTICK (test code = BRE) 5.5 5.0-8.0 UA PROTEIN DIPSTICK (test code = PROU) NEGATIVE mg/dL NEGATIVE UA UROBILINIOGEN DIPSTICK (test code = URO) Normal mg/dL NEGATIVE UA NITRITE DIPSTICK (test code = APRIL) NEGATIVE NEGATIVE UA LEUKOCYTE ESTERASE W REFLEX (test code = LEUUR) 25 Curtis/uL (Trace) Curtis/uL NEGATIVE A UA WBC (test code = WBCU) 0-5 per HPF 0-5 UA RBC (test code = RBCU) 0-2 #/HPF 0-5 UA EPITHELIAL CELLS (test code = EPIU) FEW per HPF FEW UA BACTERIA (test code = BACU) NONE SEEN #/HPF NONE UA MUCUS (test code = MUCU) FEW #/LPF FEW Urine Source? Clean Catch- CT ABD PELVIS [id number] 18:30:00 Name: SAMIR FITZPATRICK [facility] : 1970 Age/S: 48 / F [address] Unit #: [id number] Loc: [place] [address] Phys: Krystal Parker NP Acct: [id number] Di s Date: Status: REG ER PHONE #: Exam Date: 01/30/20191807 FAX #: [phone] Reason: ABD PAIN EXAMS: CPT CODE: [id number] CT ABD PELVIS W/CONT 23000 REASON FOR EXAM: ABD PAIN EXAM ORDER DATE: 01/30/2019 4:25 PM Ordering M.DCeci: Krystal Parker NP PROCEDURE: - CT ABD [...] 1 Signed Report (CONTINUED) Name: SAMIR FITZPATRICK [facility] : 1970 Age/S: 48 / F [address] Unit #: [id number] Loc: [place] [address] Ph ys: Lisa Parker [employer]ACH[employer] Acct: [id number] Dis Date: Status: REG ER PHONE #: [phone] Exam Date: 01/30/20191807 FAX #: [phone] Reason: ABD PAIN EXAMS: CPT CODE: [id number] CT ABD PELVIS W/CONT 20218 <Continued> Musculoskeletal structures and abdominal wall: Mild [...] RT(R)(CT) CTDI: DLP: Trnscb Da te/Time: 01/30/2019 (183) [email or web address] Orig Print D/T: S: 1 (1833) PAGE 2 Signed Report BASIC METABOLIC [id number] 17:28:00* Test Item Value Reference Range Interpretation Comments SODIUM (test code = NA) 142 mmol/L 136-145 N POTASSIUM (test code = K) 4.0 mmol/L 3.5-5.1 N CHLORIDE (test code = CL) 110.0 mmol/L 98-107 H CARBON DIOXIDE (test code = CO2) 22.0 mmol/L 21-32 N ANION GAP (test code = GAP) 14.0 10-20 N GLUCOSE (test code = GLU) 96 mg/dL 74-106 N BLOOD UREA NITROGEN (test code = BUN) 10 mg/dL 7-18 N GLOMERULAR FILTRATION RATE (test code = GFR) > 60 mL/min >=60 Estimated GFR by using Modified MDRD formula.Chronic kidney disease is defined as either kidney damageor GFR <60 mL/min/1.73 m2 for >3 months. CREATININE (test code = CREAT) 0.80 mg/dL 0.55-1.02 N Note change in reference range due to change in reagent. BUN/CREATININE RATIO (test code = BUN/CREA) 11.9 10-20 N CALCIUM (test code = CA) 8.9 mg/dL 8.5-10.1 N HEPATIC FUNCTION [id number] 17:28:00* Test Item Value Reference Range Interpretation Comments TOTAL PROTEIN (test code = PROT) 7.4 gram/dL 6.4-8.2 N ALBUMIN (test code = ALB) 3.5 g/dL 3.4-5.0 N GLOBULIN (test code = GLOB) 3.9 gram/dL 2.7-4.2 N ALBUMIN/GLOBULIN RATIO (test code = A/G) 0.9 0.75-1.50 N BILIRUBIN TOTAL (test code = BILT) 0.50 mg/dL 0.0-1.0 N BILIRUBIN DIRECT (test code = BILD) 0.12 mg/dL 0.0-0.20 N SGOT/AST (test code = AST) 17 IUnit/L 15-37 N SGPT/ALT (test code = ALT) 28 IUnit/L 12-78 N ALKALINE PHOSPHATASE TOTAL (test code = ALKP) 84 IUnit/L 45-117 N Note change in reference range due to change in reagent. [id number] 17:28:00* Test Item Value Reference Range Interpretation Comments LIPASE (test code = LIP) 214 U/L 73.0-393.0 N HCG SERUM [id number] 17:28:00* Test Item Value Reference Range Interpretation Comments HCG SERUM QUAL (test code = HCGQL) NEGATIVE NEGATIVE This HCGQL test is NOT applicable for MALE patients.Check with nurse about probable order error.If Tumor Marker Test needed, nurse should order test "HCGTU"(Test #550.01701) [id number] 17:28:00* Test Item Value Reference Range Interpretation Comments TROPONIN-I (test code = TROPI) <0.015 ng/mL 0-0.045 N BASIC METABOLIC [id number] 17:21:00* Test Item Value Reference Range Interpretation Comments SODIUM (test code = NA) 142 mmol/L 136-145 N POTASSIUM (test code = K) 4.0 mmol/L 3.5-5.1 N CHLORIDE (test code = CL) 110.0 mmol/L 98-107 H CARBON DIOXIDE (test code = CO2) mmol/L 21-32 ANION GAP (test code = GAP) 10-20 GLUCOSE (test code = GLU) mg/dL 74-106 BLOOD UREA NITROGEN (test code = BUN) mg/dL 7-18 GLOMERULAR FILTRATION RATE (test code = GFR) mL/min >=60 CREATININE (test code = CREAT) mg/dL 0.55-1.02 BUN/CREATININE RATIO (test code = BUN/CREA) 10-20 CALCIUM (test code = CA) mg/dL 8.5-10.1 HEPATIC FUNCTION [id number] 17:21:00* Test Item Value Reference Range Interpretation Comments TOTAL PROTEIN (test code = PROT) gram/dL 6.4-8.2 ALBUMIN (test code = ALB) g/dL 3.4-5.0 GLOBULIN (test code = GLOB) gram/dL 2.7-4.2 ALBUMIN/GLOBULIN RATIO (test code = A/G) 0.75-1.50 BILIRUBIN TOTAL (test code = BILT) mg/dL 0.0-1.0 BILIRUBIN DIRECT (test code = BILD) mg/dL 0.0-0.20 SGOT/AST (test code = AST) IUnit/L 15-37 SGPT/ALT (test code = ALT) IUnit/L 12-78 ALKALINE PHOSPHATASE TOTAL (test code = ALKP) IUnit/L 45-117 [id number] 17:21:00* Test Item Value Reference Range Interpretation Comments LIPASE (test code = LIP) U/L 73.0-393.0 HCG SERUM [id number] 17:21:00* Test Item Value Reference Range Interpretation Comments HCG SERUM QUAL (test code = HCGQL) NEGATIVE NEGATIVE This HCGQL test is NOT applicable for MALE patients.Check with nurse about probable order error.If Tumor Marker Test needed, nurse should order test "HCGTU"(Test #550.88867) [id number] 17:21:00* Test Item Value Reference Range Interpretation Comments TROPONIN-I (test code = TROPI) ng/mL 0-0.045 BASIC METABOLIC [id number] 17:16:00* Test Item Value Reference Range Interpretation Comments SODIUM (test code = NA) mmol/L 136-145 POTASSIUM (test code = K) mmol/L 3.5-5.1 CHLORIDE (test code = CL) mmol/L 98-107 CARBON DIOXIDE (test code = CO2) mmol/L 21-32 ANION GAP (test code = GAP) 10-20 GLUCOSE (test code = GLU) mg/dL 74-106 BLOOD UREA NITROGEN (test code = BUN) mg/dL 7-18 GLOMERULAR FILTRATION RATE (test code = GFR) mL/min >=60 CREATININE (test code = CREAT) mg/dL 0.55-1.02 BUN/CREATININE RATIO (test code = BUN/CREA) 10-20 CALCIUM (test code = CA) mg/dL 8.5-10.1 HEPATIC FUNCTION [id number] 17:16:00* Test Item Value Reference Range Interpretation Comments TOTAL PROTEIN (test code = PROT) gram/dL 6.4-8.2 ALBUMIN (test code = ALB) g/dL 3.4-5.0 GLOBULIN (test code = GLOB) gram/dL 2.7-4.2 ALBUMIN/GLOBULIN RATIO (test code = A/G) 0.75-1.50 BILIRUBIN TOTAL (test code = BILT) mg/dL 0.0-1.0 BILIRUBIN DIRECT (test code = BILD) mg/dL 0.0-0.20 SGOT/AST (test code = AST) IUnit/L 15-37 SGPT/ALT (test code = ALT) IUnit/L 12-78 ALKALINE PHOSPHATASE TOTAL (test code = ALKP) IUnit/L 45-117 [id number] 17:16:00* Test Item Value Reference Range Interpretation Comments LIPASE (test code = LIP) U/L 73.0-393.0 HCG SERUM [id number] 17:16:00* Test Item Value Reference Range Interpretation Comments HCG SERUM QUAL (test code = HCGQL) NEGATIVE NEGATIVE This HCGQL test is NOT applicable for MALE patients.Check with nurse about probable order error.If Tumor Marker Test needed, nurse should order test "HCGTU"(Test #550.77730) [id number] 17:16:00* Test Item Value Reference Range Interpretation Comments TROPONIN-I (test code = TROPI) ng/mL 0-0.045 CBC W/O [id number] 17:09:00* Test Item Value Reference Range Interpretation Comments WHITE BLOOD CELL (test code = WBC) 6.8 K/mm3 4.5-12.5 N RED BLOOD CELL (test code = RBC) 4.41 mill/mm3 3.7-5.2 N HEMOGLOBIN (test code = HGB) 11.5 gram/dL 11.5-15.5 N HEMATOCRIT (test code = HCT) 36.0 % 36.0-46.0 N MEAN CELL VOLUME (test code = MCV) 81.6 fL 80-98 N MEAN CELL HGB (test code = MCH) 26.1 picogram 27.0-33.0 L MEAN CELL HGB CONCETRATION (test code = MCHC) 31.9 gram/dL 33.0-36. 0 L RED CELL DISTRIBUTION WIDTH (test code = RDW) 16.7 % 11.6-16. 2 H PLATELET COUNT (test code = PLT) 297 K/mm3 150-450 N MEAN PLATELET VOLUME (test code = MPV) 10.2 fL 6.7-11.0 N CBC W/O [id number] 17:08:00* Test Item Value Reference Range Interpretation Comments WHITE BLOOD CELL (test code = WBC) K/mm3 4.5-12.5 RED BLOOD CELL (test code = RBC) mill/mm3 3.7-5.2 HEMOGLOBIN (test code = HGB) 11.5 gram/dL 11.5-15.5 N HEMATOCRIT (test code = HCT) 36.0 % 36.0-46.0 N MEAN CELL VOLUME (test code = MCV) fL 80-98 MEAN CELL HGB (test code = MCH) picogram 27.0-33.0 MEAN CELL HGB CONCETRATION (test code = MCHC) gram/dL 33.0-36. 0 RED CELL DISTRIBUTION WIDTH (test code = RDW) % 11.6-16. 2 PLATELET COUNT (test code = PLT) K/mm3 150-450 MEAN PLATELET VOLUME (test code = MPV) fL 6.7-11.0 URINALYSIS [id number] 11:38:00* Test Item Value Reference Range Interpretation Comments UA COLOR (test code = COLU) YELLOW YELLOW UA APPEARANCE (test code = APPU) CLOUDY CLEAR A UA GLUCOSE DIPSTICK (test code = DGLUU) NEGATIVE mg/dL NEGATIVE UA BILIRUBIN DIPSTICK (test code = BILU) 2+ (Mod 2.0-4.0) NEGATIVE UA KETONE DIPSTICK (test code = KETU) 1+ mg/dL NEGATIVE UA SPECIFIC GRAVITY (test code = SGU) >=1.030 1.001-1.035 UA BLOOD DIPSTICK (test code = GABE) TRACE NEGATIVE UA PH DIPSTICK (test code = BRE) 5.5 5.0-8.0 UA PROTEIN DIPSTICK (test code = PROU) 1+ mg/dL Neg-15 UA UROBILINIOGEN DIPSTICK (test code = URO) 0.2 mg/dL 0.0-0.2 UA NITRITE DIPSTICK (test code = APRIL) NEGATIVE NEGATIVE UA LEUKOCYTE ESTERASE W REFLEX (test code = LEUUR) NEGATIVE NEG ATIVE UA WBC (test code = WBCU) 0-5 per HPF 0-5 UA RBC (test code = RBCU) 0-2 #/HPF 0-5 UA EPITHELIAL CELLS (test code = EPIU) MOD per HPF FEW UA BACTERIA (test code = BACU) FEW #/HPF NONE A UA HYALINE CAST (test code = HYALU) 3-5 #/LPF 0-5 UA MUCUS (test code = MUCU) MANY #/LPF FEW A Urine Source? Clean Catch- CT ABD PELVIS [id number] 11:17:00 Name: RACHELKEDARSAMIR RICHARDSON [facility] : 1970 Age/S: 48 / F [address] Unit #: [id number] Loc: [place] [address] Phys: Juan Coon MD Acct: [id number] Di s Date: Status: REG ER PHONE #: Exam Date: 12/15/2018 1042 FAX #: Reason: abd pain vomit diarrhea EXAMS: CPT CODE: [id number] CT ABD PELVIS W/CONT [id number] HISTORY: Abdominal pain w ith vomiting and [...] blastic lesions are noted within bony skeleton. ANABELA Johnson IMPRESSION: No acute intra-abdominal or int rapelvic pathology. Chronic changes are PAGE 1 Signed Report (CONTINUED) Name: SAMIR FITZPATRICK [facility] : 1970 Age/S: 48 / F [address] [facility] Unit #: [id number] Loc: [place], [place] [address] Phys: [place] Coon MD Acct: [id number] Dis Date: Status: REG ER PHONE #: [phone] Exam Date: 12/15/2018 1042 FAX #: [phone] Reason: abd pain vomit diarrhea EXAMS: CPT CODE: [id number] CT ABD PELVIS W/CONT [id number] <Continued> unchanged with markedly enlarged fibroid uterus [...] RT(R)(CT) CTDI: DLP: Trnscb Date/Time: 12/15/2018 (1117) t.SDR.TH4 Orig Print D/T: S: 12/15/2018 (1121) PAGE 2 Signed Report URINALYSIS [id number] 10:53:00* Test Item Value Reference Range Interpretation Comments UA COLOR (test code = COLU) YELLOW YELLOW UA APPEARANCE (test code = APPU) CLOUDY CLEAR A UA GLUCOSE DIPSTICK (test code = DGLUU) NEGATIVE mg/dL NEGATIVE UA BILIRUBIN DIPSTICK (test code = BILU) 2+ (Mod 2.0-4.0) NEGATIVE UA KETONE DIPSTICK (test code = KETU) 1+ mg/dL NEGATIVE UA SPECIFIC GRAVITY (test code = SGU) >=1.030 1.001-1.035 UA BLOOD DIPSTICK (test code = GABE) TRACE NEGATIVE UA PH DIPSTICK (test code = BRE) 5.5 5.0-8.0 UA PROTEIN DIPSTICK (test code = PROU) 1+ mg/dL Neg-15 UA UROBILINIOGEN DIPSTICK (test code = URO) 0.2 mg/dL 0.0-0.2 UA NITRITE DIPSTICK (test code = APRIL) NEGATIVE NEGATIVE UA LEUKOCYTE ESTERASE W REFLEX (test code = LEUUR) NEGATIVE NEG ATIVE UA WBC (test code = WBCU) per HPF 0-5 UA RBC (test code = RBCU) per HPF 0-5 UA EPITHELIAL CELLS (test code = EPIU) per HPF Few UA BACTERIA (test code = BACU) per HPF NONE Urine Source? Clean CatchBASIC METABOLIC [id number] 10:15:00* Test Item Value Reference Range Interpretation Comments SODIUM (test code = NA) 141 mmol/L 136-145 N POTASSIUM (test code = K) 3.2 mmol/L 3.5-5.1 L CHLORIDE (test code = CL) 107.0 mmol/L 98-107 N CARBON DIOXIDE (test code = CO2) 22.0 mmol/L 21-32 N ANION GAP (test code = GAP) 15.2 10-20 N GLUCOSE (test code = GLU) 100 mg/dL 74-106 N BLOOD UREA NITROGEN (test code = BUN) 11 mg/dL 7-18 N GLOMERULAR FILTRATION RATE (test code = GFR) > 60 mL/min >=60 Estimated GFR by using Modified MDRD formula.Chronic kidney disease is defined as either kidney damageor GFR <60 mL/min/1.73 m2 for >3 months. CREATININE (test code = CREAT) 0.80 mg/dL 0.55-1.02 N Note change in reference range due to change in reagent. BUN/CREATININE RATIO (test code = BUN/CREA) 13.4 10-20 N CALCIUM (test code = CA) 9.1 mg/dL 8.5-10.1 N HEPATIC FUNCTION [id number] 10:15:00* Test Item Value Reference Range Interpretation Comments TOTAL PROTEIN (test code = PROT) 8.2 gram/dL 6.4-8.2 N ALBUMIN (test code = ALB) 3.6 g/dL 3.4-5.0 N GLOBULIN (test code = GLOB) 4.6 gram/dL 2.7-4.2 H ALBUMIN/GLOBULIN RATIO (test code = A/G) 0.8 0.75-1.50 N BILIRUBIN TOTAL (test code = BILT) 0.90 mg/dL 0.0-1.0 N BILIRUBIN DIRECT (test code = BILD) 0.20 mg/dL 0.0-0.20 N SGOT/AST (test code = AST) 17 IUnit/L 15-37 N SGPT/ALT (test code = ALT) 29 IUnit/L 12-78 N ALKALINE PHOSPHATASE TOTAL (test code = ALKP) 88 IUnit/L 45-117 N Note change in reference range due to change in reagent. [id number] 10:15:00* Test Item Value Reference Range Interpretation Comments LIPASE (test code = LIP) 120 U/L 73.0-393.0 N HCG SERUM [id number] 10:15:00* Test Item Value Reference Range Interpretation Comments HCG SERUM QUAL (test code = HCGQL) NEGATIVE NEGATIVE This HCGQL test is NOT applicable for MALE patients.Check with nurse about probable order error.If Tumor Marker Test needed, nurse should order test "HCGTU"(Test #550.83634) [id number] 10:15:00* Test Item Value Reference Range Interpretation Comments TROPONIN-I (test code = TROPI) <0.015 ng/mL 0-0.045 N LACTIC [id number] 10:11:00* Test Item Value Reference Range Interpretation Comments LACTIC ACID (test code = LACT) 1.0 mmol/L 0.4-1.9 N SPECIMEN COMMENTS: repeat if >2 repeat in 3 hours.BASIC METABOLIC PANEL 2018-12-15 10:06:00* Test Item Value Reference Range Interpretation Comments SODIUM (test code = NA) 141 mmol/L 136-145 N POTASSIUM (test code = K) 3.2 mmol/L 3.5-5.1 L CHLORIDE (test code = CL) 107.0 mmol/L 98-107 N CARBON DIOXIDE (test code = CO2) mmol/L 21-32 ANION GAP (test code = GAP) 10-20 GLUCOSE (test code = GLU) mg/dL 74-106 BLOOD UREA NITROGEN (test code = BUN) mg/dL 7-18 GLOMERULAR FILTRATION RATE (test code = GFR) mL/min >=60 CREATININE (test code = CREAT) mg/dL 0.55-1.02 BUN/CREATININE RATIO (test code = BUN/CREA) 10-20 CALCIUM (test code = CA) mg/dL 8.5-10.1 HEPATIC FUNCTION [id number] 10:06:00* Test Item Value Reference Range Interpretation Comments TOTAL PROTEIN (test code = PROT) gram/dL 6.4-8.2 ALBUMIN (test code = ALB) g/dL 3.4-5.0 GLOBULIN (test code = GLOB) gram/dL 2.7-4.2 ALBUMIN/GLOBULIN RATIO (test code = A/G) 0.75-1.50 BILIRUBIN TOTAL (test code = BILT) mg/dL 0.0-1.0 BILIRUBIN DIRECT (test code = BILD) mg/dL 0.0-0.20 SGOT/AST (test code = AST) IUnit/L 15-37 SGPT/ALT (test code = ALT) IUnit/L 12-78 ALKALINE PHOSPHATASE TOTAL (test code = ALKP) IUnit/L 45-117 [id number] 10:06:00* Test Item Value Reference Range Interpretation Comments LIPASE (test code = LIP) U/L 73.0-393.0 HCG SERUM [id number] 10:06:00* Test Item Value Reference Range Interpretation Comments HCG SERUM QUAL (test code = HCGQL) NEGATIVE NEGATIVE This HCGQL test is NOT applicable for MALE patients.Check with nurse about probable order error.If Tumor Marker Test needed, nurse should order test "HCGTU"(Test #550.46244) [id number] 10:06:00* Test Item Value Reference Range Interpretation Comments TROPONIN-I (test code = TROPI) ng/mL 0-0.045 BASIC METABOLIC [id number] 10:05:00* Test Item Value Reference Range Interpretation Comments SODIUM (test code = NA) 141 mmol/L 136-145 N POTASSIUM (test code = K) 3.2 mmol/L 3.5-5.1 L CHLORIDE (test code = CL) 107.0 mmol/L 98-107 N CARBON DIOXIDE (test code = CO2) mmol/L 21-32 ANION GAP (test code = GAP) 10-20 GLUCOSE (test code = GLU) mg/dL 74-106 BLOOD UREA NITROGEN (test code = BUN) mg/dL 7-18 GLOMERULAR FILTRATION RATE (test code = GFR) mL/min >=60 CREATININE (test code = CREAT) mg/dL 0.55-1.02 BUN/CREATININE RATIO (test code = BUN/CREA) 10-20 CALCIUM (test code = CA) mg/dL 8.5-10.1 HEPATIC FUNCTION [id number] 10:05:00* Test Item Value Reference Range Interpretation Comments TOTAL PROTEIN (test code = PROT) gram/dL 6.4-8.2 ALBUMIN (test code = ALB) g/dL 3.4-5.0 GLOBULIN (test code = GLOB) gram/dL 2.7-4.2 ALBUMIN/GLOBULIN RATIO (test code = A/G) 0.75-1.50 BILIRUBIN TOTAL (test code = BILT) mg/dL 0.0-1.0 BILIRUBIN DIRECT (test code = BILD) mg/dL 0.0-0.20 SGOT/AST (test code = AST) IUnit/L 15-37 SGPT/ALT (test code = ALT) IUnit/L 12-78 ALKALINE PHOSPHATASE TOTAL (test code = ALKP) IUnit/L 45-117 [id number] 10:05:00* Test Item Value Reference Range Interpretation Comments LIPASE (test code = LIP) U/L 73.0-393.0 HCG SERUM [id number] 10:05:00* Test Item Value Reference Range Interpretation Comments HCG SERUM QUAL (test code = HCGQL) NEGATIVE [id number] 10:05:00* Test Item Value Reference Range Interpretation Comments TROPONIN-I (test code = TROPI) ng/mL 0-0.045 CBC W/O [id number] 09:56:00* Test Item Value Reference Range Interpretation Comments WHITE BLOOD CELL (test code = WBC) 7.4 K/mm3 4.5-12.5 N RED BLOOD CELL (test code = RBC) 4.52 mill/mm3 3.7-5.2 N HEMOGLOBIN (test code = HGB) 11.7 gram/dL 11.5-15.5 N HEMATOCRIT (test code = HCT) 36.9 % 36.0-46.0 N MEAN CELL VOLUME (test code = MCV) 81.6 fL 80-98 N MEAN CELL HGB (test code = MCH) 25.9 picogram 27.0-33.0 L MEAN CELL HGB CONCETRATION (test code = MCHC) 31.7 gram/dL 33.0-36. 0 L RED CELL DISTRIBUTION WIDTH (test code = RDW) 17.0 % 11.6-16. 2 H PLATELET COUNT (test code = PLT) 354 K/mm3 150-450 N MEAN PLATELET VOLUME (test code = MPV) 10.0 fL 6.7-11.0 N POC LACTIC [id number] 09:43:00* Test Item Value Reference Range Interpretation Comments POC LACTIC ACID (test code = POCLAC) 0.98 MMOL/L 0.4-2.2 N COMPREHENSIVE METABOLIC [id number] 00:00:00* Test Item Value Reference Range Interpretation Comments SODIUM (test code = NA) 142 mmol/L 136-145 N POTASSIUM (test code = K) 3.3 mmol/L 3.5-5.1 L CHLORIDE (test code = CL) 110.0 mmol/L 98-107 H CARBON DIOXIDE (test code = CO2) 23.0 mmol/L 21-32 N ANION GAP (test code = GAP) 12.3 10-20 N GLUCOSE (test code = GLU) 130 mg/dL 74-106 H BLOOD UREA NITROGEN (test code = BUN) 11 mg/dL 7-18 N GLOMERULAR FILTRATION RATE (test code = GFR) > 60 mL/min >=60 Estimated GFR by using Modified MDRD formula.Chronic kidney disease is defined as either kidney damageor GFR <60 mL/min/1.73 m2 for >3 months. CREATININE (test code = CREAT) 0.90 mg/dL 0.55-1.02 N Note change in reference range due to change in reagent. BUN/CREATININE RATIO (test code = BUN/CREA) 12.0 10-20 N TOTAL PROTEIN (test code = PROT) 7.8 gram/dL 6.4-8.2 N ALBUMIN (test code = ALB) 3.5 g/dL 3.4-5.0 N GLOBULIN (test code = GLOB) 4.3 gram/dL 2.7-4.2 H ALBUMIN/GLOBULIN RATIO (test code = A/G) 0.8 0.75-1.50 N CALCIUM (test code = CA) 8.9 mg/dL 8.5-10.1 N BILIRUBIN TOTAL (test code = BILT) 0.20 mg/dL 0.0-1.0 N SGOT/AST (test code = AST) 17 IUnit/L 15-37 N SGPT/ALT (test code = ALT) 32 IUnit/L 12-78 N ALKALINE PHOSPHATASE TOTAL (test code = ALKP) 73 IUnit/L 45-117 N Note change in reference range due to change in reagent. COMPREHENSIVE METABOLIC [id number] 23:58:00* Test Item Value Reference Range Interpretation Comments SODIUM (test code = NA) 142 mmol/L 136-145 N POTASSIUM (test code = K) 3.3 mmol/L 3.5-5.1 L CHLORIDE (test code = CL) 110.0 mmol/L 98-107 H CARBON DIOXIDE (test code = CO2) mmol/L 21-32 ANION GAP (test code = GAP) 10-20 GLUCOSE (test code = GLU) mg/dL 74-106 BLOOD UREA NITROGEN (test code = BUN) mg/dL 7-18 GLOMERULAR FILTRATION RATE (test code = GFR) mL/min >=60 CREATININE (test code = CREAT) mg/dL 0.55-1.02 BUN/CREATININE RATIO (test code = BUN/CREA) 10-20 TOTAL PROTEIN (test code = PROT) gram/dL 6.4-8.2 ALBUMIN (test code = ALB) g/dL 3.4-5.0 GLOBULIN (test code = GLOB) gram/dL 2.7-4.2 ALBUMIN/GLOBULIN RATIO (test code = A/G) 0.75-1.50 CALCIUM (test code = CA) mg/dL 8.5-10.1 BILIRUBIN TOTAL (test code = BILT) mg/dL 0.0-1.0 SGOT/AST (test code = AST) IUnit/L 15-37 SGPT/ALT (test code = ALT) IUnit/L 12-78 ALKALINE PHOSPHATASE TOTAL (test code = ALKP) IUnit/L 45-117 PROTHROMBIN [id number] 23:56:00* Test Item Value Reference Range Interpretation Comments PROTHROMBIN TIME PATIENT (test code = PTP) 11.9 seconds 9.0-14.0 N INTERNATIONAL NORMAL RATIO (test code = INR) 1.0 0.8-1.2 N The therapeutic range for oral anticoagulant therapy [...] (2.5-3.5) IS PATIENT ON ANTICOAGULANTS? NTHROMBOPLASTIN TIME [id number] 23:56:00* Test Item Value Reference Range Interpretation Comments THROMBOPLASTIN TIME PARTIAL (test code = PTT) 28.5 seconds 25.0-36. 5 N IS PATIENT ON ANTICOAGULANTS? NCBC W/AUTO [id number] 23:43:00* Test Item Value Reference Range Interpretation Comments WHITE BLOOD CELL (test code = WBC) 9.9 K/mm3 4.5-12.5 N RED BLOOD CELL (test code = RBC) 4.14 mill/mm3 3.7-5.2 N HEMOGLOBIN (test code = HGB) 10.9 gram/dL 11.5-15.5 L HEMATOCRIT (test code = HCT) 34.8 % 36.0-46.0 L MEAN CELL VOLUME (test code = MCV) 84.1 fL 80-98 N MEAN CELL HGB (test code = MCH) 26.3 picogram 27.0-33.0 L MEAN CELL HGB CONCETRATION (test code = MCHC) 31.3 gram/dL 33.0-36. 0 L RED CELL DISTRIBUTION WIDTH (test code = RDW) 16.9 % 11.6-16. 2 H RED CELL DISTRIBUTION WIDTH SD (test code = RDW-SD) 51.5 fL 37 .0-51.0 H PLATELET COUNT (test code = PLT) 365 K/mm3 150-450 N MEAN PLATELET VOLUME (test code = MPV) 10.5 fL 6.7-11.0 N NEUTROPHIL % (test code = NT%) 60.5 % 39.0-69.0 N IMMATURE GRANULOCYTE % (test code = IG%) 0.5 % 0.0-5.0 N LYMPHOCYTE % (test code = LY%) 29.5 % 25.0-55.0 N MONOCYTE % (test code = MO%) 7.1 % 0.0-10.0 N EOSINOPHIL % (test code = EO%) 1.9 % 0.0-5.0 N BASOPHIL % (test code = BA%) 0.5 % 0.0-1.0 N NUCLEATED RBC % (test code = NRBC%) 0.0 % 0-0 N NEUTROPHIL # (test code = NT#) 5.99 K/mm3 1.8-7.7 N IMMATURE GRANULOCYTE # (test code = IG#) 0.05 x10 3/uL 0-0.03 H LYMPHOCYTE # (test code = LY#) 2.92 K/mm3 1.0-5.0 N MONOCYTE # (test code = MO#) 0.70 K/mm3 0-0.8 N EOSINOPHIL # (test code = EO#) 0.19 K/mm3 0.0-0.5 N BASOPHIL # (test code = BA#) 0.05 K/mm3 0.0-0.2 N NUCLEATED RBC # (test code = NRBC#) 0.00 K/mm3 0.0-0.1 N URINALYSIS [id number] 16:44:00* Test Item Value Reference Range Interpretation Comments UA COLOR (test code = COLU) LUKASZ YELLOW A UA APPEARANCE (test code = APPU) HAZY CLEAR A UA GLUCOSE DIPSTICK (test code = DGLUU) TRACE mg/dL NEGATIVE UA BILIRUBIN DIPSTICK (test code = BILU) 1+ (Small 0.5-1.0) NEGATIV E UA KETONE DIPSTICK (test code = KETU) NEGATIVE mg/dL NEGATIVE UA SPECIFIC GRAVITY (test code = SGU) >=1.030 1.001-1.035 UA BLOOD DIPSTICK (test code = GABE) 3+ (Large) NEGATIVE A UA PH DIPSTICK (test code = BRE) 5.5 5.0-8.0 UA PROTEIN DIPSTICK (test code = PROU) 100 (2+) mg/dL Neg-15 UA UROBILINIOGEN DIPSTICK (test code = URO) 2.0 (1+) mg/dL 0.0-0.2 UA NITRITE DIPSTICK (test code = APRIL) POSITIVE NEGATIVE UA LEUKOCYTE ESTERASE W REFLEX (test code = LEUUR) TRACE NEG ATIVE A UA WBC (test code = WBCU) 51-100 per HPF 0-5 A UA RBC (test code = RBCU) >200 #/HPF 0-5 UA EPITHELIAL CELLS (test code = EPIU) FEW per HPF FEW UA BACTERIA (test code = BACU) FEW #/HPF NONE A UA CALCIUM OXALATE CRYSTALS (test code = CAOXU) FEW #/HPF NONE A UA MUCUS (test code = MUCU) FEW #/LPF FEW Urine Source? Clean CatchURINALYSIS [id number] 16:30:00* Test Item Value Reference Range Interpretation Comments UA COLOR (test code = COLU) YELLOW UA APPEARANCE (test code = APPU) CLEAR UA BILIRUBIN DIPSTICK (test code = BILU) NEGATIVE UA SPECIFIC GRAVITY (test code = SGU) 1.001-1.035 UA PH DIPSTICK (test code = BRE) 5.0-8.0 UA UROBILINIOGEN DIPSTICK (test code = URO) mg/dL 0.0-0.2 UA NITRITE DIPSTICK (test code = APRIL) NEGATIVE UA LEUKOCYTE ESTERASE W REFLEX (test code = LEUUR) NEG ATIVE UA WBC (test code = WBCU) 51-100 per HPF 0-5 A UA RBC (test code = RBCU) >200 #/HPF 0-5 UA EPITHELIAL CELLS (test code = EPIU) FEW per HPF FEW UA BACTERIA (test code = BACU) FEW #/HPF NONE A UA CALCIUM OXALATE CRYSTALS (test code = CAOXU) FEW #/HPF NONE A UA MUCUS (test code = MUCU) FEW #/LPF FEW Urine Source? Clean Catch- CT ABD PELVIS W/O [id number] 15:50:00 Name: SAMIR FITZPATRICK [facility] : 1970 Age/S: 48 / F [address] Unit #: [id number] Loc: MURALI Tyson [address] Phys: Krystal Jhaveri DO Acct: [id number] Di s Date: Status: REG ER PHONE #: Exam Date: 11/26/2018 1533 FAX #: Reason: FLANK PAIN, HEMATURIA EXAMS: CPT CODE: [id number] CT ABD PELVIS W/O CONT 01793 REASON FOR EXAM: FLANK PAIN, HEMATURIA EXAM ORDER DATE: 11/26/2018 2:07 PM Ordering Darrell: Rhonda Jhaveri DO PROCEDURE: - CT ABD [...] Suh CTDI: DLP: Trnscb Date/Time: 05/2018 (1550) t.TAYOR.VTL Orig Print D/T: S: 11/26/2018 (15 42) PAGE 1 Signed Report CBC W/O [id number] 15:25:00* Test Item Value Reference Range Interpretation Comments WHITE BLOOD CELL (test code = WBC) 6.3 K/mm3 4.5-12.5 N RED BLOOD CELL (test code = RBC) 4.24 mill/mm3 3.7-5.2 N HEMOGLOBIN (test code = HGB) 11.0 gram/dL 11.5-15.5 L HEMATOCRIT (test code = HCT) 35.5 % 36.0-46.0 L MEAN CELL VOLUME (test code = MCV) 83.7 fL 80-98 N MEAN CELL HGB (test code = MCH) 25.9 picogram 27.0-33.0 L MEAN CELL HGB CONCETRATION (test code = MCHC) 31.0 gram/dL 33.0-36. 0 L RED CELL DISTRIBUTION WIDTH (test code = RDW) 17.0 % 11.6-16. 2 H PLATELET COUNT (test code = PLT) 359 K/mm3 150-450 N MEAN PLATELET VOLUME (test code = MPV) 10.3 fL 6.7-11.0 N BASIC METABOLIC [id number] 15:10:00* Test Item Value Reference Range Interpretation Comments SODIUM (test code = NA) 140 mmol/L 136-145 N POTASSIUM (test code = K) 3.8 mmol/L 3.5-5.1 N CHLORIDE (test code = CL) 108.0 mmol/L 98-107 H CARBON DIOXIDE (test code = CO2) 22.0 mmol/L 21-32 N ANION GAP (test code = GAP) 13.8 10-20 N GLUCOSE (test code = GLU) 87 mg/dL 74-106 N BLOOD UREA NITROGEN (test code = BUN) 10 mg/dL 7-18 N GLOMERULAR FILTRATION RATE (test code = GFR) > 60 mL/min >=60 Estimated GFR by using Modified MDRD formula.Chronic kidney disease is defined as either kidney damageor GFR <60 mL/min/1.73 m2 for >3 months. CREATININE (test code = CREAT) 0.80 mg/dL 0.55-1.02 N Note change in reference range due to change in reagent. BUN/CREATININE RATIO (test code = BUN/CREA) 12.7 10-20 N CALCIUM (test code = CA) 9.0 mg/dL 8.5-10.1 N HEPATIC FUNCTION [id number] 15:10:00* Test Item Value Reference Range Interpretation Comments TOTAL PROTEIN (test code = PROT) 7.8 gram/dL 6.4-8.2 N ALBUMIN (test code = ALB) 3.3 g/dL 3.4-5.0 L GLOBULIN (test code = GLOB) 4.5 gram/dL 2.7-4.2 H ALBUMIN/GLOBULIN RATIO (test code = A/G) 0.7 0.75-1.50 L BILIRUBIN TOTAL (test code = BILT) 0.40 mg/dL 0.0-1.0 N BILIRUBIN DIRECT (test code = BILD) 0.16 mg/dL 0.0-0.20 N SGOT/AST (test code = AST) 22 IUnit/L 15-37 N SGPT/ALT (test code = ALT) 36 IUnit/L 12-78 N ALKALINE PHOSPHATASE TOTAL (test code = ALKP) 75 IUnit/L 45-117 N Note change in reference range due to change in reagent. [id number] 15:10:00* Test Item Value Reference Range Interpretation Comments LIPASE (test code = LIP) 92 U/L 73.0-393.0 N HCG SERUM [id number] 15:10:00* Test Item Value Reference Range Interpretation Comments HCG SERUM QUAL (test code = HCGQL) NEGATIVE NEGATIVE This HCGQL test is NOT applicable for MALE patients.Check with nurse about probable order error.If Tumor Marker Test needed, nurse should order test "HCGTU"(Test #550.09907) BASIC METABOLIC [id number] 15:03:00* Test Item Value Reference Range Interpretation Comments SODIUM (test code = NA) mmol/L 136-145 POTASSIUM (test code = K) mmol/L 3.5-5.1 CHLORIDE (test code = CL) mmol/L 98-107 CARBON DIOXIDE (test code = CO2) mmol/L 21-32 ANION GAP (test code = GAP) 10-20 GLUCOSE (test code = GLU) mg/dL 74-106 BLOOD UREA NITROGEN (test code = BUN) mg/dL 7-18 GLOMERULAR FILTRATION RATE (test code = GFR) mL/min >=60 CREATININE (test code = CREAT) mg/dL 0.55-1.02 BUN/CREATININE RATIO (test code = BUN/CREA) 10-20 CALCIUM (test code = CA) mg/dL 8.5-10.1 HEPATIC FUNCTION [id number] 15:03:00* Test Item Value Reference Range Interpretation Comments TOTAL PROTEIN (test code = PROT) gram/dL 6.4-8.2 ALBUMIN (test code = ALB) g/dL 3.4-5.0 GLOBULIN (test code = GLOB) gram/dL 2.7-4.2 ALBUMIN/GLOBULIN RATIO (test code = A/G) 0.75-1.50 BILIRUBIN TOTAL (test code = BILT) mg/dL 0.0-1.0 BILIRUBIN DIRECT (test code = BILD) mg/dL 0.0-0.20 SGOT/AST (test code = AST) IUnit/L 15-37 SGPT/ALT (test code = ALT) IUnit/L 12-78 ALKALINE PHOSPHATASE TOTAL (test code = ALKP) IUnit/L 45-117 [id number] 15:03:00* Test Item Value Reference Range Interpretation Comments LIPASE (test code = LIP) U/L 73.0-393.0 HCG SERUM [id number] 15:03:00* Test Item Value Reference Range Interpretation Comments HCG SERUM QUAL (test code = HCGQL) NEGATIVE NEGATIVE This HCGQL test is NOT applicable for MALE patients.Check with nurse about probable order error.If Tumor Marker Test needed, nurse should order test "HCGTU"(Test #550.05398) - MRI L-SPINE W WO [id number] 04:14:00 FAX: Caleb Osman MD [phone] [place]: St: [facility] FAX: Oj Mackenzie MD [phone] Name: SAMIR FITZPATRICK [facility] : 1970 Age/S: 48/F [address] [place] [address] Unit #: [id number] Loc: [place] [address] Phys: Oj Mackenzie MD Acct: [id number] Dis Date: Status: REG ER PHONE #: [phone] Exam Date: 11/22/2018 2248 FAX #: [phone] Reason: hx of ?compression fr acture acute worsening hira EXAMS: CPT CODE: [id number] MRI L-SPINE W WO CON 22900 Clinical Indication: History of compression fracture. Acute [...] Signed Report (CONTINUED) FAX: Caleb Osman MD [phone] [facility]: St: [facility] FAX: Oj Mackenzie MD [phone] Name: SAMIR FITZPATRICK [facility] : 1970 Age/S: 48/F [address] Unit #: [id number] Loc: [place] [address] Phys: Oj Mackenzie MD Acct: [id number] Dis Date: Status: REG ER PHONE #: [phone] Exam Date: 11/22/2018 2248 FAX #: [phone] Reason: hx of ?compression fracture acute worsening hira EXAMS: CPT CODE: [id number] MRI L-SPINE W WO CON 15060 < Continued> moderate bilateral lateral recess stenosis. [...] abnormal enhancement within the lumbar spine. SL: KPATEL-H at 0414 Reported and signed by: Waldo Lamb M.D. CC: Caleb Bah M.D.; Oj Mackenzie MD Technologist: RT Delia(R)(CT) Trnscrd Date/Time/By: 11/23/2018 (0414) : By: [email or web address] Orig Print D/T: S: 11/23/2018 (0417) PAGE 2 Signed Report - MRI THORACIC SPINE WO/W [id number] 03:53:00 FAX: Caleb Osman MD [phone] [place]: St: [facility] FAX: Oj Mackenzie MD [phone] Name: SAMIR FITZPATRICK [facility] : 1970 Age/S: 48/F [address] [place] [address] Unit #: [id number] Loc: [place] [address] Phys: Oj Mackenzie MD Acct: [id number] Dis Date: Status: REG ER PHONE #: [phone] Exam Date: 11/22/20188 FAX #: [phone] Reason: hx of ?compression fracture acute worsening hira EXAMS: CPT CODE: [id number] MRI THORACIC SPINE WO/W CON 33973 Clinical Indication: History of compression fracture. Worsening [...] Signed Report (CONTINUED) FAX: Caleb Osman MD [phone] [facility]: St: [facility] FAX: Oj Mackenzie MD [phone] Name: SAMIR FITZPATRICK [facility] : 1970 Age/S: 48/F [address] [place] [address] Unit #: [id number] Loc: [place] [address] Phys: Oj Mackenzie MD Acct: [id number] Dis Date: Status: REG ER PHONE #: [phone] Exam Date: 11/22/2018 2248 FAX #: [phone] Reason: hx of ?co mpression fracture acute worsening hira EXAMS: CPT CODE: [id number] MRI THORACIC SPINE WO/W CON 26687 <Continued> loss. No significant disc herniation. No [...] abnormal enhancement within the thoracic spine. SL: YAMIL PAGE 2 Signed Report (CONTINUED) FAX: Caleb Osman MD [phone] [facility]: St: REG FAX: Oj Mackenzie MD [phone] ---- Larry e: SAMIR FITZPATRICK [facility] : Age/S: 48/F [address] [place] [address] Unit #: [id number] Loc: [place] [address] Phys: Oj Mackenzie MD Acct: [id number] Dis Memo e: Status: REG ER PHONE #: [phone] Exam Date: 11/22/20182247 FAX #: Reason: hx of ?compression fracture acute worsening hira EXAMS: CPT CODE: [id number] MRI THORACIC SPI NE WO/W CON 97540 <Continued> at 0353 Reported and signed by: Waldo Lamb M.D. CC: Caleb Bah M.D.; Oj Mackenzie MD Technologist: Reema Huerta RT(R)(CT) Trnscrd Date/Time/By: 11/23/2018 (0353) : By: [email or web address] Orig Print D/T: S: 11/23/2018 (0357) PAGE 3 Signed Report - MRI C-SPINE W W/O [id number] 03:35:00 FAX: Caleb Osman MD [phone] [facility]: St: REG FAX: Oj Mackenzie MD [phone] Name: RACHELFARZADSAMIR [facility] : 1970 Age/S: 48/F [address] [place] [address] Unit #: [id number] Loc: [place] [address] Phys: Oj Mackenzie MD Acct: [id number] Dis Date: Status: REG ER PHONE #: [phone] Exam Date: 11/22/2018 2247 FAX #: [phone] Reason: hx of ?compression fr acture acute worsening hira EXAMS: CPT CODE: [id number] MRI C-SPINE W W/O CONT 88257 Clinical Indication: History of compression fracture. Acute [...] Report (CONTINUED) F AX: Caleb Osman MD [phone] [facility]: St: REG FAX: Oj Mackenzie MD [phone] Name: SAMIR FITZPATRICK [facility] : 1970 Age/S: 48/F [address] [facility] Unit #: [id number] Loc: [place] [address] Phys: Oj Mackenzie MD Acct: [id number] Dis Date: Status: REG ER PHONE #: [phone] Exam Date: 11/22/2018 224 FAX #: [phone] Reason: hx of ?compression frac ture acute worsening hira EXAMS: CPT CODE: [id number] MRI C-SPINE W W/O CONT 93539 <Continued> foraminal narrowing. C5-C6: Small broad-based disc [...] Delia(R)(CT) Trnscrd Date/Time/By: 11/23/2018 (0335) : By: [email or web address] Orig Print D/T: S: 11/23/2018 (0338) PAGE 2 Signed Report BASIC METABOLIC [id number] 01:57:00* Test Item Value Reference Range Interpretation Comments SODIUM (test code = NA) 140 mEq/L 134-147 N POTASSIUM (test code = K) 3.7 mEq/L 3.4-5.0 N CHLORIDE (test code = CL) 110 mEq/L 100-108 H CARBON DIOXIDE (test code = CO2) 24 mEq/L 21-33 N ANION GAP (test code = GAP) 10 0-20 N GLUCOSE (test code = GLU) 100 mg/dL 70-110 N BLOOD UREA NITROGEN (test code = BUN) 10 mg/dL 7-18 N GLOMERULAR FILTRATION RATE (test code = GFR) 89.3 95-105 L Units of measure = ml/min/1.73 m2 CREATININE (test code = CREAT) 0.7 mg/dL 0.6-1.3 N CALCIUM (test code = CA) 8.1 mg/dL 8.0-10.5 N HCG SERUM [id number] 01:57:00* Test Item Value Reference Range Interpretation Comments HCG SERUM QUAL (test code = HCGQL) SERUM NEGATIVE NEGATIVE BASIC METABOLIC [id number] 01:52:00* Test Item Value Reference Range Interpretation Comments SODIUM (test code = NA) mEq/L 134-147 POTASSIUM (test code = K) mEq/L 3.4-5.0 CHLORIDE (test code = CL) mEq/L 100-108 CARBON DIOXIDE (test code = CO2) mEq/L 21-33 ANION GAP (test code = GAP) 0-20 GLUCOSE (test code = GLU) mg/dL 70-110 BLOOD UREA NITROGEN (test code = BUN) mg/dL 7-18 GLOMERULAR FILTRATION RATE (test code = GFR) 95-105 CREATININE (test code = CREAT) mg/dL 0.6-1.3 CALCIUM (test code = CA) mg/dL 8.0-10.5 HCG SERUM [id number] 01:52:00* Test Item Value Reference Range Interpretation Comments HCG SERUM QUAL (test code = HCGQL) SERUM NEGATIVE NEGATIVE CBC W/AUTO [id number] 01:34:00* Test Item Value Reference Range Interpretation Comments WHITE BLOOD CELL (test code = WBC) 8.13 x10 3/uL 4.5-11.0 N RED BLOOD CELL (test code = RBC) 4.17 x10 6/uL 3.54-5.02 N HEMOGLOBIN (test code = HGB) 10.9 g/dL 11.0-15.0 L HEMATOCRIT (test code = HCT) 34.9 % 33.0-45.0 N MEAN CELL VOLUME (test code = MCV) 83.7 fL 81.0-99.0 N MEAN CELL HGB (test code = MCH) 26.1 pg 27.0-33.0 L MEAN CELL HGB CONCETRATION (test code = MCHC) 31.2 g/dL 33.0-37. 0 L RED CELL DISTRIBUTION WIDTH CV (test code = RDW) 16.2 % 11.5- 14.5 H RED CELL DISTRIBUTION WIDTH SD (test code = RDW-SD) 49.6 fL 37 .0-54.0 N PLATELET COUNT (test code = PLT) 366 x10 3/uL 150-400 N MEAN PLATELET VOLUME (test code = MPV) 10.2 fL 7.0-9.0 H NEUTROPHIL % (test code = NT%) 61.5 % 56.0-77.0 N IMMATURE GRANULOCYTE % (test code = IG%) 0.4 % 0.0-2.0 N LYMPHOCYTE % (test code = LY%) 27.2 % 14.0-32.0 N MONOCYTE % (test code = MO%) 7.1 % 4.8-9.0 N EOSINOPHIL % (test code = EO%) 3.3 % 0.3-3.7 N BASOPHIL % (test code = BA%) 0.5 % 0.0-2.0 N NUCLEATED RBC % (test code = NRBC%) 0.0 % 0-0 N NEUTROPHIL # (test code = NT#) 5.00 x10 3/uL 2.0-7.6 N IMMATURE GRANULOCYTE # (test code = IG#) 0.03 x10 3/uL 0.00-0.03 N LYMPHOCYTE # (test code = LY#) 2.21 x10 3/uL 1.0-3.8 N MONOCYTE # (test code = MO#) 0.58 x10 3/uL 0.1-0.8 N EOSINOPHIL # (test code = EO#) 0.27 x10 3/uL 0.0-0.2 H BASOPHIL # (test code = BA#) 0.04 x10 3/uL 0.0-0.2 N NUCLEATED RBC # (test code = NRBC#) 0.00 x10 3/uL 0.0-0.1 N MANUAL DIFF REQUIRED (test code = MDIFF) NO URINALYSIS [id number] 01:25:00* Test Item Value Reference Range Interpretation Comments UA COLOR (test code = COLU) YELLOW YELLOW UA APPEARANCE (test code = APPU) Cloudy CLEAR A UA GLUCOSE DIPSTICK (test code = DGLUU) NEGATIVE mg/dL NEGATIVE UA BILIRUBIN DIPSTICK (test code = BILU) NEGATIVE mg/dL NEGATIVE UA KETONE DIPSTICK (test code = KETU) NEGATIVE mg/dL NEGATIVE UA SPECIFIC GRAVITY (test code = SGU) 1.024 1.001-1.035 UA BLOOD DIPSTICK (test code = GABE) 0.03 mg/dL (Trace) mg/dL NEGATI VE A UA PH DIPSTICK (test code = BRE) 6.0 5.0-8.0 UA PROTEIN DIPSTICK (test code = PROU) 30 (1+) mg/dL NEGATIVE A UA UROBILINIOGEN DIPSTICK (test code = URO) 2.0 (1+) mg/dL NEGATIVE A UA NITRITE DIPSTICK (test code = APRIL) NEGATIVE NEGATIVE UA LEUKOCYTE ESTERASE W REFLEX (test code = LEUUR) 500 Curtis/u L (3+) Curtis/uL NEGATIVE A UA WBC (test code = WBCU) 101-150 per HPF 0-5 A UA RBC (test code = RBCU) 6-10 #/HPF 0-5 A UA WBC CLUMPS (test code = WBCUCL) 7-10 /HPF NONE A UA EPITHELIAL CELLS (test code = EPIU) FEW per HPF FEW UA BACTERIA (test code = BACU) FEW #/HPF NONE A UA MUCUS (test code = MUCU) FEW #/LPF FEW Urine Source? CatheterURINALYSIS [id number] 01:23:00* Test Item Value Reference Range Interpretation Comments UA COLOR (test code = COLU) YELLOW YELLOW UA APPEARANCE (test code = APPU) Cloudy CLEAR A UA GLUCOSE DIPSTICK (test code = DGLUU) NEGATIVE mg/dL NEGATIVE UA BILIRUBIN DIPSTICK (test code = BILU) NEGATIVE mg/dL NEGATIVE UA KETONE DIPSTICK (test code = KETU) NEGATIVE mg/dL NEGATIVE UA SPECIFIC GRAVITY (test code = SGU) 1.024 1.001-1.035 UA BLOOD DIPSTICK (test code = GABE) 0.03 mg/dL (Trace) mg/dL NEGATI VE A UA PH DIPSTICK (test code = BRE) 6.0 5.0-8.0 UA PROTEIN DIPSTICK (test code = PROU) 30 (1+) mg/dL NEGATIVE A UA UROBILINIOGEN DIPSTICK (test code = URO) 2.0 (1+) mg/dL NEGATIVE A UA NITRITE DIPSTICK (test code = APRIL) NEGATIVE NEGATIVE UA LEUKOCYTE ESTERASE W REFLEX (test code = LEUUR) 500 Curtis/u L (3+) Curtis/uL NEGATIVE A UA WBC (test code = WBCU) per HPF 0-5 UA RBC (test code = RBCU) per HPF 0-5 UA EPITHELIAL CELLS (test code = EPIU) per HPF Few UA BACTERIA (test code = BACU) per HPF NONE Urine Source? CatheterURINALYSIS [id number] 02:36:00* Test Item Value Reference Range Interpretation Comments UA COLOR (test code = COLU) Light-Yellow YELLOW UA APPEARANCE (test code = APPU) CLEAR CLEAR UA GLUCOSE DIPSTICK (test code = DGLUU) NEGATIVE mg/dL NEGATIVE UA BILIRUBIN DIPSTICK (test code = BILU) NEGATIVE mg/dL NEGATIVE UA KETONE DIPSTICK (test code = KETU) NEGATIVE mg/dL NEGATIVE UA SPECIFIC GRAVITY (test code = SGU) 1.018 1.001-1.035 UA BLOOD DIPSTICK (test code = GABE) Negative mg/dL NEGATIVE UA PH DIPSTICK (test code = BRE) 5.5 5.0-8.0 UA PROTEIN DIPSTICK (test code = PROU) 10 (Trace) mg/dL NEGATIVE A UA UROBILINIOGEN DIPSTICK (test code = URO) Normal mg/dL NEGATIVE UA NITRITE DIPSTICK (test code = APRIL) NEGATIVE NEGATIVE UA LEUKOCYTE ESTERASE W REFLEX (test code = LEUUR) 250 Curtis/u L (2+) Curtis/uL NEGATIVE A UA WBC (test code = WBCU) 6-10 per HPF 0-5 A UA RBC (test code = RBCU) 0-2 #/HPF 0-5 UA EPITHELIAL CELLS (test code = EPIU) FEW per HPF FEW UA BACTERIA (test code = BACU) FEW #/HPF NONE A UA MUCUS (test code = MUCU) FEW #/LPF FEW Urine Source? Clean CatchPROCALCITONIN (PCT)2018-10-21 02:07:00* Test Item Value Reference Range Interpretation Comments PROCALCITONIN (PCT) (test code = PROCAL) < 0.05 ng/ml Concentration Interpretation (ng/mL) <0.51 [...] taking into account the patients history. LACTIC [id number] 02:01:00* Test Item Value Reference Range Interpretation Comments LACTIC ACID (test code = LACT) 1.8 mmol/L 0.4-1.9 N BASIC METABOLIC [id number] 02:01:00* Test Item Value Reference Range Interpretation Comments SODIUM (test code = NA) 143 mmol/L 136-145 N POTASSIUM (test code = K) 3.9 mmol/L 3.5-5.1 N CHLORIDE (test code = CL) 112.0 mmol/L 98-107 H CARBON DIOXIDE (test code = CO2) 20.0 mmol/L 21-32 L ANION GAP (test code = GAP) 14.9 10-20 N GLUCOSE (test code = GLU) 101 mg/dL 74-106 N BLOOD UREA NITROGEN (test code = BUN) 12 mg/dL 7-18 N GLOMERULAR FILTRATION RATE (test code = GFR) > 60 mL/min >=60 Estimated GFR by using Modified MDRD formula.Chronic kidney disease is defined as either kidney damageor GFR <60 mL/min/1.73 m2 for >3 months. CREATININE (test code = CREAT) 0.90 mg/dL 0.55-1.02 N Note change in reference range due to change in reagent. BUN/CREATININE RATIO (test code = BUN/CREA) 13.3 10-20 N CALCIUM (test code = CA) 9.6 mg/dL 8.5-10.1 N HEPATIC FUNCTION [id number] 02:01:00* Test Item Value Reference Range Interpretation Comments TOTAL PROTEIN (test code = PROT) 8.2 gram/dL 6.4-8.2 N ALBUMIN (test code = ALB) 3.6 g/dL 3.4-5.0 N GLOBULIN (test code = GLOB) 4.6 gram/dL 2.7-4.2 H ALBUMIN/GLOBULIN RATIO (test code = A/G) 0.8 0.75-1.50 N BILIRUBIN TOTAL (test code = BILT) 0.40 mg/dL 0.0-1.0 N BILIRUBIN DIRECT (test code = BILD) 0.10 mg/dL 0.0-0.20 N SGOT/AST (test code = AST) 25 IUnit/L 15-37 N SGPT/ALT (test code = ALT) 55 IUnit/L 12-78 N ALKALINE PHOSPHATASE TOTAL (test code = ALKP) 91 IUnit/L 45-117 N Note change in reference range due to change in reagent. [id number] 02:01:00* Test Item Value Reference Range Interpretation Comments LIPASE (test code = LIP) 110 U/L 73.0-393.0 N HCG SERUM [id number] 02:01:00* Test Item Value Reference Range Interpretation Comments HCG SERUM QUAL (test code = HCGQL) NEGATIVE NEGATIVE This HCGQL test is NOT applicable for MALE patients.Check with nurse about probable order error.If Tumor Marker Test needed, nurse should order test "HCGTU"(Test #550.79993) [id number] 02:01:00* Test Item Value Reference Range Interpretation Comments TROPONIN-I (test code = TROPI) <0.015 ng/mL 0-0.045 N BASIC METABOLIC [id number] 01:50:00* Test Item Value Reference Range Interpretation Comments SODIUM (test code = NA) mmol/L 136-145 POTASSIUM (test code = K) mmol/L 3.5-5.1 CHLORIDE (test code = CL) mmol/L 98-107 CARBON DIOXIDE (test code = CO2) mmol/L 21-32 ANION GAP (test code = GAP) 10-20 GLUCOSE (test code = GLU) mg/dL 74-106 BLOOD UREA NITROGEN (test code = BUN) mg/dL 7-18 GLOMERULAR FILTRATION RATE (test code = GFR) mL/min >=60 CREATININE (test code = CREAT) mg/dL 0.55-1.02 BUN/CREATININE RATIO (test code = BUN/CREA) 10-20 CALCIUM (test code = CA) mg/dL 8.5-10.1 HEPATIC FUNCTION [id number] 01:50:00* Test Item Value Reference Range Interpretation Comments TOTAL PROTEIN (test code = PROT) gram/dL 6.4-8.2 ALBUMIN (test code = ALB) g/dL 3.4-5.0 GLOBULIN (test code = GLOB) gram/dL 2.7-4.2 ALBUMIN/GLOBULIN RATIO (test code = A/G) 0.75-1.50 BILIRUBIN TOTAL (test code = BILT) mg/dL 0.0-1.0 BILIRUBIN DIRECT (test code = BILD) mg/dL 0.0-0.20 SGOT/AST (test code = AST) IUnit/L 15-37 SGPT/ALT (test code = ALT) IUnit/L 12-78 ALKALINE PHOSPHATASE TOTAL (test code = ALKP) IUnit/L 45-117 [id number] 01:50:00* Test Item Value Reference Range Interpretation Comments LIPASE (test code = LIP) U/L 73.0-393.0 HCG SERUM [id number] 01:50:00* Test Item Value Reference Range Interpretation Comments HCG SERUM QUAL (test code = HCGQL) NEGATIVE NEGATIVE This HCGQL test is NOT applicable for MALE patients.Check with nurse about probable order error.If Tumor Marker Test needed, nurse should order test "HCGTU"(Test #550.73568) [id number] 01:50:00* Test Item Value Reference Range Interpretation Comments TROPONIN-I (test code = TROPI) ng/mL 0-0.045 BASIC METABOLIC [id number] 01:50:00* Test Item Value Reference Range Interpretation Comments SODIUM (test code = NA) 143 mmol/L 136-145 N POTASSIUM (test code = K) 3.9 mmol/L 3.5-5.1 N CHLORIDE (test code = CL) 112.0 mmol/L 98-107 H CARBON DIOXIDE (test code = CO2) mmol/L 21-32 ANION GAP (test code = GAP) 10-20 GLUCOSE (test code = GLU) mg/dL 74-106 BLOOD UREA NITROGEN (test code = BUN) mg/dL 7-18 GLOMERULAR FILTRATION RATE (test code = GFR) mL/min >=60 CREATININE (test code = CREAT) mg/dL 0.55-1.02 BUN/CREATININE RATIO (test code = BUN/CREA) 10-20 CALCIUM (test code = CA) mg/dL 8.5-10.1 HEPATIC FUNCTION [id number] 01:50:00* Test Item Value Reference Range Interpretation Comments TOTAL PROTEIN (test code = PROT) gram/dL 6.4-8.2 ALBUMIN (test code = ALB) g/dL 3.4-5.0 GLOBULIN (test code = GLOB) gram/dL 2.7-4.2 ALBUMIN/GLOBULIN RATIO (test code = A/G) 0.75-1.50 BILIRUBIN TOTAL (test code = BILT) mg/dL 0.0-1.0 BILIRUBIN DIRECT (test code = BILD) mg/dL 0.0-0.20 SGOT/AST (test code = AST) IUnit/L 15-37 SGPT/ALT (test code = ALT) IUnit/L 12-78 ALKALINE PHOSPHATASE TOTAL (test code = ALKP) IUnit/L 45-117 [id number] 01:50:00* Test Item Value Reference Range Interpretation Comments LIPASE (test code = LIP) U/L 73.0-393.0 HCG SERUM [id number] 01:50:00* Test Item Value Reference Range Interpretation Comments HCG SERUM QUAL (test code = HCGQL) NEGATIVE NEGATIVE This HCGQL test is NOT applicable for MALE patients.Check with nurse about probable order error.If Tumor Marker Test needed, nurse should order test "HCGTU"(Test #550.42006) [id number] 01:50:00* Test Item Value Reference Range Interpretation Comments TROPONIN-I (test code = TROPI) ng/mL 0-0.045 CBC W/O [id number] 01:26:00* Test Item Value Reference Range Interpretation Comments WHITE BLOOD CELL (test code = WBC) K/mm3 4.5-12.5 RED BLOOD CELL (test code = RBC) mill/mm3 3.7-5.2 HEMOGLOBIN (test code = HGB) 11.8 gram/dL 11.5-15.5 N HEMATOCRIT (test code = HCT) 37.7 % 36.0-46.0 N MEAN CELL VOLUME (test code = MCV) fL 80-98 MEAN CELL HGB (test code = MCH) picogram 27.0-33.0 MEAN CELL HGB CONCETRATION (test code = MCHC) gram/dL 33.0-36. 0 RED CELL DISTRIBUTION WIDTH (test code = RDW) % 11.6-16. 2 PLATELET COUNT (test code = PLT) K/mm3 150-450 MEAN PLATELET VOLUME (test code = MPV) fL 6.7-11.0 CBC W/O [id number] 01:26:00* Test Item Value Reference Range Interpretation Comments WHITE BLOOD CELL (test code = WBC) 8.6 K/mm3 4.5-12.5 N RED BLOOD CELL (test code = RBC) 4.48 mill/mm3 3.7-5.2 N HEMOGLOBIN (test code = HGB) 11.8 gram/dL 11.5-15.5 N HEMATOCRIT (test code = HCT) 37.7 % 36.0-46.0 N MEAN CELL VOLUME (test code = MCV) 84.2 fL 80-98 N MEAN CELL HGB (test code = MCH) 26.3 picogram 27.0-33.0 L MEAN CELL HGB CONCETRATION (test code = MCHC) 31.3 gram/dL 33.0-36. 0 L RED CELL DISTRIBUTION WIDTH (test code = RDW) 16.5 % 11.6-16. 2 H PLATELET COUNT (test code = PLT) 342 K/mm3 150-450 N MEAN PLATELET VOLUME (test code = MPV) 9.8 fL 6.7-11.0 N LACTIC [id number] 14:44:00* Test Item Value Reference Range Interpretation Comments LACTIC ACID (test code = LACT) 1.5 mmol/L 0.4-1.9 N URINALYSIS [id number] 13:08:00* Test Item Value Reference Range Interpretation Comments UA COLOR (test code = COLU) YELLOW YELLOW UA APPEARANCE (test code = APPU) CLEAR CLEAR UA GLUCOSE DIPSTICK (test code = DGLUU) NEGATIVE mg/dL NEGATIVE UA BILIRUBIN DIPSTICK (test code = BILU) NEGATIVE mg/dL NEGATIVE UA KETONE DIPSTICK (test code = KETU) NEGATIVE mg/dL NEGATIVE UA SPECIFIC GRAVITY (test code = SGU) 1.028 1.001-1.035 UA BLOOD DIPSTICK (test code = GABE) Negative mg/dL NEGATIVE UA PH DIPSTICK (test code = BRE) 6.0 5.0-8.0 UA PROTEIN DIPSTICK (test code = PROU) 10 (Trace) mg/dL NEGATIVE A UA UROBILINIOGEN DIPSTICK (test code = URO) Normal mg/dL NEGATIVE UA NITRITE DIPSTICK (test code = APRIL) NEGATIVE NEGATIVE UA LEUKOCYTE ESTERASE W REFLEX (test code = LEUUR) 500 Curtis/u L (3+) Curtis/uL NEGATIVE A UA WBC (test code = WBCU) 51-100 per HPF 0-5 A UA RBC (test code = RBCU) 0-2 #/HPF 0-5 UA EPITHELIAL CELLS (test code = EPIU) FEW per HPF FEW UA BACTERIA (test code = BACU) FEW #/HPF NONE A UA MUCUS (test code = MUCU) FEW #/LPF FEW Urine Source? Clean Catch- CT ABD PELVIS [id number] 11:21:00 Name: SAMIR FITZPATRICK [facility] : 1970 Age/S: 47 / F [address] [facility] Unit #: [id number] Loc: MURALI [place] [address] Phys: Juan Coon MD Acct: [id number] Di [id number] Date: Status: REG ER PHONE #: Exam Date: 09/22/2018 1107 FAX #: Reason: lower abd pain fever EXAMS: CPT CODE: [id number] CT ABD PELVIS W/CONT 72033 HISTORY: Lower abdominal pain and fever. COMPARISON: [...] 1 Signed Report (CONTINUED) Name: SAMIR FITZPATRICK [facility] : 1970 Age/S: 47 / F [address] [facility] Unit #: [id number] Loc: [place] [address] Phys: Modesto Coon MD Acct: [id number] Dis Date: Status: REG ER PHONE #: [phone] Exam Date: 019 1102 FAX #: [phone] Reason: lower abd pain fe geovanny EXAMS: CPT CODE: [id number] CT ABD PELVIS W/CONT 00582 <Continued> IMPRESSION: Appendix is not visible but [...] (1121) t.SDR.TH4 Orig Print D/T: S: 09/22/2018 (1129) PAGE 2 Signed Report HCG SERUM [id number] 10:22:00* Test Item Value Reference Range Interpretation Comments HCG SERUM QUAL (test code = HCGQL) NEGATIVE NEGATIVE This HCGQL test is NOT applicable for MALE patients.Check with nurse about probable order error.If Tumor Marker Test needed, nurse should order test "HCGTU"(Test #550.97730) PROCALCITONIN (PCT)2018-09-22 10:10:00* Test Item Value Reference Range Interpretation Comments PROCALCITONIN (PCT) (test code = PROCAL) < 0.05 ng/ml Concentration Interpretation (ng/mL) <0.51 [...] taking into account the patients history. LACTIC [id number] 10:05:00* Test Item Value Reference Range Interpretation Comments LACTIC ACID (test code = LACT) 2.4 mmol/L 0.4-1.9 HH Results called to FLORENCIO [id number] V.LAB.OA 09/22/18 1005Critical results verified and read back by Nurse? Y - XR CHEST 1 [id number] 10:05:00 FAX: Modesto Coon MD [phone] [place]: St: REG Name: SAMIR GARCIA [facility] : [birth year] Age/S: 47/F [address] [facility] Unit #: [id number] Loc: [place] [address] Phys: Modesto Coon MD Acct: [id number] Dis Date: Status: REG ER PHONE #: [phone] Exam Date: 09/22/2018954 FAX #: [phone] Reason: CODE SEPSIS EXAMS: CPT CODE: [id number] XR CHEST 1 V 35275 HISTORY: :Sepsis. CO MPARISON: August 26, 2016. No acute infiltrates, effusion or congestio n is noted. Suboptimal inspiration. Dependent changes. The c ardiac and mediastinal silhouette are within normal limits. Cervical fusio n in the lower neck. IMPRESSION: No acute inf iltrates, effusion or congestion. at 1005 Reported and signed by: Irene Pantoja M.D. CC: Modesto Coon MD Technologist: YADI NEGRETE RT(R) Trnscrd Date/Time/By: 09/22/2018 (1005) : By: [email or web address] Orig Print D/T: S: 09/22/2018 (3997) PAGE 1 Signed Report BASIC METABOLIC [id number] 10:04:00* Test Item Value Reference Range Interpretation Comments SODIUM (test code = NA) 142 mmol/L 136-145 N POTASSIUM (test code = K) 3.9 mmol/L 3.5-5.1 N CHLORIDE (test code = CL) 109.0 mmol/L 98-107 H CARBON DIOXIDE (test code = CO2) 24.0 mmol/L 21-32 N ANION GAP (test code = GAP) 12.9 10-20 N GLUCOSE (test code = GLU) 132 mg/dL 74-106 H BLOOD UREA NITROGEN (test code = BUN) 11 mg/dL 7-18 N GLOMERULAR FILTRATION RATE (test code = GFR) 59 mL/min >=60 Estimated GFR by using Modified MDRD formula.Chronic kidney disease is defined as either kidney damageor GFR <60 mL/min/1.73 m2 for >3 months. CREATININE (test code = CREAT) 1.00 mg/dL 0.55-1.02 N Note change in reference range due to change in reagent. BUN/CREATININE RATIO (test code = BUN/CREA) 11.0 10-20 N CALCIUM (test code = CA) 11.3 mg/dL 8.5-10.1 H HEPATIC FUNCTION [id number] 10:04:00* Test Item Value Reference Range Interpretation Comments TOTAL PROTEIN (test code = PROT) 7.8 gram/dL 6.4-8.2 N ALBUMIN (test code = ALB) 3.9 g/dL 3.4-5.0 N GLOBULIN (test code = GLOB) 3.9 gram/dL 2.7-4.2 N ALBUMIN/GLOBULIN RATIO (test code = A/G) 1.0 0.75-1.50 N BILIRUBIN TOTAL (test code = BILT) 0.40 mg/dL 0.0-1.0 N BILIRUBIN DIRECT (test code = BILD) 0.08 mg/dL 0.0-0.20 N SGOT/AST (test code = AST) 31 IUnit/L 15-37 N SGPT/ALT (test code = ALT) 46 IUnit/L 12-78 N ALKALINE PHOSPHATASE TOTAL (test code = ALKP) 74 IUnit/L 45-117 N Note change in reference range due to change in reagent. [id number] 10:04:00* Test Item Value Reference Range Interpretation Comments LIPASE (test code = LIP) 163 U/L 73.0-393.0 N [id number] 10:04:00* Test Item Value Reference Range Interpretation Comments TROPONIN-I (test code = TROPI) <0.015 ng/mL 0-0.045 N BASIC METABOLIC [id number] 09:54:00* Test Item Value Reference Range Interpretation Comments SODIUM (test code = NA) 142 mmol/L 136-145 N POTASSIUM (test code = K) 3.9 mmol/L 3.5-5.1 N CHLORIDE (test code = CL) 109.0 mmol/L 98-107 H CARBON DIOXIDE (test code = CO2) mmol/L 21-32 ANION GAP (test code = GAP) 10-20 GLUCOSE (test code = GLU) mg/dL 74-106 BLOOD UREA NITROGEN (test code = BUN) mg/dL 7-18 GLOMERULAR FILTRATION RATE (test code = GFR) mL/min >=60 CREATININE (test code = CREAT) mg/dL 0.55-1.02 BUN/CREATININE RATIO (test code = BUN/CREA) 10-20 CALCIUM (test code = CA) mg/dL 8.5-10.1 HEPATIC FUNCTION [id number] 09:54:00* Test Item Value Reference Range Interpretation Comments TOTAL PROTEIN (test code = PROT) gram/dL 6.4-8.2 ALBUMIN (test code = ALB) g/dL 3.4-5.0 GLOBULIN (test code = GLOB) gram/dL 2.7-4.2 ALBUMIN/GLOBULIN RATIO (test code = A/G) 0.75-1.50 BILIRUBIN TOTAL (test code = BILT) mg/dL 0.0-1.0 BILIRUBIN DIRECT (test code = BILD) mg/dL 0.0-0.20 SGOT/AST (test code = AST) IUnit/L 15-37 SGPT/ALT (test code = ALT) IUnit/L 12-78 ALKALINE PHOSPHATASE TOTAL (test code = ALKP) IUnit/L 45-117 [id number] 09:54:00* Test Item Value Reference Range Interpretation Comments LIPASE (test code = LIP) U/L 73.0-393.0 [id number] 09:54:00* Test Item Value Reference Range Interpretation Comments TROPONIN-I (test code = TROPI) ng/mL 0-0.045 CBC W/AUTO [id number] 09:48:00* Test Item Value Reference Range Interpretation Comments WHITE BLOOD CELL (test code = WBC) 7.3 K/mm3 4.5-12.5 N RED BLOOD CELL (test code = RBC) 4.30 mill/mm3 3.7-5.2 N HEMOGLOBIN (test code = HGB) 11.3 gram/dL 11.5-15.5 L HEMATOCRIT (test code = HCT) 35.7 % 36.0-46.0 L MEAN CELL VOLUME (test code = MCV) 83.0 fL 80-98 N MEAN CELL HGB (test code = MCH) 26.3 picogram 27.0-33.0 L MEAN CELL HGB CONCETRATION (test code = MCHC) 31.7 gram/dL 33.0-36. 0 L RED CELL DISTRIBUTION WIDTH (test code = RDW) 15.8 % 11.6-16. 2 N RED CELL DISTRIBUTION WIDTH SD (test code = RDW-SD) 47.9 fL 37 .0-51.0 N PLATELET COUNT (test code = PLT) 324 K/mm3 150-450 N MEAN PLATELET VOLUME (test code = MPV) 10.7 fL 6.7-11.0 N NEUTROPHIL % (test code = NT%) 48.7 % 39.0-69.0 N IMMATURE GRANULOCYTE % (test code = IG%) 0.1 % 0.0-5.0 N LYMPHOCYTE % (test code = LY%) 36.7 % 25.0-55.0 N MONOCYTE % (test code = MO%) 8.4 % 0.0-10.0 N EOSINOPHIL % (test code = EO%) 5.7 % 0.0-5.0 H BASOPHIL % (test code = BA%) 0.4 % 0.0-1.0 N NUCLEATED RBC % (test code = NRBC%) 0.0 % 0-0 N NEUTROPHIL # (test code = NT#) 3.53 K/mm3 1.8-7.7 N IMMATURE GRANULOCYTE # (test code = IG#) 0.01 x10 3/uL 0-0.03 N LYMPHOCYTE # (test code = LY#) 2.66 K/mm3 1.0-5.0 N MONOCYTE # (test code = MO#) 0.61 K/mm3 0-0.8 N EOSINOPHIL # (test code = EO#) 0.41 K/mm3 0.0-0.5 N BASOPHIL # (test code = BA#) 0.03 K/mm3 0.0-0.2 N NUCLEATED RBC # (test code = NRBC#) 0.00 K/mm3 0.0-0.1 N LACTIC [id number] 22:15:00* Test Item Value Reference Range Interpretation Comments LACTIC ACID (test code = LACT) 1.3 mmol/L 0.4-1.9 N URINALYSIS [id number] 20:50:00* Test Item Value Reference Range Interpretation Comments UA COLOR (test code = COLU) YELLOW YELLOW UA APPEARANCE (test code = APPU) CLEAR CLEAR UA GLUCOSE DIPSTICK (test code = DGLUU) NEGATIVE mg/dL NEGATIVE UA BILIRUBIN DIPSTICK (test code = BILU) NEGATIVE mg/dL NEGATIVE UA KETONE DIPSTICK (test code = KETU) NEGATIVE mg/dL NEGATIVE UA SPECIFIC GRAVITY (test code = SGU) 1.023 1.001-1.035 UA BLOOD DIPSTICK (test code = GABE) Negative mg/dL NEGATIVE UA PH DIPSTICK (test code = BRE) 5.0 5.0-8.0 UA PROTEIN DIPSTICK (test code = PROU) 20 (Trace) mg/dL NEGATIVE A UA UROBILINIOGEN DIPSTICK (test code = URO) Normal mg/dL NEGATIVE UA NITRITE DIPSTICK (test code = APRIL) NEGATIVE NEGATIVE UA LEUKOCYTE ESTERASE W REFLEX (test code = LEUUR) 250 Curtis/u L (2+) Curtis/uL NEGATIVE A UA WBC (test code = WBCU) 21-50 per HPF 0-5 A UA RBC (test code = RBCU) 0-2 #/HPF 0-5 UA WBC CLUMPS (test code = WBCUCL) 7-10 /HPF NONE A UA EPITHELIAL CELLS (test code = EPIU) FEW per HPF FEW UA BACTERIA (test code = BACU) FEW #/HPF NONE A UA MUCUS (test code = MUCU) FEW #/LPF FEW Urine Source? Clean CatchURINALYSIS [id number] 20:49:00* Test Item Value Reference Range Interpretation Comments UA COLOR (test code = COLU) YELLOW YELLOW UA APPEARANCE (test code = APPU) CLEAR CLEAR UA GLUCOSE DIPSTICK (test code = DGLUU) NEGATIVE mg/dL NEGATIVE UA BILIRUBIN DIPSTICK (test code = BILU) NEGATIVE mg/dL NEGATIVE UA KETONE DIPSTICK (test code = KETU) NEGATIVE mg/dL NEGATIVE UA SPECIFIC GRAVITY (test code = SGU) 1.023 1.001-1.035 UA BLOOD DIPSTICK (test code = GABE) Negative mg/dL NEGATIVE UA PH DIPSTICK (test code = BRE) 5.0 5.0-8.0 UA PROTEIN DIPSTICK (test code = PROU) 20 (Trace) mg/dL NEGATIVE A UA UROBILINIOGEN DIPSTICK (test code = URO) Normal mg/dL NEGATIVE UA NITRITE DIPSTICK (test code = APRIL) NEGATIVE NEGATIVE UA LEUKOCYTE ESTERASE W REFLEX (test code = LEUUR) 250 Curtis/u L (2+) Curtis/uL NEGATIVE A UA WBC (test code = WBCU) per HPF 0-5 UA RBC (test code = RBCU) per HPF 0-5 UA EPITHELIAL CELLS (test code = EPIU) per HPF Few UA BACTERIA (test code = BACU) per HPF NONE Urine Source? Clean Catch- CT ABD PELVIS W/O [id number] 19:04:00 Name: SAMIR FITZPATRICK [facility] : 1970 Age/S: 47 / F [address] [facility] Unit #: [id number] Loc: [place] [address] Phys: PoornimaHemal Irene DO Acct: [id number] Dis Date: Status: REG ER PHONE #: [phone] Exam Date: 09/16/2018 1850 FAX #: [phone] Reason: right flank pain EXAMS: CPT CODE: [id number] CT ABD PELVIS W/O CONT [id number] HISTORY: Right flank pain and fever. COMPARISON: [...] 1 Signed Report (CONTINUED) Name: SAMIR FITZPATRICK [facility] : 1970 Age/S: 47 / F [address] [facility] Unit #: [id number] Loc: [place] [address] Phys: Hemal Noguera DO Acct: [id number] Dis Date: Status: REG ER PHONE #: [phone] Exam Date: 09/16/2018 1850 FAX #: [phone] Reason: right fl ank pain EXAMS: CPT CODE: [id number] CT ABD PELVIS W/O CONT 91882 <Continued> stones noted again. Decompressed urinary bladder [...] Pantoja M.D. CC: Hemal Noguera DO Technologist:Felecia Petersen RT(R); ANGELO Suh CTDI: DLP: Trnscb Date/Time: 09/16/2018 (1903) [email or web address] Orig Print D/T: S: 09/16/2018 (1906) PAGE 2 Signed Report LACTIC [id number] 18:39:00* Test Item Value Reference Range Interpretation Comments LACTIC ACID (test code = LACT) 2.6 mmol/L 0.4-1.9 HH Results called to DR. HINSON by ALISON 09/16/18 1838Critical results verified and read back by Nurse? Y HCG SERUM [id number] 16:17:00* Test Item Value Reference Range Interpretation Comments HCG SERUM QUAL (test code = HCGQL) NEGATIVE NEGATIVE This HCGQL test is NOT applicable for MALE patients.Check with nurse about probable order error.If Tumor Marker Test needed, nurse should order test "HCGTU"(Test #550.85138) PROCALCITONIN (PCT)2018-09-16 16:15:00* Test Item Value Reference Range Interpretation Comments PROCALCITONIN (PCT) (test code = PROCAL) < 0.05 ng/ml Concentration Interpretation (ng/mL) <0.51 [...] taking into account the patients history. LACTIC [id number] 16:07:00* Test Item Value Reference Range Interpretation Comments LACTIC ACID (test code = LACT) 3.2 mmol/L 0.4-1.9 HH Results called to [id number] by [email or web address] 09/16/18 1607Critical results verified and read back by Nurse? Y BASIC METABOLIC [id number] 16:04:00* Test Item Value Reference Range Interpretation Comments SODIUM (test code = NA) 139 mmol/L 136-145 N POTASSIUM (test code = K) 3.8 mmol/L 3.5-5.1 N CHLORIDE (test code = CL) 104.0 mmol/L 98-107 N CARBON DIOXIDE (test code = CO2) 24.0 mmol/L 21-32 N ANION GAP (test code = GAP) 14.8 10-20 N GLUCOSE (test code = GLU) 112 mg/dL 74-106 H BLOOD UREA NITROGEN (test code = BUN) 9 mg/dL 7-18 N GLOMERULAR FILTRATION RATE (test code = GFR) 59 mL/min >=60 Estimated GFR by using Modified MDRD formula.Chronic kidney disease is defined as either kidney damageor GFR <60 mL/min/1.73 m2 for >3 months. CREATININE (test code = CREAT) 1.00 mg/dL 0.55-1.02 N Note change in reference range due to change in reagent. BUN/CREATININE RATIO (test code = BUN/CREA) 9.0 10-20 L CALCIUM (test code = CA) 11.1 mg/dL 8.5-10.1 H HEPATIC FUNCTION [id number] 16:04:00* Test Item Value Reference Range Interpretation Comments TOTAL PROTEIN (test code = PROT) 8.5 gram/dL 6.4-8.2 H ALBUMIN (test code = ALB) 3.8 g/dL 3.4-5.0 N GLOBULIN (test code = GLOB) 4.7 gram/dL 2.7-4.2 H ALBUMIN/GLOBULIN RATIO (test code = A/G) 0.8 0.75-1.50 N BILIRUBIN TOTAL (test code = BILT) 0.50 mg/dL 0.0-1.0 N BILIRUBIN DIRECT (test code = BILD) 0.09 mg/dL 0.0-0.20 N SGOT/AST (test code = AST) 31 IUnit/L 15-37 N SGPT/ALT (test code = ALT) 53 IUnit/L 12-78 N ALKALINE PHOSPHATASE TOTAL (test code = ALKP) 82 IUnit/L 45-117 N Note change in reference range due to change in reagent. [id number] 16:04:00* Test Item Value Reference Range Interpretation Comments TROPONIN-I (test code = TROPI) <0.015 ng/mL 0-0.045 N BASIC METABOLIC [id number] 15:54:00* Test Item Value Reference Range Interpretation Comments SODIUM (test code = NA) 139 mmol/L 136-145 N POTASSIUM (test code = K) 3.8 mmol/L 3.5-5.1 N CHLORIDE (test code = CL) 104.0 mmol/L 98-107 N CARBON DIOXIDE (test code = CO2) mmol/L 21-32 ANION GAP (test code = GAP) 10-20 GLUCOSE (test code = GLU) mg/dL 74-106 BLOOD UREA NITROGEN (test code = BUN) mg/dL 7-18 GLOMERULAR FILTRATION RATE (test code = GFR) mL/min >=60 CREATININE (test code = CREAT) mg/dL 0.55-1.02 BUN/CREATININE RATIO (test code = BUN/CREA) 10-20 CALCIUM (test code = CA) mg/dL 8.5-10.1 HEPATIC FUNCTION [id number] 15:54:00* Test Item Value Reference Range Interpretation Comments TOTAL PROTEIN (test code = PROT) gram/dL 6.4-8.2 ALBUMIN (test code = ALB) g/dL 3.4-5.0 GLOBULIN (test code = GLOB) gram/dL 2.7-4.2 ALBUMIN/GLOBULIN RATIO (test code = A/G) 0.75-1.50 BILIRUBIN TOTAL (test code = BILT) mg/dL 0.0-1.0 BILIRUBIN DIRECT (test code = BILD) mg/dL 0.0-0.20 SGOT/AST (test code = AST) IUnit/L 15-37 SGPT/ALT (test code = ALT) IUnit/L 12-78 ALKALINE PHOSPHATASE TOTAL (test code = ALKP) IUnit/L 45-117 [id number] 15:54:00* Test Item Value Reference Range Interpretation Comments TROPONIN-I (test code = TROPI) ng/mL 0-0.045 CBC W/AUTO [id number] 15:45:00* Test Item Value Reference Range Interpretation Comments WHITE BLOOD CELL (test code = WBC) 8.8 K/mm3 4.5-12.5 N RED BLOOD CELL (test code = RBC) 4.61 mill/mm3 3.7-5.2 N HEMOGLOBIN (test code = HGB) 12.3 gram/dL 11.5-15.5 N HEMATOCRIT (test code = HCT) 38.5 % 36.0-46.0 N MEAN CELL VOLUME (test code = MCV) 83.5 fL 80-98 N MEAN CELL HGB (test code = MCH) 26.7 picogram 27.0-33.0 L MEAN CELL HGB CONCETRATION (test code = MCHC) 31.9 gram/dL 33.0-36. 0 L RED CELL DISTRIBUTION WIDTH (test code = RDW) 15.7 % 11.6-16. 2 N RED CELL DISTRIBUTION WIDTH SD (test code = RDW-SD) 47.3 fL 37 .0-51.0 N PLATELET COUNT (test code = PLT) 372 K/mm3 150-450 N MEAN PLATELET VOLUME (test code = MPV) 10.5 fL 6.7-11.0 N NEUTROPHIL % (test code = NT%) 47.7 % 39.0-69.0 N IMMATURE GRANULOCYTE % (test code = IG%) 0.3 % 0.0-5.0 N LYMPHOCYTE % (test code = LY%) 40.1 % 25.0-55.0 N MONOCYTE % (test code = MO%) 7.3 % 0.0-10.0 N EOSINOPHIL % (test code = EO%) 4.1 % 0.0-5.0 N BASOPHIL % (test code = BA%) 0.5 % 0.0-1.0 N NUCLEATED RBC % (test code = NRBC%) 0.0 % 0-0 N NEUTROPHIL # (test code = NT#) 4.20 K/mm3 1.8-7.7 N IMMATURE GRANULOCYTE # (test code = IG#) 0.03 x10 3/uL 0-0.03 N LYMPHOCYTE # (test code = LY#) 3.53 K/mm3 1.0-5.0 N MONOCYTE # (test code = MO#) 0.64 K/mm3 0-0.8 N EOSINOPHIL # (test code = EO#) 0.36 K/mm3 0.0-0.5 N BASOPHIL # (test code = BA#) 0.04 K/mm3 0.0-0.2 N NUCLEATED RBC # (test code = NRBC#) 0.00 K/mm3 0.0-0.1 N MANUAL DIFF REQUIRED (test code = MDIFF) NO - XR L-SPINE 2/3 [id number] 12:30:00 FAX: Farzad Werner Allgood: St: REG Name: SAMIR GARCIA [facility] : [birth year] 71 Age/S: 47/F [address] [facility] Unit #: [id number] Loc: [place] [address] Phys: Farzad Werner MD Acct: [id number] Dis Date: Status: REG ER PHONE #: [phone] Exam Date: 08/02/2018 1211 FAX #: [phone] Reason: fall, back pain EXAMS: CPT CODE: [id number] XR L-SPINE 2/3 VIEWS 00564 HISTORY: Fall and back pain. COMPARISON: None [...] M.D. CC: Farzad Werner MD Technologist: DANIEL MAC, RT(R) Trnscrd Date/Time/By: 08/02/2018 (5969) : By: [email or web address] Orig Print D/T: S: 11/2018 (9271) PAGE 1 Signed Repo rt URINALYSIS [id number] 12:15:00* Test Item Value Reference Range Interpretation Comments UA COLOR (test code = COLU) YELLOW YELLOW UA APPEARANCE (test code = APPU) CLEAR CLEAR UA GLUCOSE DIPSTICK (test code = DGLUU) NEGATIVE mg/dL NEGATIVE UA BILIRUBIN DIPSTICK (test code = BILU) NEGATIVE mg/dL NEGATIVE UA KETONE DIPSTICK (test code = KETU) NEGATIVE mg/dL NEGATIVE UA SPECIFIC GRAVITY (test code = SGU) 1.023 1.001-1.035 UA BLOOD DIPSTICK (test code = GABE) Negative mg/dL NEGATIVE UA PH DIPSTICK (test code = BRE) 5.0 5.0-8.0 UA PROTEIN DIPSTICK (test code = PROU) NEGATIVE mg/dL NEGATIVE UA UROBILINIOGEN DIPSTICK (test code = URO) NEGATIVE mg/dL NEGATIVE UA NITRITE DIPSTICK (test code = APRIL) NEGATIVE NEGATIVE UA LEUKOCYTE ESTERASE W REFLEX (test code = LEUUR) TRACE Curtis/uL NEG ATIVE A UA WBC (test code = WBCU) 21-50 per HPF 0-5 A UA RBC (test code = RBCU) 0-2 #/HPF 0-5 UA EPITHELIAL CELLS (test code = EPIU) FEW per HPF FEW UA BACTERIA (test code = BACU) FEW #/HPF NONE A UA MUCUS (test code = MUCU) FEW #/LPF FEW Urine Source? Clean CatchUR HCG [id number] 12:15:00* Test Item Value Reference Range Interpretation Comments UR HCG QUAL (test code = HCGQLU) NEGATIVE This HCGQL test is NOT applicable for MALE patients.Check with nurse about probable order error.If Tumor Marker Test needed, nurse should order test "HCGTU"(Test #550.19250) Urine Source? Clean CatchURINALYSIS [id number] 12:14:00* Test Item Value Reference Range Interpretation Comments UA COLOR (test code = COLU) YELLOW YELLOW UA APPEARANCE (test code = APPU) CLEAR CLEAR UA GLUCOSE DIPSTICK (test code = DGLUU) NEGATIVE mg/dL NEGATIVE UA BILIRUBIN DIPSTICK (test code = BILU) NEGATIVE mg/dL NEGATIVE UA KETONE DIPSTICK (test code = KETU) NEGATIVE mg/dL NEGATIVE UA SPECIFIC GRAVITY (test code = SGU) 1.023 1.001-1.035 UA BLOOD DIPSTICK (test code = GABE) Negative mg/dL NEGATIVE UA PH DIPSTICK (test code = BRE) 5.0 5.0-8.0 UA PROTEIN DIPSTICK (test code = PROU) NEGATIVE mg/dL NEGATIVE UA UROBILINIOGEN DIPSTICK (test code = URO) NEGATIVE mg/dL NEGATIVE UA NITRITE DIPSTICK (test code = APRIL) NEGATIVE NEGATIVE UA LEUKOCYTE ESTERASE W REFLEX (test code = LEUUR) TRACE Curtis/uL NEG ATIVE A UA WBC (test code = WBCU) per HPF 0-5 Urine Source? Clean CatchUR HCG [id number] 12:14:00* Test Item Value Reference Range Interpretation Comments UR HCG QUAL (test code = HCGQLU) NEGATIVE This HCGQL test is NOT applicable for MALE patients.Check with nurse about probable order error.If Tumor Marker Test needed, nurse should order test "HCGTU"(Test #550.26541) Urine Source? Clean CatchBASIC METABOLIC [id number] 12:13:00* Test Item Value Reference Range Interpretation Comments SODIUM (test code = NA) 141 mmol/L 136-145 N POTASSIUM (test code = K) 3.7 mmol/L 3.5-5.1 N CHLORIDE (test code = CL) 111.0 mmol/L 98-107 H CARBON DIOXIDE (test code = CO2) 22.0 mmol/L 21-32 N ANION GAP (test code = GAP) 11.7 10-20 N GLUCOSE (test code = GLU) 111 mg/dL 74-106 H BLOOD UREA NITROGEN (test code = BUN) 14 mg/dL 7-18 N GLOMERULAR FILTRATION RATE (test code = GFR) 59 mL/min >=60 Estimated GFR by using Modified MDRD formula.Chronic kidney disease is defined as either kidney damageor GFR <60 mL/min/1.73 m2 for >3 months. CREATININE (test code = CREAT) 1.00 mg/dL 0.55-1.02 N Note change in reference range due to change in reagent. BUN/CREATININE RATIO (test code = BUN/CREA) 14.0 10-20 N CALCIUM (test code = CA) 8.9 mg/dL 8.5-10.1 N URINALYSIS [id number] 12:09:00* Test Item Value Reference Range Interpretation Comments UA COLOR (test code = COLU) YELLOW UA APPEARANCE (test code = APPU) CLEAR UA BILIRUBIN DIPSTICK (test code = BILU) NEGATIVE UA SPECIFIC GRAVITY (test code = SGU) 1.001-1.035 UA PH DIPSTICK (test code = BRE) 5.0-8.0 UA UROBILINIOGEN DIPSTICK (test code = URO) mg/dL 0.0-0.2 UA NITRITE DIPSTICK (test code = APRIL) NEGATIVE UA LEUKOCYTE ESTERASE W REFLEX (test code = LEUUR) NEG ATIVE UA WBC (test code = WBCU) per HPF 0-5 Urine Source? Clean CatchUR HCG [id number] 12:09:00* Test Item Value Reference Range Interpretation Comments UR HCG QUAL (test code = HCGQLU) NEGATIVE This HCGQL test is NOT applicable for MALE patients.Check with nurse about probable order error.If Tumor Marker Test needed, nurse should order test "HCGTU"(Test #550.96331) Urine Source? Clean CatchCBC W/O [id number] 11:34:00* Test Item Value Reference Range Interpretation Comments WHITE BLOOD CELL (test code = WBC) 7.3 K/mm3 4.5-12.5 N RED BLOOD CELL (test code = RBC) 4.44 mill/mm3 3.7-5.2 N HEMOGLOBIN (test code = HGB) 12.0 gram/dL 11.5-15.5 N HEMATOCRIT (test code = HCT) 38.8 % 36.0-46.0 N MEAN CELL VOLUME (test code = MCV) 87.4 fL 80-98 N MEAN CELL HGB (test code = MCH) 27.0 picogram 27.0-33.0 N MEAN CELL HGB CONCETRATION (test code = MCHC) 30.9 gram/dL 33.0-36. 0 L RED CELL DISTRIBUTION WIDTH (test code = RDW) 15.8 % 11.6-16. 2 N PLATELET COUNT (test code = PLT) 359 K/mm3 150-450 N MEAN PLATELET VOLUME (test code = MPV) 10.0 fL 6.7-11.0 N POC LACTIC [id number] 03:10:00* Test Item Value Reference Range Interpretation Comments POC LACTIC ACID (test code = POCLAC) 1.45 MMOL/L 0.4-2.2 N PROCALCITONIN (PCT)2018-06-14 01:38:00* Test Item Value Reference Range Interpretation Comments PROCALCITONIN (PCT) (test code = PROCAL) < 0.05 ng/ml Concentration Interpretation (ng/mL) <0.51 [...] into account the patients history. BASIC METABOLIC [id number] 01:32:00* Test Item Value Reference Range Interpretation Comments SODIUM (test code = NA) 138 mmol/L 136-145 N POTASSIUM (test code = K) 3.9 mmol/L 3.5-5.1 N CHLORIDE (test code = CL) 105.0 mmol/L 98-107 N CARBON DIOXIDE (test code = CO2) 23.0 mmol/L 21-32 N ANION GAP (test code = GAP) 13.9 10-20 N GLUCOSE (test code = GLU) 124 mg/dL 74-106 H BLOOD UREA NITROGEN (test code = BUN) 15 mg/dL 7-18 N GLOMERULAR FILTRATION RATE (test code = GFR) 59 mL/min >=60 Estimated GFR by using Modified MDRD formula.Chronic kidney disease is defined as either kidney damageor GFR <60 mL/min/1.73 m2 for >3 months. CREATININE (test code = CREAT) 1.00 mg/dL 0.55-1.02 N Note change in reference range due to change in reagent. BUN/CREATININE RATIO (test code = BUN/CREA) 14.7 10-20 N CALCIUM (test code = CA) 9.6 mg/dL 8.5-10.1 N HEPATIC FUNCTION [id number] 01:32:00* Test Item Value Reference Range Interpretation Comments TOTAL PROTEIN (test code = PROT) 8.5 gram/dL 6.4-8.2 H ALBUMIN (test code = ALB) 3.6 g/dL 3.4-5.0 N GLOBULIN (test code = GLOB) 4.9 gram/dL 2.7-4.2 H ALBUMIN/GLOBULIN RATIO (test code = A/G) 0.7 0.75-1.50 L BILIRUBIN TOTAL (test code = BILT) 0.40 mg/dL 0.0-1.0 N BILIRUBIN DIRECT (test code = BILD) 0.12 mg/dL 0.0-0.20 N SGOT/AST (test code = AST) 37 IUnit/L 15-37 N SGPT/ALT (test code = ALT) 62 IUnit/L 12-78 N ALKALINE PHOSPHATASE TOTAL (test code = ALKP) 83 IUnit/L 45-117 N Note change in reference range due to change in reagent. [id number] 01:32:00* Test Item Value Reference Range Interpretation Comments TROPONIN-I (test code = TROPI) <0.015 ng/mL 0-0.045 N LACTIC [id number] 01:31:00* Test Item Value Reference Range Interpretation Comments LACTIC ACID (test code = LACT) 2.2 mmol/L 0.4-1.9 HH Results called to [id number] by V.LAB.AA 06/14/18 0130Critical results verified and read back by Nurse? Y URINALYSIS [id number] 01:29:00* Test Item Value Reference Range Interpretation Comments UA COLOR (test code = COLU) YELLOW YELLOW UA APPEARANCE (test code = APPU) SLIGHTLY CLOUDY CLEAR A UA GLUCOSE DIPSTICK (test code = DGLUU) NEGATIVE mg/dL NEGATIVE UA BILIRUBIN DIPSTICK (test code = BILU) NEGATIVE mg/dL NEGATIVE UA KETONE DIPSTICK (test code = KETU) Negative mg/dL NEGATIVE UA SPECIFIC GRAVITY (test code = SGU) 1.024 1.001-1.035 UA BLOOD DIPSTICK (test code = GABE) 2+ (Moderate) NEGATIVE A UA PH DIPSTICK (test code = BRE) 5.0 5.0-8.0 UA PROTEIN DIPSTICK (test code = PROU) 30 (1+) mg/dL NEGATIVE A UA UROBILINIOGEN DIPSTICK (test code = URO) NEGATIVE mg/dL NEGATIVE UA NITRITE DIPSTICK (test code = APRIL) POSITIVE NEGATIVE A UA LEUKOCYTE ESTERASE W REFLEX (test code = LEUUR) 3+ NEG ATIVE A UA WBC (test code = WBCU) >50 #/HPF 0-5 A UA RBC (test code = RBCU) >20 #/HPF 0-5 A UA EPITHELIAL CELLS (test code = EPIU) FEW per HPF FEW UA BACTERIA (test code = BACU) FEW #/HPF NONE A UA MUCUS (test code = MUCU) FEW #/LPF FEW Urine Source? Clean CatchBASIC METABOLIC [id number] 01:15:00* Test Item Value Reference Range Interpretation Comments SODIUM (test code = NA) 138 mmol/L 136-145 N POTASSIUM (test code = K) 3.9 mmol/L 3.5-5.1 N CHLORIDE (test code = CL) 105.0 mmol/L 98-107 N CARBON DIOXIDE (test code = CO2) mmol/L 21-32 ANION GAP (test code = GAP) 10-20 GLUCOSE (test code = GLU) mg/dL 74-106 BLOOD UREA NITROGEN (test code = BUN) mg/dL 7-18 GLOMERULAR FILTRATION RATE (test code = GFR) mL/min >=60 CREATININE (test code = CREAT) mg/dL 0.55-1.02 BUN/CREATININE RATIO (test code = BUN/CREA) 10-20 CALCIUM (test code = CA) mg/dL 8.5-10.1 HEPATIC FUNCTION [id number] 01:15:00* Test Item Value Reference Range Interpretation Comments TOTAL PROTEIN (test code = PROT) gram/dL 6.4-8.2 ALBUMIN (test code = ALB) g/dL 3.4-5.0 GLOBULIN (test code = GLOB) gram/dL 2.7-4.2 ALBUMIN/GLOBULIN RATIO (test code = A/G) 0.75-1.50 BILIRUBIN TOTAL (test code = BILT) mg/dL 0.0-1.0 BILIRUBIN DIRECT (test code = BILD) mg/dL 0.0-0.20 SGOT/AST (test code = AST) IUnit/L 15-37 SGPT/ALT (test code = ALT) IUnit/L 12-78 ALKALINE PHOSPHATASE TOTAL (test code = ALKP) IUnit/L 45-117 [id number] 01:15:00* Test Item Value Reference Range Interpretation Comments TROPONIN-I (test code = TROPI) ng/mL 0-0.045 CBC W/AUTO [id number] 01:03:00* Test Item Value Reference Range Interpretation Comments WHITE BLOOD CELL (test code = WBC) 10.3 K/mm3 4.5-12.5 N RED BLOOD CELL (test code = RBC) 4.32 mill/mm3 3.7-5.2 N HEMOGLOBIN (test code = HGB) 12.1 gram/dL 11.5-15.5 N HEMATOCRIT (test code = HCT) 38.2 % 36.0-46.0 N MEAN CELL VOLUME (test code = MCV) 88.4 fL 80-98 N MEAN CELL HGB (test code = MCH) 28.0 picogram 27.0-33.0 N MEAN CELL HGB CONCETRATION (test code = MCHC) 31.7 gram/dL 33.0-36. 0 L RED CELL DISTRIBUTION WIDTH (test code = RDW) 15.0 % 11.6-16. 2 N RED CELL DISTRIBUTION WIDTH SD (test code = RDW-SD) 47.6 fL 37 .0-51.0 N PLATELET COUNT (test code = PLT) 419 K/mm3 150-450 N MEAN PLATELET VOLUME (test code = MPV) 10.2 fL 6.7-11.0 N NEUTROPHIL % (test code = NT%) 54.4 % 39.0-69.0 N IMMATURE GRANULOCYTE % (test code = IG%) 0.3 % 0.0-5.0 N LYMPHOCYTE % (test code = LY%) 33.9 % 25.0-55.0 N MONOCYTE % (test code = MO%) 6.5 % 0.0-10.0 N EOSINOPHIL % (test code = EO%) 4.4 % 0.0-5.0 N BASOPHIL % (test code = BA%) 0.5 % 0.0-1.0 N NUCLEATED RBC % (test code = NRBC%) 0.0 % 0-0 N NEUTROPHIL # (test code = NT#) 5.60 K/mm3 1.8-7.7 N IMMATURE GRANULOCYTE # (test code = IG#) 0.03 x10 3/uL 0-0.03 N LYMPHOCYTE # (test code = LY#) 3.49 K/mm3 1.0-5.0 N MONOCYTE # (test code = MO#) 0.67 K/mm3 0-0.8 N EOSINOPHIL # (test code = EO#) 0.45 K/mm3 0.0-0.5 N BASOPHIL # (test code = BA#) 0.05 K/mm3 0.0-0.2 N NUCLEATED RBC # (test code = NRBC#) 0.00 K/mm3 0.0-0.1 N POC LACTIC [id number] 00:48:00* Test Item Value Reference Range Interpretation Comments POC LACTIC ACID (test code = POCLAC) 2.15 MMOL/L 0.4-2.2 N - CT ABD PELVIS [id number] 18:12:00 Name: SAMIR FITZPATRICKH [place] : 1970 Age/S: 47 / F [facility] Unit #: [id number] Loc: [place] [address] Phys: Modesto Coon MD Acct: [id number] Dis Date: Status: REG ER PHONE #: [phone] Exam Date: 05/27/2018 1805 FAX #: [phone] Reason: LOWER ABD PAIN EXAMS: CPT CODE: [id number] CT ABD PELVIS W/CONT [id number] EXAM: CT of the abdomen and pelvis [...] Cm Hickman M.D. CC: Modesto Coon MD Technologist:ANGELO CORTEZ, RT(R) CT CTDI: DLP: Trnscb Date/Time: 05/27/2018 (1811) tGAGE Orig Print D/T: S: 05/27/2018 (1814) CTDI: DLP: PAGE 1 Signed Report URINALYSIS [id number] 16:32:00* Test Item Value Reference Range Interpretation Comments UA COLOR (test code = COLU) YELLOW YELLOW UA APPEARANCE (test code = APPU) Cloudy CLEAR A UA GLUCOSE DIPSTICK (test code = DGLUU) NEGATIVE mg/dL NEGATIVE UA BILIRUBIN DIPSTICK (test code = BILU) NEGATIVE mg/dL NEGATIVE UA KETONE DIPSTICK (test code = KETU) Negative mg/dL NEGATIVE UA SPECIFIC GRAVITY (test code = SGU) 1.014 1.001-1.035 UA BLOOD DIPSTICK (test code = GABE) 3+ (Large) NEGATIVE A UA PH DIPSTICK (test code = BRE) 5.0 5.0-8.0 UA PROTEIN DIPSTICK (test code = PROU) Negative mg/dL NEGATIVE UA UROBILINIOGEN DIPSTICK (test code = URO) NEGATIVE mg/dL NEGATIVE UA NITRITE DIPSTICK (test code = APRIL) NEGATIVE NEGATIVE UA LEUKOCYTE ESTERASE W REFLEX (test code = LEUUR) 3+ NEG ATIVE A UA WBC (test code = WBCU) 21-50 #/HPF 0-5 A UA RBC (test code = RBCU) >20 #/HPF 0-5 A UA EPITHELIAL CELLS (test code = EPIU) FEW per HPF FEW UA BACTERIA (test code = BACU) FEW #/HPF NONE A UA MUCUS (test code = MUCU) FEW #/LPF FEW Urine Source? Clean CatchBASIC METABOLIC [id number] 16:11:00* Test Item Value Reference Range Interpretation Comments SODIUM (test code = NA) 137 mmol/L 136-145 N POTASSIUM (test code = K) 4.1 mmol/L 3.5-5.1 N CHLORIDE (test code = CL) 106.0 mmol/L 98-107 N CARBON DIOXIDE (test code = CO2) 22.0 mmol/L 21-32 N ANION GAP (test code = GAP) 13.1 10-20 N GLUCOSE (test code = GLU) 103 mg/dL 74-106 N BLOOD UREA NITROGEN (test code = BUN) 11 mg/dL 7-18 N GLOMERULAR FILTRATION RATE (test code = GFR) > 60 mL/min >=60 Estimated GFR by using Modified MDRD formula.Chronic kidney disease is defined as either kidney damageor GFR <60 mL/min/1.73 m2 for >3 months. CREATININE (test code = CREAT) 0.80 mg/dL 0.55-1.02 N Note change in reference range due to change in reagent. BUN/CREATININE RATIO (test code = BUN/CREA) 13.2 10-20 N CALCIUM (test code = CA) 9.0 mg/dL 8.5-10.1 N HEPATIC FUNCTION [id number] 16:11:00* Test Item Value Reference Range Interpretation Comments TOTAL PROTEIN (test code = PROT) 8.2 gram/dL 6.4-8.2 N ALBUMIN (test code = ALB) 3.7 g/dL 3.4-5.0 N GLOBULIN (test code = GLOB) 4.5 gram/dL 2.7-4.2 H ALBUMIN/GLOBULIN RATIO (test code = A/G) 0.8 0.75-1.50 N BILIRUBIN TOTAL (test code = BILT) 0.30 mg/dL 0.0-1.0 N BILIRUBIN DIRECT (test code = BILD) 0.11 mg/dL 0.0-0.20 N SGOT/AST (test code = AST) 27 IUnit/L 15-37 N SGPT/ALT (test code = ALT) 54 IUnit/L 12-78 N ALKALINE PHOSPHATASE TOTAL (test code = ALKP) 82 IUnit/L 45-117 N Note change in reference range due to change in reagent. [id number] 16:11:00* Test Item Value Reference Range Interpretation Comments LIPASE (test code = LIP) 155 U/L 73.0-393.0 N HCG SERUM [id number] 16:11:00* Test Item Value Reference Range Interpretation Comments HCG SERUM QUAL (test code = HCGQL) NEGATIVE NEGATIVE This HCGQL test is NOT applicable for MALE patients.Check with nurse about probable order error.If Tumor Marker Test needed, nurse should order test "HCGTU"(Test #550.93703) BASIC METABOLIC [id number] 16:06:00* Test Item Value Reference Range Interpretation Comments SODIUM (test code = NA) 137 mmol/L 136-145 N POTASSIUM (test code = K) 4.1 mmol/L 3.5-5.1 N CHLORIDE (test code = CL) 106.0 mmol/L 98-107 N CARBON DIOXIDE (test code = CO2) mmol/L 21-32 ANION GAP (test code = GAP) 10-20 GLUCOSE (test code = GLU) mg/dL 74-106 BLOOD UREA NITROGEN (test code = BUN) mg/dL 7-18 GLOMERULAR FILTRATION RATE (test code = GFR) mL/min >=60 CREATININE (test code = CREAT) mg/dL 0.55-1.02 BUN/CREATININE RATIO (test code = BUN/CREA) 10-20 CALCIUM (test code = CA) mg/dL 8.5-10.1 HEPATIC FUNCTION [id number] 16:06:00* Test Item Value Reference Range Interpretation Comments TOTAL PROTEIN (test code = PROT) gram/dL 6.4-8.2 ALBUMIN (test code = ALB) g/dL 3.4-5.0 GLOBULIN (test code = GLOB) gram/dL 2.7-4.2 ALBUMIN/GLOBULIN RATIO (test code = A/G) 0.75-1.50 BILIRUBIN TOTAL (test code = BILT) mg/dL 0.0-1.0 BILIRUBIN DIRECT (test code = BILD) mg/dL 0.0-0.20 SGOT/AST (test code = AST) IUnit/L 15-37 SGPT/ALT (test code = ALT) IUnit/L 12-78 ALKALINE PHOSPHATASE TOTAL (test code = ALKP) IUnit/L 45-117 [id number] 16:06:00* Test Item Value Reference Range Interpretation Comments LIPASE (test code = LIP) U/L 73.0-393.0 HCG SERUM [id number] 16:06:00* Test Item Value Reference Range Interpretation Comments HCG SERUM QUAL (test code = HCGQL) NEGATIVE NEGATIVE This HCGQL test is NOT applicable for MALE patients.Check with nurse about probable order error.If Tumor Marker Test needed, nurse should order test "HCGTU"(Test #550.20966) BASIC METABOLIC [id number] 16:03:00* Test Item Value Reference Range Interpretation Comments SODIUM (test code = NA) 137 mmol/L 136-145 N POTASSIUM (test code = K) 4.1 mmol/L 3.5-5.1 N CHLORIDE (test code = CL) 106.0 mmol/L 98-107 N CARBON DIOXIDE (test code = CO2) mmol/L 21-32 ANION GAP (test code = GAP) 10-20 GLUCOSE (test code = GLU) mg/dL 74-106 BLOOD UREA NITROGEN (test code = BUN) mg/dL 7-18 GLOMERULAR FILTRATION RATE (test code = GFR) mL/min >=60 CREATININE (test code = CREAT) mg/dL 0.55-1.02 BUN/CREATININE RATIO (test code = BUN/CREA) 10-20 CALCIUM (test code = CA) mg/dL 8.5-10.1 HEPATIC FUNCTION [id number] 16:03:00* Test Item Value Reference Range Interpretation Comments TOTAL PROTEIN (test code = PROT) gram/dL 6.4-8.2 ALBUMIN (test code = ALB) g/dL 3.4-5.0 GLOBULIN (test code = GLOB) gram/dL 2.7-4.2 ALBUMIN/GLOBULIN RATIO (test code = A/G) 0.75-1.50 BILIRUBIN TOTAL (test code = BILT) mg/dL 0.0-1.0 BILIRUBIN DIRECT (test code = BILD) mg/dL 0.0-0.20 SGOT/AST (test code = AST) IUnit/L 15-37 SGPT/ALT (test code = ALT) IUnit/L 12-78 ALKALINE PHOSPHATASE TOTAL (test code = ALKP) IUnit/L 45-117 [id number] 16:03:00* Test Item Value Reference Range Interpretation Comments LIPASE (test code = LIP) U/L 73.0-393.0 HCG SERUM [id number] 16:03:00* Test Item Value Reference Range Interpretation Comments HCG SERUM QUAL (test code = HCGQL) NEGATIVE CBC W/O [id number] 15:57:00* Test Item Value Reference Range Interpretation Comments WHITE BLOOD CELL (test code = WBC) 5.6 K/mm3 4.5-12.5 N RED BLOOD CELL (test code = RBC) 4.34 mill/mm3 3.7-5.2 N HEMOGLOBIN (test code = HGB) 12.2 gram/dL 11.5-15.5 N HEMATOCRIT (test code = HCT) 38.4 % 36.0-46.0 N MEAN CELL VOLUME (test code = MCV) 88.5 fL 80-98 N MEAN CELL HGB (test code = MCH) 28.1 picogram 27.0-33.0 N MEAN CELL HGB CONCETRATION (test code = MCHC) 31.8 gram/dL 33.0-36. 0 L RED CELL DISTRIBUTION WIDTH (test code = RDW) 14.8 % 11.6-16. 2 N PLATELET COUNT (test code = PLT) 286 K/mm3 150-450 N MEAN PLATELET VOLUME (test code = MPV) 10.3 fL 6.7-11.0 N URINALYSIS [id number] 22:30:00* Test Item Value Reference Range Interpretation Comments UA COLOR (test code = COLU) DARK YELLOW YELLOW A UA APPEARANCE (test code = APPU) SLIGHTLY CLOUDY CLEAR A UA GLUCOSE DIPSTICK (test code = DGLUU) NEGATIVE mg/dL NEGATIVE UA BILIRUBIN DIPSTICK (test code = BILU) NEGATIVE mg/dL NEGATIVE UA KETONE DIPSTICK (test code = KETU) Negative mg/dL NEGATIVE UA SPECIFIC GRAVITY (test code = SGU) 1.029 1.001-1.035 UA BLOOD DIPSTICK (test code = GABE) Negative NEGATIVE UA PH DIPSTICK (test code = BRE) 6.0 5.0-8.0 UA PROTEIN DIPSTICK (test code = PROU) 30 (1+) mg/dL NEGATIVE A UA UROBILINIOGEN DIPSTICK (test code = URO) NEGATIVE mg/dL NEGATIVE UA NITRITE DIPSTICK (test code = APRIL) NEGATIVE NEGATIVE UA LEUKOCYTE ESTERASE W REFLEX (test code = LEUUR) 2+ NEG ATIVE A UA WBC (test code = WBCU) 21-50 #/HPF 0-5 A UA RBC (test code = RBCU) 6-10 #/HPF 0-5 A UA EPITHELIAL CELLS (test code = EPIU) MANY per HPF FEW UA BACTERIA (test code = BACU) FEW #/HPF NONE A UA RENAL CELLS (test code = AMIRA) 11-20 #/HPF 0-5 A UA MUCUS (test code = MUCU) FEW #/LPF FEW Urine Source? Clean CatchURINALYSIS [id number] 22:27:00* Test Item Value Reference Range Interpretation Comments UA COLOR (test code = COLU) DARK YELLOW YELLOW A UA APPEARANCE (test code = APPU) SLIGHTLY CLOUDY CLEAR A UA GLUCOSE DIPSTICK (test code = DGLUU) NEGATIVE mg/dL NEGATIVE UA BILIRUBIN DIPSTICK (test code = BILU) NEGATIVE mg/dL NEGATIVE UA KETONE DIPSTICK (test code = KETU) Negative mg/dL NEGATIVE UA SPECIFIC GRAVITY (test code = SGU) 1.029 1.001-1.035 UA BLOOD DIPSTICK (test code = GABE) Negative NEGATIVE UA PH DIPSTICK (test code = BRE) 6.0 5.0-8.0 UA PROTEIN DIPSTICK (test code = PROU) 30 (1+) mg/dL NEGATIVE A UA UROBILINIOGEN DIPSTICK (test code = URO) NEGATIVE mg/dL NEGATIVE UA NITRITE DIPSTICK (test code = APRIL) NEGATIVE NEGATIVE UA LEUKOCYTE ESTERASE W REFLEX (test code = LEUUR) 2+ NEG ATIVE A UA WBC (test code = WBCU) per HPF 0-5 Urine Source? Clean CatchBASIC METABOLIC [id number] 22:07:00* Test Item Value Reference Range Interpretation Comments SODIUM (test code = NA) 143 mmol/L 136-145 N POTASSIUM (test code = K) 3.7 mmol/L 3.5-5.1 N CHLORIDE (test code = CL) 109.0 mmol/L 98-107 H CARBON DIOXIDE (test code = CO2) 26.0 mmol/L 21-32 N ANION GAP (test code = GAP) 11.7 10-20 N GLUCOSE (test code = GLU) 88 mg/dL 74-106 N BLOOD UREA NITROGEN (test code = BUN) 10 mg/dL 7-18 N GLOMERULAR FILTRATION RATE (test code = GFR) > 60 mL/min >=60 Estimated GFR by using Modified MDRD formula.Chronic kidney disease is defined as either kidney damageor GFR <60 mL/min/1.73 m2 for >3 months. CREATININE (test code = CREAT) 0.90 mg/dL 0.55-1.02 N Note change in reference range due to change in reagent. BUN/CREATININE RATIO (test code = BUN/CREA) 11.0 10-20 N CALCIUM (test code = CA) 9.0 mg/dL 8.5-10.1 N HEPATIC FUNCTION [id number] 22:07:00* Test Item Value Reference Range Interpretation Comments TOTAL PROTEIN (test code = PROT) 7.6 gram/dL 6.4-8.2 N ALBUMIN (test code = ALB) 3.7 g/dL 3.4-5.0 N GLOBULIN (test code = GLOB) 3.9 gram/dL 2.7-4.2 N ALBUMIN/GLOBULIN RATIO (test code = A/G) 0.9 0.75-1.50 N BILIRUBIN TOTAL (test code = BILT) 0.30 mg/dL 0.0-1.0 N BILIRUBIN DIRECT (test code = BILD) 0.09 mg/dL 0.0-0.20 N SGOT/AST (test code = AST) 22 IUnit/L 15-37 N SGPT/ALT (test code = ALT) 35 IUnit/L 12-78 N ALKALINE PHOSPHATASE TOTAL (test code = ALKP) 76 IUnit/L 45-117 N Note change in reference range due to change in reagent. [id number] 22:07:00* Test Item Value Reference Range Interpretation Comments LIPASE (test code = LIP) 204 U/L 73.0-393.0 N HCG SERUM [id number] 22:07:00* Test Item Value Reference Range Interpretation Comments HCG SERUM QUAL (test code = HCGQL) NEGATIVE NEGATIVE This HCGQL test is NOT applicable for MALE patients.Check with nurse about probable order error.If Tumor Marker Test needed, nurse should order test "HCGTU"(Test #550.83669) BASIC METABOLIC [id number] 22:06:00* Test Item Value Reference Range Interpretation Comments SODIUM (test code = NA) 143 mmol/L 136-145 N POTASSIUM (test code = K) 3.7 mmol/L 3.5-5.1 N CHLORIDE (test code = CL) 109.0 mmol/L 98-107 H CARBON DIOXIDE (test code = CO2) mmol/L 21-32 ANION GAP (test code = GAP) 10-20 GLUCOSE (test code = GLU) mg/dL 74-106 BLOOD UREA NITROGEN (test code = BUN) mg/dL 7-18 GLOMERULAR FILTRATION RATE (test code = GFR) mL/min >=60 CREATININE (test code = CREAT) mg/dL 0.55-1.02 BUN/CREATININE RATIO (test code = BUN/CREA) 10-20 CALCIUM (test code = CA) mg/dL 8.5-10.1 HEPATIC FUNCTION [id number] 22:06:00* Test Item Value Reference Range Interpretation Comments TOTAL PROTEIN (test code = PROT) gram/dL 6.4-8.2 ALBUMIN (test code = ALB) g/dL 3.4-5.0 GLOBULIN (test code = GLOB) gram/dL 2.7-4.2 ALBUMIN/GLOBULIN RATIO (test code = A/G) 0.75-1.50 BILIRUBIN TOTAL (test code = BILT) mg/dL 0.0-1.0 BILIRUBIN DIRECT (test code = BILD) mg/dL 0.0-0.20 SGOT/AST (test code = AST) IUnit/L 15-37 SGPT/ALT (test code = ALT) IUnit/L 12-78 ALKALINE PHOSPHATASE TOTAL (test code = ALKP) IUnit/L 45-117 [id number] 22:06:00* Test Item Value Reference Range Interpretation Comments LIPASE (test code = LIP) U/L 73.0-393.0 HCG SERUM [id number] 22:06:00* Test Item Value Reference Range Interpretation Comments HCG SERUM QUAL (test code = HCGQL) NEGATIVE NEGATIVE This HCGQL test is NOT applicable for MALE patients.Check with nurse about probable order error.If Tumor Marker Test needed, nurse should order test "HCGTU"(Test #550.99007) BASIC METABOLIC [id number] 21:58:00* Test Item Value Reference Range Interpretation Comments SODIUM (test code = NA) 143 mmol/L 136-145 N POTASSIUM (test code = K) 3.7 mmol/L 3.5-5.1 N CHLORIDE (test code = CL) 109.0 mmol/L 98-107 H CARBON DIOXIDE (test code = CO2) mmol/L 21-32 ANION GAP (test code = GAP) 10-20 GLUCOSE (test code = GLU) mg/dL 74-106 BLOOD UREA NITROGEN (test code = BUN) mg/dL 7-18 GLOMERULAR FILTRATION RATE (test code = GFR) mL/min >=60 CREATININE (test code = CREAT) mg/dL 0.55-1.02 BUN/CREATININE RATIO (test code = BUN/CREA) 10-20 CALCIUM (test code = CA) mg/dL 8.5-10.1 HEPATIC FUNCTION [id number] 21:58:00* Test Item Value Reference Range Interpretation Comments TOTAL PROTEIN (test code = PROT) gram/dL 6.4-8.2 ALBUMIN (test code = ALB) g/dL 3.4-5.0 GLOBULIN (test code = GLOB) gram/dL 2.7-4.2 ALBUMIN/GLOBULIN RATIO (test code = A/G) 0.75-1.50 BILIRUBIN TOTAL (test code = BILT) mg/dL 0.0-1.0 BILIRUBIN DIRECT (test code = BILD) mg/dL 0.0-0.20 SGOT/AST (test code = AST) IUnit/L 15-37 SGPT/ALT (test code = ALT) IUnit/L 12-78 ALKALINE PHOSPHATASE TOTAL (test code = ALKP) IUnit/L 45-117 [id number] 21:58:00* Test Item Value Reference Range Interpretation Comments LIPASE (test code = LIP) U/L 73.0-393.0 HCG SERUM [id number] 21:58:00* Test Item Value Reference Range Interpretation Comments HCG SERUM QUAL (test code = HCGQL) NEGATIVE CBC W/O [id number] 21:34:00* Test Item Value Reference Range Interpretation Comments WHITE BLOOD CELL (test code = WBC) 8.7 K/mm3 4.5-12.5 N RED BLOOD CELL (test code = RBC) 4.15 mill/mm3 3.7-5.2 N HEMOGLOBIN (test code = HGB) 11.6 gram/dL 11.5-15.5 N HEMATOCRIT (test code = HCT) 37.8 % 36.0-46.0 N MEAN CELL VOLUME (test code = MCV) 91.1 fL 80-98 N MEAN CELL HGB (test code = MCH) 28.0 picogram 27.0-33.0 N MEAN CELL HGB CONCETRATION (test code = MCHC) 30.7 gram/dL 33.0-36. 0 L RED CELL DISTRIBUTION WIDTH (test code = RDW) 14.9 % 11.6-16. 2 N PLATELET COUNT (test code = PLT) 297 K/mm3 150-450 N MEAN PLATELET VOLUME (test code = MPV) 10.7 fL 6.7-11.0 N
[2019-12-15] MEDS ORDERED: ONDANSETRON HCL INJ 2MG/ML 2ML 2 MG/ML VIAL IV STA (20:44)
[2019-12-15] MEDS ORDERED: SODIUM CHLORIDE 0.9% 1000ML 1,000 ML IV SCH (20:45)
[2019-12-15] MEDS ORDERED: FAMOTIDINE 20 MG/2 ML VIAL IV STA (21:21)
[2019-12-15] MEDS ORDERED: MORPHINE SULFATE 2 MG/ML SYR 1ML IV STA (21:27)
[2019-12-15] MEDS ORDERED: CEFTRIAXONE SOD 1 GM VIAL IV ONE (21:30)
[2019-12-15] MEDS ORDERED: FAMOTIDINE 20 MG/2 ML VIAL IV ONE (21:38)
[2019-12-15] MEDS ORDERED: MORPHINE SULFATE INJ 4 MG/ML INJ 1ML ONE (21:38)
[2019-12-15] MEDS ORDERED: CEFTRIAXONE SOD 1 GM/NS 50 ML 50 ML IV ONE ×2 (21:44→21:50)
[2019-12-15] MEDS ORDERED: SODIUM CHLORIDE 0.9% 50ML 50 ML ONE (21:53)
[2019-12-15] MEDS ORDERED: IOPAMIDOL 370 MG/ML 200 ML INFUS..BTL INJ ONE (21:53)
--- NOTE | 2019-12-15 23:06 | Diagnostic Imaging Report ---
EXAM: CT Abdomen and Pelvis WITH contrast INDICATION: Abdominal pain, vomiting. COMPARISON: None abdominal CT 08/06/2019. TECHNIQUE: Abdomen and pelvis were scanned utilizing a multidetector helical scanner from the lung base to the pubic symphysis after administration of IV contrast. Coronal and sagittal reformations were obtained. Routine protocol was performed. Scan was performed when during portal venous phase. IV CONTRAST: 100 mL of Isovue 370 ORAL CONTRAST: None COMPLICATIONS: None RADIATION DOSE: Total DLP: 99 mGy*cm Estimated effective dose: (DLP x 0.015 x size factor) mSv CTDIvol has been reviewed. It is below the limits set by the Radiation Protocol Committee (RPC). Dose modulation, iterative reconstruction, and/or weight based adjustment of the mA/kV was utilized to reduce the radiation dose to as low as reasonably achievable. FINDINGS: LINES and TUBES: None. LOWER THORAX: Unremarkable HEPATOBILIARY: Enlarged hypodense liver. No focal hepatic lesions. No biliary ductal dilation. GALLBLADDER: Absent. SPLEEN: No splenomegaly. PANCREAS: No focal masses or ductal dilatation. ADRENALS: No adrenal nodules KIDNEYS/URETERS: A 6 mm calculus in the proximal left ureter without significant left hydronephrosis. An additional punctate nonobstructive calculus in the left renal inferior pole. Kidneys enhance symmetrically. No hydronephrosis. No cystic or solid mass lesions. GI TRACT: Small sliding gastric hiatal hernia. Mild distal esophageal wall thickening. No abnormal distention or evidence of bowel obstruction. Appendix is normal. PELVIC ORGANS/BLADDER: Hysterectomy. No adnexal masses. Urinary bladder unremarkable. LYMPH NODES: No lymphadenopathy. VESSELS: Unremarkable. PERITONEUM / RETROPERITONEUM: No free air or fluid. BONES: There are degenerative changes. SOFT TISSUES: Midline ventral abdominal scar. IMPRESSION: 1. A 6 mm calculus in the proximal left ureter without significant left hydronephrosis. An additional punctate nonobstructive calculus in the left renal inferior pole. 2. Small sliding gastric hiatal hernia with mild distal esophagitis. 3. Hepatomegaly with hepatic steatosis. Signed by: Ezio Fried DO on 12/15/2019 11:02 PM
[2019-12-16] MEDS ORDERED: CYCLOBENZAPRINE HCL 10 MG TAB PO ONE (01:00)
[2019-12-16] MEDS ORDERED: HYDROCODONE/APAP 5MG-325MG TAB PO ONE (01:00)
[2019-12-16] MEDS ORDERED: HYDROCODONE/APAP 5MG-325MG TAB ONE (01:05)
[2019-12-16] MEDS ORDERED: CYCLOBENZAPRINE HCL 10 MG TAB ONE (01:05)
[2019-12-16] MEDS ORDERED: CEFDINIR300 MG PO (01:31)
[2019-12-16] MEDS ORDERED: PROMETHAZINE HC25 M1 PO (01:31)
[2019-12-16] MEDS ORDERED: ROBAXIN-750750 MG PO (01:33)
== END 2019-12-16 01:55 | disposition home or self-care (01) ==
LOC: FSED 20:00
DX: N39.0 Urinary tract infection, site not specified (principal); N20.0 Calculus of kidney; R30.0 Dysuria; M54.5 Low back pain; R11.2 Nausea with vomiting, unspecified; K21.9 Gastro-esophageal reflux disease without esophagitis
CPT/HCPCS: 74177; 99284; J0696; J2270; J2405; J7030; Q9967; 80053; 81003; 85025

== ENCOUNTER 2020-02-24 22:26 | Emergency (ER) | payer OTHER ==
[~2020-02-24] VITALS: Ht 177.8 cm; Wt 136.1 kg
[~2020-02-24 22:26] MED LIST changes: +CEFDINIR300 MG PO; +PROMETHAZINE HC25 M1 PO; +ROBAXIN-750750 MG PO
[2020-02-24] MEDS ORDERED: ONDANSETRON HCL INJ 2MG/ML 2ML 2 MG/ML VIAL IV STA (23:37)
[2020-02-24] MEDS ORDERED: SODIUM CHLORIDE 0.9% 1000ML 1,000 ML IV STA (23:37)
[2020-02-24] MEDS ORDERED: METHYLPREDNISOLONE SOD SUCC 125 MG/2ML VIAL IV ONE (23:45)
[2020-02-24] MEDS ORDERED: CEFTRIAXONE SOD 1 GM/NS 50 ML 50 ML IV ONE (23:45)
[2020-02-24] MEDS ORDERED: SODIUM CHLORIDE FLUSH 10 ML SYR INJ PRN (23:45)
[2020-02-25] MEDS ORDERED: ONDANSETRON HCL INJ 2MG/ML 2ML 2 MG/ML VIAL ONE ×2 (00:06)
[2020-02-25] MEDS ORDERED: METHYLPREDNISOLONE SOD SUCC 125 MG/2ML VIAL ONE (00:06)
[2020-02-25] MEDS ORDERED: CEFTRIAXONE SOD 1 GM VIAL ONE (00:07)
[2020-02-25] MEDS ORDERED: SODIUM CHLORIDE 0.9% 1000ML 1,000 ML ONE (00:07)
--- NOTE | 2020-02-25 00:11 | Emergency Department Note ---
History of Present Illnes History of Present Illness Chief Complaint: sob/wheezing History of Present Illness This is a 49 year old female . 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 Onset (how long ago): day(s) (3) Location: see above Quality: sharp Radiation: Reports non-radiation Severity: moderate Onset quality: gradual Duration (how long): day(s) (3) Timing of current episode: constant Progression: worsening Chronicity: new Context: Denies recent illness, Denies recent surgery, Denies recent immobilization, Denies recent travel, Denies trauma/injury, Denies new medications, Denies hx of DVT/PE, Denies non-compliance w/ medications Relieving factors: none Exacerbating factors: movement Associated symptoms: Reports cough, Reports shortness of breath Treatments prior to arrival: none Past Medical/Family History Physician Review I have reviewed the patient's past medical and family history. Any updates have been documented here. Past Medical History Recent Fever: No Clinical Suspicion of Infectio: No New/Unexplained Change in Ment: No Past Medical History: UTI's, Anxiety, GERD Other Medical History: SPINAL INJURY 2019 WITH L-SIDE WEAKNESS (PT STATES LEFT SIDE PARALYSIS LLE > LUE) Past Surgical History: Hysterectomy, Hernia Repair Other Surgery: EXPLORATORY SURG. 10YRS AGO Social History Smoking Cessation: Never Smoker Counseling Performed: No Alcohol Use: Social Any Illegal Drug Use: No TB Exposure/Symptoms: No Physically hurt or threatened: No Family History Family history of heart diseas: No Other Last Tetanus: UTD Any Pre-Existing Lines (PICC,: No Is patient up to date on immun: No Review of Systems Review of Systems Constitutional: Reports as per HPI EENTM: Reports as per HPI Cardiovascular: Reports no symptoms Respiratory: Reports as per HPI Gastrointestinal: Reports no symptoms Genitourinary: Reports no symptoms Musculoskeletal: Reports no symptoms Integumentary: Reports no symptoms Neurological: Reports as per HPI Psychological: Reports no symptoms Endocrine: Reports no symptoms Hematological/Lymphatic: Reports no symptoms Review of other systems: All other systems negative Physical Exam Related Data Allergies: Coded Allergies: ketorolac (Verified Allergy, Intermediate, hives, 02/20/19) ciprofloxacin (Verified Allergy, Unknown, 02/20/19) fentanyl (Verified Allergy, Unknown, 02/20/19) Triage Vital Signs Vital Signs Date Time Temp Pulse Resp B/P (MAP) Pulse Ox O2 Delivery O2 Flow Rate FiO2 02/24/20 22:50 97.2 125 24 132/72 96 Room Air Vital signs reviewed: Yes Physical Exam CONSTITUTIONAL Constitutional: Present well-developed, Present well-nourished HENT HENT: Present normocephalic, Present atraumatic, Present mucosae dry, Present nose normal, Present erythema HENT L/R: Present left ext ear normal, Present right ext ear normal EYES Eyes: Reports PERRL, Reports conjunctivae normal NECK Neck: Present ROM normal PULMONARY Pulmonary: Present effort normal, Present other (bilateral wheezes) CARDIOVASCULAR Cardiovascular: Present regular rhythm, Present heart sounds normal, Present capillary refill normal, Present tachycardia GASTROINTESTINAL Abdominal: Present soft, Present nontender, Present bowel sounds normal GENITOURINARY Genitourinary: Present exam deferred SKIN Skin: Present warm, Present dry MUSCULOSKELETAL Musculoskeletal: Present ROM normal NEUROLOGICAL Neurological: Present alert, Present oriented x 3, Present no gross motor or sensory deficits PSYCHOLOGICAL Psychological: Present mood/affect normal, Present judgement normal Results Imaging Imaging results reviewed: Yes Impressions [place] [id number] Patient Name: SAMIR FITZPATRICK MR #: [id number] : 1970 Age/Sex: 49/F Req #: [id number] Adm Physician: Ordered by: HONG LARSEN Report #: [id number] Location: [facility] Room/Bed: Procedure: [id number] HOPD/CXR 1 VEW - HOPD Exam Date: 02/24/20 Exam Time: 2351 REPORT STATUS: Signed EXAMINATION: CXR 1 [facility] INDICATION: ^SOB COMPARISON: None FINDINGS: TUBES and LINES: None. LUNGS: Normal lung volumes. Lungs are clear. No consolidations. PLEURA: No pleural effusion or pneumothorax. HEART AND MEDIASTINUM: The cardiomediastinal silhouette is unremarkable. BONES AND SOFT TISSUES: No acute osseous lesion. ACDF. UPPER ABDOMEN: No free air under the diaphragm. IMPRESSION: No acute thoracic radiographic abnormality. Signed by: Reema Pulliam MD on 02/25/2020 12:22 AM Dictated By: REEMA PULLIAM MD Transcribed By: SUSU on 02/25/2021 COPY TO: HONG LARSEN~ Assessment & Plan Medical Decision Making MDM see below Reassessment Reassessment symptoms resolved Assessment & Plan Final Impression: (1) Asthma exacerbation (2) Acute bronchitis (3) Dehydration (4) Vomiting (5) Acute pharyngitis Depart Disposition: HOME, SELF-CARE Last Vital Signs Date Time Temp Pulse Resp B/P (MAP) Pulse Ox O2 Delivery O2 Flow Rate FiO2 02/24/20 22:50 97.2 125 24 132/72 96 Room Air Home Meds Active Scripts D-Methorphan Hb/P-Epd Hcl/Bpm (BROMFED DM COUGH SYRUP) 118 Ml Syrup, 10 ML PO Q4HR PRN for COUGH, #240 ML prn cough(use albuterol first), congestion allergy symptoms Prov:HONG LARSEN 02/25/20 Cefdinir (OMNICEF) 300 Mg Capsule, 300 MG PO BID, #20 CAP Prov:HONG LARSEN 02/25/20 Azithromycin (AZITHROMYCIN) 500 Mg Tablet, 500 MG PO DAILY, #4 TAB Prov:HONG LARSEN 02/25/20 Prednisone (PREDNISONE) 20 Mg Tab, 60 MG PO DAILY, #18 TAB take at all 3 pills at once Prov:HONG LARSEN 02/25/20 Albuterol Sulfate (ALBUTEROL SULFATE) 2.5 Mg/3 Ml Vial.neb, 2.5 MG PO Q4HR PRN for SHORTNESS OF BREATH, #120 UNITS 2 Refills Prov:HONG LARSEN 02/25/20 Albuterol Sulf* (PROAIR HFA INHALER*) 8.5 Gm Inh, 2 INH PO Q4HR PRN for SHORTNESS OF BREATH, #1 INH 1 Refill dispense with spacer Prov:HONG LARSEN 02/25/20 Ondansetron (ONDANSETRON ODT) 8 Mg Tab.rapdis, 8 MG PO Q6H PRN for NAUSEA AND VOMITING, #20 TAB 1 Refill Prov:HONG LARSEN 02/25/20 Methocarbamol (ROBAXIN-750) 750 Mg Tablet, 1-2 TAB PO Q8H for muscle spasm, #20 TAB 0 Refills DO NOT take and drive or operate machinery. Prov:TONY SORENSEN MD 12/16/19 Promethazine Hcl (PROMETHAZINE HCL) 25 Mg Tablet, 25 MG PO Q6H PRN for nausea or vomiting, #20 TAB 0 Refills Prov:TONY SORENSEN MD 12/16/19 Cefdinir (OMNICEF) 300 Mg Capsule, 300 MG PO BID for urine infection for 10 Days, #20 CAP 0 Refills Prov:TONY SORENSEN MD 12/16/19 Ondansetron Hcl* (ZOFRAN*) 4 Mg Tablet, 4 MG SL Q6H PRN for NAUSEA, #14 MG 0 Refills Prov:LIOR ENAMORADO MD 06/30/19 Hyoscyamine Sulfate (LEVSIN) 0.125 Mg Tablet, 1 TAB PO TID, #15 Prov:LIOR ENAMORADO MD 06/30/19 Medications in the ED Sodium Chloride 10 ml PRN PRN INJ IV SITE FLUSH; Start 02/24/20 at 23:45; Stop 03/25/20 at 23:44 Ondansetron HCl 8 mg NOW STAT IV ; Start 02/24/20 at 23:37; Stop 02/24/20 at 23:43; Status DC Methylprednisolone Sodium Succinate 250 mg ONCE ONCE IV ; Start 02/24/20 at 23:45; Stop 02/24/20 at 23:46; Status DC Sodium Chloride 1,000 ml @ 1,000 mls/hr Q1H STAT IV ; Start 02/24/20 at 23:37; Stop 02/25/20 at 00:36 Ceftriaxone Sodium 50 ml @ 100 mls/hr ONCE ONCE IV ; Start 02/24/20 at 23:45; Stop 02/25/20 at 00:14 HONG LARSEN Feb 25, 2020 00:11
--- NOTE | 2020-02-25 00:26 | Diagnostic Imaging Report ---
EXAMINATION: CXR 1 VEW - HOP INDICATION: ^SOB COMPARISON: None FINDINGS: TUBES and LINES: None. LUNGS: Normal lung volumes. Lungs are clear. No consolidations. PLEURA: No pleural effusion or pneumothorax. HEART AND MEDIASTINUM: The cardiomediastinal silhouette is unremarkable. BONES AND SOFT TISSUES: No acute osseous lesion. ACDF. UPPER ABDOMEN: No free air under the diaphragm. IMPRESSION: No acute thoracic radiographic abnormality. Signed by: Jon Horne MD on 02/25/2020 12:22 AM
[2020-02-25] MEDS ORDERED: AZITHROMYCIN 250 MG TAB PO ONE (01:00)
[2020-02-25] MEDS ORDERED: ONDANSETRON ODT8 MG PO (01:38)
[2020-02-25] MEDS ORDERED: PREDNISONE20 MG PO (01:38)
[2020-02-25] MEDS ORDERED: AZITHROMYCIN500 MG PO (01:38)
[2020-02-25] MEDS ORDERED: BROMFED DM COU118 ML PO (01:38)
[2020-02-25] MEDS ORDERED: PROAIR HFA INH8.5 GM PO (01:38)
[2020-02-25] MEDS ORDERED: CEFDINIR300 MG PO (01:38)
[2020-02-25] MEDS ORDERED: ALBUTEROL2.5 MG/3 M PO (01:38)
--- OUTSIDE RECORDS SUMMARY | 2020-03-01 18:17 | XMS REPORT | Clinical Summary ---
Author Author [facility] Organization [facility] Address Unknown Phone Unavailable Care Team Providers Care Kindergartner Name Role Phone PCP Unavailable Allergies Comments Active Allergy Reactions Severity Noted Date Rxn: headache/migraine per pt. [id number]. Hydromorphone Other 05/01/2018 Rxn: headache/migraine per pt. [id number]. Fentanyl Other 05/01/2018 Ketorolac Tromethamine Hives 01/28/2014 [...] Health Maintenance Due Date Last Done Comments HPV Cervical Cancer Scrn 2000 Pap Cervical Cancer Scrn 2000 Breast Cancer Scrn 2010 (Yearly) IMM Influenza Seasonal 01/26/2020Jan to June (>/= 19 yrs) Results Not on fileafter 02/23/2019 Insurance Type Payer Benefit Subscriber ID Effective Phone Address Plan / Dates Group [facility] xxxxxxxxx 2018-P [phone] [address] [place] [id number] [place] [address]
--- OUTSIDE RECORDS SUMMARY | 2020-03-01 18:17 | XMS REPORT | Clinical Summary ---
Author Author [facility] Organization [facility] Address Unknown Phone Unavailable Care Team Providers Care Yard Pilot Name Role Phone Asked, No Pcp PCP [...] Encounters Care Team Description Date Type Specialty Gardenia Julio MD Contusion of rib on right side, initial encounter (Primary Dx); Lumbar pain 05/16/2019 Emergency Emergency Medicine after 02/23/2019 Immunizations Name Administration Dates Next Due FLUCELVAX QUAD PF 01/02/2018 Surgical History Surgery Date Site/Laterality Comments CHOLECYSTECTOMY HERNIA REPAIR EXPLORATORY LAPAROTOMY SECTION HERNIA REPAIR DISCECTOMY, CERVICAL, 12/07/2017 Spine Procedur e: Anterior Cervical Discectomy with WITH FUSION, ANTERIOR Cervical/N/A Fusion levels C5 to C6; Surgeon: Benigno Hanley DO; [place] [facility] [place]; Service: Neurosurgery; Laterality: N/A; Medical devices from this surgery are i n the Implants section. HYSTEROSCOPY, WITH 02/08/2018 Uterus/N/A Procedure: HYSTEROSCOPY, WITH DILATION AND DILATION AND CURETTAGE OF CURETTAGE OF UTERUS; Garcia rgeon: Davina Manzanares UTERUS ; Location: [facility] [place]; Se rvice: Gynecology; Laterality: N/A; BACK SURGERY Medical History Medical History Date Comments Gastritis Paralysis (HCC) left side Anxiety Depression Hypercholesteremia Neurogenic bladder chronic reynolds Social History Date Tobacco Use Types Packs/Day Years Used Never Smoker Smokeless Tobacco: Never Used Drinks/Week oz/Week Comments Alcohol Use No Sex Assigned at Date Recorded Not on file Last Filed Vital Signs Reading Time Taken Comments Vital Sign 122/76 05/16/2019 8:28 PM CNC MILLING MACHINE OPERATOR Blood Pressure 101 05/16/2019 8:28 PM CNC MILLING MACHINE OPERATOR Pulse 36.9 C (98.4 F) 05/16/2019 8:28 PM CNC MILLING MACHINE OPERATOR Temperature 20 05/16/2019 8:28 PM CNC MILLING MACHINE OPERATOR Respiratory Rate 98% 05/16/2019 8:28 PM CNC MILLING MACHINE OPERATOR Oxygen Saturation - - Inhaled Oxygen Concentration - - Weight 177.8 cm (5' 10") 05/16/2019 6:06 PM CNC MILLING MACHINE OPERATOR Height - - Body Mass Index Plan of Treatment Health Maintenance Due Date Last Done Comments CERVICAL CANCER SCREENING 10/06/1991 INFLUENZA VACCINE 11/26/2019 01/02/2018 Implants Device Identifier Shelf Expiration Date Model / Serial / L ot Implanted Type Area Manufactur er Bone Plate Bone Plate Description:titanium and screw [id number] / / VENDOR LOT NA Screw [id number] 4.0 X 13 Self Tap Sandra IPM N/A: N/A [employer] - [id number] IMPLANT SOFAMOR Implanted: 12/07/2017 at [facility] (Quantity not on file) [id number] / / VENDOR LOT NA Plate [id number] Anterior Cervical IPM N/A: N/A [employer] 25mm - [id number] IMPLANT SOFAMOR Implanted: 12/07/2017 at [facility] (Quantity not on file) Screw Screw 08/23/2019 2100 010 / [id number] / [id number] Paste Grftng Dbm 1cc Orthoblast Ii Surgical N/A : N/A - [id number] - [id number] Implants; Implanted: Qty: 1 on 12/07/2017 by [employer]; Benigno Hanley, DO at [facility] Surgical Wires 07/17/[id number] / [id number] / [id number] Block Jovon Scr 8x11mm [employer] - Surgical N/A: N/A [employer] [id number] - [id number] Implants; SPINAL Implanted: Qty: 1 on 12/07/2017 by [employer]; GRA FT Benigno Hanley, DO at [facility]; MANJINDER HNOLOGI [facility] Surgical ES Wires Plate/Screws Description:plate and screws to neck Procedures Comments Procedure Name Priority Date/Time Associated Diag nosis XR LUMBAR SPINE 2 OR 3 VW STAT 05/16/2019 9:41 PM CNC MILLING MACHINE OPERATOR XR RIBS W PA CHEST RIGHT STAT 05/16/2019 9:40 PM CNC MILLING MACHINE OPERATOR HCG QUALITATIVE, URINE Routine 05/16/2019 SCREEN 8:20 PM CNC MILLING MACHINE OPERATOR URINALYSIS SCREEN AND Routine 05/16/2019 MICROSCOPY, WITH REFLEX 8:20 PM CNC MILLING MACHINE OPERATOR TO CULTURE URINE CULTURE Routine 05/16/2019 8:20 PM CNC MILLING MACHINE OPERATOR LIPASE LEVEL STAT 05/16/2019 7:04 PM CNC MILLING MACHINE OPERATOR ESTIMATED GFR STAT 05/16/2019 7:04 PM CNC MILLING MACHINE OPERATOR COMPREHENSIVE METABOLIC STAT 05/16/2019 PANEL 7:04 PM CNC MILLING MACHINE OPERATOR HC COMPLETE BLD COUNT STAT 05/16/2019 W/AUTO DIFF 7:04 PM CNC MILLING MACHINE OPERATOR after 02/23/2019 Results * XR Lumbar Spine 2 Or 3 Vw (05/16/2019 9:41 PM CNC MILLING MACHINE OPERATOR) Specimen Narrative Performed At EXAMINATION: XR LUMBAR [...] levels. Visualized soft tissues are unremarkabl e. [facility]-[id number] Procedure Note Hm Interface, Radiology Results Incoming - 05/16/2019 9:49 PM CNC MILLING MACHINE OPERATOR EXAMINATION: XR LUMBAR SPINE 2 OR 3 [...] lumbar levels. Visualized soft tissues are unremarkable. [facility]-[id number] Performing Organization Address City/State/ZIP Code P jasmyn Number [facility] [address] [place] [address] * XR Ribs W Pa Chest Right (05/16/2019 9:40 PM CNC MILLING MACHINE OPERATOR) Specimen Narrative Performed At EXAMINATION: XR RIBS W PA CHEST RIGHT RADIANT CLINICAL HISTORY: fall COMPARISON: None. IMPRESSION: No displaced right rib fracture is visu alized. Visualized lungs are clear. Soft tissues are unremarkable. [facility]-[id number] Procedure Note Interface, Radiology Results Incoming - 05/16/2019 9:46 PM CNC MILLING MACHINE OPERATOR EXAMINATION: XR RIBS W PA CHEST RIGHT CLINICAL HISTORY: fall COMPARISON: None. IMPRESSION: No displaced right rib fracture is visualized. Visualized lungs are clear. Soft tissues are unremarkable. [facility]-[id number] Performing Organization Address City/[facility]/ZIP Code P jasmyn Number [facility] [address] [place] [address] * Urinalysis screen and microscopy, with reflex to culture (05/16/2019 8:20 PM CNC MILLING MACHINE OPERATOR) Specimen site Clean catch [facility] Color, UA Yellow [facility] Appearance, UA Clear [facility] Specific 1.020 1.001 - 1.035 [place] gravity, [facility] pH, UA 5.0 5.0 - 8.5 [facility] Protein, UA Negative Negative [facility] Glucose, UA Negative Negative [facility] Ketones, UA Trace (A) Negative [facility] Bilirubin, UA Negative Negative [facility] Blood, UA Negative Negative [facility] Nitrite, UA Negative Negative [facility] Urobilinogen, Negative <2.0 [facility] Leukocyte Negative Negative [place] esterase, UA [facility] Epithelial Many /HPF [facility] cells, UA [facility] WBC, UA 3 0 - 5 /HPF [facility] RBC, UA 4 0 - 5 /HPF [facility] Bacteria, UA None seen None seen [facility] Yeast, UA None seen [facility] Yeast with None seen [place] pseudohyphae, [facility] Specimen Urine Performing Organization Address City/[facility]/ZIP Code P jasmyn Number [facility] [place] [address] [place] [address] PATHOLOGY AND GENOMIC MEDICINE [address] * hCG qualitative, urine screen (05/16/2019 8:20 PM CNC MILLING MACHINE OPERATOR) Pathologist [facility] [place] hCG Negative Negative [place] qualitative, Comment: [facility] urine The manufacturers stated AMBOY sensitivity of HcG test for HOSPITAL serum is >/= 10 mIU/ml and urine is >/= 20mIU/ml. Specimen Urine Performing Organization Address City/[facility] P jasmyn Number [place] [id number] [place] [address] PATHOLOGY AND GENOMIC MEDICINE [address] * Urine culture (05/16/2019 8:20 PM CNC MILLING MACHINE OPERATOR) Pathologist [facility] [place] Urine culture SEE COMMENTComment: [place] Bacteriuria screen negative. [facility] Specimen Performing Organization Address City/[facility] [place] [address] PATHOLOGY AND GENOMIC MEDICINE [address] * Estimated GFR (05/16/2019 7:04 PM CNC MILLING MACHINE OPERATOR) Pathologist [facility] [place] Estimated GFR 87 mL/min/1.73 m2 [place] Comment: [facility] Catergory Units AMBOY Interpretation HOSPITAL G1 >=90 Normal or high G2 60-89 [...] 2014. Specimen Plasma specimen Performing Organization Address City/State/ZIP Code P jasmyn Number [facility] [address] [place] [address] PATHOLOGY AND GENOMIC MEDICINE [facility] [address] * CBC with platelet and differential (05/16/2019 7:04 PM CNC MILLING MACHINE OPERATOR) WBC 7.8 4.2 - 11.0 k/uL [facility] RBC 4.68 4.04 - 5.86 m/uL [facility] HGB 12.6 11.5 - 15.3 g/dL [facility] HCT 40.3 34.0 - 45.0 % [facility] MCV 86.1 80.0 - 98.0 fL [facility] MCH 26.9 (L) 27.0 - 34.0 pg [facility] MCHC 31.3 (L) 31.5 - 36.5 g/dL [facility] RDW - SD 55.2 (H) 37.0 - 51.0 fL [facility] MPV 10.2 7.4 - 10.4 fL [facility] Platelet count 301 150 - 400 k/uL [facility] Nucleated RBC 0.00 /100 WBC [facility] Neutrophils 57.3 36.0 - 66.0 % [facility] Lymphocytes 30.8 24.0 - 44.0 % [facility] Monocytes 7.1 (H) 0.0 - 6.0 % [facility] Eosinophils 4.0 0.0 - 6.0 % [facility] Basophils 0.5 0.0 - 1.2 % [facility] Immature 0.3 0.0 - 1.0 % [place] granulocytes [facility] Specimen Blood Performing Organization Address City/State/ZIP Code P jasmyn Number [facility] [address] [place] [address] PATHOLOGY AND GENOMIC MEDICINE [facility] [address] * Lipase level (05/16/2019 7:04 PM CNC MILLING MACHINE OPERATOR) Lipase 19 13 - 60 U/L [facility] Specimen Plasma specimen Performing Organization Address City/[facility] P jasmyn Number [facility] [address] [place] [address] PATHOLOGY AND GENOMIC MEDICINE [place] [address] [place] [address] HOSPITAL * Comprehensive metabolic panel (05/16/2019 7:04 PM CNC MILLING MACHINE OPERATOR) Sodium 137 135 - 150 mEq/L [facility] Potassium 3.9 3.5 - 5.0 mEq/L [facility] Chloride 100 98 - 112 mEq/L [facility] CO2 25 24 - 31 mmol/L [facility] Anion gap 12@ANIO 7 - 15 mEq/L [facility] BUN 11 7 - 18 mg/dL [facility] Creatinine 0.80 0.50 - 0.90 mg/dL [facility] Glucose 94 65 - 100 mg/dL [facility] Calcium 9.2 8.3 - 10.2 mg/dL [facility] Protein 8.0 6.3 - 8.3 g/dL [facility] Albumin 3.5 3.5 - 5.0 g/dL [facility] A/G ratio 0.8 0.7 - 3.8 [facility] Alkaline 74 0 - 104 U/L [place] phosphatase [facility] AST 20 10 - 35 U/L [facility] ALT 25 5 - 50 U/L [facility] Total bilirubin 0.8 0.2 - 1.2 mg/dL [facility] Specimen Plasma specimen Performing Organization Address City/[facility] P jasmyn Number [facility] [address] [place] [id number] PATHOLOGY AND GENOMIC MEDICINE [place] [address] [place] [address] HOSPITAL after 02/23/2019 Insurance Type Payer Benefit Subscriber ID Effective Phone Address Plan / Dates Group Medicaid MEDICAID MEDICAID [id number] 2018-P resent O [facility] MEDICAID [facility] [id number] 2019-P COMM STAR+ resent JACKIE [phone] [id number] [facility] [address] [place] [id number] Advance Directives For more information, please contact: [phone] Patient Densitometer Reader Explanation Type Date Recorded Advance Directives, 03/19/2018 4:57 AM Living Will and Medical Power of Extrusion Bender Advance Directives, 05/29/2017 1:03 PM Living Will and Medical Power of Extrusion Bender Advance Directives, 02/04/2018 2:41 PM Living Will and Medical Power of Extrusion Bender Advance Directives, 11/29/2017 1:48 PM Living Will and Medical Power of Extrusion Bender Advance Directives, 02/24/2018 11:40 PM Living Will and Medical Power of Extrusion Bender Advance Directives, 03/31/2018 10:19 PM Living Will and Medical Power of Extrusion Bender Advance Directives, 05/05/2018 5:03 AM Living Will and Medical Power of Extrusion Bender Advance Directives, 05/20/2018 8:41 PM Living Will and Medical Power of Extrusion Bender Advance Directives, 06/15/2018 5:20 AM Living Will and Medical Power of Extrusion Bender Advance Directives, 06/15/2018 5:23 AM Living Will and Medical Power of Extrusion Bender Advance Directives, 09/20/2018 3:24 PM Living Will and Medical Power of Extrusion Bender Advance Directives, 10/13/2018 8:06 PM Living Will and Medical Power of Extrusion Bender Advance Directives, 10/24/2018 11:16 PM Living Will and Medical Power of Extrusion Bender Advance Directives, 11/07/2018 10:41 PM Living Will and Medical Power of Extrusion Bender Advance Directives, 11/20/2018 6:22 PM Living Will and Medical Power of Extrusion Bender Date Inactivated Comments Code Status Date Activated 06/15/2018 10:04 PM Full Code 06/15/2018 2:48 PM Code Status decision reached by: Patient 06/15/2018 2:48 PM Full Code 06/15/2018 6:15 AM Code Status decision reached by: Patient 03/21/2018 5:21 PM Full Code 03/19/2018 5:50 AM Code Status decision reached by: Patient
--- OUTSIDE RECORDS SUMMARY | 2020-03-01 18:18 | XMS REPORT | Continuity of Care Document ---
Author Author [facility] t Organization [facility] Address [address] [place] [address] Phone Unavailable Care Team Providers Care Feltmaker And Weigher Name Role Phone Darrell ANDERSON M.D. PCP Krystal LARSEN Attphys Unavailable Onelia SORENSEN Attphys Unavailable LIOR ENAMORADO Attphys Unavailable Humza QUINN Attphys Unavailable Nori AMAYA, Tray Varner Attphys [phone] Payers Payer Name Policy Type Policy Number Effective Date Expiration Date [facility] [id number] 2019 00:00:00 2019 00:00:00 [facility] Cdc Review Covid19 [id number] [facility] [id number] 2018-PresentMedicaid [id number] 2018 00:00:00 Giovanni Méndez [facility] MEDICAIDUNITEDHC COMM ST[place]+ [id number] 2019-PresentHMO [id number] 2019 00:00:00 Giovanni Méndez Problems Condition Name [...] bladder Disease Active 2018-02-05 00:00:0 0 Giovanni Chaudhryist Neck pain Neck pain Disease Active 2018-01-01 00:00:00 Giovanni Méndez Acute midline low back pain with left-sided sciatica A cute midline low back pain with left-sided sciatica Disease Active 2017-11-29 00:00:00 Giovanni Méndez Abdominal pain Abdominal pain Disease Active 2014-01-28 00:00:00 [facility] Headache Problem Active [facility] Exposure to severe acute respiratory syndrome coronavirus 2 (SARS-CoV-2) Problem Active [facility] Tachycardia Problem Active [facility] Nausea and vomiting Problem Active [facility] Right low back pain Problem Active [facility] Calculus of left kidney Problem Active [facility] Gastroesophageal reflux disease Problem Active [facility] Hypercholesteremia Hypercholesteremia Disease Active [facility] Paralysis Paralysis Disease Active Overview: left side [facility] Allergies, Adverse Reactions, Alerts Allergy Name Allergy Type Status Severity Reaction(s) Onset Date Inacti ve Date Treating Clinician Comments Source ciprofloxacin DA Active U 2019-07-03 00:00:00 [facility] fentanyl DA Active U 2019-07-03 00:00:00 [facility] ketorolac DA Active U 2019-07-03 00:00:00 [facility] ciprofloxacin DA Active SV 2019-05-24 00:00:00 [facility] fentanyl DA Active AK 2019-05-24 00:00:00 [facility] ketorolac DA Active AK 2019-05-24 00:00:00 [facility] tizanidine DA Active SV 2019-05-24 00:00:00 [facility] ciprofloxacin DA Active SV 2019-05-20 00:00:00 [facility] tizanidine DA Active SV 2019-05-20 00:00:00 [facility] ciprofloxacin DA Active U 2019-03-23 00:00:00 [facility] fentanyl DA Active AK 2019-03-23 00:00:00 [facility] ketorolac DA Active AK 2019-03-23 00:00:00 [facility] tizanidine DA Active MO 2019-03-23 00:00:00 [facility] ciprofloxacin DA Active U 2019-02-21 00:00:00 [facility] fentanyl DA Active AK 2019-02-21 00:00:00 [facility] ketorolac DA Active AK 2019-02-21 00:00:00 [facility] tizanidine DA Active MO 2019-02-21 00:00:00 [facility] Ciprofloxacin Allergy to substance Active 2019-02-20 00:00: 00 [facility] Fentanyl Allergy to substance Active 2019-02-20 00:00:00 [facility] Ketorolac Allergy to substance Active Moderate hives 2019-02-20 00:00:00 [facility] ciprofloxacin DA Active U 2019-02-19 00:00:00 [facility] fentanyl DA Active AK 2018-12-15 00:00:00 [facility] ketorolac DA Active AK 2018-12-15 00:00:00 [facility] tizanidine DA Active MO 2018-12-15 00:00:00 [facility] tizanidine DA Active MO 2018-11-22 00:00:00 [facility] fentanyl DA Active AK 2018-11-06 00:00:00 [facility] ketorolac DA Active AK 2018-11-06 00:00:00 [facility] fentanyl DA Active AK 2018-09-22 00:00:00 [facility] ketorolac DA Active AK 2018-09-22 00:00:00 [facility] fentanyl DA Active AK 2018-08-02 00:00:00 [facility] ketorolac DA Active AK 2018-08-02 00:00:00 [facility] No Known Allergies DA Active U 2018-05-22 00:00:00 [facility] fentanyl DA Active AK 2018-05-12 00:00:00 [facility] Hydromorphone Propensity to adverse reactions to drug Active Other 2018-05-01 00:00:00 Rxn: headache/migraine per pt. R [id number]. [facility] Fentanyl Propensity to adverse reactions to drug Active Other 2018-05-01 00:00:00 Rxn: headache/migraine per pt. R [id number]. [facility] Fentanyl Propensity to adverse reactions to drug Active Other (See Comments) 2018-03-19 00:00:00 [facility] Tizanidine Propensity to adverse reactions to drug Active 2018-03-19 00:00:00 Severe Hallucinations [facility] hydromorphone DA Active SV 2017-09-28 00:00:00 [facility] ketorolac DA Active AK 2017-09-28 00:00:00 [facility] Ketorolac Propensity to adverse reactions to drug Active Rash 2017-03-16 00:00:00 Headache [facility]retta [facility] Ketorolac Tromethamine Propensity to adverse reactions to drug Active Hives 2014-01-28 00:00:00 Andriy Bauer Social History Social Habit Start Date Stop Date Quantity Comments Source Sex Assigned At Norah ballesterosbrandie Méndez Tobacco use and exposure 2018-11-21 00:00:00 2018-11-21 00:00:00 Neve r used Giovanni Méndez Alcohol intake 2018-11-21 00:00:00 2018-11-21 00:00:00 Current non-drinker of alcohol (finding) Giovanni Méndez Alcohol Comment 2014-01-28 00:00:00 2014-01-28 00:00:00 occasionally [facility] Smoking Status Start Date Stop Date Source Never smoker Giovanni bonilla Medications Ordered Medication Name Filled Medication Name Start Date Stop Da te Current Medication? Ordering Clinician Indication Dosage Frequency Signature (SIG) Comments Components Source Methocarbamol (Robaxin-750) 750 Mg TABLET Methocarbamo l (Robaxin-750) 750 Mg TABLET 2019-12-16 01:33:00 Yes Every 8 Hours for Muscle Spasm [facility] Cefdinir (Omnicef) 300 Mg CAPSULE Cefdinir (Omnicef) 300 Mg CAPSULE 2019-12-16 01:31:00 Yes 300 Twice A Day for Urine Infecti on [facility] Promethazine Hcl Promethazine Hcl 2019-12-16 01:31:00 Yes 25 Every 6 Hours as needed for Nausea Or Vomiting C HI [facility] Ondansetron Hcl (Zofran*) 4 Mg TABLET Ondansetron Hcl (Zofra n*) 4 Mg TABLET 2019-06-30 15:52:00 Yes 4 Every 6 Hours as n eeded for Nausea [facility] Hyoscyamine Sulfate (Levsin) 0.125 Mg TABLET Hyoscyami ne Sulfate (Levsin) 0.125 Mg TABLET 2019-06-30 15:51:00 Yes 1 Three Times A Day [facility] ondansetron ODT (ZOFRAN ODT) 4 MG [...] for up to 3 days .acute pain. Giovanni Méndez diphenhydrAMINE (BENADRYL ALLERGY) 25 mg tablet [...] every 6 hours as needed for Pain. [facility] Immunizations Ordered Immunization Name Filled Immunization Name Date Status Comments Source FLUCELVAX QUAD PF 2018-01-02 00:00:00 Completed Giovanni Méndez Vital Signs Vital Name Observation Time Observation Value Comments Source Weight 2019-12-15 20:00:00 300 [lb_av] [facility] BMI (Body Mass Index) 2019-12-15 20:00:00 43.0 kg/m2 [facility] Weight 2019-10-24 03:05:00 300 [lb_av] [facility] BMI (Body Mass Index) 2019-10-24 03:05:00 43.0 kg/m2 [facility] Body Temperature 2019-08-06 23:20:00 98.5 [degF] [facility] Systolic blood pressure 2019-05-16 20:28:00 122 [...] OR 3 VW 2019-05-16 21:41:43 Henrry Julio [facility] XR RIBS W PA CHEST RIGHT 2019-05-16 21:40:46 Henrry Julio [facility] URINE CULTURE 2019-05-16 20:20:00 Gardenia Julio URINALYSIS SCREEN AND MICROSCOPY, WITH REFLEX TO CULTURE 20:20:00 Gardenia Julio [facility] HCG QUALITATIVE, URINE SCREEN 2019-05-16 20:20:00 Garth Julio HC COMPLETE BLD COUNT W/AUTO DIFF 2019-05-16 19:04:00 Brandie Julio COMPREHENSIVE METABOLIC PANEL 2019-05-16 19:04:00 Garth Julio ESTIMATED GFR 2019-05-16 19:04:00 Gardenia Julio LIPASE LEVEL 2019-05-16 19:04:00 Gardenia Julio INSERT TEMP BLADDER CATH 2019-02-20 00:00:00 [facility] Plan of Care Planned Activity Planned Date Details Comments Source [facility] Scheduled Test 2020-01-26 00:00:00 IMM Influenza Seas onal Jan to June (>/= 19 yrs) [code = IMM Influenza Seasonal Jan to June (>/= 19 yrs)] [facility] Scheduled Test 2019-11-26 00:00:00 INFLUENZA VACCINE [code = INFLUENZA VACCINE] [facility] Scheduled Test 2010 00:00:00 Breast Cancer Scrn (Yearly) [code = Breast Cancer Scrn (Yearly)] [facility] Scheduled Test 2000 00:00:00 Screening for niurka gnant neoplasm of cervix (procedure) [code = 104603372] [facility] Scheduled Test 2000 00:00:00 Screening for niurka gnant neoplasm of cervix (procedure) [code = 495740104] [facility] Scheduled Test 1991-10-06 00:00:00 Screening for niurka gnant neoplasm of cervix (procedure) [code = 698889531] Giovanni Glynn t Instructions Back Pain [facility] Instructions Hemorrhagic Cystitis [facility] Instructions Kidney Stones [facility] Encounters Start Date/Time End Date/Time Encounter Type Admission Type Attendi [facility] Care Department Encounter ID Source 2019-12-15 20:00:00 2019-12-16 01:55:00 Departed Emergency Room 1 CECILIA SORENSENA [facility] [id number] [facility] 2019-10-24 02:48:00 2019-10-24 04:50:00 [facility] [id number] [facility] 2019-08-06 20:55:00 2019-08-06 23:20:00 Departed Emergency Room 1 NIRANJAN QUINN [facility] [id number] [facility] [place] 2019-07-02 19:54:00 2019-07-03 03:40:00 Departed Emergency Room [facility] [id number] [facility] [place] 2019-06-30 12:55:00 2019-06-30 16:15:00 Departed Emergency Room 1 KELSEA [facility] [id number] [facility] 2019-05-16 00:00:00 2019-05-16 00:00:00 Emergency Brandie JULIO [facility] [id number] [facility] 2019-04-14 00:00:00 2019-04-14 00:00:00 Outpatient [facility] [id number] [facility] 2019-03-26 22:20:00 2019-03-27 01:00:00 Departed Emergency Room [facility] [id number] [facility] 2019-03-07 15:34:00 2019-03-07 16:50:00 Departed Emergency Room [facility] [id number] [facility] 2019-02-20 04:08:00 2019-02-20 09:26:00 Departed Emergency Room 1 INDERJIT QUINNUYEN [facility] [id number] [facility] [place] 2018-06-15 00:00:00 2018-06-15 00:00:00 Outpatient [facility] [id number] [facility] 2018-05-01 06:03:04 2018-05-01 06:03:04 Emergency [facility] [id number] [facility] 2017-10-26 01:33:00 2017-10-26 02:12:00 Departed Emergency Room [facility] [id number] [facility] Results Test Description Test Time Test Comments Results Result Comments Source CXR 1 VEW - HOPD 2020-02-25 00:20:00 [facility] FITZPATRICK : 1970 Sex: F [place] [address] Patient Name: SAMIR FITZPATRICK MR #: [id number] : 1970 Age/Sex: 49/F Req #: [id number] [facility] Physician: Ordered by: MITCH LARSEN Report #: [id number] Location: [facility] Room/Bed: Procedure: [id number] HOPD/CXR 1 VEW - HOPD Exam Date: 02/24/20 Exam Time: 8371 REPORT STATUS: Signed EXAMINATION: CXR 1 W - HOPD INDICATION: SOB COMPARISON: None FINDINGS: TUBES and LINES: None. LUNGS: Normal lung volumes. Lungs are clear. No consolidations. PLEURA: No pleural effusion or pneumothorax. HEART AND MEDIASTINUM: The cardiomediastinal silhouette is unremarkable. BONES AND SOFT TISSUES: No acute osseous lesion. ACDF. UPPER ABDOMEN: No free air under the diaphragm. IMPRESSION: No acute thoracic radiographic abnormality. Signed by: Reema Horne MD on 02/25/2020 12:22 AM Dictated By: REEMA HORNE MD Transcribed By: SUSU on 02/25/2021 COPY TO: MITCH LARSEN URINALYSIS COMPLETE 2019-12-18 11:05:00 Test Item UA COLOR (test code = COLU) YELLOW [...] ESTERASE W REFLEX (test code = LEUUR) 75 Curtis/uL (1+) Curtis/uL NEGATIVE A UA WBC (test code = WBCU) 11-20 per HPF 0-5 A UA RBC (test code = RBCU) 0-2 #/HPF 0-5 UA EPITHELIAL CELLS (test code = EPIU) MANY per HPF FEW UA BACTERIA (test code = BACU) NONE SEEN #/HPF NONE UA HYALINE CAST (test code = HYALU) 0-2 #/LPF 0-5 UA MUCUS (test code = MUCU) FEW #/LPF FEW URINALYSIS [id number] 11:02:00* Test Item Value Reference Range Interpretation Comments [...] ESTERASE W REFLEX (test code = LEUUR) 75 Curtis/uL (1+) Curtis/uL NEGATIVE A UA WBC (test code = WBCU) per HPF 0-5 UA RBC (test code = RBCU) per HPF 0-5 UA EPITHELIAL CELLS (test code = EPIU) per HPF Few UA BACTERIA (test code = BACU) per HPF NONE URINALYSIS [id number] 11:02:00* Test Item Value Reference Range Interpretation Comments [...] ESTERASE W REFLEX (test code = LEUUR) 75 Curtis/uL (1+) Curtis/uL NEGATIVE A UA WBC (test code = WBCU) per HPF 0-5 UA RBC (test code = RBCU) per HPF 0-5 UA EPITHELIAL CELLS (test code = EPIU) per HPF Few UA BACTERIA (test code = BACU) per HPF NONE - CT ABD PELVIS [id number] 10:55:00 Name: SAMIR FITZPATRICK [facility] : 1970 Age/S: 49 / F [address] [facility]: [id number] Loc: [place] [address] Phys: Bisi Roach MD Acct: [id number] Dis Date: Status: REG ER PHONE #: [phone] Exam Date: 12/18/2019 1048 FAX #: [phone] Reason: abd pain EXAMS: CPT CODE: [id number] CT ABD PELVIS W/CONT 96341 HISTORY: Abdominal pain. COMPARISON: April 28, 2019 and June 30, 2019. Location: TH. CT abdomen and pelvis with IV contrast: 100 mL of Isovue-370. Automated exposure control. CT abdomen: The lung bases are clear. Dependent changes. The liver demonstrating diffuse fatty infiltration. No discrete mass. Portal vein and hepatic artery are patent. The liver measured 25 cm in length and is moderately enlarged. The spleen enhances homogeneously and is not enlarged. Homogeneous enhancement. The stomach distended incompletely however it is normal. Thickened distal esophagus. Pancreas is enhancing homogeneously. Unremarkable adrenals. Kidneys are free from hydroureteronephrosis. Homogeneous enhancement. Bilateral excretion. No pathologic adenopathy. Well-opacified abdominal and pelvic vasculature. No bowel obstruction or colitis or diverticulitis or enteritis. Constipation. CT PELVIS: Appendix is normal. Pelvic bowel loops are unobstructed. Unremarkable urinary bladder distended incompletely. Patient is post hysterectomy. Phleboliths. No free fluid or free air or abscess. No pelvic pathologic adenopathy. Subcutaneous tissues and the musculature are demonstrating diastases of the rectus musculature with mild protrusion of intra-abdominal contents without overt hernia. No lytic or blastic lesions are noted PAGE 1 Signed Report (CONTINUED) Name: SAMIR FITZPATRICK [facility] : 1970 Age/S: 49 / F [address] [facility] Unit #: [id number] Loc: [place] [address] Phys: Bisi Zepeda MD Acct: [id number] Dis Date: Status: REG ER PHONE #: [phone] Exam Date: 12/18/2019 1048 FAX #: Reason: abd pain EXAMS: CPT CODE: [id number] CT ABD P GERRI W/CONT 65192 <Continued> within the bony skeleton. DJD. Moderate left foraminal stenosis at T12-L1 level due to marked facet hypertrophy. Mild facet hypertrophy at L2-L3 level on the right side as well with moderate foraminal stenosis. Similar narrowing at multiple levels throughout the lumbar spine. Narrowed hip joints. IMPRESSION: Appendix is normal. No bowel obstruction or colitis or diverticulitis or enteritis. No hydroureteronephrosis. Calyceal stone in the upper and lower pole on the left side measuring 1 to 2 mm. Unremarkable urinary bladder. No free fluid or free air or abscess. Fatty liver with marked hepatomegaly at 25 cm in length. Multilevel moderate canal or foraminal stenosis throughout the lumbar spine. Centimeters at 1055 Reported and signed by: Griffin Pantoja M.D. CC: Bisi Zepeda MD Technologist:Jodi garcia RT(R),CT; CTDI: DLP: Trnscb Date/Time: 12/18/2019 (6581) Viet [email or web address] Orig Print D/T: S: 12/18/2019 (9071) PAGE 2 Signed Report CBC W/AUTO DIFF 2019-12-18 10:24:00* Test Item Value Reference Range Interpretation Comments WHITE BLOOD CELL (test code = WBC) 7.2 K/mm3 4.5-12.5 N RED BLOOD CELL (test code = RBC) 4.29 mill/mm3 3.7-5.2 N HEMOGLOBIN (test code = HGB) 11.8 gram/dL 11.5-15.5 N HEMATOCRIT (test code = HCT) 36.0 % 36.0-46.0 N MEAN CELL VOLUME (test code = MCV) 83.9 fL 80-98 N MEAN CELL HGB (test code = MCH) 27.5 picogram 27.0-33.0 N MEAN CELL HGB CONCETRATION (test code = MCHC) 32.8 gram/dL 33.0-36. 0 L RED CELL DISTRIBUTION WIDTH (test code = RDW) 17.6 % 11.6-16. 2 H RED CELL DISTRIBUTION WIDTH SD (test code = RDW-SD) 53.8 fL 37 .0-51.0 H PLATELET COUNT (test code = PLT) 272 K/mm3 150-450 N MEAN PLATELET VOLUME (test code = MPV) 11.0 fL 6.7-11.0 N NEUTROPHIL % (test code = NT%) 47.7 % 39.0-69.0 N IMMATURE GRANULOCYTE % (test code = IG%) 0.4 % 0.0-5.0 N LYMPHOCYTE % (test code = LY%) 40.6 % 25.0-55.0 N MONOCYTE % (test code = MO%) 6.1 % 0.0-10.0 N EOSINOPHIL % (test code = EO%) 4.6 % 0.0-5.0 N BASOPHIL % (test code = BA%) 0.6 % 0.0-1.0 N NUCLEATED RBC % (test code = NRBC%) 0.0 % 0-0 N NEUTROPHIL # (test code = NT#) 3.44 K/mm3 1.8-7.7 N IMMATURE GRANULOCYTE # (test code = IG#) 0.03 x10 3/uL 0-0.03 N LYMPHOCYTE # (test code = LY#) 2.92 K/mm3 1.0-5.0 N MONOCYTE # (test code = MO#) 0.44 K/mm3 0-0.8 N EOSINOPHIL # (test code = EO#) 0.33 K/mm3 0.0-0.5 N BASOPHIL # (test code = BA#) 0.04 K/mm3 0.0-0.2 N NUCLEATED RBC # (test code = NRBC#) 0.00 K/mm3 0.0-0.1 N [id number] 10:17:00* Test Item Value Reference Range Interpretation Comments LIPASE (test code = LIP) 183 U/L 73.0-393.0 N COMPREHENSIVE METABOLIC [id number] 10:17:00* Test Item Value Reference Range Interpretation Comments SODIUM (test code = NA) 145 mmol/L 136-145 N POTASSIUM (test code = K) 3.8 mmol/L 3.5-5.1 N CHLORIDE (test code = CL) 111.0 mmol/L 98-107 H CARBON DIOXIDE (test code = CO2) 23.0 mmol/L 21-32 N ANION GAP (test code = GAP) 14.8 10-20 N GLUCOSE (test code = GLU) 118 mg/dL 74-106 H BLOOD UREA NITROGEN (test [...] reagent. BUN/CREATININE RATIO (test code = BUN/CREA) 15.3 10-20 N TOTAL PROTEIN (test code = PROT) 7.6 gram/dL 6.4-8.2 N ALBUMIN (test code = ALB) 3.3 g/dL 3.4-5.0 L GLOBULIN (test code = GLOB) 4.3 gram/dL 2.7-4.2 H ALBUMIN/GLOBULIN RATIO (test code = A/G) 0.8 0.75-1.50 N CALCIUM (test code = CA) 9.1 mg/dL 8.5-10.1 N BILIRUBIN TOTAL (test code = BILT) 0.40 mg/dL 0.0-1.0 N SGOT/AST (test code = AST) 41 IUnit/L 15-37 H SGPT/ALT (test code = ALT) 51 IUnit/L 12-78 N ALKALINE PHOSPHATASE TOTAL (test code = ALKP) 100 IUnit/L 45-117 N Note change in reference range due to change in reagent. COMPREHENSIVE METABOLIC [id number] 10:13:00* Test Item Value Reference Range Interpretation Comments SODIUM (test code = NA) 145 mmol/L 136-145 N POTASSIUM (test code = [...] TOTAL (test code = ALKP) IUnit/L 45-117 CBC W/AUTO [id number] 10:08:00* Test Item Value Reference Range Interpretation Comments [...] (test code = RDW) % 11.6-16. 2 RED CELL DISTRIBUTION WIDTH SD (test code = RDW-SD) fL 37 .0-51.0 PLATELET COUNT (test code = PLT) 272 K/mm3 150-450 N MEAN PLATELET VOLUME (test code = MPV) fL 6.7-11.0 NEUTROPHIL % (test code = NT%) % 39.0-69.0 IMMATURE GRANULOCYTE % (test code = IG%) % 0.0-5.0 LYMPHOCYTE % (test code = LY%) % 25.0-55.0 MONOCYTE % (test code = MO%) % 0.0-10.0 EOSINOPHIL % (test code = EO%) % 0.0-5.0 BASOPHIL % (test code = BA%) % 0.0-1.0 NEUTROPHIL # (test code = NT#) K/mm3 1.8-7.7 LYMPHOCYTE # (test code = LY#) K/mm3 1.0-5.0 MONOCYTE # (test code = MO#) K/mm3 0-0.8 EOSINOPHIL # (test code = EO#) K/mm3 0.0-0.5 BASOPHIL # (test code = BA#) K/mm3 0.0-0.2 - XR CHEST 1 [id number] 09:37:00 FAX: Bisi Roach MD [phone] [place]: St: REG Name: SAMIR GARCIA [facility] : [birth year] Age/S: 49/F [address] [facility] Unit #: [id number] Loc: [place] [address] Phys: Bisi Roach MD Acct: [id number] Dis Date: Status: REG ER PHONE #: [phone] Exam Date: 12/18/2019 0932 FAX #: [phone] Reason: Abdominal Pain EXAMS: CPT CODE: [id number] XR CHEST 1 V 76189 HISTORY: Abdominal pain. COMPARISON: Chest x-ray from March 23, 2019. Location: TH. No acute infiltrates, effusion or congestion is noted. Cardiomegaly. Cervical fusion in the lower neck. IMPRESSION: No acute infiltrates, effusion or congestion. at 0937 Reported and signed by: Griffin Pantoja M.D. CC: Bisi Zepeda MD Technologist: Naye Jett(Domingo) Trnscrd Date/Time/By: 12/18/2019 (0937) : By: [email or web address] Orig Print D/T: S: 12/18/2019 (7012) PAGE [address] ABD/PEL WITH [id number] 22:42:00 [place] [address] Patient Name: SAMIR FITZPATRICK MR #: [id number] : 1970 Age/Sex: 49/F Req #: [id number] [facility] Physician: Ordered by: TONY SORENSEN MD Report #: [id number] Location: [facility] Room/Bed: Procedure: HOPD/CT A BD/PEL WITH CONTRAST-HOPD Exam Date: 12/15/19 Exam T jace: 2220 REPORT STATUS: Signed EXAM: CT Abdomen and Pelvis WITH contrast INDICATION: Abdominal pain, v omiting. COMPARISON: None abdominal CT 08/06/2019. TECHNIQUE: Abdomen and pe lvis were scanned utilizing a multidetector helical scanner from the lung base to the pubic symphysis after administration of IV contrast. Coronal and sagit ja reformations were obtained. Routine protocol was performed. Scan was perfo rmed when during portal venous phase. IV CONTRAST: 100 mL of Isovue 3 70 ORAL CONTRAST: None COMPLICATIONS: None RADIATIO N DOSE: Total DLP: 99 mGy*cm Estimated effective dose: (DLP x 0.01 5 x size factor) mSv CTDIvol has been reviewed. It is below the limits se t by the Radiation Protocol Committee (RPC). Dose modulation, iterative reconstruction, and/or weight based adjustment of the mA/kV was utilized to r educe the radiation dose to as low as reasonably achievable. FINDINGS: LINES and TUBES: None. LOWER THORAX: Unremarkable HEPATOBILIARY: Enlarged hypodense liver. No focal hepatic lesions. No biliary ductal dilatio n. GALLBLADDER: Absent. SPLEEN: No splenomegaly. PANCREAS: No f ocal masses or ductal dilatation. ADRENALS: No adrenal nodules K IDNEYS/URETERS: A 6 mm calculus in the proximal left ureter without significan t left hydronephrosis. An additional punctate nonobstructive calculus in the l eft renal inferior pole. Kidneys enhance symmetrically. No hydronephrosis. No cystic or solid mass lesions. GI TRACT: Small sliding gastric hiatal hernia. Mild distal esophageal wall thickening. No abnormal distention or evid ence of bowel obstruction. Appendix is normal. PELVIC ORGANS/BLADDE R: Hysterectomy. No adnexal masses. Urinary bladder unremarkable. LYM PH NODES: No lymphadenopathy. VESSELS: Unremarkable. PERITONEUM / RETR OPERITONEUM: No free air or fluid. BONES: There are degenerative changes. SOFT TISSUES: Midline ventral abdominal scar. IMPRESSION: 1. A 6 mm calculus in the proximal left ureter without significant left hydronephrosis. An additional punctate nonobstructive calculus in the left scott al inferior pole. 2. Small sliding gastric hiatal hernia with mild distal esophagitis. 3. Hepatomegaly with hepatic steatosis. Signed by: Parvez Yao DO on 12/15/2019 11:02 PM Dictated By: EZIO YAO DO El ectronically Signed By: EZIO YAO DO on 12/15/192301 Transcribed By: CORTNEY GREENFIELD on 12/15/192301 COPY TO: TONY SORENSEN MD Fluoroscopic procedure less than one hour [id number] 04:21:00* Test Item Value Reference Range Interpretation Comments Coronavirus (PCR) (test code = Coronavirus (PCR)) NOT DETECTED NOTD ETECTED SARS-COV2/RT-PCRNegative results do not preclude SARS-CoV-2 infection and should not be used as the sole basis for patient management decisions. Negative results must be combined with clinical observations, patient history, and epidemiologi navin information. A false negative result may occur if a specimen is improperly c ollected, transported or handled.The limit of detection for this assay is 250 co pies/mLThe SARS-CoV-2 test is a rapid, real-time RT-PCR test intended for the qu alitative detection of nucleic acid from SARS-CoV-2 in nasopharyngeal swab speci men collected from individuals suspected of COVID-19 by their healthcare provide r. This test has not been Food and Drug Administration (FDA) cleared or approved and has been authorized by FDA under an Emergency Use Authorization (EUA). This EUA will be effective until the declaration that circumstances exist justifying the authorization of the emergency use of in vitro diagnostic test for detection and or diagnosis of COVID-19 is terminated under section 564(b) of the Act, or the the EUA is revoked under 564(g) of the ACT.Testing performed by [address] BRAIN [id number] 04:18:00 [place] [address] Patient Name: SAMIR FITZPATRICK MR #: [id number] : 1970 Age/Sex: 49/F Req #: [id number] Adm Physician: Ordered by: LIOR ENAMORADO MD Report #: [id number] Location: [facility] Room/Bed: Procedure: [id number] HOPD/CT BRAIN WO-HOPD Exam Date: 10/24/19 Exam Time: 0358 REPORT [...] mGy*cm. Estimated effective dose: DLP x 0.015 In travenous contrast: None Findings: Scalp: No abnormalities. Bones: N o fractures, blastic or lytic lesions. Brain sulci: Appropriate for age. Ventricles: Normal in size and configuration. No hydrocephalus. Extra-axial sp aces: No masses, no fluid collection. Parenchyma: No abnormal densities . No masses, acute hemorrhage, acute or chronic vascular insults. Sellar /suprasellar region: No abnormalities. Craniocervical junction: Patent foramen magnum. No Chiari one malformation. Middle ear and mastoid cavities: Clear. Included paranasal sinuses: Clear. IMPRESSION: No intracranial ab normalities. Signed by: Dr. Wanda Bond M.D. on 10/24/2019 4:27 AM Dictated By: WANDA BOND MD 6 Transcribed By: SUSU on 10/24/19426 COPY TO: LIOR BALLARD MD CT ABD/PEL WO [id number] 22:15:00 [place] [address] Patient Name: SAMIR FITZPATRICK MR #: [id number] : 1970 Age/Sex: 48/F Req #: [id number] Adm Physician: Ordered by: NIRANJAN QUINN MD Report #: [id number] Location: [facility] Room/Bed: Procedure: [id number] HOPD/CT ABD/PEL WO CONTRAST-HOPD Exam Date: 08/06/19 Exam Time: 2129 REPORT STATUS: Sig yazmin EXAM: CT Abdomen and Pelvis WITHOUT contrast INDICATION: rig ht flank pain, look for stone, DJD of lumbar spine [id number] COMPAR JOSE: CT dated 06/30/2019 TECHNIQUE: Abdomen and pelvis were scanned utilizing a multidetector helical scanner from the lung base to the pubic symphysis witho ut administration of IV contrast. Absence of intravenous contrast decreases se nsitivity for detection of focal lesions and vascular pathology. Coronal and s agittal reformations were obtained. Routine protocol was performed. IV CONTRAST: None ORAL CONTRAST: None COMPLICATIONS: None RADIATION DOSE: Total DLP: 850.29 mGy*cm Estimated effective dose: (DLP x 0.015 x size factor) mSv CTDIvol has been reviewed. It is be low the limits set by the Radiation Protocol Committee (RPC). FINDINGS: LINES and TUBES: None. LOWER THORAX: Unremarkable HEPATOBILIARY: Enlarged mildly steatotic liver. Otherwise, unenhanced liver is unremarkable. No biliary ductal dilation. GALLBLADDER: Not visualized. SPLEEN: No splenomegaly. PANCREAS: No focal masses or ductal dilatation. ADREN ALS: No adrenal nodules KIDNEYS/URETERS: No hydronephrosis. Limited fo r evaluation of renal parenchyma without intravenous contrast. Bilateral subce ntimeter nonobstructive renal calculi, the largest in the left inferior pole, measuring 6 mm. GI TRACT: No abnormal distention, wall thickening, or evide nce of bowel obstruction. Appendix is normal. PELVIC ORGANS/BLADDER : Unremarkable. Hysterectomy. LYMPH NODES: No lymphadenopathy. VESSELS : Unremarkable. PERITONEUM / RETROPERITONEUM: No free air or fluid. 5 x 2.5 cm omental lesion (series 3, image 93 with mild adjacent fat stranding. BONES: No suspicious osseous lesion. Degenerative changes of spine. SOFT TI SSUES: Small fat-containing periumbilical hernia. Resolved previously seen abd ominal wall collection. Abdominal wall scar. IMPRESSION: 1. John Paul ateral subcentimeter nonobstructive renal calculi. 2. No evidence of obstruct shawn urolithiasis. 3. Resolved previously seen abdominal wall and right lower quadrant collections. 4. 5 x 2.5 cm upper left omental fat-containing lesio n, representing fat necrosis or omental infarct. Signed by: Dr. Marci jackson MD on 08/06/2019 10:28 PM Dictated By: MARCI LOCKWOOD MD Electronica lly Signed By: MARCI LOCKWOOD MD on 08/06/192227 Transcribed By: SUSU on 03/16 COPY TO: NIRANJAN QUINN MD VANCOMYCIN [id number] 09:23:00* Test Item Value Reference Range Interpretation Comments VANCOMYCIN TROUGH (test code = VANCT) 10.3 mcg/mL 10.0-20.0 N 10-15 mcg/mL - Cellulitis, Urinary Tract Infection. 15-20 mcg/mL - Bacteremia, Infective Endocarditis, Meningitis, Osteomyelitis, Pneumonia, Severe Skin/Soft- Tissue Infection, Spinal Abscess. COMMENTS: DRAW 30 MIN PRIOR TO 07/04 1000 DOSE, RX DOSING, HOLD IF > 16 BASIC METABOLIC [id number] 09:08:00* Test Item Value Reference Range Interpretation [...] CA) 8.2 mg/dL 8.0-10.5 N CBC W/AUTO [id number] 09:03:00* Test Item Value Reference Range Interpretation [...] (test code = MDIFF) NO BASIC METABOLIC [id number] 07:58:00* Test Item Value Reference Range Interpretation [...] code = CA) 8.0 mg/dL 8.0-10.5 N [id number] 07:58:00* Test Item Value Reference Range Interpretation Comments PHOSPHOROUS (test code = PHOS) 2.6 MG/DL 2.5-4.9 N [id number] 07:58:00* Test Item Value Reference Range Interpretation Comments MAGNESIUM (test code = MAG) 2.00 mg/dL 1.8-2.4 N CBC W/AUTO [id number] 07:41:00* Test Item Value Reference Range Interpretation [...] code = MDIFF) NO - US RETROPERITONEAL [id number] 11:29:00 Name: SAMIR FITZPATRICK [facility] : 1970 Age/S: 48 / F [address] [place] [address] Unit #: [id number] Loc: [place] [address] Phys: Dacia Styles MD Acct: [id number] Dis Date: [id number] Status: DIS IN PHONE #: [phone] Exam Date: 07/03/20191123 FAX #: [phone] Reason: hematuria EXAMS: CPT CODE: [id number] [place] [id number] RENAL ULTRASOUND 07/03/2019 INDICATION: Hematuria. COMPARISON: None. [...] (1129) t.SDR.ERR2 Orig Print D/T: S: 07/03/2019 (1133) Probe: PAGE 1 Signed Report - US RETROPERITONEAL COM 2019-07-03 11:29:00 Name: SAMIR FITZPATRICK [facility] : 1970 Age/S: 48 / F [address] [place] [address] Unit #: [id number] Loc: [place] [address] Phys: Dacia Styles MD Acct: [id number] Dis Date: Status: ADM IN PHONE #: [phone] Exam Date: 07/03/20191123 FAX #: [phone] Reason: hematuria EXAMS: CPT CODE: [id number] [place] 14181 RENAL ULTRASOUND 07/03/2019 INDICATION: Hematuria. COMPARISON: None. [...] (1129) t.SDR.ERR2 Orig Print D/T: S: 07/03/2019 (1133) Probe: PAGE 1 Signed Report UA RFLX MICR CULT IF [id number] 10:44:00* Test Item Value Reference Range Interpretation [...] Description: CLEAN CATCHUA RFLX MICR CULT IF [id number] 10:44:00* Test Item Value Reference Range Interpretation [...] Suprapubic PainSpecimen Description: CLEAN CATCH BLOOD UREA [id number] 09:49:00* Test Item Value Reference Range Interpretation Comments BLOOD UREA NITROGEN (test code = BUN) 11 mg/dL 7-18 N [id number] 09:49:00* Test Item Value Reference Range Interpretation Comments CREATININE (test code = CREAT) 0.8 mg/dL 0.6-1.[address] ABD/PEL WO [id number] 16:05:00 [place] [address] [place] [address] Patient Name: SAMIR FITZPATRICK MR #: [id number] : 1970 Age/Sex: 48/F Req #: [id number] Adm Physician: Ordered by: LIOR ENAMORADO MD Report #: [id number] Location: [facility] Room/Bed: Procedure: HOPD/CT ABD/PEL WO CONTRAST-HOPD Exam Date: 06/30/19 [...] ENAMORADO MD UA RFLX MICR CULT IF [id number] 21:59:00* Test Item Value Reference Range Interpretation [...] Description: MID STREAMUA RFLX MICR CULT IF [id number] 21:54:00* Test Item Value Reference Range Interpretation [...] culture: Flank PainSpecimen Description: MID STREAMBASIC METABOLIC [id number] 19:13:00* Test Item Value Reference Range Interpretation [...] CA) 8.5 mg/dL 8.0-10.5 N HEPATIC FUNCTION [id number] 19:13:00* Test Item Value Reference Range Interpretation [...] ALKP) 60 IUnit/L 20-125 N BASIC METABOLIC [id number] 19:06:00* Test Item Value Reference Range Interpretation [...] CA) 8.5 mg/dL 8.0-10.5 N HEPATIC FUNCTION [id number] 19:06:00* Test Item Value Reference Range Interpretation [...] code = ALKP) IUnit/L 20-125 CBC W/AUTO [id number] 18:57:00* Test Item Value Reference Range Interpretation [...] (test code = MDIFF) NO CBC W/AUTO [id number] 03:15:00* Test Item Value Reference Range Interpretation [...] (test code = MDIFF) NO CBC W/AUTO [id number] 09:14:00* Test Item Value Reference Range Interpretation [...] REQUIRED (test code = MDIFF) NO SURGICAL [id number] 07:03:00 RUN DATE: 05/30/19 [facility] *LIVE* PAGE 1 RUN TIME: 702 Specimen Inqui ry RUN USER: INTERFACE PATIENT: SAMIR FITZPATRICK ACCT #: [id number] LOC: [facility] U #: [id number] AGE/SX: 33/F ROOM: RE01/30/04REG DR: Venice Ureña MD : [birth year] BED: DIS: STATUS: REG REF TLOC: SPEC #: [id number] RECD: 05/25/19 STATUS: FLO YATES #: [id number] FAMILIA: 05/25/[address] [facility] [address]: Venice Ureña MD ENTERED: 05/29/19 SP TYPE: SURG SPEC OTHR DR: ORDERED: GM LEVEL 4 CODES: [id number] - UTERUS, NOS PROCEDURES: GM LEVEL 4 [...] CONTINUED ON NEXT PAGE RUN DATE: 05/30/19 [facility] *LIVE* PAGE 2 RUN TIME: 702 Specimen Inquiry RUN USER: INTERFACE SPEC #: [id number] PATIENT: SAMIR FITZPATRICK #[id number] (Continued)--- --------- POST-OP DIAGNOSIS Abnormal uterine bleeding, heavy menstrua l bleeding, recurrent incisional hernia, uterine fibroids PRE-OP DIAGN OSIS Abnormal uterine bleeding, heavy menstrual bleeding, recurrent incisiona l herni Signed SIGNATURE ON FILE Mojgan Mon MD 05/30/19 0703 END OF REPORT BASIC METABOLIC [id number] 15:11:00* Test Item Value Reference Range Interpretation [...] CA) 7.6 mg/dL 8.0-10.5 L CBC W/AUTO [id number] 07:15:00* Test Item Value Reference Range Interpretation [...] (test code = MDIFF) NO CBC W/AUTO [id number] 06:21:00* Test Item Value Reference Range Interpretation [...] (test code = MDIFF) NO CBC W/AUTO [id number] 08:58:00* Test Item Value Reference Range Interpretation [...] (test code = MDIFF) NO RENAL FUNCTION [id number] 08:33:00* Test Item Value Reference Range Interpretation [...] PHOS) 2.9 MG/DL 2.5-4.9 N COMPREHENSIVE METABOLIC [id number] 11:28:00* Test Item Value Reference Range Interpretation [...] ALKP) 69 IUnit/L 20-125 N HCG SERUM [id number] 11:28:00* Test Item Value Reference Range Interpretation Comments HCG SERUM QUAL (test code = HCGQL) SERUM NEGATIVE NEGATIVE COMPREHENSIVE METABOLIC [id number] 11:15:00* Test Item Value Reference Range Interpretation [...] code = ALKP) IUnit/L 20-125 HCG SERUM [id number] 11:15:00* Test Item Value Reference Range Interpretation Comments HCG SERUM QUAL (test code = HCGQL) NEGATIVE COMPREHENSIVE METABOLIC [id number] 11:15:00* Test Item Value Reference Range Interpretation [...] code = ALKP) IUnit/L 20-125 HCG SERUM [id number] 11:15:00* Test Item Value Reference Range Interpretation Comments HCG SERUM QUAL (test code = HCGQL) SERUM NEGATIVE NEGATIVE PROTHROMBIN [id number] 11:14:00* Test Item Value Reference Range Interpretation [...] Infarction (to prevent recurrent infarct). THROMBOPLASTIN TIME [id number] 11:14:00* Test Item Value Reference Range Interpretation Comments THROMBOPLASTIN TIME PARTIAL (test code = PTT) 34.1 Seconds 25.0-39. 5 N Therapeutic Range: 50.4 - 88.3 Seconds Effective 08/10/2018 CBC W/AUTO [id number] 11:13:00* Test Item Value Reference Range Interpretation [...] NO XR Lumbar Spine 2 Or 3 [id number] 21:46:19Hm Interface, Radiology Results 05/16/2019 9:49 PM CSTEXAMINATION: XR LUMBAR SPINE [...] along mid-inferior lumbar levels.Visualized soft tissues are unremarkable.[facility]-[id number] MethodistXR Ribs W Pa Chest Afqml0515-14-17 21:43:43Hm Interface, Radiology Results 05/16/2019 9:46 PM CSTEXAMINATION: XR RIBS W PA CHEST RIGHTCLINICAL HISTORY: fallCOMPARISON: None.IMPRESSION:No displaced right rib fracture is visualized. Visualized lungs are clear. Soft tissues are unremarkable.[facility]-QB89AGUPNuwbura MethodistUrinalysis screen and microscopy, with reflex to lghvlem1696-63-62 20:42:03* Test Item Value Reference Range Interpretation Comments Specimen site (test code = 8495554) Clean catch Color, UA (test code = 5778-6) Yellow Appearance, UA (test code = 5767-9) Clear Specific gravity, UA (test code = 5811-5) 1.020 1.001-1.035 pH, UA (test code = 5803-2) 5.0 5.0-8.5 Protein, UA (test code = 05089-1) Negative Negative Glucose, UA (test code = 21382-1) Negative Negative Ketones, UA (test code = 2514-8) Trace Negative A Bilirubin, UA (test code = 5770-3) Negative Negative Blood, UA (test code = 5794-3) Negative Negative Nitrite, UA (test code = 5802-4) Negative Negative Urobilinogen, UA (test code = 88597-1) Negative <2.0 Leukocyte esterase, UA (test code = 5799-2) Negative Negative Epithelial cells, UA (test code = 5787-7) Many /HPF WBC, UA (test code = 5821-4) 3 0- 5 /HPF RBC, UA (test code = 39177-5) 4 0- 5 /HPF Bacteria, UA (test code = 86133-8) None seen None seen Yeast, UA (test code = 52244-1) None seen Yeast with pseudohyphae, UA (test code = 85188-8) None seen Lab Interpretation (test code = 43190-5) Abnormal Giovanni MéndezUrine zahgnyd9739-11-81 20:41:22* Test Item Value Reference Range Interpretation Comments Urine culture (test code = 7106070) SEE COMMENT Bacteriuria screen negative. Giovanni MethodisthCG qualitative, urine [id number] 20:33:23* Test Item Value Reference Range Interpretation Comments hCG qualitative, urine (test code = 2106-3) Negative Negative The manufacturers stated sensitivity of HcG test for serum is >/= 10 mIU/ml and urine is >/= 20mIU/ml. Giovanni MéndezComprehensive metabolic [id number] 19:42:14* Test Item Value Reference Range Interpretation Comments Sodium (test code = 2951-2) 137 135- 150 mEq/L Potassium (test code = 2823-3) 3.9 3.5- 5.0 mEq/L Chloride (test code = 2075-0) 100 98- 112 mEq/L CO2 (test code = 2027-9) 25 mmol/L 24-31 Anion gap (test code = 99981-8) 12@ANIO 7- 15 mEq/L BUN (test code = 3094-0) 11 mg/dL 7-18 Creatinine (test code = 2160-0) 0.80 mg/dL 0.5-0.9 Glucose (test code = 2345-7) 94 mg/dL 65-100 Calcium (test code = 97845-9) 9.2 mg/dL 8.3-10.2 Protein (test code = 2885-2) 8.0 g/dL 6.3-8.3 Albumin (test code = 1751-7) 3.5 g/dL 3.5-5 A/G ratio (test code = 1759-0) 0.8 0.7-3.8 Alkaline phosphatase (test code = 6768-6) 74 U/L 0-104 AST (test code = 1920-8) 20 U/L 10-35 ALT (test code = 1742-6) 25 U/L 5-50 Total bilirubin (test code = 1975-2) 0.8 mg/dL 0.2-1.2 [place] MethodistLipase [id number] 19:42:13* Test Item Value Reference Range Interpretation Comments Lipase (test code = 3040-3) 19 U/L 13-60 [place] MethodistEstimated [id number] 19:42:11* Test Item Value Reference Range Interpretation Comments Estimated GFR (test code = 5488) 87 mL/min/1.73 m2 Catergory Units InterpretationG1 >=90 Normal or highG2 60-89 Mildly lxczacccnI4a 45-59 Mildly to moderately uudxnyjkvC9d 30-44 Moderately to severely decreasedG4 15-29 Severely decreasedG5 <15 Kidney failureThe eGFR was calculated using the Chronic Kidney Disease Epidemiology Collaboration (CKD-EPI) equation. Interpretation is based on recommendations of the National Kidney Foundation-Kidney Disease Outcomes Quality Initiative (NKF-KDOQI) published in 2014. Corning MethodistCBC with platelet and buymwvufejmq4600-95-13 19:22:49* Test Item Value Reference Range Interpretation Comments WBC (test code = 15137-2) 7.8 4.2- 11.0 k/uL RBC (test code = 38905-4) 4.68 m/uL 4.04-5.86 HGB (test code = 718-7) 12.6 g/dL 11.5-15.3 HCT (test code = 4544-3) 40.3 % 34-45 MCV (test code = 787-2) 86.1 fL 80-98 MCH (test code = 785-6) 26.9 pg 27-34 L MCHC (test code = 786-4) 31.3 g/dL 31.5-36.5 L RDW - SD (test code = 15373-7) 55.2 fL 37-51 H MPV (test code = 33350-9) 10.2 fL 7.4-10.4 Platelet count (test code = 02146-6) 301 150- 400 k/uL Nucleated RBC (test code = 92877-4) 0.00 /100 WBC Neutrophils (test code = 59548-5) 57.3 % 36-66 Lymphocytes (test code = 36774-7) 30.8 % 24-44 Monocytes (test code = 30756-0) 7.1 % 0-6 H Eosinophils (test code = 09736-3) 4.0 % 0-6 Basophils (test code = 83611-2) 0.5 % 0-1.2 Immature granulocytes (test code = 27423-3) 0.3 % 0-1 Lab Interpretation (test code = 46349-9) Abnormal Davila MethodistURINALYSIS [id number] 16:27:00* Test Item Value Reference Range Interpretation [...] FEW #/LPF FEW Urine Source? Clean CatchURINALYSIS [id number] 16:21:00* Test Item Value Reference Range Interpretation [...] Clean Catch- CT ABD PELVIS W WO [id number] 14:45:00 Name: SAMIR FITZPATRICK [facility] : 1970 Age/S: 48 / F [address] [facility] Unit #: [id number] Loc: [place] [address] Phys: Juan Coon MD Acct: [id number] Di s Date: Status: REG ER PHONE #: Exam Date: 04/28/2019 6227 FAX #: Reason: R flank pain, h/o stone, fall/trauma EXAMS: CPT CODE: [id number] CT ABD PELVIS W WO CONT 55730 REASON FOR EXAM: R flank pain, h/o [...] 1 Signed Report (CONTINUED) Name: SAMIR FITZPATRICK [facility] : 1970 Age/S: 48 / F [address] [facility] Unit #: [id number] Loc: [place] [address] Phys: Modesto Coon MD Acct: [id number] Dis Date: atus: REG ER PHONE #: [phone] Exam Memo e: 04/28/2019 1419 FAX #: [phone] Reason: R flank pain, h/o stone, fall/trauma EXAMS: CPT CODE: [id number] CT ABD PELVIS W WO CONT 81776 <Continued> umbilical hernia is present IMPRESSION: Nonobstructing stone in the left kidney with no inflammatory changes in the left kidney or left ureter. However there is no stone in the right kidney or right ureter and no stone in the urinary bladder to suggest recently passed stone. Fibroid uterus. Location: [facility] at 144 Reported and signed by: Hua Dow MD CC: Rah Bah; Modesto Coon MD Technologist:Tr Holbrook RT(R),(MR),(CT); CTDI: DLP: Trnscb Date/Time: 04/28/2019 (6816) t.SDR.RR31 Orig Print D/T: S: 04/28/2019 (8066) PAGE 2 Signed Report PROTHROMBIN [id number] 13:41:00* Test Item Value Reference Range Interpretation [...] (2.5-3.5) IS PATIENT ON ANTICOAGULANTS? NTHROMBOPLASTIN TIME [id number] 13:41:00* Test Item Value Reference Range Interpretation Comments THROMBOPLASTIN TIME PARTIAL (test code = PTT) 32.5 seconds 25.0-36. 5 N IS PATIENT ON ANTICOAGULANTS? [id number] 13:40:00* Test Item Value Reference Range Interpretation Comments TROPONIN-I (test code = TROPI) <0.015 ng/mL 0-0.045 N BASIC METABOLIC [id number] 13:39:00* Test Item Value Reference Range Interpretation [...] CA) 9.2 mg/dL 8.5-10.1 N HEPATIC FUNCTION [id number] 13:39:00* Test Item Value Reference Range Interpretation [...] reference range due to change in reagent. [id number] 13:39:00* Test Item Value Reference Range Interpretation Comments LIPASE (test code = LIP) 154 U/L 73.0-393.0 N HCG SERUM [id number] 13:39:00* Test Item Value Reference Range Interpretation Comments HCG SERUM QUAL (test code = HCGQL) NEGATIVE NEGATIVE This HCGQL test is NOT applicable for MALE patients.Check with nurse about probable order error.If Tumor Marker Test needed, nurse should order test "HCGTU"(Test #550.60779) BASIC METABOLIC [id number] 13:31:00* Test Item Value Reference Range Interpretation [...] code = CA) mg/dL 8.5-10.1 HEPATIC FUNCTION [id number] 13:31:00* Test Item Value Reference Range Interpretation [...] TOTAL (test code = ALKP) IUnit/L 45-117 [id number] 13:31:00* Test Item Value Reference Range Interpretation Comments LIPASE (test code = LIP) U/L 73.0-393.0 HCG SERUM [id number] 13:31:00* Test Item Value Reference Range Interpretation Comments HCG SERUM QUAL (test code = HCGQL) NEGATIVE NEGATIVE This HCGQL test is NOT applicable for MALE patients.Check with nurse about probable order error.If Tumor Marker Test needed, nurse should order test "HCGTU"(Test #550.71831) BASIC METABOLIC [id number] 13:30:00* Test Item Value Reference Range Interpretation [...] code = CA) mg/dL 8.5-10.1 HEPATIC FUNCTION [id number] 13:30:00* Test Item Value Reference Range Interpretation [...] TOTAL (test code = ALKP) IUnit/L 45-117 [id number] 13:30:00* Test Item Value Reference Range Interpretation Comments LIPASE (test code = LIP) U/L 73.0-393.0 HCG SERUM [id number] 13:30:00* Test Item Value Reference Range Interpretation Comments HCG SERUM QUAL (test code = HCGQL) NEGATIVE CBC W/O [id number] 13:29:00* Test Item Value Reference Range Interpretation [...] fL 6.7-11.0 N - XR L-SPINE 2/3 [id number] 11:57:00 FAX: Rah Osman MD [phone] [place]: St: REG FAX: Modesto Coon MD [phone] Name: SAMIR FITZPATRICK [facility] : 1970 Age/S: 48/F [address] Unit #: [id number] Loc: [place] [address] Phys: Modesto Coon MD Acct: [id number] Dis Date: Status: REG ER PHONE #: [phone] Exam Date: 04/28/2019 1145 FAX #: [phone] Reason: back pain EXAMS: CPT CODE: [id number] XR L-SPINE 2/3 VIEWS 92357 HISTORY: Back pain. COMPARISON: None available. Location: [facility]. 3 views of the T-spine: No [...] MD Technologist: RT SUNI(R) Trnscrd Date/Time/By: 04/28/2019 (4 157) : By: [email or web address] Orig Print D/T: S: 04/28/2019 (2580) PAGE 1 Signed Report - XR T-SPINE 3 [id number] 11:57:00 FAX: Rah Osman MD [phone] [place]: St: REG FAX: Modesto Coon MD [phone] Name: SAMIR FITZPATRICK [facility] : 1970 Age/S: 48/F [address] [facility] Unit #: [id number] Loc: [place] [address] Phys: Modesto Coon MD Acct: [id number] Dis Date: Status: REG ER PHONE #: [phone] Exam Date: 04/28/2019 1140 FAX #: [phone] Reason: back pain EXAMS: CPT CODE: [id number] XR T-SPINE 3 VIEWS 10311 HISTORY: Back pain. COMPARISON: None available. Location: [facility]. 3 views of the T-spine: No [...] MD Technologist: RT SUNI(R) Trnscrd Date/Time/By: 04/28/2019 (0 157) : By: [email or web address] Orig Print D/T: S: 04/28/2019 (4286) PAGE 1 Signed Report SCR MAMM BILATERAL CAD [id number] 10:41:43 - SCR MAMM BILATERAL CAD DIGITALBILATERAL FIRST EVER DIGITAL SCREENING MAMMOGRAM WITH CAD: 04/05/2019CLINICAL: Asymptomatic. Current mammographic images were evaluated by either a KidzloopP M-Vu or a [employer] ImageChecker CAD (computer aided detection system). No [...] for further evaluation.Wale Dodson M.D. et/:02/2019 10:41:43 Bottle Tester: Caitlyn DAVEY, [employer] [facility]ag ing-FWletter sent: Additional Imaging Mammogram BI-RADS: 0 Incomplete: Addition al Imaging Evaluation Needed- US PELVIS [id number] 20:24:00 Name: SAMIR FITZPATRICK [facility] Carlitos Morse : 1970 Age/S: 48 / F [address] [place] [address] Unit #: [id number] Loc: [place] [address] Phys: Ciera Vincent mmed DO Acct: [id number] Di s Date: Status: REG ER PHONE #: [phone] Exam Date: 03/23/20192011 FAX #: [phone] Reason: Pelvic Pain EXAMS: CPT CODE: [id number] US PELVIS COM PLETE 62957 PROCEDURE: PELVIC ULTRASO UND INDICATION: Pelvic pain. [...] o free intraperitoneal fluid. IMPRESSION: 1. Large azul kathy with multiple masses compatible with fibroids. Large subserosal mas s projecting into the right pelvis similar to that on prior studies. SL: JAYLIN PAGE 1 Signed Report (CONTINUED) Name: SAMIR FITZPATRICK [facility] [place] : 1970 Age/S: 48 / F [address] Unit #: [id number] Loc: [place] [address] Phys: Kristal Vincent DO Acct: [id number] Dis Date: Status: REG ER PHONE #: [phone] Exam Date: 03/23/20192011 FAX #: [phone] Reason: Pelvic Pain EXAMS: CPT CODE: [id number] US PELVIS COMPLETE 26377 < Continued> at 2023 Reported and signed by: Mitch Valdez M.D. CC: Kristal Vincent DO; Rah Bah M.D. Technologist: Chiquita Milian RDMS() Trnscb Date/Time: 03/23/2019 (2023) tHÉCTOR Orig Print D/T: S: 03/23/2019 (2026) Probe: PAGE 2 Signed Report CBC W/AUTO [id number] 19:06:00* Test Item Value Reference Range Interpretation [...] = MDIFF) NO - XR CHEST 1 [id number] 18:53:00 FAX: Kristal Roland DO [phone] [place]: St: [facility] FAX: Rah Osman MD [phone] Name: SAMIR FITZPATRICK [facility] : 1970 Age/S: 48/F [address] [place] [address] Unit #: [id number] Loc: [place] [address] Phys: Kristal Vincent DO Acct: [id number] Dis Date: Status: REG ER PHONE #: [phone] Exam Date: 03/23/2019 1842 FAX #: [phone] Reason: hypotensive EXAMS: CPT CODE: [id number] XR CHEST 1 V 25503 Clinical Indication: hypotensive Comparison: 09/22/2018 FINDINGS: The [...] RT(R); Rhonda Coffey RT(R) Trnscrd Date/Time/By: 03/23/2019 (1853) : By: YessyLNV PAGE 1 Signed Report BASIC METABOLIC [id number] 17:10:00* Test Item Value Reference Range Interpretation [...] CA) 8.5 mg/dL 8.0-10.5 N HEPATIC FUNCTION [id number] 17:10:00* Test Item Value Reference Range Interpretation [...] code = ALKP) 63 IUnit/L 20-125 N [id number] 17:10:00* Test Item Value Reference Range Interpretation Comments LIPASE (test code = LIP) 110 IUnit/L 73-393 N HCG SERUM [id number] 17:10:00* Test Item Value Reference Range Interpretation Comments HCG SERUM QUAL (test code = HCGQL) SERUM NEGATIVE NEGATIVE BASIC METABOLIC [id number] 17:09:00* Test Item Value Reference Range Interpretation [...] CA) 8.5 mg/dL 8.0-10.5 N HEPATIC FUNCTION [id number] 17:09:00* Test Item Value Reference Range Interpretation Comments TOTAL PROTEIN (test code = PROT) g/dL 6.4-8.2 ALBUMIN (test code = ALB) g/dL 3.4-5.0 BILIRUBIN TOTAL (test code = BILT) MG/DL <1.5 BILIRUBIN DIRECT (test code = BILD) MG/DL 0.0-0.30 SGOT/AST (test code = AST) IUnit/L 15-37 SGPT/ALT (test code = ALT) IUnit/L 15-65 ALKALINE PHOSPHATASE TOTAL (test code = ALKP) IUnit/L 20-125 [id number] 17:09:00* Test Item Value Reference Range Interpretation Comments LIPASE (test code = LIP) 110 IUnit/L 73-393 N HCG SERUM [id number] 17:09:00* Test Item Value Reference Range Interpretation Comments HCG SERUM QUAL (test code = HCGQL) SERUM NEGATIVE NEGATIVE PROTHROMBIN [id number] 17:06:00* Test Item Value Reference Range Interpretation [...] Infarction (to prevent recurrent infarct). THROMBOPLASTIN TIME [id number] 17:06:00* Test Item Value Reference Range Interpretation Comments THROMBOPLASTIN TIME PARTIAL (test code = PTT) 30.6 Seconds 25.0-39. 5 N Therapeutic Range: 50.4 - 88.3 Seconds Effective 08/10/2018 BASIC METABOLIC [id number] 17:05:00* Test Item Value Reference Range Interpretation [...] CA) 8.5 mg/dL 8.0-10.5 N HEPATIC FUNCTION [id number] 17:05:00* Test Item Value Reference Range Interpretation Comments TOTAL PROTEIN (test code = PROT) g/dL 6.4-8.2 ALBUMIN (test code = ALB) g/dL 3.4-5.0 BILIRUBIN TOTAL (test code = BILT) MG/DL <1.5 BILIRUBIN DIRECT (test code = BILD) MG/DL 0.0-0.30 SGOT/AST (test code = AST) IUnit/L 15-37 SGPT/ALT (test code = ALT) IUnit/L 15-65 ALKALINE PHOSPHATASE TOTAL (test code = ALKP) IUnit/L 20-125 [id number] 17:05:00* Test Item Value Reference Range Interpretation Comments LIPASE (test code = LIP) 110 IUnit/L 73-393 N HCG SERUM [id number] 17:05:00* Test Item Value Reference Range Interpretation Comments HCG SERUM QUAL (test code = HCGQL) NEGATIVE UA RFLX MICR CULT IF [id number] 17:02:00* Test Item Value Reference Range Interpretation [...] culture: Suprapubic PainSpecimen Description: CLEAN CATCHCBC W/AUTO [id number] 16:52:00* Test Item Value Reference Range Interpretation [...] REQUIRED (test code = MDIFF) NO URINALYSIS [id number] 21:08:00* Test Item Value Reference Range Interpretation [...] SEEN A - CT ABD PELVIS W/O [id number] 20:45:00 Name: SAMIR FITZPATRICK [facility] : 1970 Age/S: 48 / F [address] [place] [address] Unit #: [id number] Loc: [place] [address] Phys: Karen Butler MD Acct: [id number] Dis Date: Status: REG ER PHONE #: [phone] Exam Date: 02/21/20192008 FAX #: [phone] Reason: RLQ ABD PAIN EXAMS: CPT CODE: [id number] CT ABD PELVIS W/O CONT 56337 Clinical Indication: RLQ ABD PAIN Comparison: CT [...] 1 Signed Report (CONTINUED) Name: SAMIR FITZPATRICK [facility] : 1970 Age/S: 48 / F [address] [place], [place] [address]vd Unit #: [id number] Loc: [place] [address] Phys: Karen Butler MD Acct: [id number] Dis Date: Status: REG ER PHONE #: [phone] Exam Date: 02/21/20192008 FAX #: [phone] Reason: RLQ ABD PAIN EXAMS: CPT CODE: [id number] CT ABD PELVIS W/O CONT 45839 < Continued> and multilobulated with the largest [...] Rin(R)(CT) CTDI: DLP: Trnscb Date/Time: 02/21/2019 (2044) Dada.LNV Orig Print D/T: S: 02/21/2019 (2047) PAGE 2 Signed Report - CT T-SPINE W/O [id number] 20:35:00 Name: SAMIR FITZPATRICK [facility] [place] : 1970 Age/S: 48 / F [address] [place] [address] Unit #: [id number] Loc: [place] [address] Phys: Karen Butler MD Acct: [id number] Dis Date: Status: REG ER PHONE #: [phone] Exam Date: 02/21/20192008 FAX #: [phone] Reason: THORACIC BACK PAIN EXAMS: CPT CODE: [id number] CT T-SPINE W/O CONTRAST [address] CT thoracic spine without contrast. INDICATION: Acute [...] the thoracic spine. 2. Degenerative changes. SL: SG-H PAGE 1 Signed Report (CONTINUED) Name: SAMIR GREGG [facility] : [birth year] Age/S: 48 / F [address] [place] [address] Unit #: [id number] Loc: [place] [address] Phys: Karen Butler MD Acct: [id number] Dis Date: Status: REG ER PHONE #: [phone] Exam Date: 02/21/20192008 FAX #: [phone] R chandrika: THORACIC BACK PAIN EXAMS: CPT CODE: [id number] CT T-SPINE W/O CONTRAST 79463 <Continued> at 2034 Reported and signed by: Ulises Thorne M.D. CC: Karen Butler MD; Rah Bah M.D. Technologist:RT Rin(R)(CT) CTDI: DLP: Trnscb Date/Time: 02/21/2019 (2034) t.[email or web address].SG9 Orig Print D/T: S: 02/21/2019 (2037) PAGE 2 Signed Report - CT C-SPINE W/O CONT 2019-02-21 20:29:00 Name: SAMIR FITZPATRICK [facility] : 1970 Age/S: 48 / F [address] [place] [address] Unit #: [id number] Loc: [place] [address] Phys: Karen Butler MD Acct: [id number] Dis Date: Status: REG ER PHONE #: [phone] Exam Date: 02/21/20192007 FAX #: [phone] Reason: fall, neck pain EXAMS: CPT CODE: [id number] CT C-SPINE W/O CONT 80990 Clinical Indication: Fall, neck pain. Comparison: MRI [...] 1 Signed Report (CONTINUED) Name: SAMIR FITZPATRICK [facility] : 1970 Age/S: 48 / F [address] [place] [address] Unit #: [id number] Loc: [place] [address] Phys: Karen Butler MD Acct: [id number] Dis Date: Status: REG ER PHONE #: [phone] Exam Date: 2018 FAX #: [phone] Reason: fall, neck pain EXAMS: CPT CODE: [id number] CT C-SPINE W/O CONT 70772 <Continued> is further concern. IMPRESSION: 1. Anterior [...] Karen Butler MD; Rah Bah M.D. Technologist:RT Rin(Domingo)(CT) CTDI: DLP: Trnscb Date/Time: 02/21/2019 (2028) JaninaR.VB9 Orig Print D/T: S: 02/21/2019 (2031) PAGE 2 Signed Report HCG SERUM [id number] 19:38:00* Test Item Value Reference Range Interpretation Comments HCG SERUM QUAL (test code = HCGQL) SERUM NEGATIVE NEGATIVE CBC W/AUTO [id number] 19:38:00* Test Item Value Reference Range Interpretation [...] (test code = MDIFF) NO COMPREHENSIVE METABOLIC [id number] 19:27:00* Test Item Value Reference Range Interpretation [...] code = ALKP) 81 IUnit/L 20-125 N [id number] 19:27:00* Test Item Value Reference Range Interpretation Comments LIPASE (test code = LIP) 142 IUnit/L 73-393 N - XR HIP JOHN PAUL W/[id number] 19:25:00 FAX: Karen Butler MD [phone] [place]: St: PRE FAX: Rah Osman MD [phone] Name: SAMIR FITZPATRICK [facility] : 1970 Age/S: 48/F [address] [place] [address] Unit #: [id number] Loc: [place] [address] Phys: Karen Butler MD Acct: [id number] Dis Date: Status: PRE ER PHONE #: [phone] Exam Date: 02/21/20191915 FAX #: [phone] Reason: FALL EXAMS: CPT CODE: [id number] XR HIP JOHN PAUL W/PELVIS 21517 AP pelvis and two-view bilateral hips, 2 radiographs. INDICATION: Status post acute fall. COMPARISON: None FINDINGS: Patient body habitus limits evaluation. Moderate osteoarthritis seen in both hips. No acute fracture or dislocation is seen of either hip. No acute pelvic fracture is identified. IMPRESSION: No acute bony findings. SL: SG-H Electronically Signed by Darrell Thorne on at 1925 Reported and signed by: Surendra Thorne M.D. CC: Karen Butler MD; Rah Bah M.D. Technologist: RT Nicole(Domingo)R Trnscrd Date/Time/By: 02/21/2019 (1924) : By: [email or web address] [...] TOTAL (test code = ALKP) IUnit/L 20-125 [id number] 19:14:00* Test Item Value Reference Range Interpretation Comments LIPASE (test code = LIP) 142 IUnit/L 73-393 N - MRI L-SPINE W WO [id number] 16:50:00 FAX: Rah Osman MD [phone] [place]: St: REG Name: SAMIR GARCIA [facility] : [birth year] Age/S: 48/F [address] [place] [address] Unit #: [id number] Loc: [place] [address] Phys: Andres Bobby MD Acct: [id number] Dis Date: Status: REG ER PHONE #: [phone] Exam Date: 02/20/2019 1609 FAX #: [phone] Reason: fall. urinary retention EXAMS: CPT CODE: [id number] MRI L-SPINE W WO CON 51432 MRI LUMBAR SPINE WITH AND WITHOUT CONTRAST [...] Signed Report (CONTINUED) FAX: Rah Osman MD [phone] [place]: St: REG Name: SAMIR FITZPATRICK [facility] : 1970 Age/S: 48/F [address] [place] [address] Bl Unit #: [id number] Loc: [place] [address] Phys: Andres Bobby MD Acct: [id number] Dis Date: Status: REG ER PHONE #: [phone] Exam D ate: 02/20/2019 1609 FAX #: [phone] Reason: f all. urinary retention EXAMS: CPT CODE: [id number] MRI L-SPINE W WO CON 45625 <Continued> hypertrophy and ligamentum flavum thickening. There [...] CC: Rah Bah M.D. Technologist: RT Maureen(MR)(CT) [facility] Date/Time/By: 02/20/2019 (1650) : By: [email or web address] Orig Print D/T: S: (2278) PAGE 2 Signed Rep ort - MRI C-SPINE W W/O [id number] 16:37:00 FAX: Rah Osman MD [phone] [place]: St: REG Name: VIANNEY GARCIAE [facility] : [birth year] Age/S: 48/F [address] [place] [address] Unit #: [id number] Loc: [place] [address] Phys: Andres Bobby MD Acct: [id number] Dis Date: Status: REG ER PHONE #: [phone] Exam Date: 02/20/2019 1609 FAX #: [phone] Reason: fall. paresthesias rue EXAMS: CPT CODE: [id number] MRI C-SPINE W W/O CONT 02614 MRI CERVICAL SPINE WITH CONTRAST INDICATION: fall. paresthesias rue. TECHNIQUE: 30 mL Dotarem gadolinium-based intravenous contrast was administered. MRI of t he cervical spine was performed with multiple sequences. COM PARISONS: CT cervical spine 02/19/2019. FINDINGS: Th ere [...] Signed Report (CONTINUED) FAX: Rah Osman MD [phone] [place]: St: REG Name: SAMIR FITZPATRICK Shama Morse : 1970 Age/S: 48/F [address] [facility] [address] Unit #: [id number] Loc: [place] [address] Phys: Andres Bobby MD Acct: [id number] Dis Date: Status: REG ER PHONE #: [phone] Exam Date: 02/20/2019 1609 FAX #: [phone] Reason: fall. paresthesias rue EXAMS: CPT CODE: [id number] MRI C-SPINE W W/O CONT 25781 < Continued> mild to moderate left neural [...] CC: Rah Bah M.D. Technologist: RT Maureen(MR)(CT) Trnarrd Date/Time/By: 02/20/2019 (1637) : By: [email or web address] Orig Print D/T: S: 02/20/2019 (6237) PAGE 2 Signed Report URINALYSIS COMPLETE 2019-02-20 [...] TRACE /LPF NONE SEEN CT LUMBAR SPINE [id number]-[id number] 08:07:00 [place] [address] Patient Name: SAMIR FITZPATRICK MR #: [id number] : 1970 Age/Sex: 48/F Req #: [id number] Adm Physician: Ordered by: ELIO VILLALOBOS MD Report #: [id number] Location: [facility] Room/Bed: Procedure: 4088-5135 H OPD/CT LUMBAR SPINE WITHOUT-HOPD Exam Date: 02/20/19 Exam Time: 0705 REPORT STATUS: Sig yazmin History: Low back [...] MD, MD 1 Transcribed By: SUSU on 02/20/19821 COPY TO: ELIO VILLALOBOS MD CT C-SPINE W/O - [id number] 07:59:00 [place] [address] Patient Name: SAMIR FITZPATRICK MR #: [id number] : 1970 Age/Sex: 48/F Req #: [id number] Adm Physician: Ordered by: ELIO VILLALOBOS MD Report #: [id number] Location: [facility] Room/Bed: Procedure: 5105-5718 H OPD/CT C-SPINE W/O - HOPD Exam [...] ELIO VILLALOBOS MD - CT L-SPINE W/O [id number] 12:17:00 [facility] : 1970 Age/S: 48 / F [address] [facility] Unit #: [id number] Loc: [place] [address] Phys: Zoë Duarte MD Acct: [id number] Dis Date: Status: REG ER PHONE #: [phone] Exam Date: 02/19/2019 1122 FAX #: [phone] Reason: fall, back and neck pain EXAMS: CPT CODE: [id number] CT L-SPINE W/O CONTRAST 85680 HISTORY: fall, back and neck pain TECHNIQUE: [...] PAGE 1 Signed Report (CONTINUED) N lizbet: RACHELKEDARSAMIR RICHARDSON [employer] [facility] : 0 1970 Age/S: 48 / F [address] [facility] Unit #: [id number] Loc: [place] [address] Phys: Alex Duarte MD Acct: [id number] Dis D ate: Status: REG ER PHONE #: Exam Date: 02/19/2019 1122 FAX #: [phone] Reason: fall, back and neck pain EXAMS: CPT CODE: [id number] CT L-SPINE W/O C ONTRAST 65229 <Continued> Degenerative changes throughout the lumbar spine cause multiple levels of foraminal narrowing as described above. Correlate with physical exam for radiculopathy. at 1217 Reported and signed by: Hua Dow MD CC: Caleb Bah M.D.; Zoë Deshpande MD Technologist:Kelly Ochoa CTDI: DLP: Trnscb Date/Time: 02/19/2019 (7626) t.SDR.RR31 Orig Print D/T: S: 02/19/2019 (2262) PAGE 2 S igned Report - CT C-SPINE W/O [id number] 11:54:00 [facility] 1970 Age/S: 48 / F [address] [facility] Unit #: [id number] Loc: [place] [address] Phys: Zoë Duarte MD Acct: [id number] Dis Date: Status: REG ER PHONE #: [phone] Exam Date: 02/19/2019 1118 FAX #: [phone] Reason: fall, back and neck pain EXAMS: CPT CODE: [id number] CT C-SPINE W/O CONTRAST 73924 HISTORY: fall, back and neck pain, possible [...] 1 Signed Report (CONTINUED) Name: SAMIR FITZPATRICK [facility] : 1970 Age/S: 48 / F [address] [facility] Unit #: [id number] Loc: [place] [address] Phys: Zoë Duarte MD Acct: [id number] Dis Date: Status: REG ER PHONE #: [phone] Exam Date: 02/19/2019 1118 FAX #: [phone] Reason: fall, back and neck pain EXAMS: CPT CODE: [id number] CT C-SPINE W/O CONTRAST 65580 <Continued> Correlate clinically for adenopathy. Prior anterior fusion of C5-C6 with no evidence of hardware loosening. Location: [facility] at 1154 Reported and signed by: Hua Dow MD CC: Caleb Bah M.D.; Zoë Duarte MD Technologist:Kelly Ochoa CTDI: DLP: Trnscb Date/Time: 02/19/2019 (4950) t.SDR.RR31 Orig Print D/T: S: 02/19/2019 (1483) PAGE 2 Signed Report - CT HEAD/BRAIN W/O [id number] 11:54:00 Name: SAMIR FITZPATRICK [facility] : 1970 Age/S: 48 / F [address] [facility] Unit #: [id number] Loc: [place] [address] Phys: Zoë Duarte MD Acct: [id number] Dis Date: Status: REG ER PHONE #: [phone] Exam Date: 02/19/2019 1107 FAX #: [phone] Reason: fall, back and neck pain, possible LOC EXAMS: CPT CODE: [id number] CT HEAD/BRAIN W/O CONT 83029 HISTORY: fall, back and neck pain, possible [...] PAGE 1 Signed Report (CONTINUED) [facility]: [facility] 1970 Age/S: 48 / F [address] [facility] Unit #: [id number] Loc: [place] [address] Phys: Zoë Duarte MD Acct: [id number] Dis Date: Status: REG ER PHONE #: [phone] Exam Date: 02/19/2019 1107 FAX #: [phone] Reason: fall, back and neck pain, possible LOC EXAMS: CPT CODE: [id number] CT HEAD/BRAIN W/O CONT 97544 <Continued> Correlate clinically for adenopathy. Prior anterior fusion of C5-C6 with no evidence of hardware loosening. Location: [facility] at 1154 Reported and signed by: Hua Dow MD CC: Caleb Bah M.D.; Zoë Duarte MD Technologist:Kelly Ochoa CTDI: DLP: Trnscb Date/Time: 02/19/2019 (1704) t.SDR.RR31 Orig Print D/T: S: 02/19/2019 (5785) PAGE 2 Signed Report CBC W/AUTO [id number] 10:00:00* Test Item Value Reference Range Interpretation [...] 0.0-0.1 N - XR ABDOMEN AP 1 [id number] 19:42:00 FAX: Chantal Causey [phone] [place]: B St: ADM FAX: Caleb Osman MD [phone] FAX: Megan Pena MD [phone] FAX: Y Basil Ruelas MD Name: SAMIR FITZPATRICK [facility] : 1970 Age/S: 48/F [address] [facility] Unit #: [id number] Loc: [address] [place] [address] Phys: Megan Jimenez MD Acct: [id number] Dis Date: Status: ADM IN PHONE #: [phone] Exam D ate: 01/31/20191926 FAX #: [phone] Reason: K IDNEY STONE, ABD PAIN EXAMS: CPT CODE: [id number] XR ABDOMEN AP 1 V 00940 HISTORY: KIDNEY STONE, ABD PAIN TECHNIQUE: AP [...] 01/31/2019 (1944) PAGE 1 Signed Report URINALYSIS [id number] 03:46:00* Test Item Value Reference Range Interpretation [...] #/LPF FEW Urine Source? Clean CatchBASIC METABOLIC [id number] 02:02:00* Test Item Value Reference Range Interpretation [...] CA) 8.4 mg/dL 8.5-10.1 L HEPATIC FUNCTION [id number] 02:02:00* Test Item Value Reference Range Interpretation [...] reference range due to change in reagent. [id number] 02:02:00* Test Item Value Reference Range Interpretation Comments LIPASE (test code = LIP) 237 U/L 73.0-393.0 N HCG SERUM [id number] 02:02:00* Test Item Value Reference Range Interpretation Comments HCG SERUM QUAL (test code = HCGQL) NEGATIVE NEGATIVE This HCGQL test is NOT applicable for MALE patients.Check with nurse about probable order error.If Tumor Marker Test needed, nurse should order test "HCGTU"(Test #550.42345) BASIC METABOLIC [id number] 01:59:00* Test Item Value Reference Range Interpretation [...] CA) 8.4 mg/dL 8.5-10.1 L HEPATIC FUNCTION [id number] 01:59:00* Test Item Value Reference Range Interpretation [...] reference range due to change in reagent. [id number] 01:59:00* Test Item Value Reference Range Interpretation Comments LIPASE (test code = LIP) 237 U/L 73.0-393.0 N HCG SERUM [id number] 01:59:00* Test Item Value Reference Range Interpretation Comments HCG SERUM QUAL (test code = HCGQL) NEGATIVE BASIC METABOLIC [id number] 01:54:00* Test Item Value Reference Range Interpretation [...] code = CA) mg/dL 8.5-10.1 HEPATIC FUNCTION [id number] 01:54:00* Test Item Value Reference Range Interpretation [...] TOTAL (test code = ALKP) IUnit/L 45-117 [id number] 01:54:00* Test Item Value Reference Range Interpretation Comments LIPASE (test code = LIP) U/L 73.0-393.0 HCG SERUM [id number] 01:54:00* Test Item Value Reference Range Interpretation Comments HCG SERUM QUAL (test code = HCGQL) NEGATIVE CBC W/O [id number] 01:42:00* Test Item Value Reference Range Interpretation [...] = MPV) 10.1 fL 6.7-11.0 N URINALYSIS [id number] 18:35:00* Test Item Value Reference Range Interpretation [...] Urine Source? Clean Catch- CT ABD PELVIS [id number] 18:30:00 Name: SAMIR FITZPATRICK [facility] : 1970 Age/S: 48 / F [address] Unit #: [id number] Loc: [place] [address] Phys: Krystal Parker NP Acct: [id number] Di s Date: Status: REG ER PHONE #: Exam Date: 01/30/2019 1805 FAX #: Reason: ABD PAIN EXAMS: CPT CODE: [id number] CT ABD PELVIS W/CONT 81886 REASON FOR EXAM: ABD PAIN EXAM ORDER [...] 1 Signed Report (CONTINUED) Name: SAMIR FITZPATRICK [facility] : 1970 Age/S: 48 / F [place] Unit #: [id number] Loc: [place] [address] Ph ys: Lisa Parker NP Acct: [id number] Dis Date: Status: REG ER PHONE #: [phone] Exam Date: 01/30/2019 1808 FAX #: [phone] Reason: ABD PAIN EXAMS: CPT CODE: [id number] CT ABD PELVIS W/CONT 12406 <Continued> Musculoskeletal structures and abdominal wall: Mild [...] (183) PAGE 2 Signed Report BASIC METABOLIC [id number] 17:28:00* Test Item Value Reference Range Interpretation [...] CA) 8.9 mg/dL 8.5-10.1 N HEPATIC FUNCTION [id number] 17:28:00* Test Item Value Reference Range Interpretation [...] reference range due to change in reagent. [id number] 17:28:00* Test Item Value Reference Range Interpretation Comments LIPASE (test code = LIP) 214 U/L 73.0-393.0 N HCG SERUM [id number] 17:28:00* Test Item Value Reference Range Interpretation Comments HCG SERUM QUAL (test code = HCGQL) NEGATIVE NEGATIVE This HCGQL test is NOT applicable for MALE patients.Check with nurse about probable order error.If Tumor Marker Test needed, nurse should order test "HCGTU"(Test #550.14725) [id number] 17:28:00* Test Item Value Reference Range Interpretation Comments TROPONIN-I (test code = TROPI) <0.015 ng/mL 0-0.045 N BASIC METABOLIC [id number] 17:21:00* Test Item Value Reference Range Interpretation [...] code = CA) mg/dL 8.5-10.1 HEPATIC FUNCTION [id number] 17:21:00* Test Item Value Reference Range Interpretation [...] TOTAL (test code = ALKP) IUnit/L 45-117 [id number] 17:21:00* Test Item Value Reference Range Interpretation Comments LIPASE (test code = LIP) U/L 73.0-393.0 HCG SERUM [id number] 17:21:00* Test Item Value Reference Range Interpretation Comments HCG SERUM QUAL (test code = HCGQL) NEGATIVE NEGATIVE This HCGQL test is NOT applicable for MALE patients.Check with nurse about probable order error.If Tumor Marker Test needed, nurse should order test "HCGTU"(Test #[id number]) [id number] 17:21:00* Test Item Value Reference Range Interpretation Comments TROPONIN-I (test code = TROPI) ng/mL 0-0.045 BASIC METABOLIC [id number] 17:16:00* Test Item Value Reference Range Interpretation [...] code = CA) mg/dL 8.5-10.1 HEPATIC FUNCTION [id number] 17:16:00* Test Item Value Reference Range Interpretation [...] TOTAL (test code = ALKP) IUnit/L 45-117 [id number] 17:16:00* Test Item Value Reference Range Interpretation Comments LIPASE (test code = LIP) U/L 73.0-393.0 HCG SERUM [id number] 17:16:00* Test Item Value Reference Range Interpretation Comments HCG SERUM QUAL (test code = HCGQL) NEGATIVE NEGATIVE This HCGQL test is NOT applicable for MALE patients.Check with nurse about probable order error.If Tumor Marker Test needed, nurse should order test "HCGTU"(Test #550.95964) [id number] 17:16:00* Test Item Value Reference Range Interpretation Comments TROPONIN-I (test code = TROPI) ng/mL 0-0.045 CBC W/O [id number] 17:09:00* Test Item Value Reference Range Interpretation [...] MPV) 10.2 fL 6.7-11.0 N CBC W/O [id number] 17:08:00* Test Item Value Reference Range Interpretation [...] (test code = MPV) fL 6.7-11.0 URINALYSIS [id number] 11:38:00* Test Item Value Reference Range Interpretation [...] Urine Source? Clean Catch- CT ABD PELVIS [id number] 11:17:00 Name: SAMIR FITZPATRICK [facility] : 1970 Age/S: 48 / F [place] Unit #: [id number] Loc: [place] [address] Phys: CoonJuan palmer MD Acct: [id number] Di s Date: Status: REG ER PHONE #: Exam Date: 12/15/2018 1042 FAX #: Reason: abd pain vomit diarrhea EXAMS: CPT CODE: [id number] CT ABD PELVIS W/CONT 17997 HISTORY: Abdominal pain w ith vomiting and [...] 1 Signed Report (CONTINUED) Name: SAMIR FITZPATRICK [facility] : 1970 Age/S: 48 / F [place] Unit #: [id number] Loc: MURAL[place] [address] Phys: Modesto Coon MD Acct: [id number] Dis Date: Status: REG ER PHONE #: [phone] Exam Date: 12/15/2018 1042 FAX #: [phone] Reason: abd pain vomit diarrhea EXAMS: CPT CODE: [id number] CT ABD PELVIS W/CONT 88675 <Continued> unchanged with markedly enlarged fibroid uterus [...] 12/15/2018 (1121) PAGE 2 Signed Report URINALYSIS [id number] 10:53:00* Test Item Value Reference Range Interpretation [...] HPF NONE Urine Source? Clean CatchBASIC METABOLIC [id number] 10:15:00* Test Item Value Reference Range Interpretation [...] CA) 9.1 mg/dL 8.5-10.1 N HEPATIC FUNCTION [id number] 10:15:00* Test Item Value Reference Range Interpretation [...] reference range due to change in reagent. [id number] 10:15:00* Test Item Value Reference Range Interpretation Comments LIPASE (test code = LIP) 120 U/L 73.0-393.0 N HCG SERUM [id number] 10:15:00* Test Item Value Reference Range Interpretation Comments HCG SERUM QUAL (test code = HCGQL) NEGATIVE NEGATIVE This HCGQL test is NOT applicable for MALE patients.Check with nurse about probable order error.If Tumor Marker Test needed, nurse should order test "HCGTU"(Test #550.80479) [id number] 10:15:00* Test Item Value Reference Range Interpretation Comments TROPONIN-I (test code = TROPI) <0.015 ng/mL 0-0.045 N LACTIC [id number] 10:11:00* Test Item Value Reference Range Interpretation [...] code = CA) mg/dL 8.5-10.1 HEPATIC FUNCTION [id number] 10:06:00* Test Item Value Reference Range Interpretation [...] TOTAL (test code = ALKP) IUnit/L 45-117 [id number] 10:06:00* Test Item Value Reference Range Interpretation Comments LIPASE (test code = LIP) U/L 73.0-393.0 HCG SERUM [id number] 10:06:00* Test Item Value Reference Range Interpretation Comments HCG SERUM QUAL (test code = HCGQL) NEGATIVE NEGATIVE This HCGQL test is NOT applicable for MALE patients.Check with nurse about probable order error.If Tumor Marker Test needed, nurse should order test "HCGTU"(Test #550.39850) [id number] 10:06:00* Test Item Value Reference Range Interpretation Comments TROPONIN-I (test code = TROPI) ng/mL 0-0.045 BASIC METABOLIC [id number] 10:05:00* Test Item Value Reference Range Interpretation [...] code = CA) mg/dL 8.5-10.1 HEPATIC FUNCTION [id number] 10:05:00* Test Item Value Reference Range Interpretation [...] TOTAL (test code = ALKP) IUnit/L 45-117 [id number] 10:05:00* Test Item Value Reference Range Interpretation Comments LIPASE (test code = LIP) U/L 73.0-393.0 HCG SERUM [id number] 10:05:00* Test Item Value Reference Range Interpretation Comments HCG SERUM QUAL (test code = HCGQL) NEGATIVE [id number] 10:05:00* Test Item Value Reference Range Interpretation Comments TROPONIN-I (test code = TROPI) ng/mL 0-0.045 CBC W/O [id number] 09:56:00* Test Item Value Reference Range Interpretation [...] MPV) 10.0 fL 6.7-11.0 N POC LACTIC [id number] 09:43:00* Test Item Value Reference Range Interpretation Comments POC LACTIC ACID (test code = POCLAC) 0.98 MMOL/L 0.4-2.2 N COMPREHENSIVE METABOLIC [id number] 00:00:00* Test Item Value Reference Range Interpretation [...] due to change in reagent. COMPREHENSIVE METABOLIC [id number] 23:58:00* Test Item Value Reference Range Interpretation [...] (test code = ALKP) IUnit/L 45-117 PROTHROMBIN [id number] 23:56:00* Test Item Value Reference Range Interpretation [...] (2.5-3.5) IS PATIENT ON ANTICOAGULANTS? NTHROMBOPLASTIN TIME [id number] 23:56:00* Test Item Value Reference Range Interpretation Comments THROMBOPLASTIN TIME PARTIAL (test code = PTT) 28.5 seconds 25.0-36. 5 N IS PATIENT ON ANTICOAGULANTS? NCBC W/AUTO [id number] 23:43:00* Test Item Value Reference Range Interpretation [...] = NRBC#) 0.00 K/mm3 0.0-0.1 N URINALYSIS [id number] 16:44:00* Test Item Value Reference Range Interpretation [...] FEW #/LPF FEW Urine Source? Clean CatchURINALYSIS [id number] 16:30:00* Test Item Value Reference Range Interpretation [...] Source? Clean Catch- CT ABD PELVIS W/O [id number] 15:50:00 Name: SAMIR FITZPATRICK [facility] : 1970 Age/S: 48 / F [address] Unit #: [id number] Loc: [place] [address] Phys: Krystal Jhaveri DO Acct: [id number] Di s Date: Status: REG ER PHONE #: Exam Date: 11/26/2018 1533 FAX #: Reason: FLANK PAIN, HEMATURIA EXAMS: CPT CODE: [id number] CT ABD PELVIS W/O CONT 50884 REASON FOR EXAM: FLANK PAIN, HEMATURIA EXAM ORDER DATE: 11/26/2018 2:07 PM Ordering M.Bharti.: Rhonda Jhaveri DO PROCEDURE: - CT ABD [...] (1550) t.SDR.VTL Orig Print D/T: S: 11/26/2018 (66 86) PAGE 1 Signed Report CBC W/O [id number] 15:25:00* Test Item Value Reference Range Interpretation [...] MPV) 10.3 fL 6.7-11.0 N BASIC METABOLIC [id number] 15:10:00* Test Item Value Reference Range Interpretation [...] CA) 9.0 mg/dL 8.5-10.1 N HEPATIC FUNCTION [id number] 15:10:00* Test Item Value Reference Range Interpretation [...] reference range due to change in reagent. [id number] 15:10:00* Test Item Value Reference Range Interpretation Comments LIPASE (test code = LIP) 92 U/L 73.0-393.0 N HCG SERUM [id number] 15:10:00* Test Item Value Reference Range Interpretation Comments HCG SERUM QUAL (test code = HCGQL) NEGATIVE NEGATIVE This HCGQL test is NOT applicable for MALE patients.Check with nurse about probable order error.If Tumor Marker Test needed, nurse should order test "HCGTU"(Test #550.55577) BASIC METABOLIC [id number] 15:03:00* Test Item Value Reference Range Interpretation [...] code = CA) mg/dL 8.5-10.1 HEPATIC FUNCTION [id number] 15:03:00* Test Item Value Reference Range Interpretation [...] TOTAL (test code = ALKP) IUnit/L 45-117 [id number] 15:03:00* Test Item Value Reference Range Interpretation Comments LIPASE (test code = LIP) U/L 73.0-393.0 HCG SERUM [id number] 15:03:00* Test Item Value Reference Range Interpretation Comments HCG SERUM QUAL (test code = HCGQL) NEGATIVE NEGATIVE This HCGQL test is NOT applicable for MALE patients.Check with nurse about probable order error.If Tumor Marker Test needed, nurse should order test "HCGTU"(Test #550.55191) - MRI Krystal-KODY HYMAN [id number] 04:14:00 FAX: Caleb Osman MD [phone] [place]: St: REG FAX: Oj Mackenzie MD [phone] Name: SAMIR FITZPATRICK [facility] : 1970 Age/S: 48/F [address] [place] [address] Unit #: [id number] Loc: [place] [address] Phys: Oj Mackenzie MD Acct: [id number] Dis Date: Status: REG ER PHONE #: [phone] Exam Date: 11/22/2018 2248 FAX #: [phone] Reason: hx of ?compression fr acture acute worsening hira EXAMS: CPT CODE: [id number] MRI L-SPINE W WO CON 46469 Clinical Indication: History of compression fracture. Acute [...] Signed Report (CONTINUED) FAX: Caleb Osman MD [phone] [place]: St: [facility] [place] FAX: Oj Mackenzie MD [phone] Name: SAMIR FITZPATRICK [facility] : 1970 Age/S: 48/F [address] Unit #: [id number] Loc: [place] [address] Phys: Oj Mackenzie MD Acct: [id number] Dis Date: Status: REG ER PHONE #: [phone] Exam Date: 11/22/2018 2248 FAX #: [phone] Reason: hx of ?compression fracture acute worsening hira EXAMS: CPT CODE: [id number] MRI L-SPINE W WO CON 91556 < Continued> moderate bilateral lateral recess stenosis. [...] within the lumbar spine. SL: KPATEL-H at 0413 Reported and signed by: Waldo Lamb M.D. CC: Caleb Bah M.D.; Oj Mackenzie MD Technologist: Reema Huerta RT(R)(CT) Trnscrd Date/Time/By: 11/23/2018 (0414) : By: [email or web address] Orig Print D/T: S: 11/23/2018 (0417) PAGE 2 Signed Report - MRI THORACIC SPINE WO/W [id number] 03:53:00 FAX: Caleb Osman MD [phone] [place]: St: [facility] [place] FAX: Oj Mackenzie MD [phone] Name: SAMIR FITZPATRICK [facility] : 1970 Age/S: 48/F [address] [place] [address] Unit #: [id number] Loc: [place] [address] Phys: Oj Mackenzie MD Acct: [id number] Dis Date: Status: REG ER PHONE #: [phone] Exam Date: 11/22/2018 2248 FAX #: [phone] Reason: hx of ?compression fracture acute worsening hira EXAMS: CPT CODE: [id number] MRI THORACIC SPINE WO/W CON 18320 Clinical Indication: History of compression fracture. Worsening [...] Signed Report (CONTINUED) FAX: Caleb Osman MD [phone] [place]: St: [facility] FAX: Oj Mackenzie MD [phone] Name: RACHELKEDARDEBRASAMIR [facility] : 1970 Age/S: 48/F [address] [place] [address] Unit #: [id number] Loc: [place] [address] Phys: Oj Mackenzie MD Acct: [id number] Dis Date: Status: REG ER PHONE #: [phone] Exam Date: 11/22/2018 2248 FAX #: [phone] Reason: hx of ?co mpression fracture acute worsening hira EXAMS: CPT CODE: [id number] MRI THORACIC SPINE WO/W CON 71422 <Continued> loss. No significant disc herniation. No [...] Signed Report (CONTINUED) FAX: Caleb Osman MD [phone] [place]: St: [facility] [place] FAX: Oj Mackenzie MD [phone] ---- Larry e: SAMIR FITZPATRICK [facility] : Age/S: 48/F [address] [place] [address] Unit #: [id number] Loc: [place] [address] Phys: Oj Mackenzie MD Acct: [id number] Dis Memo e: Status: REG ER PHONE #: Exam Date: 11/22/20182247 FAX #: Reason: hx of ?compression fracture acute worsening hira EXAMS: CPT CODE: [id number] MRI THORACIC SPI NE WO/W CON 56760 <Continued> at 0353 Reported and signed by: Waldo Lamb M.D. CC: Caleb Bah M.D.; Oj Mackenzie MD Technologist: Reema Huerta RT(R)(CT) Trnscrd Date/Time/By: 11/23/2018 (0353) : By: [email or web address] Orig Print D/T: S: 11/23/2018 (0358) PAGE 3 Signed Report - MRI C-SPINE W W/O [id number] 03:35:00 FAX: Caleb Osman MD [phone] [place]: St: [facility] [place] FAX: Oj Mackenzie MD [phone] Name: SAMIR FITZPATRICK [facility] : 1970 Age/S: 48/F [address] [place] [address] Unit #: [id number] Loc: [place] [address] Phys: Oj Mackenzie MD Acct: [id number] Dis Date: Status: REG ER PHONE #: [phone] Exam Date: 11/22/20182246 FAX #: [phone] Reason: hx of ?compression fr acture acute worsening hira EXAMS: CPT CODE: [id number] MRI C-SPINE W W/O CONT 52266 Clinical Indication: History of compression fracture. Acute [...] Report (CONTINUED) F AX: Caleb Osman MD [phone] [place]: St: REG FAX: Oj Mackenzie MD [phone] Name: SAMIR FITZPATRICK [facility] : 1970 Age/S: 48/F [address] [facility] Unit #: [id number] Loc: [place] [address] Phys: Oj Mackenzie MD Acct: [id number] Dis Date: Status: REG ER PHONE #: [phone] Exam Date: 11/22/2018 2247 FAX #: [phone] Reason: hx of ?compression frac ture acute worsening hira EXAMS: CPT CODE: [id number] MRI C-SPINE W W/O CONT 94267 <Continued> foraminal narrowing. C5-C6: Small broad-based disc [...] (0338) PAGE 2 Signed Report BASIC METABOLIC [id number] 01:57:00* Test Item Value Reference Range Interpretation [...] CA) 8.1 mg/dL 8.0-10.5 N HCG SERUM [id number] 01:57:00* Test Item Value Reference Range Interpretation Comments HCG SERUM QUAL (test code = HCGQL) SERUM NEGATIVE NEGATIVE BASIC METABOLIC [id number] 01:52:00* Test Item Value Reference Range Interpretation [...] code = CA) mg/dL 8.0-10.5 HCG SERUM [id number] 01:52:00* Test Item Value Reference Range Interpretation Comments HCG SERUM QUAL (test code = HCGQL) SERUM NEGATIVE NEGATIVE CBC W/AUTO [id number] 01:34:00* Test Item Value Reference Range Interpretation [...] REQUIRED (test code = MDIFF) NO URINALYSIS [id number] 01:25:00* Test Item Value Reference Range Interpretation [...] MUCU) FEW #/LPF FEW Urine Source? CatheterURINALYSIS [id number] 01:23:00* Test Item Value Reference Range Interpretation [...] BACU) per HPF NONE Urine Source? CatheterURINALYSIS [id number] 02:36:00* Test Item Value Reference Range Interpretation [...] taking into account the patients history. LACTIC [id number] 02:01:00* Test Item Value Reference Range Interpretation Comments LACTIC ACID (test code = LACT) 1.8 mmol/L 0.4-1.9 N BASIC METABOLIC [id number] 02:01:00* Test Item Value Reference Range Interpretation [...] CA) 9.6 mg/dL 8.5-10.1 N HEPATIC FUNCTION [id number] 02:01:00* Test Item Value Reference Range Interpretation [...] reference range due to change in reagent. [id number] 02:01:00* Test Item Value Reference Range Interpretation Comments LIPASE (test code = LIP) 110 U/L 73.0-393.0 N HCG SERUM [id number] 02:01:00* Test Item Value Reference Range Interpretation Comments HCG SERUM QUAL (test code = HCGQL) NEGATIVE NEGATIVE This HCGQL test is NOT applicable for MALE patients.Check with nurse about probable order error.If Tumor Marker Test needed, nurse should order test "HCGTU"(Test #550.46200) [id number] 02:01:00* Test Item Value Reference Range Interpretation Comments TROPONIN-I (test code = TROPI) <0.015 ng/mL 0-0.045 N BASIC METABOLIC [id number] 01:50:00* Test Item Value Reference Range Interpretation [...] code = CA) mg/dL 8.5-10.1 HEPATIC FUNCTION [id number] 01:50:00* Test Item Value Reference Range Interpretation [...] TOTAL (test code = ALKP) IUnit/L 45-117 [id number] 01:50:00* Test Item Value Reference Range Interpretation Comments LIPASE (test code = LIP) U/L 73.0-393.0 HCG SERUM [id number] 01:50:00* Test Item Value Reference Range Interpretation Comments HCG SERUM QUAL (test code = HCGQL) NEGATIVE NEGATIVE This HCGQL test is NOT applicable for MALE patients.Check with nurse about probable order error.If Tumor Marker Test needed, nurse should order test "HCGTU"(Test #550.75425) [id number] 01:50:00* Test Item Value Reference Range Interpretation Comments TROPONIN-I (test code = TROPI) ng/mL 0-0.045 BASIC METABOLIC [id number] 01:50:00* Test Item Value Reference Range Interpretation [...] code = CA) mg/dL 8.5-10.1 HEPATIC FUNCTION [id number] 01:50:00* Test Item Value Reference Range Interpretation [...] TOTAL (test code = ALKP) IUnit/L 45-117 [id number] 01:50:00* Test Item Value Reference Range Interpretation Comments LIPASE (test code = LIP) U/L 73.0-393.0 HCG SERUM [id number] 01:50:00* Test Item Value Reference Range Interpretation Comments HCG SERUM QUAL (test code = HCGQL) NEGATIVE NEGATIVE This HCGQL test is NOT applicable for MALE patients.Check with nurse about probable order error.If Tumor Marker Test needed, nurse should order test "HCGTU"(Test #550.41028) [id number] 01:50:00* Test Item Value Reference Range Interpretation Comments TROPONIN-I (test code = TROPI) ng/mL 0-0.045 CBC W/O [id number] 01:26:00* Test Item Value Reference Range Interpretation [...] code = MPV) fL 6.7-11.0 CBC W/O [id number] 01:26:00* Test Item Value Reference Range Interpretation [...] = MPV) 9.8 fL 6.7-11.0 N LACTIC [id number] 14:44:00* Test Item Value Reference Range Interpretation Comments LACTIC ACID (test code = LACT) 1.5 mmol/L 0.4-1.9 N URINALYSIS [id number] 13:08:00* Test Item Value Reference Range Interpretation [...] Urine Source? Clean Catch- CT ABD PELVIS [id number] 11:21:00 Name: SAMIR FITZPATRICK [facility] : 1970 Age/S: 47 / F [address] Unit #: [id number] Loc: [place] [address] Phys: Juan Coon MD Acct: [id number] Di s Date: Status: REG ER PHONE #: Exam Date: 09/22/2018 1102 FAX #: [phone] Reason: lower abd pain fever EXAMS: CPT CODE: [id number] CT ABD PELVIS W/CONT 95275 HISTORY: Lower abdominal pain and fever. COMPARISON: [...] 1 Signed Report (CONTINUED) Name: SAMIR FITZPATRICK [facility] : 1970 Age/S: 47 / F [address] Unit #: [id number] Loc: [place] [address] Phys: Modesto Coon MD Acct: [id number] Dis Date: Status: REG ER PHONE #: [phone] Exam Date: 019 1102 FAX #: [phone] Reason: lower abd pain fe geovanny EXAMS: CPT CODE: [id number] CT ABD PELVIS W/CONT 48918 <Continued> IMPRESSION: Appendix is not visible but [...] Holbrook RT(R),(MR),(CT); CTDI: DLP: Trnscb Date/Time: 09/22/2018 (112) t.SDR.TH4 Orig Print D/T: S: 09/22/2018 (1121) PAGE 2 Signed Report HCG SERUM [id number] 10:22:00* Test Item Value Reference Range Interpretation Comments HCG SERUM QUAL (test code = HCGQL) NEGATIVE NEGATIVE This HCGQL test is NOT applicable for MALE patients.Check with nurse about probable order error.If Tumor Marker Test needed, nurse should order test "HCGTU"(Test #550.38716) PROCALCITONIN (PCT)2018-09-22 10:10:00* Test Item Value Reference [...] taking into account the patients history. LACTIC [id number] 10:05:00* Test Item Value Reference Range Interpretation Comments LACTIC ACID (test code = LACT) 2.4 mmol/L 0.4-1.9 HH Results called to FLORENCIO TRANZIE4510wa V.LAB. 09/22/18 1005Critical results verified and read back by Nurse? Y - XR CHEST 1 [id number] 10:05:00 FAX: Modesto Coon MD [phone] [place]: St: REG Name: SAMIR GARCIA [facility] : [birth year] Age/S: 47/F [address] [facility] Unit #: [id number] Loc: [place] [address] Phys: Modesto Coon MD Acct: [id number] Dis Date: Status: REG ER PHONE #: [phone] Exam Date: 09/22/2018954 FAX #: [phone] Reason: CODE SEPSIS EXAMS: CPT CODE: [id number] XR CHEST 1 V 20906 HISTORY: :Sepsis. CO MPARISON: August 26, 2016. [...] By: [email or web address] Orig Print D/T: S: 09/22/2018 (1006) PAGE 1 Signed Report BASIC METABOLIC [id number] 10:04:00* Test Item Value Reference Range Interpretation [...] CA) 11.3 mg/dL 8.5-10.1 H HEPATIC FUNCTION [id number] 10:04:00* Test Item Value Reference Range Interpretation [...] reference range due to change in reagent. [id number] 10:04:00* Test Item Value Reference Range Interpretation Comments LIPASE (test code = LIP) 163 U/L 73.0-393.0 N [id number] 10:04:00* Test Item Value Reference Range Interpretation Comments TROPONIN-I (test code = TROPI) <0.015 ng/mL 0-0.045 N BASIC METABOLIC [id number] 09:54:00* Test Item Value Reference Range Interpretation [...] code = CA) mg/dL 8.5-10.1 HEPATIC FUNCTION [id number] 09:54:00* Test Item Value Reference Range Interpretation [...] TOTAL (test code = ALKP) IUnit/L 45-117 [id number] 09:54:00* Test Item Value Reference Range Interpretation Comments LIPASE (test code = LIP) U/L 73.0-393.0 [id number] 09:54:00* Test Item Value Reference Range Interpretation Comments TROPONIN-I (test code = TROPI) ng/mL 0-0.045 CBC W/AUTO [id number] 09:48:00* Test Item Value Reference Range Interpretation [...] = NRBC#) 0.00 K/mm3 0.0-0.1 N LACTIC [id number] 22:15:00* Test Item Value Reference Range Interpretation Comments LACTIC ACID (test code = LACT) 1.3 mmol/L 0.4-1.9 N URINALYSIS [id number] 20:50:00* Test Item Value Reference Range Interpretation [...] FEW #/LPF FEW Urine Source? Clean CatchURINALYSIS [id number] 20:49:00* Test Item Value Reference Range Interpretation [...] Source? Clean Catch- CT ABD PELVIS W/O [id number] 19:04:00 Name: SAMIR FITZPATRICK [facility] : 1970 Age/S: 47 / F [address] Unit #: [id number] Loc: [place] [address] Phys: Hemal Noguera DO Acct: [id number] Dis Date: Status: REG ER PHONE #: Exam Date: 09/16/2018 1850 FAX #: Reason: right flank pain EXAMS: CPT CODE: [id number] CT ABD PELVIS W/O CONT 77355 HISTORY: Right flank pain and fever. COMPARISON: [...] 1 Signed Report (CONTINUED) Name: SAMIR FITZPATRICK [facility] : 1970 Age[facility]S: 47 [facility] [address] [facility] #: [id number] Loc: [place] [address] Phys: Hemal Noguera DO Acct: [id number] Dis Date: Status: REG ER PHONE #: [phone] Exam Date: 09/16/2018 1850 FAX #: [phone] Reason: right fl ank pain EXAMS: CPT CODE: [id number] CT ABD PELVIS W/O CONT 17677 <Continued> stones noted again. Decompressed urinary bladder [...] Suh CTDI: DLP: Trnscb Date/Time: 09/16/2018 (1903) t.BREANN.TH4 Orig Print D/T: S: 09/16/2018 (1906) PAGE 2 Signed Report LACTIC [id number] 18:39:00* Test Item Value Reference Range Interpretation Comments LACTIC ACID (test code = LACT) 2.6 mmol/L 0.4-1.9 HH Results called to DR. HINSON by ALISON 09/16/18 1838Critical results verified and read back by Nurse? Y HCG SERUM [id number] 16:17:00* Test Item Value Reference Range Interpretation Comments HCG SERUM QUAL (test code = HCGQL) NEGATIVE NEGATIVE This HCGQL test is NOT applicable for MALE patients.Check with nurse about probable order error.If Tumor Marker Test needed, nurse should order test "HCGTU"(Test #550.84980) PROCALCITONIN (PCT)2018-09-16 16:15:00* Test Item Value Reference [...] taking into account the patients history. LACTIC [id number] 16:07:00* Test Item Value Reference Range Interpretation Comments LACTIC ACID (test code = LACT) 3.2 mmol/L 0.4-1.9 HH Results called to VHN4135 by V.LAB.SPR 09/16/18 1607Critical results verified and read back by Nurse? Y BASIC METABOLIC [id number] 16:04:00* Test Item Value Reference Range Interpretation [...] CA) 11.1 mg/dL 8.5-10.1 H HEPATIC FUNCTION [id number] 16:04:00* Test Item Value Reference Range Interpretation [...] reference range due to change in reagent. [id number] 16:04:00* Test Item Value Reference Range Interpretation Comments TROPONIN-I (test code = TROPI) <0.015 ng/mL 0-0.045 N BASIC METABOLIC [id number] 15:54:00* Test Item Value Reference Range Interpretation [...] code = CA) mg/dL 8.5-10.1 HEPATIC FUNCTION [id number] 15:54:00* Test Item Value Reference Range Interpretation [...] TOTAL (test code = ALKP) IUnit/L 45-117 [id number] 15:54:00* Test Item Value Reference Range Interpretation Comments TROPONIN-I (test code = TROPI) ng/mL 0-0.045 CBC W/AUTO [id number] 15:45:00* Test Item Value Reference Range Interpretation [...] code = MDIFF) NO - XR L-SPINE /3 [id number] 12:30:00 FAX: Farzad Werner [place]: St: REG Name: Christian CARVALHOFARZADSAMIR [facility] : [birth year] Age/S: 47/F [address] [facility] Unit #: [id number] Loc: [place] [address] Phys: Farzad Werner MD Acct: [id number] Dis Date: Status: REG ER PHONE #: [phone] Exam Date: 08/02/2018 1211 FAX #: [phone] Reason: fall, back pain EXAMS: CPT CODE: [id number] XR L-SPINE 2/3 VIEWS 12974 HISTORY: Fall and back pain. COMPARISON: None [...] Technologist: DANIEL MAC RT(R) Trnscrd Date/Time/By: 08/02/2018 (6488) : By: [email or web address] Orig Print D/T: S: 11/2018 (1425) PAGE 1 Signed Repo rt URINALYSIS [id number] 12:15:00* Test Item Value Reference Range Interpretation [...] #/LPF FEW Urine Source? Clean CatchUR HCG [id number] 12:15:00* Test Item Value Reference Range Interpretation Comments UR HCG QUAL (test code = HCGQLU) NEGATIVE This HCGQL test is NOT applicable for MALE patients.Check with nurse about probable order error.If Tumor Marker Test needed, nurse should order test "HCGTU"(Test #550.98700) Urine Source? Clean CatchURINALYSIS [id number] 12:14:00* Test Item Value Reference Range Interpretation [...] HPF 0-5 Urine Source? Clean CatchUR HCG [id number] 12:14:00* Test Item Value Reference Range Interpretation Comments UR HCG QUAL (test code = HCGQLU) NEGATIVE This HCGQL test is NOT applicable for MALE patients.Check with nurse about probable order error.If Tumor Marker Test needed, nurse should order test "HCGTU"(Test #550.64114) Urine Source? Clean CatchBASIC METABOLIC [id number] 12:13:00* Test Item Value Reference Range Interpretation [...] = CA) 8.9 mg/dL 8.5-10.1 N URINALYSIS [id number] 12:09:00* Test Item Value Reference Range Interpretation [...] HPF 0-5 Urine Source? Clean CatchUR HCG [id number] 12:09:00* Test Item Value Reference Range Interpretation Comments UR HCG QUAL (test code = HCGQLU) NEGATIVE This HCGQL test is NOT applicable for MALE patients.Check with nurse about probable order error.If Tumor Marker Test needed, nurse should order test "HCGTU"(Test #550.99608) Urine Source? Clean CatchCBC W/O [id number] 11:34:00* Test Item Value Reference Range Interpretation [...] MPV) 10.0 fL 6.7-11.0 N POC LACTIC [id number] 03:10:00* Test Item Value Reference Range Interpretation [...] into account the patients history. BASIC METABOLIC [id number] 01:32:00* Test Item Value Reference Range Interpretation [...] CA) 9.6 mg/dL 8.5-10.1 N HEPATIC FUNCTION [id number] 01:32:00* Test Item Value Reference Range Interpretation [...] reference range due to change in reagent. [id number] 01:32:00* Test Item Value Reference Range Interpretation Comments TROPONIN-I (test code = TROPI) <0.015 ng/mL 0-0.045 N LACTIC [id number] 01:31:00* Test Item Value Reference Range Interpretation Comments LACTIC ACID (test code = LACT) 2.2 mmol/L 0.4-1.9 HH Results called to [id number] by [email or web address] 06/14/18 0130Critical results verified and read back by Nurse? Y URINALYSIS [id number] 01:29:00* Test Item Value Reference Range Interpretation [...] #/LPF FEW Urine Source? Clean CatchBASIC METABOLIC [id number] 01:15:00* Test Item Value Reference Range Interpretation [...] code = CA) mg/dL 8.5-10.1 HEPATIC FUNCTION [id number] 01:15:00* Test Item Value Reference Range Interpretation [...] TOTAL (test code = ALKP) IUnit/L 45-117 [id number] 01:15:00* Test Item Value Reference Range Interpretation Comments TROPONIN-I (test code = TROPI) ng/mL 0-0.045 CBC W/AUTO [id number] 01:03:00* Test Item Value Reference Range Interpretation [...] NRBC#) 0.00 K/mm3 0.0-0.1 N POC LACTIC [id number] 00:48:00* Test Item Value Reference Range Interpretation Comments POC LACTIC ACID (test code = POCLAC) 2.15 MMOL/L 0.4-2.2 N - CT ABD PELVIS [id number] 18:12:00 Name: SAMIR FITZPATRICK [facility] : 1970 Age/S: 47 / F [address] [facility] Unit #: [id number] Loc: [place] [address] Phys: Modesto Coon MD Acct: [id number] Dis Date: Status: REG ER PHONE #: [phone] Exam Date: 05/27/2018 1805 FAX #: [phone] Reason: LOWER ABD PAIN EXAMS: CPT CODE: [id number] CT ABD PELVIS W/CONT [id number] EXAM: CT of the abdomen and pelvis [...] CTDI: DLP: PAGE 1 Signed Report URINALYSIS [id number] 16:32:00* Test Item Value Reference Range Interpretation [...] #/LPF FEW Urine Source? Clean CatchBASIC METABOLIC [id number] 16:11:00* Test Item Value Reference Range Interpretation [...] CA) 9.0 mg/dL 8.5-10.1 N HEPATIC FUNCTION [id number] 16:11:00* Test Item Value Reference Range Interpretation [...] reference range due to change in reagent. [id number] 16:11:00* Test Item Value Reference Range Interpretation Comments LIPASE (test code = LIP) 155 U/L 73.0-393.0 N HCG SERUM [id number] 16:11:00* Test Item Value Reference Range Interpretation Comments HCG SERUM QUAL (test code = HCGQL) NEGATIVE NEGATIVE This HCGQL test is NOT applicable for MALE patients.Check with nurse about probable order error.If Tumor Marker Test needed, nurse should order test "HCGTU"(Test #550.88255) BASIC METABOLIC [id number] 16:06:00* Test Item Value Reference Range Interpretation [...] code = CA) mg/dL 8.5-10.1 HEPATIC FUNCTION [id number] 16:06:00* Test Item Value Reference Range Interpretation [...] TOTAL (test code = ALKP) IUnit/L 45-117 [id number] 16:06:00* Test Item Value Reference Range Interpretation Comments LIPASE (test code = LIP) U/L 73.0-393.0 HCG SERUM [id number] 16:06:00* Test Item Value Reference Range Interpretation Comments HCG SERUM QUAL (test code = HCGQL) NEGATIVE NEGATIVE This HCGQL test is NOT applicable for MALE patients.Check with nurse about probable order error.If Tumor Marker Test needed, nurse should order test "HCGTU"(Test #550.32085) BASIC METABOLIC [id number] 16:03:00* Test Item Value Reference Range Interpretation [...] code = CA) mg/dL 8.5-10.1 HEPATIC FUNCTION [id number] 16:03:00* Test Item Value Reference Range Interpretation [...] TOTAL (test code = ALKP) IUnit/L 45-117 [id number] 16:03:00* Test Item Value Reference Range Interpretation Comments LIPASE (test code = LIP) U/L 73.0-393.0 HCG SERUM [id number] 16:03:00* Test Item Value Reference Range Interpretation Comments HCG SERUM QUAL (test code = HCGQL) NEGATIVE CBC W/O [id number] 15:57:00* Test Item Value Reference Range Interpretation [...] = MPV) 10.3 fL 6.7-11.0 N URINALYSIS [id number] 22:30:00* Test Item Value Reference Range Interpretation [...] FEW #/LPF FEW Urine Source? Clean CatchURINALYSIS [id number] 22:27:00* Test Item Value Reference Range Interpretation [...] HPF 0-5 Urine Source? Clean CatchBASIC METABOLIC [id number] 22:07:00* Test Item Value Reference Range Interpretation [...] CA) 9.0 mg/dL 8.5-10.1 N HEPATIC FUNCTION [id number] 22:07:00* Test Item Value Reference Range Interpretation [...] reference range due to change in reagent. [id number] 22:07:00* Test Item Value Reference Range Interpretation Comments LIPASE (test code = LIP) 204 U/L 73.0-393.0 N HCG SERUM [id number] 22:07:00* Test Item Value Reference Range Interpretation Comments HCG SERUM QUAL (test code = HCGQL) NEGATIVE NEGATIVE This HCGQL test is NOT applicable for MALE patients.Check with nurse about probable order error.If Tumor Marker Test needed, nurse should order test "HCGTU"(Test #550.14732) BASIC METABOLIC [id number] 22:06:00* Test Item Value Reference Range Interpretation [...] code = CA) mg/dL 8.5-10.1 HEPATIC FUNCTION [id number] 22:06:00* Test Item Value Reference Range Interpretation [...] TOTAL (test code = ALKP) IUnit/L 45-117 [id number] 22:06:00* Test Item Value Reference Range Interpretation Comments LIPASE (test code = LIP) U/L 73.0-393.0 HCG SERUM [id number] 22:06:00* Test Item Value Reference Range Interpretation Comments HCG SERUM QUAL (test code = HCGQL) NEGATIVE NEGATIVE This HCGQL test is NOT applicable for MALE patients.Check with nurse about probable order error.If Tumor Marker Test needed, nurse should order test "HCGTU"(Test #550.89775) BASIC METABOLIC [id number] 21:58:00* Test Item Value Reference Range Interpretation [...] code = CA) mg/dL 8.5-10.1 HEPATIC FUNCTION [id number] 21:58:00* Test Item Value Reference Range Interpretation [...] TOTAL (test code = ALKP) IUnit/L 45-117 [id number] 21:58:00* Test Item Value Reference Range Interpretation Comments LIPASE (test code = LIP) U/L 73.0-393.0 HCG SERUM [id number] 21:58:00* Test Item Value Reference Range Interpretation Comments HCG SERUM QUAL (test code = HCGQL) NEGATIVE CBC W/O [id number] 21:34:00* Test Item Value Reference Range Interpretation [...]
== END 2020-02-25 02:10 | disposition home or self-care (01) ==
LOC: FSED 23:38
DX: J45.901 Unspecified asthma with (acute) exacerbation (principal); J20.9 Acute bronchitis, unspecified; J02.9 Acute pharyngitis, unspecified; E86.0 Dehydration; R11.2 Nausea with vomiting, unspecified; R05 Cough; F41.9 Anxiety disorder, unspecified; K21.9 Gastro-esophageal reflux disease without esophagitis
CPT/HCPCS: 71045; 99283; J0696; J2405; J2930; J7030

== ENCOUNTER 2020-10-08 16:34 | Emergency (ER) | payer OTHER ==
[~2020-10-08] VITALS: Ht 177.8 cm; Wt 163.3 kg
[~2020-10-08 16:34] MED LIST changes: +ALBUTEROL2.5 MG/3 M PO; +AZITHROMYCIN500 MG PO; +BROMFED DM COU118 ML PO; +ONDANSETRON ODT8 MG PO; +PREDNISONE20 MG PO; +PROAIR HFA INH8.5 GM PO
[2020-10-08] MEDS ORDERED: ASPIRIN 81 MG CHEW TAB PO ONE (20:00)
== END 2020-10-08 21:44 | disposition left against medical advice (07) ==
LOC: ER 17:02
DX: I69.954 Hemiplegia and hemiparesis following unspecified cerebrovascular disease affecting left non-dominant side (principal)
CPT/HCPCS: 70450; 71045

== ENCOUNTER 2021-01-13 18:20 | Emergency (ER) | payer OTHER ==
[~2021-01-13] VITALS: Ht 177.8 cm; Wt 163.3 kg
[2021-01-13] MEDS ORDERED: MORPHINE SULFATE INJ 4 MG/ML INJ 1ML IV STA (21:11)
[2021-01-13] MEDS ORDERED: ONDANSETRON HCL INJ 2MG/ML 2ML 2 MG/ML VIAL IV STA (21:11)
[2021-01-13] MEDS ORDERED: SODIUM CHLORIDE 0.9% 1000ML 1,000 ML IV SCH (21:15)
[2021-01-13] MEDS ORDERED: METHYLPREDNISOLONE SOD SUCC 125 MG/2ML VIAL IV ONE (21:15)
[2021-01-13] MEDS ORDERED: HYDROCODONE/APAP 5MG-325MG TAB PO ONE (21:30)
[2021-01-13] MEDS ORDERED: METHYLPREDNISOLONE SOD SUCC 125 MG/2ML VIAL ONE (21:38)
[2021-01-13] MEDS ORDERED: ONDANSETRON HCL INJ 2MG/ML 2ML 2 MG/ML VIAL ONE (21:38)
[2021-01-13] MEDS ORDERED: HYDROCODONE/APAP 5MG-325MG TAB ONE (21:39)
[2021-01-13] MEDS ORDERED: SODIUM CHLORIDE 0.9% 1000ML 1,000 ML ONE (21:39)
[2021-01-13] MEDS ORDERED: ACETAMINOPHEN/CODEINE ELIX 120-12 MG/5 ML UDC ONE (21:58)
[2021-01-13] MEDS ORDERED: ACETAMINOPHEN/CODEINE ELIX 120-12 MG/5 ML UDC NG ONE (22:00)
[2021-01-13] MEDS ORDERED: ALBUTEROL/IPRATROPIUM 3 ML NEB NEB ONE (22:30)
[2021-01-13] MEDS ORDERED: ALBUTEROL/IPRATROPIUM 3 ML NEB ONE (22:39)
[2021-01-13] MEDS ORDERED: AZITHROMYCIN250 MG PO (22:41)
[2021-01-13] MEDS ORDERED: PREDNISONE20 MG PO (22:44)
[2021-01-13] MEDS ORDERED: GUAIFEN-CODEINE5 ML PO (22:45)
== END 2021-01-14 02:59 | disposition home or self-care (01) ==
LOC: FSED 20:59
DX: R05 Cough (principal); J20.9 Acute bronchitis, unspecified; J45.901 Unspecified asthma with (acute) exacerbation; K21.9 Gastro-esophageal reflux disease without esophagitis; M54.9 Dorsalgia, unspecified; G89.29 Other chronic pain; E66.01 Morbid (severe) obesity due to excess calories; Z20.822 Contact with and (suspected) exposure to COVID-19; Z86.73 Personal history of transient ischemic attack (TIA), and cerebral infarction without residual deficits
CPT/HCPCS: 80053; 85025; 99283; J2405; J2930; J7030; U0002